=== PATIENT | female | born 1970 | race Caucasian/White ===

== ENCOUNTER → 2020-05-10 10:27 | Outpatient (CLI) | payer MEDICARE, SELFPAY ==
--- NOTE | ~2020-05-10 | XR_ITS ---
EXAMINATION: XR chest 2V 05/10/2020 11:24 INDICATION: Asthma. Dyspnea. PROCEDURE: 2 view chest COMPARISON: No prior studies for comparison. FINDINGS: The lungs are clear. The cardiomediastinal silhouette is within normal limits. There are no pleural effusions. There is no pneumothorax suspected. IMPRESSION: 1: NO ACUTE CARDIOPULMONARY DISEASE. Reviewed, dictated and finalized at location A.
== END ==
PROVIDERS: PCP Internal Medicine; Visit Provider Internal Medicine Pulmonary Disease
DX: R06.09 Other forms of dyspnea (principal)
CPT/HCPCS: 71046

== ENCOUNTER 2020-06-23 15:05 | Outpatient (CLI) | payer MEDICARE, MEDICAID, SELFPAY ==
--- NOTE | ~2020-06-23 | US_ITS ---
EXAMINATION: US pelvic complete w TV DATE: 06/23/2020 16:01 INDICATION: Pelvic mass. TECHNIQUE: Multiple transabdominal and transvaginal sonographic images of the pelvis were obtained. COMPARISON: Pelvis ultrasound 08/01/2014 FINDINGS: TRANSABDOMINAL ULTRASOUND: The uterus is absent. There is no free fluid in the pelvis. TRANSVAGINAL ULTRASOUND: The left ovary is absent. The right ovary is not visualized. There is no abnormal mass. IMPRESSION: 1. No abnormal pelvic mass identified. 2. Right ovary not visualized. Left ovary and uterus absent. Reviewed, dictated and finalized at location A. 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
== END 2020-06-23 15:06 ==
PROVIDERS: PCP Internal Medicine; Visit Provider Obstetrics & Gynecology Gynecology
DX: R19.00 Intra-abdominal and pelvic swelling, mass and lump, unspecified site (principal); Z90.710 Acquired absence of both cervix and uterus
CPT/HCPCS: 76830; 76856

== ENCOUNTER 2020-08-24 07:51 | Outpatient (CLI) | payer MEDICARE, MEDICAID, SELFPAY ==
--- NOTE | ~2020-08-24 | MR_ITS ---
EXAMINATION: MR brain/brain stem wo con DATE: 08/24/2020 08:50 INDICATION: Migraine headache without aura without status migrainosus. TECHNIQUE: Magnetic resonance imaging (MRI) of the brain and brainstem was performed without intraven ous contrast. Sequences included sagittal and axial T1-weighted FSE, axial diffusion-weighted FS EPI, axial T2*-weighted GRE, axial T2-weighted FLAIR Propeller, and axial T2-weighted Propeller. Apparent diffusion coefficient (ADC) maps were created. COMPARISON: None. FINDINGS: There is no intracranial hemorrhage, acute infarction, or abnormal intracranial mass lesion . There are scattered areas of nonspecific increased T2-weighted signal intensity in the cerebral whi te matter, which is within normal limits for the patient's age. The ventricles are normal in size. Th e paranasal sinuses are clear. The orbits are normal. The mastoid air cells are normal. IMPRESSION: 1. Normal aging brain. Reviewed, dictated and finalized at location A. 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 Normal aging brain.
== END 2020-08-24 07:52 ==
PROVIDERS: PCP Internal Medicine; Visit Provider Psychiatry & Neurology Neurology
DX: G43.009 Migraine without aura, not intractable, without status migrainosus (principal)
CPT/HCPCS: 70551

== ENCOUNTER → 2020-08-25 12:28 | Outpatient (CLI) | payer MEDICARE, SELFPAY ==
--- NOTE | ~2020-08-25 | MM_ITS ---
EXAMINATION: MM screening [facility] BI w vic HISTORY: Screening mammogram TECHNIQUE: Craniocaudal and mediolateral oblique 3-D tomosynthesis images were obtained and synthetic 2-D images were generated. CAD analysis was submitted and interpreted. COMPARISON: 12/17/2018, 12/15/2017, 11/28/2016 BREAST PARENCHYMAL COMPOSITION: The breasts are almost entirely fatty. FINDINGS: There is no evidence of suspicious mass, calcification, or architectural distortion to sugg est malignancy in either breast. There has been no suspicious interval change. IMPRESSION: 1. No mammographic evidence of malignancy. 2. Recommend routine screening mammography in one year. BI-RADS Category 1: Negative Reviewed, dictated and finalized at location A. 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
== END ==
PROVIDERS: PCP Internal Medicine; Visit Provider Obstetrics & Gynecology Gynecology
DX: Z12.31 Encounter for screening mammogram for malignant neoplasm of breast (principal)
CPT/HCPCS: 77063; 77067

== ENCOUNTER 2020-10-24 11:22 | Outpatient (CLI) | payer MEDICARE, MEDICAID, SELFPAY ==
--- NOTE | ~2020-10-24 | US_ITS ---
EXAMINATION: US thyroid EXAM DATE: 10/24/2020 11:41 INDICATION: nontoxic single thyroid nodule. TECHNIQUE: Multiple grayscale and Doppler images of the thyroid were obtained (by a technologist who performed the scan) and subsequently reviewed. Individual nodules and recommendations may be reporte d in accordance with TI-RADS system as designated by the 2017 ACR White Paper TI-RADS committee. The re is no prior study for comparison. FINDINGS: The right thyroid lobe measures 4.6 x 1.6 x 1.5 cm, the left measuring 4.6 x 1.4 x 1.6 cm. Mildly dif fusely heterogeneous thyroid echogenicity with several small nodules, largest in the right thyroid lo be at 1.0 x 0.6 x 0.5 cm with single punctate calcification. IMPRESSION: Multiple small thyroid nodules most likely benign but recommend one-year follow-up ultras ound. Reviewed, dictated and finalized at location B. SHER IMPLANT IMPRESSION: Multiple small thyroid nodules most likely benign but recommend one -year follow-up ultrasound.
== END 2020-10-24 11:23 ==
PROVIDERS: Visit Provider Internal Medicine Endocrinology, Diabetes & Metabolism
DX: E04.2 Nontoxic multinodular goiter (principal)
CPT/HCPCS: 76536

== ENCOUNTER → 2021-01-08 13:53 | Outpatient (CLI) | payer MEDICARE, MEDICAID, SELFPAY ==
--- NOTE | ~2021-01-08 | MR_ITS ---
EXAMINATION: MR brain/brain stem wo/w con DATE: 01/08/2021 14:45 INDICATION: Migraine headache without aura and without status migrainosus. TECHNIQUE: Magnetic resonance imaging (MRI) of the brain and brainstem was performed without and with 20 mL MultiHance intravenous contrast. Sequences included sagittal and axial T1-weighted FSE, axial diffusion-weighted FS EPI, axial T2*-weighted GRE, axial T2-weighted FLAIR Propeller, and axial T2-we ighted Propeller. Postcontrast sequences included axial and coronal T1-weighted FSE. Apparent diffusi on coefficient (ADC) maps were created. COMPARISON: Brain MRI 08/24/2020 FINDINGS: There are scattered areas of nonspecific increased T2-weighted signal intensity in the cere bral white matter, which is within normal limits for the patient's age. There is no intracranial hemo rrhage, acute infarction, or abnormal intracranial mass lesion. The ventricles are normal in size. Th e orbits are normal. There are surgical changes of the paranasal sinuses. The mastoid air cells are n ormal. IMPRESSION: 1. Normal aging brain. Reviewed, dictated and finalized at location B. IMPRESSION: 1. Normal aging brain.
[2021-01-08 14:20] LABS: Estimated Glomerular Filt Rate 58
== END ==
PROVIDERS: Visit Provider Psychiatry & Neurology Neurology
DX: G43.009 Migraine without aura, not intractable, without status migrainosus (principal)
CPT/HCPCS: 70553; A9577

== ENCOUNTER 2021-01-29 15:46 | Outpatient (CLI) | payer MEDICARE, MEDICAID, SELFPAY ==
--- NOTE | ~2021-01-29 | XR_ITS ---
XR abdomen/kub 1V DATE: 01/29/2021 15:59 INDICATION: Gross hematuria TECHNIQUE: AP projection, 2 views COMPARISON: 01/29/2021 CT abdomen pelvis FINDINGS: Surgical clips, right upper quadrant, consistent with cholecystectomy. One or more small calcifications overlie the left kidney; a 4.3 mm calcified mid left renal calculus and 2 pinpoint lower pole left renal calculi were noted on the current CT abdomen pelvis noncontrast images. No radiographic calcification is detected over the right kidney. There is a prominent amount of fecal material in the colon but no evidence of bowel obstruction. Status post right total hip arthroplasty. Surgical clips overlie the proximal thighs bilaterally. IMPRESSION: Nephrolithiasis Status post right total hip arthroplasty Reviewed, dictated and finalized at Location A. Reviewed, dictated and finalized at location A.
--- NOTE | ~2021-01-29 | CT_ITS ---
EXAMINATION: CT abdomen pelvis wo/w con DATE: 01/29/2021 16:56 INDICATION: Gross hematuria TECHNIQUE: Computed tomography (CT) of the abdomen and pelvis was performed without and subsequently with 130 cc Omnipaque 350 intravenous contrast. Automated exposure control and iterative reconstructi on technique were employed. Exam dose: 2538.48 mGy-cm total exam DLP. COMPARISON: 01/29/2021 KUB 09/14/2005 CT abdomen pelvis with IV contrast material FINDINGS: Minimal discoid atelectasis or scarring at the lung bases. Normal heart size. No pericardial or pleural effusion. Small sliding hiatal hernia. Status post cholecystectomy. The liver, bile ducts, pancreas, pancreatic duct, spleen and adrenal gla nds are unremarkable. Normal caliber of the abdominal aorta. No intraperitoneal or retroperitoneal or pelvic mass lesion or lymphadenopathy. Indeterminate 9 mm hypoenhancing lesion of the medial aspect of the lower pole of the left kidney. There is one pinpoint nonobstructing upper pole right renal calculus. Approximately 4.3 mm mid nonobstructing left renal calculus. There are 2 pinpoint nonobstructing lower pole left renal calculi. No ureteral calculus or hydroureteronephrosis. The urinary bladder is not very distended even on the postcontrast examination. There is apparent sof t tissue thickening and irregularity along portions of the anterior and posterior urinary bladder wal l. Given history of gross hematuria, cystoscopic direct visualization and if necessary biopsy is sayra mmended. Status post right total hip arthroplasty. No suspicious osteolytic or osteoblastic lesions are noted. IMPRESSION: Soft tissue thickening and irregularity of the urinary bladder wall; cystoscopy is recom mended Indeterminate 9 mm hypoenhancing lesion medial aspect of lower pole left kidney; consider MRI for fur ther evaluation as clinically appropriate Bilateral nonobstructive minimal nephrolithiasis Small sliding hiatal hernia Status post cholecystectomy Reviewed, dictated and finalized at Location A. Reviewed, dictated and finalized at location A. IMPRESSION: Soft tissue thickening and irregularity of the urinary bladder wal l; cystoscopy is recommended Indeterminate 9 mm hypoenhancing lesion medial aspect of lower pole left kidney ; consider MRI for further evaluation as clinically appropriate Bilateral nonobstructive minimal nephrolithiasis Small sliding hiatal hernia Status post cholecystectomy
== END 2021-01-29 15:47 | disposition home or self-care (01) ==
PROVIDERS: Visit Provider Nurse Practitioner Adult Health
DX: R31.0 Gross hematuria (principal); K44.9 Diaphragmatic hernia without obstruction or gangrene; Z90.49 Acquired absence of other specified parts of digestive tract; N20.0 Calculus of kidney; Z96.641 Presence of right artificial hip joint
CPT/HCPCS: 74018; 74178; Q9967

== ENCOUNTER 2021-02-08 09:31 | Outpatient (CLI) | payer MEDICARE, MEDICAID, SELFPAY ==
--- NOTE | ~2021-02-08 | MR_ITS ---
EXAMINATION: MR pelvis wo/w con INDICATION: Left kidney mass TECHNIQUE: Coronal SSFSE ARC, WATER:coronal LAVA-FLEX, Coronal 2D FIESTA FatSat, Axial SSFSE BH ARC, Axial 3D DualEcho BH, Axial SSFSE-IR, Axial DWI b=600, Axial 2D FIESTA FatSat, postcontrast Axial LAV A ARC, postcontrast Coronal In and Opposed phase LAVA FLEX COMPARISON: CT, 01/29/2021 CONTRAST: Multihance, 20 cc FINDINGS: No definite bladder mass is identified. Sensitivity is somewhat limited by the phasing lula fact from the right hip arthroplasty. No pathologically enlarged pelvic lymph nodes are identified. T here our no dilated loops of bowel. No definite abnormal enhancement is seen after contrast administr ation. IMPRESSION: 1. No bladder mass identified Reviewed, dictated and finalized at location A.
--- NOTE | ~2021-02-08 | MR_ITS ---
EXAMINATION: MR abdomen wo/w con INDICATION: Left kidney mass TECHNIQUE: Coronal SSFSE ARC, WATER:coronal LAVA-FLEX, Coronal 2D FIESTA FatSat, Axial SSFSE BH ARC, Axial 3D DualEcho BH, Axial SSFSE-IR, Axial DWI b=500, Axial 2D FIESTA FatSat, pre and dynamic postco ntrast Axial LAVA ARC, postcontrast Coronal In and Opposed phase LAVA FLEX COMPARISON: CT, 01/29/2021 CONTRAST: Multihance, 20 cc FINDINGS: There is a 7 mm mass of the left kidney lower pole corresponding to the mass of concern on the comparison CT. The mass is predominantly T1 hypointense with a tiny focus of T2 hyperintensity, m ildly T2 hyperintense, and nonenhancing after contrast administration. No additional kidney mass is i dentified. The gallbladder is surgically absent. There is mild enlargement of the common bile duct an d central intrahepatic ducts which is likely due to post cholecystectomy state. The liver, spleen, pa ncreas, and adrenal glands are normal. There is no hydronephrosis or hydroureter. No pathologically e nlarged abdominal lymph nodes are identified. There are no dilated loops of bowel. IMPRESSION: 1. 7 mm mass in the left kidney lower pole with MR features consistent with a hemorrhagic or proteina ceous cyst. No suspicious kidney mass identified. Reviewed, dictated and finalized at location A. IMPRESSION: 1. 7 mm mass in the left kidney lower pole with MR features consistent with a h emorrhagic or proteinaceous cyst. No suspicious kidney mass identified.
== END 2021-02-08 09:32 | disposition home or self-care (01) ==
LOC: ANHIMG 09:43
PROVIDERS: PCP Family Medicine; Visit Provider Nurse Practitioner Adult Health
DX: N28.89 Other specified disorders of kidney and ureter (principal)
CPT/HCPCS: 72197; 74183; A9577

== ENCOUNTER → 2021-02-15 14:37 | Outpatient (CLI) | payer MEDICARE, MEDICAID, SELFPAY ==
--- NOTE | ~2021-02-15 | MR_ITS ---
EXAMINATION: MR cervical spine wo/w con EXAM DATE: 02/15/2021 16:12 INDICATION: Cervical radicular pain, cervical fusion syndrome. Neck pain. TECHNIQUE: Multi-sequential, multiplanar MR images of the cervical spine were obtained without contra st. Axial T2, axial T2 MERGE sequence. Sagittal T1, T2, T2 fat saturation images also obtained. Axi al T1 weighted sequence. Patient was then injected with 20 mL Multihance intravenous contrast and re imaged. Postcontrast axial and sagittal T1-weighted fat saturation sequences were obtained. There ar e no prior studies for comparison. FINDINGS: Interbody device at C6-7 with evidence of solid bone bridging and partially fused facet nicole ints. There is moderate disc disease at C5-6 and C7-T1, mild to moderate at C3-4 and 4-5. There is 2- 3 mm retrolisthesis C3 on C4 and C4 on C5. The spinal cord signal intensity and intrinsic morphology is normal. Cervicomedullary junction is normal in appearance. There are no suspicious marrow signal a bnormalities. Paraspinal soft tissue is unremarkable. Patient may have had left parotidectomy. There are no areas of abnormal enhancement on the post contrast images. Level by level evaluation: C2-C3: Disc does not extend beyond the endplate margin. Uncovertebral joint arthropathy: None. Facet joint arthropathy: Moderate bilateral. Neural foraminal stenosis: No stenosis. Central canal stenosis: No stenosis. C3-C4: There is a mild diffuse disc bulge. Uncovertebral joint arthropathy: Mild to moderate bilateral. Facet joint arthropathy: Moderate bilateral. Neural foraminal stenosis: Mild to moderate right, mild left. Central canal stenosis: No stenosis. C4-C5: There is a mild to moderate diffuse disc bulge. Uncovertebral joint arthropathy: Moderate to severe right, mild to moderate left. Facet joint arthropathy: Moderate bilateral. Neural foraminal stenosis: Moderate to severe right, mild to moderate left. Central canal stenosis: Mild. C5-C6: There is a mild diffuse disc bulge. Uncovertebral joint arthropathy: Severe right, moderate left. Facet joint arthropathy: Mild to moderate bilateral. Neural foraminal stenosis: Moderate to severe right, mild to moderate left. Central canal stenosis: No stenosis. C6-C7: This level is fused. Uncovertebral joint arthropathy: Fused. Facet joint arthropathy: Partially fused. Neural foraminal stenosis: No stenosis. Central canal stenosis: No stenosis. C7-T1: There is a mild diffuse disc bulge. Uncovertebral joint arthropathy: Moderate bilateral. Facet joint arthropathy: Mild bilateral. Neural foraminal stenosis: Moderate to severe bilateral, left greater than right. Central canal stenosis: Mild. IMPRESSION: 1. Some advanced mid cervical neural foraminal stenosis as detailed above. 2. C6-7 fusion. 3. No acute findings. Reviewed, dictated and finalized at location A.
[2021-02-15 15:10] LABS: Estimated Glomerular Filt Rate > 60
== END ==
PROVIDERS: PCP Family Medicine; Visit Provider Physician Assistant
DX: M54.12 Radiculopathy, cervical region (principal); Q76.1 Klippel-Feil syndrome; Z98.1 Arthrodesis status
CPT/HCPCS: 72156; A9577

== ENCOUNTER → 2021-07-23 07:41 | Outpatient (CLI) | payer MEDICARE, MEDICAID, SELFPAY ==
--- NOTE | ~2021-07-23 | MR_ITS ---
EXAMINATION: MR pituitary wo/w con DATE: 07/23/2021 09:04 INDICATION: Abnormal pituitary function tests. TECHNIQUE: Magnetic resonance imaging (MRI) of the brain and brainstem was performed without and with 20 mL MultiHance intravenous contrast. Whole-brain sequences included sagittal T1-weighted FSE, axia l diffusion-weighted FS EPI, axial T2*-weighted GRE, axial T2-weighted FLAIR Propeller, and axial T2- weighted Propeller. Small [id number] sequences included sagittal and coronal T1-weighted FSE cente red at the pituitary. Postcontrast sequences included small [id number] coronal T1-weighted FSE in a time course and sagittal T1-weighted FSE and whole-brain axial T1-weighted FSE. Apparent diffusion coefficient (ADC) maps were created. COMPARISON: Brain MRI 01/08/2021 FINDINGS: The pituitary is normal in size with height of 5 mm and concave superior margin. There is n o intracranial hemorrhage, acute infarction, or abnormal intracranial mass lesion. The ventricles are normal in size. The paranasal sinuses are clear. The orbits are normal. The mastoid air cells are no rmal. IMPRESSION: 1. Normal brain. Normal pituitary. Reviewed, dictated and finalized at location A. 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
[2021-07-23 08:32] LABS: Estimated Glomerular Filt Rate > 60
== END ==
PROVIDERS: PCP Family Medicine; Visit Provider Internal Medicine Endocrinology, Diabetes & Metabolism
DX: R94.7 Abnormal results of other endocrine function studies (principal)
CPT/HCPCS: 70553; A9577

== ENCOUNTER → 2021-11-22 11:47 | Outpatient (CLI) | payer MEDICARE, MEDICAID, SELFPAY ==
--- NOTE | ~2021-11-22 | US_ITS ---
EXAMINATION: US thyroid EXAM DATE: 11/22/2021 12:19 INDICATION: Jadiel thyroiditis. TECHNIQUE: Multiple grayscale and Doppler images of the thyroid were obtained (by a technologist who performed the scan) and subsequently reviewed. Individual nodules and recommendations may be reporte d in accordance with TI-RADS system as designated by the 2017 ACR White Paper TI-RADS committee. Comp brandonson is made to prior examination from 10/24/2020. FINDINGS: The right thyroid lobe measures 5.0 x 1.5 x 1.6 cm, the left measuring 5.3 x 1.2 x 1.2 cm. There is h omogeneous thyroid echogenicity. There are several category TR 4 subcentimeter thyroid nodules, large st on each side up to 9 mm, do not appear significantly changed. IMPRESSION: Stable subcentimeter thyroid nodules; optional one-year follow-up ultrasound. Reviewed, dictated and finalized at location A. IMPRESSION: Stable subcentimeter thyroid nodules; optional one-year follow-up u ltrasound.
== END ==
PROVIDERS: PCP Family Medicine; Visit Provider Family Medicine
DX: E04.1 Nontoxic single thyroid nodule (principal); E06.3 Autoimmune thyroiditis
CPT/HCPCS: 76536

== ENCOUNTER → 2022-02-23 10:40 | Outpatient (CLI) | payer MEDICARE, MEDICAID, SELFPAY ==
--- NOTE | ~2022-02-23 | MM_ITS ---
EXAMINATION: MM screening [facility] BI w vic HISTORY: Screening mammogram TECHNIQUE: Craniocaudal and mediolateral oblique 3-D tomosynthesis images were obtained and synthetic 2-D images were generated. CAD analysis was submitted and interpreted. COMPARISON: 08/25/2020, 12/17/2018 BREAST PARENCHYMAL COMPOSITION: The breasts are almost entirely fatty. FINDINGS: There is no suspicious mass, calcification, or architectural distortion to suggest malignan cy in either breast. There has been no suspicious interval change. IMPRESSION: 1. No mammographic evidence of malignancy. 2. Recommend routine screening mammography in one year. BI-RADS Category 1: Negative Reviewed, dictated and finalized at location A.
--- NOTE | ~2022-02-23 | DEXA_ITS ---
Bone Density Report Name: MILEY DE LA ROSA Age: 51 Sex: Female Ethnicity: White Date of : 1970 Indication: postmenopausal; screening for osteoporosis; height loss; asthma or emphysema; hysterectomy; Referring Provider: DOMINIK JOLLY Study: Bone densitometry was performed. Exam Date: February 23, 2022 Accession number: [id number] Bone Density: Region BMD T-score Z-score Classification AP Spine (L1-L4) 1.303 2.3 3.3 Normal Femoral Neck (Left) 0.784 -0.6 0.4 Normal Total Hip (Left) 0.974 0.3 0.9 Normal World Health Organization criteria for BMD impression classify patients as: Normal (T-score at or above -1.0), Osteopenia (T-score between -1.0 and -2.5), or Osteoporosis (T-score at or below -2.5). 10-year Fracture Risk: FRAX not reported because: All T-scores for Spine Total, Hip Total, Femoral Neck at or above -1.0 Previous Exams: Region Exam Age BMD T-score BMD Change BMD Change Date g/cm2 vs Baseline vs Previous AP Spine(L1-L4) 02/23/2022 51 1.303 2.3 0.061 -0.028* 12/15/2017 47 1.331 2.6 0.089 -0.088* 07/07/2015 45 1.419 3.4 0.177 0.015 05/25/2012 42 1.403 3.2 0.162 0.162 04/27/2010 40 1.242 1.8 Total Hip(Left) 02/23/2022 51 0.974 0.3 -0.007 -0.059 12/15/2017 47 1.033 0.7 0.053* 0.003 07/07/2015 45 1.031 0.7 0.050 -0.048* 05/25/2012 42 1.079 1.1 0.099 0.099 04/27/2010 40 0.980 0.3 *Denotes significance at 95% confidence level, LSC for AP Spine = 0.022 g/cm2, LSC for Total Hip = 0.027 g/cm2 Clinical Information Provided by Patient: Has used the following medications: Vitamin D Has the following medical conditions: Asthma or Emphysema, Hysterectomy Patient maximum height was 71 Menopause Age: 35 No regular weight bearing exercise Onset of menses at age 8 Number of children 0 Impression: The patient has normal bone mass. The BMD for the AP Spine(L1-L4) decreased, changing by -0.028 since the last DXA exam. Discussion: BONE DENSITY IS ABOVE THE MINIMUM DESIRABLE LEVEL AT ALL SKELETAL SITES TESTED. This patient?s bone mineral density is above the minimum desirable level (T-score -1.0 or better) at all sites measured. The patient should follow a healthful lifestyle (good nutrition with adequate calcium and vitamin D, and appropriate weight-bearing exercise). Follow-Up: Consider repeating this study in 3 to 4
== END ==
PROVIDERS: PCP Family Medicine; Visit Provider Obstetrics & Gynecology Gynecology
DX: Z12.31 Encounter for screening mammogram for malignant neoplasm of breast (principal); Z78.0 Asymptomatic menopausal state
CPT/HCPCS: 77063; 77067; 77080

== ENCOUNTER → 2022-05-24 11:18 | Outpatient (CLI) | payer MEDICARE, MEDICAID, SELFPAY ==
--- NOTE | ~2022-05-24 | CT_ITS ---
EXAMINATION: CT sinus wo con DATE: 05/24/2022 11:33 INDICATION: Headaches TECHNIQUE: Computed tomography (CT) of the paranasal sinuses was performed without intravenous contra st. The dose-length product was 299.47 mGy-cm. Automated exposure control and iterative reconstructio n technique were employed. COMPARISON: None FINDINGS: There is no significant mucosal thickening or air-fluid levels. Rightward nasal septal lydia ation. Ostiomeatal units are patent. No air-fluid levels. No mucoperiosteal reaction. Mastoids aren't pneumatized. IMPRESSION: 1. No significant sinus disease. Reviewed, dictated and finalized at location A.
--- NOTE | ~2022-05-24 | US_ITS ---
US abdomen limited INDICATION: Right upper quadrant pain PROCEDURE: Realtime right upper abdominal ultrasound. COMPARISON: No prior studies for comparison. FINDINGS: The pancreas is normal without focal mass or pancreatic ductal dilation. Liver echotexture is increased, consistent with fatty infiltration. There is normal directional flow in the portal ve in. Gallbladder is surgically absent. Common bile duct measures 5.5 mm. No sonographic Davis's sign. IMPRESSION: 1: Hepatic steatosis. Reviewed, dictated and finalized at location A. IMPRESSION: 1: Hepatic steatosis.
== END ==
PROVIDERS: PCP Family Medicine; Visit Provider Family Medicine
DX: R10.11 Right upper quadrant pain (principal); G44.89 Other headache syndrome; J34.2 Deviated nasal septum; K76.0 Fatty (change of) liver, not elsewhere classified
CPT/HCPCS: 70486; 76705

== ENCOUNTER 2022-05-30 02:20 | Day surgery (SDC) | payer MEDICARE, MEDICAID, SELFPAY ==
[2022-05-30 07:51] VITALS: BP 126/61; PULSE 62; RESP 12; TEMP 36.6; O2SAT 97; BMI 36.8
--- NOTE | 2022-05-30 08:50 | WPDHPUPDATE1 ---
History and Physical Update Update Date/Time: 05/30/22 08:50 52-year-old patient of Dr. Eliezer Edwards with a history of syncope and hypertriglyceridemia. She is status post a loop recorder implanted outside institution in 2020 for recurrent episodes of syncope. No significant arrhythmias have been recorded and is soft that these episodes are related to vasovagal syncope. Patient requests that the device be explanted she is here for loop recorder explant. She is feeling well today. She has been NPO. History and Physical has been reviewed, including an updated exam of the patient. There are NO changes in the patient's condition. Risks, benefits, and alternatives have been discussed and questions answered. Patient agrees to proceed with procedure.
--- NOTE | 2022-05-30 08:52 | WPDMODSED ---
Moderate Sedation Note-Pt Data Patient Data Diagnosis: Status post loop recorder, requesting explant. 52-year-old female followed by Dr. Redd for a history of syncope and hypertriglyceridemia. She had a loop recorder implanted in 2019 for recurrent syncope and is requesting explantation. No significant arrhythmias have been seen. Her syncope is thought to be vasovagal. She is feeling well today and has been NPO. Present Complaint: Loop recorder, requesting explant Procedure to be performed/Plan: Conscious sedation Loop recorder explant Allergies Allergy/AdvReac Type Severity Reaction Status Date / Time rizatriptan Allergy Mild HIVES Unverified 01/27/09 07:20 tetracycline Allergy Unknown Rash Verified 05/29/22 17:44 adhesive Allergy Rash Verified 05/29/22 17:44 bupropion [From Wellbutrin] Allergy Dizziness Verified 05/29/22 17:44 lamotrigine Allergy Rash Verified 05/29/22 17:44 methylprednisolone Allergy Unknown Verified 05/29/22 17:44 nitrofurantoin Allergy Nausea Verified 05/29/22 17:44 [From Macrobid] tamsulosin Allergy Dizziness Verified 05/29/22 17:44 Home Medications Medication Instructions Recorded Confirmed Type Lactobacillus acidophilus 1 cap PO DAILY 05/30/22 05/30/22 History (Acidophilus capsule) ascorbic acid (vitamin C) 500 mg 500 mg PO BID 05/30/22 05/30/22 History tablet (Vitamin C) aspirin 81 mg chewable tablet 81 mg PO HS 05/30/22 05/30/22 History baclofen 20 mg tablet 20 mg PO TID 05/30/22 05/30/22 History budesonide 160 mcg-glycopyr 9 2 inh inhalation BID 05/30/22 05/30/22 History mcg-formot 4.8 mcg/actuation HFA inhaler (Breztri Aerosphere) cetirizine 5 mg tablet 5 mg PO DAILY 05/30/22 05/30/22 History cholecalciferol (vitamin D3) 125 50,000 unit PO WEEKLY 05/30/22 05/30/22 History mcg (5,000 unit) tablet (Vitamin D3) diazepam 5 mg tablet 5 mg PO PRN 05/30/22 05/30/22 History erenumab-aooe 140 mg/mL 10 mg subcut MONTHLY 05/30/22 05/30/22 History subcutaneous auto-injector (Aimovig Autoinjector) estradiol 10 mcg vaginal tablet 10 mcg vaginal 2XW 05/30/22 05/30/22 History eszopiclone 3 mg tablet 3 mg PO HS 05/30/22 05/30/22 History folic acid 1 mg tablet See Rx Instructions .Route .COMPLEX 05/30/22 05/30/22 History ibuprofen 800 mg tablet 800 mg PO PRN 05/30/22 05/30/22 History icosapent ethyl 1 gram capsule 2 g PO BID 05/30/22 05/30/22 History (Vascepa) ipratropium bromide 21 mcg (0.03 2 spray intranasal BID 05/30/22 05/30/22 History %) nasal spray levothyroxine 100 mcg tablet 100 mcg PO DAILY 05/30/22 05/30/22 History (Synthroid) lithium carbonate 450 mg 450 mg PO HS 05/30/22 05/30/22 History tablet,extended release magnesium 200 mg tablet 400 mg PO HS 05/30/22 05/30/22 History methotrexate sodium 2.5 mg tablet 5 mg PO WEEKLY 05/30/22 05/30/22 History montelukast 10 mg tablet 10 mg PO DAILY 05/30/22 05/30/22 History omeprazole 40 mg capsule,delayed 40 mg PO BID 05/30/22 05/30/22 History release oxybutynin chloride 5 mg 2.5 mg PO BID 05/30/22 05/30/22 History tablet,extended release 24 hr oxycodone 5 mg tablet 5 mg PO BID 05/30/22 05/30/22 History pravastatin 20 mg tablet 20 mg PO HS 05/30/22 05/30/22 History quetiapine 25 mg tablet 25 mg PO PRN 05/30/22 05/30/22 History rimegepant 75 mg disintegrating 75 mg PO PRN 05/30/22 05/30/22 History tablet (Nurtec ODT) ustekinumab 90 mg/mL subcutaneous 90 mg subcut [id number] 05/30/22 05/30/22 History syringe (Stelara) venlafaxine 75 mg capsule,extended 75 mg PO DAILY 05/30/22 05/30/22 History release 24 hr vortioxetine 20 mg tablet 10 mg PO DAILY 05/30/22 05/30/22 History (Trintellix) Sedation/Anesthesia: No previous sedation/anesthesia problems (including family history). [facility] Past Medical History Medical History (Updated 05/30/22 @ 08:58 by Sarah Ling MD) Anxiety Asthma Autoimmune disease Depression Diabetes GERD (gastroesophageal reflux disease) Hypertrigly
--- NOTE | 2022-05-30 09:54 | PM.OP ---
Procedure Note - Brief Procedure Note - Brief Date of procedure: 05/30/22 Pre-op diagnosis: end of life History of loop recorder requesting Post-op diagnosis: Same Procedure performed: conscious sedation explant loop Description of procedure: Uneventful loop recorder explant Surgeon: Sarah Ling MD Estimated blood loss (mL): 2 Complications: No immediate complications Condition: Stable
[2022-05-30 10:00] VITALS: BP 118/58; PULSE 60; RESP 16; TEMP 36.4; O2SAT 98
--- NOTE | 2022-05-30 10:04 | P.OP_ITS ---
Procedure Note - Detailed Date of Procedure 05/30/22 Pre-op Diagnosis history of loop recorder, patient requests explant Post-op Diagnosis Same Procedure Performed conscious sedation Recorder explant Surgeon Sarah Ling MD Indications history of loop recorder implant for syncope. No significant arrhythmias reported. Vasovagal syncope. Patient requests explant. Description of Procedure Conscious sedation: Assessment: The patient has no history of anesthesia problems. The patient's oropharynx is clear. The patient was deemed to be a good candidate for conscious sedation. The patient had continuous hemodynamic monitoring during the procedure. Start time: 921 a.m. Completion time: 948 a.m. Total conscious sedation time: 17 Minutes Medications: Versed 2 mg, fentanyl 50 mcg IVP Trained observer: Monie Rocha RN Outcome: The patient tolerated the procedure well with no complications. 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 The left parasternal area was prepped and draped. patient was given 2 g of Ancef IV push. The position and orientation of the loop recorder was located by fluoroscopy, due to the patient's body habitus. Anesthesia was obtained using 1% lidocaine. A skin incision was made and carried down to the loop recorder with blunt and sharp dissection. The capsule was incised. The device was grasped with forceps and delivered from the pocket. The pocket was irrigated with sterile saline And antibiotic solution. Hemostasis was obtained with local compression. The subcutaneous tissues were closed with 2 0 Vicryl suture. A skin adhesive and sterile dressing were applied. The patient t olerated the procedure well. There were no complications. Blood loss was negligible. Estimated Blood Loss 2 Complications No immediate complications Condition Stable Disposition No change
[2022-05-30 10:15] VITALS: BP 124/59; PULSE 60; RESP 14; O2SAT 93
[2022-05-30 10:30] VITALS: BP 108/67; PULSE 66; RESP 18; O2SAT 94
[2022-05-30 10:45] VITALS: BP 114/67; PULSE 61; RESP 16; O2SAT 93
[2022-05-30 11:00] VITALS: BP 139/62; PULSE 55; RESP 14; TEMP 36.2; O2SAT 93
== END 2022-05-30 11:35 | disposition home or self-care (01) ==
PROVIDERS: Internal Medicine Cardiovascular Disease; PCP Family Medicine; Visit Provider Internal Medicine
PROC: (CPT 33286; principal; 2022-05-30 08:30)
DX: Z45.09 Encounter for adjustment and management of other cardiac device (principal); E11.9 Type 2 diabetes mellitus without complications; J45.909 Unspecified asthma, uncomplicated; E07.9 Disorder of thyroid, unspecified; K21.9 Gastro-esophageal reflux disease without esophagitis; E78.1 Pure hyperglyceridemia; G47.33 Obstructive sleep apnea (adult) (pediatric); E66.9 Obesity, unspecified; Z68.36 Body mass index [BMI] 36.0-36.9, adult; Z79.82 Long term (current) use of aspirin; Z79.51 Long term (current) use of inhaled steroids
CPT/HCPCS: 33286; J0690; J2250; J3010; J7040

== ENCOUNTER → 2022-06-06 10:43 | Outpatient (CLI) | payer MEDICARE, MEDICAID, SELFPAY ==
--- NOTE | ~2022-06-06 | MR_ITS ---
EXAMINATION: MR cervical spine wo/w con DATE: 06/06/2022 11:46 INDICATION: Cervical radiculopathy. Neck pain radiating to the right shoulder. TECHNIQUE: Magnetic resonance imaging (MRI) of the cervical spine was performed without and with 20 m L MultiHance intravenous contrast. COMPARISON: Cervical spine MRI 02/15/2021 FINDINGS: There is 2 mm retrolisthesis of C3 on C4 and C4 on C5. There is mild chronic anterior wedgi ng of C5 vertebral body. There are changes of anterior fusion procedure at C6-C7 with interbody devic e, healed interbody bone graft, and focal kyphosis. There is mildly decreased disc height at C3-C4, m oderately decreased disc height at C4-C5, and severely decreased disc height at C5-C6 and C7-T1. The spinal cord signal intensity is normal. The following disc levels are specifically discussed: C2-C3: The disc does not extend beyond the endplate margin. There is mild left uncovertebral joint os teoarthritis. There is moderate bilateral facet joint osteoarthritis. There is no neural foraminal st enosis. There is no central canal stenosis. C3-C4: The disc is bulging. There is moderate bilateral uncovertebral joint osteoarthritis. There is mild bilateral facet joint osteoarthritis. There is mild bilateral neural foraminal stenosis. There i s mild central canal stenosis. C4-C5: The disc is bulging. There is severe bilateral uncovertebral joint osteoarthritis. There is mo derate bilateral facet joint osteoarthritis. There is severe right and mild left neural foraminal hal nosis. There is moderate central canal stenosis with ventral and dorsal indentation of the cord. C5-C6: The disc is bulging. There is severe bilateral uncovertebral joint osteoarthritis. There is mi ld bilateral facet joint osteoarthritis. There is moderate right and mild left neural foraminal steno sis. There is mild central canal stenosis. C6-C7: There is no uncovertebral joint hypertrophy. There is no facet joint hypertrophy. There is no neural foraminal stenosis. There is no central canal stenosis. C7-T1: The disc is bulging. There is severe bilateral uncovertebral joint osteoarthritis. There is mo derate right and severe left facet joint osteoarthritis. There is moderate bilateral neural foraminal stenosis. There is mild central canal stenosis. IMPRESSION: 1. Severe cervical spondylosis, stable from 02/15/2021. 2. Anterior fusion procedure at C6-C7. Reviewed, dictated and finalized at location A.
--- NOTE | ~2022-06-06 | XR_ITS ---
EXAMINATION: XR shoulder RT min 2V INDICATION: Right shoulder pain TECHNIQUE: Four views of the right shoulder are submitted. COMPARISON: None FINDINGS: Normal alignment. No fracture. There is moderate osteoarthritis of the glenohumeral and acr omioclavicular joints. Soft tissues are unremarkable. Surgical changes are noted in the lower cervica l spine. IMPRESSION: 1. Osteoarthritis without acute osseous abnormality. Reviewed, dictated and finalized at location B.
== END ==
PROVIDERS: PCP Family Medicine; Visit Provider Physician Assistant
DX: Q76.1 Klippel-Feil syndrome (principal); M47.22 Other spondylosis with radiculopathy, cervical region; Z98.1 Arthrodesis status; M19.011 Primary osteoarthritis, right shoulder
CPT/HCPCS: 72156; 73030; A9577

== ENCOUNTER 2022-11-04 10:02 | Inpatient (IN) | payer MEDICARE, MEDICAID, SELFPAY ==
[2022-11-04] VITALS (59 sets, daily range): BP systolic 100–144; BP diastolic 38–93; PULSE 41–69; RESP 8–19; TEMP 36.6; O2SAT 94–100; BMI 34.9
--- NOTE | ~2022-11-04 | MR_ITS ---
MRI of the brain and internal auditory canals Clinical History: Dizziness, left ear tinnitus Technique: Axial and sagittal T1-weighted images were acquired. These were followed by axial T2-weigh christie, diffusion weighted, gradient, and FLAIR images. Coronal T1-weighted and T2-weighted thin cut tung ging, and axial thin cut T1-weighted imaging was performed through the internal auditory canals. Foll owing intravenous administration of 20 cc MultiHance gadolinium, T1-weighted fat-sat imaging was perf ormed through the brain in the axial and coronal planes. Thin cut coronal and axial T1-weighted postc ontrast imaging was also performed through the internal auditory canals. COMPARISON: 07/23/2021 Findings: No significant signal abnormality seen in the brain parenchyma. No acute infarct, intracran ial hemorrhage, or mass lesion. Ventricles and subarachnoid spaces are unremarkable. Orbits are unremarkable. Paranasal sinuses and m astoid air cells are clear. No abnormal mass lesion seen at the internal auditory canals or cerebellopontine angle regions. No ab normal postcontrast enhancement seen in the brain. Sagittal midline structures are intact. IMPRESSION: Unremarkable exam. Reviewed, dictated and finalized at location M. IMPRESSION: Unremarkable exam.
--- NOTE | ~2022-11-04 | CT_ITS ---
EXAMINATION: CT brain wo con DATE: 11/04/2022 16:53 INDICATION: Dizziness for one month. History of vertigo. TECHNIQUE: Computed tomography (CT) of the head was performed without intravenous contrast. The mA wa s adjusted according to patient size. Iterative reconstruction technique was employed. Exam dose: 60 5.33 mGy-cm total exam DLP. COMPARISON: 01/04/2021 MRI brain/brainstem FINDINGS: No intracranial mass lesion or hemorrhage or cerebrovascular accident. No midline shift or mass effect. No subdural or epidural hematoma. The paranasal sinuses and mastoid air cells are normally developed and aerated. No fracture or bone destruction of the cranial vault. IMPRESSION: No significant abnormality Reviewed, dictated and finalized at Location A. Reviewed, dictated and finalized at location B. IMPRESSION: No significant abnormality
--- NOTE | ~2022-11-04 | CT_ITS ---
CT ANGIOGRAM NECK History: Dizziness. Technique: Serial spiral axial images through the neck were obtained during arterial phase IV injecti on of 100 cc of Omnipaque 350. 3-D postprocessing and MIP images were then reconstructed on the [employer] workstation. Dose reduction technique was used on this scan by utilizing automated exposure control and iterative reconstruction technique. The dose-length product (DLP) was 1097.83 mGy-cm. Findings: Bilateral vertebral are patent. Bowel, carotid, internal carotid, and external carotid art eries are patent. No stenosis, large vessel occlusion, or aneurysm. The proximal right internal carot id artery demonstrates 0% stenosis relative to the normal distal artery lumen diameter. The proximal left internal carotid artery demonstrates 0% stenosis relative to the normal distal artery lumen diam eter. Impression: No significant abnormality seen. Reviewed, dictated and finalized at [facility]. Impression: No significant abnormality seen.
--- NOTE | 2022-11-04 10:06 | ECG_ITS ---
Measurements Intervals [place] Rate: 48 P: [place]: 0 QRS: 78 QRSD: 101 T: 45 QT: 451 QTc: 407 Interpretive Statements ATRIAL FIBRILLATION WITH SLOW VENTRICULAR RESPONSE LOW QRS VOLTAGE IN PRECORDIAL LEADS INCOMPLETE RIGHT BUNDLE BRANCH BLOCK MINIMAL Q WAVES- INFERIOR LEADS BORDERLINE ST-T WAVE ABNORMALITY- ANT/INF LEADS BASELINE ARTIFACT- I, II, III, AVR, AVL, AVF, V1-V3 ABNORMAL ECG NO PREVIOUS ECG AVAILABLE FOR COMPARISON Electronically Signed On 11-04-2022 11:13:34 CDT by Scooby De Jesus D.O.
[2022-11-04 11:10] LABS: Basophils Absolute Auto 0.1 K/mm3 (0.0-0.1); Eosinophils Absolute Auto 0.4 K/mm3 (0-0.3); Eosinophils Percent Auto 5.9 % (0-4.4); Hematocrit 49.6 % (37.0-47.0); Hemoglobin 16.1 g/dL (12.0-15.0); Immature Granulocyte Absolute 0.01 K/mm3 (0.00-0.031); Immature Granulocyte Percent A 0.1 % (0-0.5); Lymphocytes Absolute Auto 3.29 K/mm3 (0.9-3.2); Lymphocytes Percent Auto 44.8 % (18.3-44.2); Mean Corpuscular HGB Conc 32.5 g/dl (32-36); Mean Corpuscular Hemoglobin 28.1 pg (26-34); Mean Corpuscular Volume 86.6 fl (80-100); Mean Platelet Volume 9.1 fl (7.4-10.4); Monocytes Absolute Auto 0.6 K/mm3 (0.1-0.6); Neutrophils Percent Auto 40.2 % (45.5-73.1); Platelet Count Result 239 k/mm3 (150-375); Red Blood Count 5.73 M/mm3 (4.2-5.4); Red Cell Distribution Width 14.3 % (11.5-14.5); White Blood Count 7.3 K/mm3 (4.5-10.0)
[2022-11-04 11:22] LABS: Alanine Aminotransferase 41 U/L (6-35); Albumin Level 4.6 g/dL (3.5-5.1); Alkaline Phosphatase 115 U/L (38-126); Anion Gap 3 mmol/L (8-16); Aspartate Amino Transferase 35 U/L (14-36); Bilirubin,Total 0.6 mg/dL (0.2-1.3); Blood Urea Nitrogen 15 mg/dL (7-17); Calcium 9.6 mg/dL (8.4-10.2); Carbon Dioxide 25 mmol/L (22-30); Chloride 110 mmol/L (98-107); Estimated Glomerular Filt Rate > 60; Glucose 125 mg/dL (65-110); Potassium 4.1 mmol/L (3.4-5.0); Sodium 138 mmol/L (137-145)
[2022-11-04] MEDS: SODIUM CHLORIDE 0.9% IV 1,000 ML 999 ML IV CONT (13:04)
[2022-11-04] MEDS: diazePAM INJ (*CRX) 10 MG/2 ML SYRINGE 5 MG IV PUSH (13:18)
--- NOTE | 2022-11-04 13:25 | PC.NURSE ---
at pt's request, RN called and spoke with Shante, pt's sister, and updated of pt's condition. no questions at this time
[2022-11-04 15:43] LABS: Appearance Urine Clear (Clear); Bacteria Urine None Seen /hpf; Bilirubin Urine Negative (Negative); Color Urine Yellow (Yellow); Glucose Urine UA Negative (Negative); Ketones Urine Negative (Negative); Leukocyte Esterase Ur Trace LEU/UL (Negative); Need Manual Microscopic Reviewed; Nitrate Urine Negative (Negative); Non Pathogenic Casts 0-2; Protein Urine Negative (Negative); Specific Grav Ur 1.017 (1.001-1.035); Squamous Epithelial Cell Urine None seen /hpf (Few); pH Urine 7.5 (5.0-9.0)
[2022-11-04 15:45] LABS: Add Urine Microscopic? YES
--- NOTE | 2022-11-04 16:38 | PC.NURSE ---
informed pt that provider wants pt to ambulate with nurse. pt states she does not want to walk now. provider informed
--- NOTE | 2022-11-04 17:34 | ED.GENADULT ---
HPI - General Adult General Chief complaint: Dizziness Stated complaint: dizziness, vertigo tx's for four weeks Time Seen by Provider: 11/04/22 12:39 History of Present Illness HPI narrative: Patient is a 52-year-old female who presents ER with dizziness. Ongoing over the last 3 to 4 weeks. She has been taking meclizine 3 times a day without improvement. No nausea or vomiting. No slurred speech. Denies sinus congestion or sore throat. She does have left ear tinnitus. Related Data Home Medications Medication Instructions Recorded Confirmed Lactobacillus acidophilus 1 cap PO DAILY 05/30/22 05/30/22 (Acidophilus capsule) ascorbic acid (vitamin C) 500 mg 500 mg PO BID 05/30/22 05/30/22 tablet (Vitamin C) aspirin 81 mg chewable tablet 81 mg PO HS 05/30/22 05/30/22 baclofen 20 mg tablet 20 mg PO TID 05/30/22 05/30/22 budesonide 160 mcg-glycopyr 9 2 inh inhalation BID 05/30/22 05/30/22 mcg-formot 4.8 mcg/actuation HFA inhaler (Breztri Aerosphere) cetirizine 5 mg tablet 5 mg PO DAILY 05/30/22 05/30/22 cholecalciferol (vitamin D3) 125 50,000 unit PO WEEKLY 05/30/22 05/30/22 mcg (5,000 unit) tablet (Vitamin D3) diazepam 5 mg tablet 5 mg PO PRN 05/30/22 05/30/22 erenumab-aooe 140 mg/mL 10 mg subcut MONTHLY 05/30/22 05/30/22 subcutaneous auto-injector (Aimovig Autoinjector) estradiol 10 mcg vaginal tablet 10 mcg vaginal 2XW 05/30/22 05/30/22 eszopiclone 3 mg tablet 3 mg PO HS 05/30/22 05/30/22 folic acid 1 mg tablet See Rx Instructions .Route .COMPLEX 05/30/22 05/30/22 ibuprofen 800 mg tablet 800 mg PO PRN 05/30/22 05/30/22 icosapent ethyl 1 gram capsule 2 g PO BID 05/30/22 05/30/22 (Vascepa) ipratropium bromide 21 mcg (0.03 2 spray intranasal BID 05/30/22 05/30/22 %) nasal spray levothyroxine 100 mcg tablet 100 mcg PO DAILY 05/30/22 05/30/22 (Synthroid) lithium carbonate 450 mg 450 mg PO HS 05/30/22 05/30/22 tablet,extended release magnesium 200 mg tablet 400 mg PO HS 05/30/22 05/30/22 methotrexate sodium 2.5 mg tablet 5 mg PO WEEKLY 05/30/22 05/30/22 montelukast 10 mg tablet 10 mg PO DAILY 05/30/22 05/30/22 omeprazole 40 mg capsule,delayed 40 mg PO BID 05/30/22 05/30/22 release oxybutynin chloride 5 mg 2.5 mg PO BID 05/30/22 05/30/22 tablet,extended release 24 hr oxycodone 5 mg tablet 5 mg PO BID 05/30/22 05/30/22 pravastatin 20 mg tablet 20 mg PO HS 05/30/22 05/30/22 quetiapine 25 mg tablet 25 mg PO PRN 05/30/22 05/30/22 rimegepant 75 mg disintegrating 75 mg PO PRN 05/30/22 05/30/22 tablet (Nurtec ODT) ustekinumab 90 mg/mL subcutaneous 90 mg subcut [id number] 05/30/22 05/30/22 syringe (Stelara) venlafaxine 75 mg capsule,extended 75 mg PO DAILY 05/30/22 05/30/22 release 24 hr vortioxetine 20 mg tablet 10 mg PO DAILY 05/30/22 05/30/22 (Trintellix) Allergies Allergy/AdvReac Type Severity Reaction Status Date / Time rizatriptan Allergy Mild HIVES Unverified 01/27/09 07:20 tetracycline Allergy Unknown Rash Verified 05/29/22 17:44 adhesive Allergy Rash Verified 05/29/22 17:44 bupropion [From Wellbutrin] Allergy Dizziness Verified 05/29/22 17:44 lamotrigine Allergy Rash Verified 05/29/22 17:44 methylprednisolone Allergy Unknown Verified 05/29/22 17:44 nitrofurantoin Allergy Nausea Verified 05/29/22 17:44 [From Macrobid] tamsulosin Allergy Dizziness Verified 05/29/22 17:44 Review of Systems Review of Systems: All systems reviewed & are unremarkable except as noted in HPI and below Constitutional: Constitutional: Denies chills, Denies fatigue and Denies fever(s) ENT: Reports dizziness, Denies nasal congestion and Denies sore throat Comments: left tinnitus PMFSH Past Medical History Medical History (Updated 11/04/22 @ 19:26 by Tk Day MD) Anxiety Asthma Autoimmune disease Depression Diabetes GERD (gastroesophageal reflux disease) Hypertriglyceridemia Kidney stone Migraines Obesity Sleep apnea Thyroid disease Vasovagal syncope Surgical Histo
[2022-11-04] MEDS: oxyCODONE HCL (*CRX) 5 MG TAB IR PO (19:28)
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
[2022-11-04] MEDS: ALBUTEROL SULFATE NEB 2.5 MG/3 ML INH INHALATION (20:44)
--- NOTE | 2022-11-04 21:51 | ADMGEN ---
This patient, Sumaya Oliveira, was admitted to 2 Medical Room 241-01. Patient/family oriented to hospital policies and general routines including ID bracelet, bed and alarms, visiting hours, pain management, procedures, bathroom and other care routines, personal items, smoking policy, room service/diet, and visiting hours. Information on how to activate the Rapid Response Team has been discussed. Patient/Family are encouraged to report perceived risks to care and to ask questions if they do not understand what they are told or what they should do.
[2022-11-04] MEDS: MECLIZINE HCL 12.5 MG TABLET PO (23:24)
[2022-11-05] VITALS (13 sets, daily range): BP systolic 126–138; BP diastolic 51–96; PULSE 46–86; RESP 18; TEMP 36.2–37.2; O2SAT 94–97
--- NOTE | 2022-11-05 | ECHO_ITS ---
Patient Info Name: Sumaya Oliveira Age: 52 years : 1970 Gender: Female Ht: 71 in Wt: 250 lbs BSA: 2.42 m2 HR: 46 bpm BP: 101 / 57 mmHg Heart Rhythm: Sinus Rhythm Technical Quality: Fair Exam Date: 11/05/2022 11:28 AM Exam Location: [facility] Patient Status: Outpatient Admit Date: 11/04/2022 Staff Ordering Physician: Pia Fernandes NP Consultant Rn: Chela Hernandez RDCS Attending Provider: Gayle Arthur MD Referring Physician: Dena ZAPATA; Exam Type: CA echo dop color flow w con Study Info Indications - dizziness Complete two-dimensional, color flow and Doppler transthoracic echocardiogram is performed with contrast to opacify the left ventricle and to improve the deliniation of the left ventricle endocardial borders. Contrast/Agitated Saline Contrast/Ag. Saline: Definity Amount: 3.00 ml Administered By: Chela Hernandez RDCS Existing IV Access: Yes IV Access Condition: patent with no signs of infiltration Summary 1. Left ventricular chamber dimension is normal. 2. Left ventricular systolic function is normal, estimated at 65-70%. 3. There is mildly increased left ventricular wall thickness. 4. The left ventricular diastolic function is grade I diastolic dysfunction. 5. Right ventricular chamber appears enlarged. 6. Right ventricular systolic function is normal. 7. Right atrial chamber dimension is moderately enlarged. 8. There is mild tricuspid valve regurgitation. 9. There is mild pulmonic regurgitation. 10. There is trivial pericardial effusion. Left Ventricle Left ventricular chamber dimension is normal. Left ventricular systolic function is normal, estimated at 65-70%. There is mildly increased left ventricular wall thickness. The left ventricular diastolic function is grade I diastolic dysfunction. Right Ventricle Right ventricular chamber appears enlarged. Right ventricular systolic function is normal. Left Atria Left atrial chamber dimension is normal. Right Atria Right atrial chamber dimension is moderately enlarged. Atrial Septum Intact interatrial septum visualized by color flow imaging. Aortic Valve The aortic valve is trileaflet. There is no aortic valve stenosis. There is no aortic valve regurgitation. Pulmonic Valve The pulmonic valve is not well visualized. There is mild pulmonic regurgitation. Mitral Valve The mitral valve has normal leaflets. There is no mitral valve stenosis. There is trace mitral valve regurgitation. The mitral valve annulus is mildly calcified. Tricuspid Valve There is no significant tricuspid valve stenosis. There is mild tricuspid valve regurgitation. Pericardium/Pleural There is trivial pericardial effusion. Aorta The aortic root size at the sinus of Valsalva is normal. Left Ventricular Outflow Tract Name Value Normal LVOT 2D LVOT Diameter 2.02 cm Pulmonic Valve Name Value Normal RVOT Doppler
[2022-11-05] MEDS: LITHIUM CARBONATE 150 MG CAPSULE PO ×4 (01:24→17:09)
[2022-11-05] MEDS: OXcarbazepine 150 MG TABLET 300 MG PO ×2 (01:24→21:45)
[2022-11-05] MEDS: ZOLPIDEM TARTRATE (*CRX) 5 MG TABLET PO ×2 (01:24→23:02)
[2022-11-05] MEDS: PRAVASTATIN SODIUM 20 MG TABLET PO ×2 (01:24→21:44)
[2022-11-05 05:49] LABS: Basophils Absolute Auto 0.1 K/mm3 (0.0-0.1); Basophils Percent Auto 0.9 % (0.2-1.2); Eosinophils Absolute Auto 0.3 K/mm3 (0-0.3); Eosinophils Percent Auto 4.5 % (0-4.4); Hematocrit 44.1 % (37.0-47.0); Immature Granulocyte Absolute 0.02 K/mm3 (0.00-0.031); Immature Granulocyte Percent A 0.3 % (0-0.5); Lymphocytes Absolute Auto 3.12 K/mm3 (0.9-3.2); Mean Corpuscular HGB Conc 31.7 g/dl (32-36); Mean Corpuscular Hemoglobin 27.8 pg (26-34); Mean Corpuscular Volume 87.7 fl (80-100); Mean Platelet Volume 9.6 fl (7.4-10.4); Monocytes Absolute Auto 0.6 K/mm3 (0.1-0.6); Monocytes Percent Auto 8.4 % (2.6-8.5); Neutrophils Absolute Auto 2.9 K/mm3 (1.3-6.7); Neutrophils Percent Auto 40.9 % (45.5-73.1); Platelet Count Result 202 k/mm3 (150-375); Red Blood Count 5.03 M/mm3 (4.2-5.4); Red Cell Distribution Width 14.3 % (11.5-14.5); White Blood Count 6.9 K/mm3 (4.5-10.0)
[2022-11-05 06:01] LABS: Alanine Aminotransferase 33 U/L (6-35); Albumin Level 3.9 g/dL (3.5-5.1); Alkaline Phosphatase 95 U/L (38-126); Anion Gap 4 mmol/L (8-16); Aspartate Amino Transferase 28 U/L (14-36); Bilirubin,Total 0.5 mg/dL (0.2-1.3); Blood Urea Nitrogen 15 mg/dL (7-17); Carbon Dioxide 29 mmol/L (22-30); Chloride 109 mmol/L (98-107); Estimated CRCL calculation 110 ml/min; Estimated Glomerular Filt Rate > 60; Glucose 99 mg/dL (65-110); Magnesium 1.9 mg/dL (1.6-2.3); Potassium 3.8 mmol/L (3.4-5.0); Sodium 142 mmol/L (137-145)
[2022-11-05] MEDS: LEVOTHYROXINE SODIUM 100 MCG TABLET PO (06:05)
[2022-11-05] MEDS: FLUTICASONE/UMECLIDIN/VILANTER 100-62.5-25 MCG ELLIPTA 1 PUFF INHALATION (07:40)
[2022-11-05 07:57] LABS: Lithium 0.5 mmol/L (0.6-1.2)
--- NOTE | 2022-11-05 09:54 | PCPTNOTE ---
Attempted PT evaluation, pt refused stating she was too dizzy and trembly to get up right now. RN aware. Will follow.
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
[2022-11-05] MEDS: FLUoxetine HCL 10 MG CAPSULE 30 MG PO (10:13)
[2022-11-05] MEDS: oxyBUTYnin CHLORIDE XL 5 MG TAB.ER.24 PO (10:14)
[2022-11-05] MEDS: ACIDOPHILUS/BULGARICUS CHEWABLE TABLET 1 TABLET PO (10:14)
[2022-11-05] MEDS: PANTOPRAZOLE 40 MG TABLET PO ×2 (10:14→17:09)
[2022-11-05] MEDS: BACLOFEN 10 MG TABLET 20 MG PO ×3 (10:14→17:09)
[2022-11-05] MEDS: ASCORBIC ACID 500 MG TABLET PO ×2 (10:14→17:09)
[2022-11-05] MEDS: MECLIZINE HCL 12.5 MG TABLET PO ×4 (10:14→21:44)
[2022-11-05] MEDS: OXcarbazepine 150 MG TABLET PO (10:15)
[2022-11-05] MEDS: LORATADINE 5 MG TABLET PO (10:15)
[2022-11-05] MEDS: MONTELUKAST SODIUM 10 MG TABLET PO (10:15)
[2022-11-05] MEDS: FOLIC ACID 1 MG TABLET BY MOUTH (10:15)
[2022-11-05] MEDS: IPRATROPIUM NASAL SPRAY 0.03% 15 ML BOTTLE 2 SPRAY NASAL (10:15)
[2022-11-05] MEDS: OMEGA 3 POLYUNSAT FATTY ACIDS 1 GM CAP 2 GM PO ×2 (10:15→17:09)
[2022-11-05] MEDS: CHOLECALCIFEROL 1,000 UNITS TABLET 5000 UNITS PO (10:15)
[2022-11-05] MEDS: oxyCODONE HCL (*CRX) 5 MG TAB IR PO ×2 (10:19→22:00)
--- NOTE | 2022-11-05 11:01 | PCOTNOTE ---
Attempted to see pt. for occupational therapy evaluation. Pt. declined to participate at this time due to dizziness , stating she has just taken her medication and wanted to rest. Nursing aware. Following.
[2022-11-05] MEDS: PERFLUTREN LIPID MICROSPHERES 1.5 ML VIAL DILUTED TO 10 ML TOTAL VOLUME IV PUSH (12:19)
--- NOTE | 2022-11-05 12:20 | IVDEFINITY ---
Prior to administration of IV Definity the patient was educated on the risks and benefits of the imaging enhancing agent including potential adverse side effects. The patient verbalized understanding. Allergies were verified. No exclusion criteria were identified and at least one of the following inclusion criteria were met: 1) physician request, 2) patient technically difficult to image (per the [place] [employer] guidelines of two or more segments not discernable within the apical view), or 3) questionable left ventricular function. ?
--- NOTE | 2022-11-05 12:43 | PM.IMPN ---
Progress Note: A&P Assessment and Plan (1) Vertigo: Code(s): R42 - Dizziness and giddiness Status: Acute Assessment and Plan: approximately 4 weeks ago patient had Botox done for her migraines and shortly after that she developed dizziness and tinnitus in the left ear. She is not sure if the Botox is the cause of her dizziness are not. Patient describes the dizziness as the room is spinning but also swearing at the same time. PT OT evaluation ENT evaluation. MRI Unremarkable CTA neck was 0% stenosis in internal carotid arteries Echo pending Neurology consult was greatly be appreciated. Neurology recommended EEG. Continue with meclizine (2) CHF (congestive heart failure), NYHA class I: Code(s): I50.9 - Heart failure, unspecified Status: Acute Assessment and Plan: Echo has been ordered No previous echo for comparison (3) Thyroid disease: Code(s): E07.9 - Disorder of thyroid, unspecified Status: Acute Assessment and Plan: Check thyroid studies and continue levothyroxine (4) Sleep apnea: Code(s): G47.30 - Sleep apnea, unspecified Status: Acute Assessment and Plan: Titrate to home CPAP-BiPAP settings. (5) Autoimmune disease: Code(s): M35.9 - Systemic involvement of connective tissue, unspecified Status: Acute Assessment and Plan: Continue with current medications. Continue with methotrexate (6) Asthma: Code(s): J45.909 - Unspecified asthma, uncomplicated Status: Acute Assessment and Plan: Continue with Singulair Continue with home inhaler Subjective Date/time seen: 11/05/22 12:43 Interval history: Patient is resting in bed when I arrived in the room. Patient states that she has headache and is currently still dizzy. Patient states that her symptoms started about 4 weeks ago which included dizziness and left ear tinnitus. Around that time patient had a Botox injections done for migraines. Patient describes her dizziness as the room is spinning and swaying back and forth. Patient has taken meclizine without success. Patient states that changing positions does not affect her dizziness. She originally had some nausea associated with her symptoms but that has since resolved. Review of Systems Review of Systems: All systems reviewed & are unremarkable except as noted in HPI and below Exam Narrative: GENERAL: Comfortable, no acute distress HENMT: moist mucous membranes EYES: EOM intact b/l NECK: no lymphadenopathy RESPIRATORY: clear to auscultation CARDIO: RRR GI: soft, nontender, bowel sounds present SKIN: no rashes EXTREMITIES: no edema, redness or tenderness Objective Data Vital Signs Vital Signs: Vital Signs - 24 hr 11/04/22 12:44 11/04/22 12:44 11/04/22 14:25 Temperature Pulse Rate 46 L 47 L 46 L Respiratory Rate 14 16 Blood Pressure 141/93 H 143/59 H Pulse Oximetry 99 99 Oxygen Delivery Room Air 11/04/22 15:10 11/04/22 16:40 11/04/22 20:45 Temperature Pulse Rate 51 L 49 L 69 Respiratory Rate 12 15 18 Blood Pressure 138/65 109/44 L Pulse Oximetry 100 97 Oxygen Delivery 11/04/22 20:55 11/04/22 21:49 11/04/22 13:31 Temperature Pulse Rate 65 47 L 45 L Respiratory Rate 18 12 11 L Blood Pressure 109/52 L Pulse Oximetry 97 Oxygen Delivery 11/04/22 13:32 11/04/22 13:45 11/04/22 13:47 Temperature Pulse Rate 51 L 47 L 52 L Respiratory Rate 15 14 12 Blood Pressure 117/59 L 125/69 Pulse Oximetry 97 96 97 Oxygen Delivery 11/04/22 14:00 11/04/22 14:02 11/04/22 14:21 Temperature Pulse Rate 48 L 47 L 44 L Respiratory Rate 16 17 13 Blood Pressure 125/73 Pulse Oximetry 96 96 99 Oxygen Delivery 11/04/22 14:30 11/04/22 14:32 11/04/22 14:45 Temperature Pulse Rate 54 L 55 L 44 L Respiratory Rate 15 14 15 Blood Pressure 129/61 Pulse Oximetry 98
[2022-11-05] MEDS: SUMAtriptan SUCCINATE 25 MG TABLET 100 MG PO (14:22)
--- NOTE | 2022-11-05 14:24 | PC.NURSE ---
Pt unable to tolerate standing for orthostatic bps
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
[2022-11-05] MEDS: IBUPROFEN 400 MG TABLET 800 MG PO (20:30)
[2022-11-05] MEDS: MUPIROCIN 2% OINT 22 GM TUBE 1 APPLIC EACH NARE (21:43)
[2022-11-05] MEDS: MELATONIN 5 MG TABLET PO (21:44)
[2022-11-05] MEDS: MAGNESIUM OXIDE 400 MG TABLET PO (21:46)
[2022-11-05] MEDS: ASPIRIN 81 MG CHEWABLE TABLET PO (21:47)
[2022-11-05] MEDS: DOCUSATE SODIUM 100 MG CAPSULE PO (21:47)
[2022-11-05] MEDS: MECLIZINE HCL 25 MG TABLET PO (22:00)
[2022-11-06] VITALS (15 sets, daily range): BP systolic 102–145; BP diastolic 61–88; PULSE 49–80; RESP 16–21; TEMP 36.6–37.1; O2SAT 93–100
[2022-11-06 05:53] LABS: Basophils Absolute Auto 0.1 K/mm3 (0.0-0.1); Eosinophils Absolute Auto 0.4 K/mm3 (0-0.3); Hematocrit 43.9 % (37.0-47.0); Hemoglobin 14.3 g/dL (12.0-15.0); Immature Granulocyte Absolute 0.03 K/mm3 (0.00-0.031); Immature Granulocyte Percent A 0.4 % (0-0.5); Lymphocytes Absolute Auto 2.97 K/mm3 (0.9-3.2); Lymphocytes Percent Auto 42.2 % (18.3-44.2); Mean Corpuscular HGB Conc 32.6 g/dl (32-36); Mean Corpuscular Hemoglobin 27.7 pg (26-34); Mean Corpuscular Volume 85.1 fl (80-100); Mean Platelet Volume 9.4 fl (7.4-10.4); Monocytes Absolute Auto 0.6 K/mm3 (0.1-0.6); Monocytes Percent Auto 9.1 % (2.6-8.5); Neutrophils Percent Auto 42.3 % (45.5-73.1); Platelet Count Result 210 k/mm3 (150-375); Red Blood Count 5.16 M/mm3 (4.2-5.4); Red Cell Distribution Width 14.3 % (11.5-14.5)
[2022-11-06 06:08] LABS: Alanine Aminotransferase 33 U/L (6-35); Albumin Level 4.1 g/dL (3.5-5.1); Alkaline Phosphatase 106 U/L (38-126); Anion Gap 5 mmol/L (8-16); Aspartate Amino Transferase 28 U/L (14-36); Bilirubin,Total 0.6 mg/dL (0.2-1.3); Blood Urea Nitrogen 16 mg/dL (7-17); Calcium 9.3 mg/dL (8.4-10.2); Carbon Dioxide 31 mmol/L (22-30); Chloride 106 mmol/L (98-107); Estimated CRCL calculation 87 ml/min; Estimated Glomerular Filt Rate > 60; Glucose 114 mg/dL (65-110); Potassium 3.7 mmol/L (3.4-5.0); Sodium 142 mmol/L (137-145)
[2022-11-06] MEDS: LEVOTHYROXINE SODIUM 100 MCG TABLET PO (06:31)
[2022-11-06] MEDS: WATER FOR IRRIGATION, STERILE 1,000 ML BOTTLE 1000 ML (06:32)
[2022-11-06] MEDS: FLUTICASONE/UMECLIDIN/VILANTER 100-62.5-25 MCG ELLIPTA 1 PUFF INHALATION (08:05)
[2022-11-06] MEDS: MONTELUKAST SODIUM 10 MG TABLET PO (09:32)
[2022-11-06] MEDS: MECLIZINE HCL 12.5 MG TABLET PO ×4 (09:33→21:37)
[2022-11-06] MEDS: LITHIUM CARBONATE 150 MG CAPSULE PO ×3 (09:33→16:45)
[2022-11-06] MEDS: ASCORBIC ACID 500 MG TABLET PO ×2 (09:33→16:44)
[2022-11-06] MEDS: BACLOFEN 10 MG TABLET 20 MG PO ×3 (09:33→16:44)
[2022-11-06] MEDS: ACIDOPHILUS/BULGARICUS CHEWABLE TABLET 1 TABLET PO (09:33)
[2022-11-06] MEDS: FOLIC ACID 1 MG TABLET BY MOUTH (09:35)
[2022-11-06] MEDS: PANTOPRAZOLE 40 MG TABLET PO ×2 (09:35→16:45)
[2022-11-06] MEDS: FLUoxetine HCL 10 MG CAPSULE 30 MG PO (09:35)
[2022-11-06] MEDS: CHOLECALCIFEROL 1,000 UNITS TABLET 5000 UNITS PO (09:35)
[2022-11-06] MEDS: oxyBUTYnin CHLORIDE XL 5 MG TAB.ER.24 PO (09:35)
[2022-11-06] MEDS: OMEGA 3 POLYUNSAT FATTY ACIDS 1 GM CAP 2 GM PO ×2 (09:35→16:44)
[2022-11-06] MEDS: LORATADINE 5 MG TABLET PO (09:35)
[2022-11-06] MEDS: OXcarbazepine 150 MG TABLET PO (09:35)
[2022-11-06] MEDS: IPRATROPIUM NASAL SPRAY 0.03% 15 ML BOTTLE 2 SPRAY NASAL ×2 (09:36→16:45)
[2022-11-06] MEDS: MUPIROCIN 2% OINT 22 GM TUBE 1 APPLIC EACH NARE ×2 (09:36→21:38)
[2022-11-06] MEDS: MECLIZINE HCL 25 MG TABLET PO ×2 (10:11→21:57)
[2022-11-06] MEDS: oxyCODONE HCL (*CRX) 5 MG TAB IR PO ×2 (10:11→21:41)
[2022-11-06] MEDS: IBUPROFEN 400 MG TABLET 800 MG PO (11:17)
--- NOTE | 2022-11-06 13:12 | ECG_ITS ---
Measurements Intervals Aspen Rate: 54 P: -1 MS: 178 QRS: 62 QRSD: 122 T: 129 QT: 431 QTc: 410 Interpretive Statements SINUS BRADYCARDIA WITH SINUS ARRHYTHMIA RIGHT BUNDLE BRANCH BLOCK BORDERLINE ST-T WAVE ABNORMALITY- ANTEROLAT/HIGH LAT LEADS ABNORMAL ECG COMPARED TO ECG 11/04/2022 10:51:13 SINUS BRADYCARDIA NOW PRESENT SINUS ARRHYTHMIA NOW PRESENT RIGHT BUNDLE-BRANCH BLOCK NOW PRESENT Electronically Signed On 11-06-2022 14:40:36 CDT by Scooby De Jesus D.O.
--- NOTE | 2022-11-06 13:20 | PC.NURSE ---
On 11/06/22, the student, [Mireya Quesada], provided care and completed [facility] documentation on this patient. I have reviewed the student's documentation and agree with the findings.
--- NOTE | 2022-11-06 14:07 | PM.IMPN ---
Progress Note: A&P Assessment and Plan (1) Vertigo: Code(s): R42 - Dizziness and giddiness Status: Acute Assessment and Plan: patient presented to the ED for evaluation of persistent dizziness that worsens with movement and associated tinnitus to her left ear. She has h/o migraines and approximately 4 weeks ago had her second round of Botox injections. Patient describes the dizziness as the room is spinning but also swearing at the same time. ENT consulted for evaluation and concerns for labrinyth adenitis. High dose steroids recommended however patient reports prior adverse reaction of going crazy. Outpatient ENT follow up recommended for injection. MRI without acute abnormality. CTA neck was 0% stenosis in internal carotid arteries Echo with grade 1 diastolic disfunction LV, normal LV systolic function, mild LVH, EF 65%, moderately enlarged RA. mild TR and GA. Normal RV systolic function. Neurology consulted. EEG completed and results pending. Continue with meclizine QID (2) Acute viral labyrinthitis of left ear: Code(s): H83.02 - Labyrinthitis, left ear Status: Acute Assessment and Plan: As above. Follow up with ENT. (3) Nasal folliculitis: Code(s): L73.9 - Follicular disorder, unspecified Status: Acute Assessment and Plan: ENT recommending saline nasal spray and mupirocen ointment BID (4) Arrhythmia: Code(s): I49.9 - Cardiac arrhythmia, unspecified Status: Acute Assessment and Plan: EKG on admission suggests afib slow ventricular response. Telemetry shows questionable afib versus SB/SR with junctional beats. Discussed with on-call replenisher. Continue to monitor telemetry. Outpatient 30-day event monitor to be placed at discharge. TSH within normal limits. With persistent dizziness, risk for major bleeding if falling. Can reevaluate anticoagulation outpatient if afib confirmed. (5) CHF (congestive heart failure), NYHA class I: Code(s): I50.9 - Heart failure, unspecified Status: Chronic Assessment and Plan: chronic diastolic chf. Not in acute exacerbation. Echo with grade 1 diastolic dysfunction, normal LV systolic function. Monitor I/O (6) Thyroid disease: Code(s): E07.9 - Disorder of thyroid, unspecified Status: Chronic Assessment and Plan: Chronic, continue levothyroxine. TSH within normal limits. (7) Sleep apnea: Qualifiers: Sleep apnea type: unspecified type Qualified Code(s): G47.30 - Sleep apnea, unspecified Code(s): G47.30 - Sleep apnea, unspecified Status: Chronic Assessment and Plan: Titrate to home CPAP-BiPAP settings. (8) Autoimmune disease: Code(s): M35.9 - Systemic involvement of connective tissue, unspecified Status: Chronic Assessment and Plan: chronic, continue with methotrexate (9) Asthma: Qualifiers: Asthma severity: unspecified severity Asthma persistence: unspecified Asthma complication type: unspecified Qualified Code(s): J45.909 - Unspecified asthma, uncomplicated Code(s): J45.909 - Unspecified asthma, uncomplicated Status: Chronic Assessment and Plan: Continue with Singulair Continue with home inhaler Plan CODE STATUS: FULL CODE Disposition: from home. May need SNF placement. Care coordination following. Diet: Heart healthy Time Spent With Patient Time with patient: 25 - 35 minutes Subjective Date/time seen: 11/06/22 14:07 Interval history: This is a 52-year-old female patient who presented to the emergency room with complaints of dizziness. She reports dizziness persists. It was somewhat improved this morning, however, worsened after having an EEG and multiple position changes. She thinks the meclizine helps somewhat, but the dizziness never goes away. No nausea or emesis. She has tinnitus to her left ear that is unchanged. Additionally, she c/o bi
[2022-11-06] MEDS: HYDROcodone/acetaminophen (*CRX) 5-325 MG TABLET 1 TAB PO (14:31)
[2022-11-06] MEDS: ASPIRIN 81 MG CHEWABLE TABLET PO (21:34)
[2022-11-06] MEDS: DOCUSATE SODIUM 100 MG CAPSULE PO (21:37)
[2022-11-06] MEDS: MELATONIN 5 MG TABLET PO (21:37)
[2022-11-06] MEDS: PRAVASTATIN SODIUM 20 MG TABLET PO (21:37)
[2022-11-06] MEDS: MAGNESIUM OXIDE 400 MG TABLET PO (21:37)
[2022-11-06] MEDS: ZOLPIDEM TARTRATE (*CRX) 5 MG TABLET PO (21:37)
[2022-11-06] MEDS: OXcarbazepine 150 MG TABLET 300 MG PO (21:38)
[2022-11-07] VITALS (16 sets, daily range): BP systolic 91–147; BP diastolic 35–77; PULSE 47–118; RESP 17–18; TEMP 36.5–36.6; O2SAT 93–99
[2022-11-07] MEDS: LEVOTHYROXINE SODIUM 100 MCG TABLET PO (05:35)
[2022-11-07] MEDS: ACIDOPHILUS/BULGARICUS CHEWABLE TABLET 1 TABLET PO (08:02)
[2022-11-07] MEDS: BACLOFEN 10 MG TABLET 20 MG PO ×3 (08:02→17:12)
[2022-11-07] MEDS: ASCORBIC ACID 500 MG TABLET PO ×2 (08:02→17:12)
[2022-11-07] MEDS: CHOLECALCIFEROL 1,000 UNITS TABLET 5000 UNITS PO (08:03)
[2022-11-07] MEDS: FLUoxetine HCL 10 MG CAPSULE 30 MG PO (08:04)
[2022-11-07] MEDS: FOLIC ACID 1 MG TABLET BY MOUTH (08:04)
[2022-11-07] MEDS: LORATADINE 5 MG TABLET PO (08:05)
[2022-11-07] MEDS: LITHIUM CARBONATE 150 MG CAPSULE PO ×3 (08:05→17:09)
[2022-11-07] MEDS: MECLIZINE HCL 12.5 MG TABLET PO (08:06)
[2022-11-07] MEDS: MONTELUKAST SODIUM 10 MG TABLET PO (08:06)
[2022-11-07] MEDS: OMEGA 3 POLYUNSAT FATTY ACIDS 1 GM CAP 2 GM PO ×2 (08:07→17:12)
[2022-11-07] MEDS: OXcarbazepine 150 MG TABLET PO (08:08)
[2022-11-07] MEDS: PANTOPRAZOLE 40 MG TABLET PO ×2 (08:09→17:11)
[2022-11-07] MEDS: oxyBUTYnin CHLORIDE XL 5 MG TAB.ER.24 PO (08:09)
[2022-11-07] MEDS: IPRATROPIUM NASAL SPRAY 0.03% 15 ML BOTTLE 2 SPRAY NASAL ×2 (08:10→17:13)
[2022-11-07] MEDS: MUPIROCIN 2% OINT 22 GM TUBE 1 APPLIC EACH NARE ×2 (08:10→22:30)
[2022-11-07] MEDS: FLUTICASONE/UMECLIDIN/VILANTER 100-62.5-25 MCG ELLIPTA 1 PUFF INHALATION (08:21)
--- NOTE | 2022-11-07 09:51 | WPDNEUROLOGY ---
Neurology EEG Report General Information Date of Study: 11/06/22 TEST eeg DIAGNOSIS Dizziness CONDITION OF RECORDING awake drowsy and sleep EEG NUMBER [id number] CLINICAL HISTORY patient came in to hospital with dizziness, headache and weakness. EEG DESCRIPTION Basic resting occipital frequency consists of low to ED in voltage 9 to 11 hertz per 2nd alpha admixed with low-voltage 15 to 18 hertz per 2nd beta. During drowsiness low voltage beta activity seen diffusely admixed with waxing and waning posterior alpha rhythm. Bilateral symmetrical sleep activity seen during sleep with dysrhythmic alpha theta and beta activity In addition to bilateral symmetrical sleep spindles. Non paroxysmal. Nonfocal. Nonlateralizing. IMPRESSION Normal record during wakefulness drowsiness and sleep. Clinical correlation recommended
--- NOTE | 2022-11-07 12:06 | WPDNEUROPN ---
Subjective Date/time seen: 11/07/22 12:06 Interval history: Follow-up for 52 years old lady came in to the hospital for the complaints of dizziness and vertigo in addition to ongoing history of bipolar illness for which she had been receiving lithium. Since the admission her routine lab studies are normal, the urine culture is negative, CT angiogram of the neck is normal, and the MRI of the brain is also negative additionally she has had cervical spine MRI in May of last year which was compatible with severe cervical spondylosis with anterior fusion procedure, during this particular hospitalization ENT consultation has been obtained with the documentation of acute viral labyrinthitis of left ear with nasal folliculitis and she has remained stable being continued on the same medication Exam Narrative: neurological is she is awake alert follows the instruction , her speech is not dysphasic not dysarthric, is still not extremely comfortable ,mostly laying in the bed but neck is supple ,extraocular movements are full with no nystagmus and there is no motor deficit on simple clinical examination treatment will be continued as such. Objective Data Vital Signs Vital Signs: Vital Signs - 24 hr 11/06/22 15:53 11/06/22 15:53 11/06/22 16:04 Temperature 36.8 C 36.8 C Pulse Rate 57 L 57 L 55 L Respiratory Rate 18 18 18 Blood Pressure 128/88 128/88 113/69 Pulse Oximetry 95 95 97 Oxygen Delivery Fraction of Inspired Oxygen 11/06/22 16:06 11/06/22 16:00 11/06/22 20:39 Temperature 37.1 C Pulse Rate 80 51 L 51 L Respiratory Rate 18 Blood Pressure 145/86 H Pulse Oximetry 98 93 Oxygen Delivery Fraction of Inspired Oxygen 11/06/22 21:15 11/06/22 20:00 11/07/22 00:00 Temperature Pulse Rate 54 L 52 L Respiratory Rate Blood Pressure Pulse Oximetry Oxygen Delivery Room Air Fraction of Inspired Oxygen 11/06/22 21:55 11/06/22 21:55 11/07/22 03:00 Temperature Pulse Rate 54 L 57 L Respiratory Rate Blood Pressure Pulse Oximetry 93 93 93 Oxygen Delivery CPAP Room Air CPAP Fraction of Inspired Oxygen 11/07/22 04:46 11/07/22 04:00 11/07/22 08:21 Temperature 36.6 C Pulse Rate 54 L 50 L 57 L Respiratory Rate 17 18 Blood Pressure 115/68 Pulse Oximetry 97 93 Oxygen Delivery Room Air Fraction of Inspired Oxygen 11/07/22 08:21 11/07/22 08:00 11/07/22 10:49 Temperature Pulse Rate 57 L 63 Respiratory Rate 18 Blood Pressure 141/77 H Pulse Oximetry Oxygen Delivery Room Air Fraction of Inspired Oxygen 11/07/22 10:50 Temperature Pulse Rate 118 H Respiratory Rate Blood Pressure 91/35 L Pulse Oximetry Oxygen Delivery Fraction of Inspired Oxygen Intake/Output Intake/Output: Intake & Output 11/04/22 11/05/22 11/06/22 11/07/22 23:59 23:59 23:59 23:59 Intake Total 1000 2320 1530 370 Output Total 325 2800 950 100 Balance 675 -210 454 270 Meds/Results Medications: Active Medications Generic Name Dose Route Start Last Admin Trade Name Freq PRN Reason Stop Dose Admin Hydrocodone Bitart/Acetaminophen 1 tab 11/04/22 17:44 11/06/22 14:31 Hydrocodone/Acetaminophen (*Crx) 5-325 Mg Tablet PO 1 tab Q4H PRN Administration Pain Rated 4-6 Albuterol 2 puff 11/04/22 23:46 Albuterol Sulfate (*Sp) Aerosol 1 Puff INHALATION Q6H PRN Shortness Of Breath Ascorbic Acid 500 mg 11/05/22 09:00 11/07/22 08:02 Ascorbic Acid 500 Mg Tablet PO 500 mg BID COTY Administration Aspirin 81 mg 11/05/22 21:00 11/06/22 21:34 Aspirin 81 Mg Chewable Tablet PO 81 mg HS COTY Administration Baclofen 20 mg 11/05/22 09:00 11/07/22 08:02 Baclofen 10 Mg Tablet PO 20 mg TID COTY Administration Diazepam 5 mg 11/04/22 23:46 Diazepam (*Crx) 5 Mg Tablet PO PRN PRN Anxiety Docusate Sodium 100 mg 11/05/22 21:00 11/06/22 21:37 Docusate Sodium 100 Mg Capsule PO 100 mg HS COTY
--- NOTE | 2022-11-07 13:10 | PC.NURSE ---
On 11/07/22, the student, [Mima Renee], provided care and completed [facility] documentation on this patient. I have reviewed the student's documentation and agree with the findings.
[2022-11-07] MEDS: SODIUM CHLORIDE 0.9% IV 500 ML IV CONT (13:12)
[2022-11-07] MEDS: MECLIZINE HCL 25 MG TABLET PO ×3 (13:12→22:29)
--- NOTE | 2022-11-07 16:21 | PM.IMPN ---
Progress Note: A&P Assessment and Plan (1) Vertigo: Code(s): R42 - Dizziness and giddiness Status: Acute Assessment and Plan: patient presented to the ED for evaluation of persistent dizziness that worsens with movement and associated tinnitus to her left ear. She has h/o migraines and approximately 4 weeks ago had her second round of Botox injections. Patient describes the dizziness as the room is spinning but also swearing at the same time. ENT consulted for evaluation and concerns for labrinyth adenitis. High dose steroids recommended however patient reports prior adverse reaction of going crazy. Outpatient ENT follow up recommended for injection. MRI without acute abnormality. CTA neck was 0% stenosis in internal carotid arteries Echo with grade 1 diastolic disfunction LV, normal LV systolic function, mild LVH, EF 65%, moderately enlarged RA. mild TR and [place]. Normal RV systolic function. Neurology consulted. EEG without abnormality. Increase meclizine 25 mg QID scheduled. +orthostatic vitals. Give NS 500 cc bolus. Repeat orthostatics improved but still positive. Give additional 1L NS x1. Encourage oral water intake. Add TIFFANI hose. (2) Acute viral labyrinthitis of left ear: Code(s): H83.02 - Labyrinthitis, left ear Status: Acute Assessment and Plan: As above. Follow up with ENT. (3) Nasal folliculitis: Code(s): L73.9 - Follicular disorder, unspecified Status: Acute Assessment and Plan: ENT recommending saline nasal spray and mupirocen ointment BID (4) Arrhythmia: Code(s): I49.9 - Cardiac arrhythmia, unspecified Status: Acute Assessment and Plan: EKG on admission suggests afib slow ventricular response. Telemetry shows questionable afib versus SB/SR with junctional beats. Discussed with on-call bailing machine operator. Continue to monitor telemetry. Outpatient 30-day event monitor to be placed at discharge. TSH within normal limits. With persistent dizziness, risk for major bleeding if falling. Can reevaluate anticoagulation outpatient if afib confirmed. 11/07 SB with PAC versus junctional beats noted. runs of afib not apparent. Continue to monitor. (5) CHF (congestive heart failure), NYHA class I: Code(s): I50.9 - Heart failure, unspecified Status: Chronic Assessment and Plan: chronic diastolic chf. Not in acute exacerbation. Echo with grade 1 diastolic dysfunction, normal LV systolic function. Monitor I/O (6) Thyroid disease: Code(s): E07.9 - Disorder of thyroid, unspecified Status: Chronic Assessment and Plan: Chronic, continue levothyroxine. TSH within normal limits. (7) Sleep apnea: Qualifiers: Sleep apnea type: unspecified type Qualified Code(s): G47.30 - Sleep apnea, unspecified Code(s): G47.30 - Sleep apnea, unspecified Status: Chronic Assessment and Plan: Titrate to home CPAP-BiPAP settings. (8) Autoimmune disease: Code(s): M35.9 - Systemic involvement of connective tissue, unspecified Status: Chronic Assessment and Plan: chronic, continue with methotrexate (9) Asthma: Qualifiers: Asthma severity: unspecified severity Asthma persistence: unspecified Asthma complication type: unspecified Qualified Code(s): J45.909 - Unspecified asthma, uncomplicated Code(s): J45.909 - Unspecified asthma, uncomplicated Status: Chronic Assessment and Plan: Continue with Singulair Continue with home inhaler (10) Weakness: Code(s): R53.1 - Weakness Status: Chronic Assessment and Plan: PT/OT consulted. Patient refusing SNF, however, she does not have support at home and is requiring 24 hour care at this point. Discussed this with patient and she plans to discuss options with her sister. Care coordination following. Plan CODE STATUS: FULL CODE Disposition: discharge dispo pending Diet: Hear
[2022-11-07] MEDS: SODIUM CHLORIDE 0.9% IV 1,000 ML 100 ML IV CONT (17:07)
[2022-11-07] MEDS: IBUPROFEN 400 MG TABLET 800 MG PO ×2 (17:10→22:27)
[2022-11-07] MEDS: PRAVASTATIN SODIUM 20 MG TABLET PO (22:28)
[2022-11-07] MEDS: OXcarbazepine 150 MG TABLET 300 MG PO (22:28)
[2022-11-07] MEDS: MAGNESIUM OXIDE 400 MG TABLET PO (22:29)
[2022-11-07] MEDS: ZOLPIDEM TARTRATE (*CRX) 5 MG TABLET PO (22:29)
[2022-11-07] MEDS: DOCUSATE SODIUM 100 MG CAPSULE PO (22:29)
[2022-11-07] MEDS: MELATONIN 5 MG TABLET PO (22:29)
[2022-11-07] MEDS: ASPIRIN 81 MG CHEWABLE TABLET PO (22:29)
[2022-11-08] VITALS (11 sets, daily range): BP systolic 103–132; BP diastolic 53–88; PULSE 40–77; RESP 16–18; TEMP 36.6–37.1; O2SAT 92–97
[2022-11-08] MEDS: LEVOTHYROXINE SODIUM 100 MCG TABLET PO (05:45)
[2022-11-08 06:28] LABS: Hematocrit 44.9 % (37.0-47.0); Hemoglobin 14.3 g/dL (12.0-15.0); Mean Corpuscular HGB Conc 31.8 g/dl (32-36); Mean Corpuscular Hemoglobin 27.8 pg (26-34); Mean Corpuscular Volume 87.4 fl (80-100); Mean Platelet Volume 9.4 fl (7.4-10.4); Platelet Count Result 196 k/mm3 (150-375); Red Blood Count 5.14 M/mm3 (4.2-5.4); Red Cell Distribution Width 14.4 % (11.5-14.5); White Blood Count 6.1 K/mm3 (4.5-10.0)
[2022-11-08 06:38] LABS: Alanine Aminotransferase 33 U/L (6-35); Albumin Level 3.8 g/dL (3.5-5.1); Alkaline Phosphatase 92 U/L (38-126); Anion Gap 2 mmol/L (8-16); Aspartate Amino Transferase 28 U/L (14-36); Bilirubin,Total 0.5 mg/dL (0.2-1.3); Blood Urea Nitrogen 15 mg/dL (7-17); Carbon Dioxide 28 mmol/L (22-30); Chloride 113 mmol/L (98-107); Estimated CRCL calculation 110 ml/min; Estimated Glomerular Filt Rate > 60; Glucose 105 mg/dL (65-110); Potassium 3.8 mmol/L (3.4-5.0); Sodium 143 mmol/L (137-145)
[2022-11-08] MEDS: oxyCODONE HCL (*CRX) 5 MG TAB IR PO ×2 (08:32→20:02)
[2022-11-08] MEDS: ASCORBIC ACID 500 MG TABLET PO ×2 (08:34→17:56)
[2022-11-08] MEDS: BACLOFEN 10 MG TABLET 20 MG PO ×3 (08:34→17:56)
[2022-11-08] MEDS: ACIDOPHILUS/BULGARICUS CHEWABLE TABLET 1 TABLET PO (08:34)
[2022-11-08] MEDS: CHOLECALCIFEROL 1,000 UNITS TABLET 5000 UNITS PO (08:35)
[2022-11-08] MEDS: FLUoxetine HCL 10 MG CAPSULE 30 MG PO (08:35)
[2022-11-08] MEDS: LITHIUM CARBONATE 150 MG CAPSULE PO ×3 (08:36→17:57)
[2022-11-08] MEDS: FOLIC ACID 1 MG TABLET BY MOUTH (08:36)
[2022-11-08] MEDS: IPRATROPIUM NASAL SPRAY 0.03% 15 ML BOTTLE 2 SPRAY NASAL ×2 (08:36→17:57)
[2022-11-08] MEDS: LORATADINE 5 MG TABLET PO (08:36)
[2022-11-08] MEDS: MONTELUKAST SODIUM 10 MG TABLET PO (08:37)
[2022-11-08] MEDS: MUPIROCIN 2% OINT 22 GM TUBE 1 APPLIC EACH NARE ×2 (08:37→22:28)
[2022-11-08] MEDS: OMEGA 3 POLYUNSAT FATTY ACIDS 1 GM CAP 2 GM PO ×2 (08:38→17:57)
[2022-11-08] MEDS: oxyBUTYnin CHLORIDE XL 5 MG TAB.ER.24 PO (08:38)
[2022-11-08] MEDS: OXcarbazepine 150 MG TABLET PO (08:38)
[2022-11-08] MEDS: PANTOPRAZOLE 40 MG TABLET PO ×2 (08:39→17:58)
[2022-11-08] MEDS: FLUTICASONE/UMECLIDIN/VILANTER 100-62.5-25 MCG ELLIPTA 1 PUFF INHALATION (08:40)
[2022-11-08] MEDS: MECLIZINE HCL 25 MG TABLET PO ×4 (09:45→22:30)
--- NOTE | 2022-11-08 11:39 | PC.NURSE ---
On 11/08/22, the student, [Mima Renee], provided care and completed [facility] documentation on this patient. I have reviewed the student's documentation and agree with the findings.
[2022-11-08] MEDS: IBUPROFEN 400 MG TABLET 800 MG PO ×2 (13:09→22:28)
--- NOTE | 2022-11-08 14:36 | PM.IMPN ---
Progress Note: A&P Assessment and Plan (1) Vertigo: Code(s): R42 - Dizziness and giddiness Status: Acute Assessment and Plan: patient presented to the ED for evaluation of persistent dizziness that worsens with movement and associated tinnitus to her left ear. She has h/o migraines and approximately 4 weeks ago had her second round of Botox injections. Patient describes the dizziness as the room is spinning but also swearing at the same time. ENT consulted for evaluation and concerns for labrinyth adenitis. High dose steroids recommended however patient reports prior adverse reaction of going crazy. Outpatient ENT follow up recommended for injection. MRI without acute abnormality. CTA neck was 0% stenosis in internal carotid arteries Echo with grade 1 diastolic disfunction LV, normal LV systolic function, mild LVH, EF 65%, moderately enlarged RA. mild TR and AK. Normal RV systolic function. Neurology consulted. EEG without abnormality. 11/07 Increased meclizine 25 mg QID scheduled. 11/07 +orthostatic vitals. Give NS 500 cc bolus. Repeat orthostatics improved but still positive. Given additional 1L NS x1. Encourage oral water intake. Added TIFFANI hose. Vitals improved. HR 40s while asleep and 50-70s while awake. (2) Acute viral labyrinthitis of left ear: Code(s): H83.02 - Labyrinthitis, left ear Status: Acute Assessment and Plan: As above. Follow up with ENT outpatient. (3) Nasal folliculitis: Code(s): L73.9 - Follicular disorder, unspecified Status: Acute Assessment and Plan: ENT recommending saline nasal spray and mupirocen ointment BID (4) Arrhythmia: Code(s): I49.9 - Cardiac arrhythmia, unspecified Status: Acute Assessment and Plan: EKG on admission suggests afib slow ventricular response. Telemetry shows questionable afib versus SB/SR with junctional beats. Discussed with on-call print cutter. Continue to monitor telemetry. Outpatient 30-day event monitor to be placed at discharge. TSH within normal limits. With persistent dizziness, risk for major bleeding if falling. Can reevaluate anticoagulation outpatient if afib confirmed. 11/07 SB with presumed early escape beats- PAC versus junctional. Unclear if afib. Continue to monitor. (5) CHF (congestive heart failure), NYHA class I: Code(s): I50.9 - Heart failure, unspecified Status: Chronic Assessment and Plan: chronic diastolic chf. Not in acute exacerbation. Echo with grade 1 diastolic dysfunction, normal LV systolic function. Monitor I/O (6) Thyroid disease: Code(s): E07.9 - Disorder of thyroid, unspecified Status: Chronic Assessment and Plan: Chronic, continue levothyroxine. TSH within normal limits. (7) Sleep apnea: Qualifiers: Sleep apnea type: unspecified type Qualified Code(s): G47.30 - Sleep apnea, unspecified Code(s): G47.30 - Sleep apnea, unspecified Status: Chronic Assessment and Plan: Titrate to home CPAP-BiPAP settings. (8) Autoimmune disease: Code(s): M35.9 - Systemic involvement of connective tissue, unspecified Status: Chronic Assessment and Plan: chronic, continue with methotrexate (9) Asthma: Qualifiers: Asthma complication type: unspecified Asthma persistence: unspecified Asthma severity: unspecified severity Qualified Code(s): J45.909 - Unspecified asthma, uncomplicated Code(s): J45.909 - Unspecified asthma, uncomplicated Status: Chronic Assessment and Plan: Continue with Singulair Continue with home inhaler (10) Weakness: Code(s): R53.1 - Weakness Status: Chronic Assessment and Plan: PT/OT consulted. Patient refusing SNF, however, she does not have support at home and is requiring 24 hour care at this point. Discussed this with patient and she plans to discuss options with her sister. Care coordination
--- NOTE | 2022-11-08 14:37 | PC.NURSE ---
On 11/08/22, the student, [Manny Alamo], provided care and completed [facility] documentation on this patient. I have reviewed the student's documentation and agree with the findings.
[2022-11-08] MEDS: ZOLPIDEM TARTRATE (*CRX) 5 MG TABLET PO (22:28)
[2022-11-08] MEDS: MELATONIN 5 MG TABLET PO (22:28)
[2022-11-08] MEDS: OXcarbazepine 150 MG TABLET 300 MG PO (22:29)
[2022-11-08] MEDS: DOCUSATE SODIUM 100 MG CAPSULE PO (22:30)
[2022-11-08] MEDS: MAGNESIUM OXIDE 400 MG TABLET PO (22:30)
[2022-11-08] MEDS: PRAVASTATIN SODIUM 20 MG TABLET PO (22:30)
[2022-11-08] MEDS: ASPIRIN 81 MG CHEWABLE TABLET PO (22:30)
[2022-11-09] VITALS (12 sets, daily range): BP systolic 100–146; BP diastolic 54–69; PULSE 42–61; RESP 16–18; TEMP 36.4–36.6; O2SAT 97–99
[2022-11-09 05:38] LABS: Hematocrit 42.6 % (37.0-47.0); Hemoglobin 13.5 g/dL (12.0-15.0); Mean Corpuscular HGB Conc 31.7 g/dl (32-36); Mean Corpuscular Hemoglobin 27.7 pg (26-34); Mean Corpuscular Volume 87.5 fl (80-100); Mean Platelet Volume 9.9 fl (7.4-10.4); Platelet Count Result 195 k/mm3 (150-375); Red Blood Count 4.87 M/mm3 (4.2-5.4); Red Cell Distribution Width 14.5 % (11.5-14.5); White Blood Count 6.8 K/mm3 (4.5-10.0)
[2022-11-09 05:49] LABS: Alanine Aminotransferase 33 U/L (6-35); Albumin Level 3.6 g/dL (3.5-5.1); Alkaline Phosphatase 89 U/L (38-126); Anion Gap 5 mmol/L (8-16); Aspartate Amino Transferase 27 U/L (14-36); Bilirubin,Total 0.5 mg/dL (0.2-1.3); Blood Urea Nitrogen 15 mg/dL (7-17); Calcium 8.8 mg/dL (8.4-10.2); Carbon Dioxide 29 mmol/L (22-30); Chloride 109 mmol/L (98-107); Estimated CRCL calculation 97 ml/min; Estimated Glomerular Filt Rate > 60; Glucose 101 mg/dL (65-110); Potassium 3.6 mmol/L (3.4-5.0); Sodium 143 mmol/L (137-145)
[2022-11-09] MEDS: LEVOTHYROXINE SODIUM 100 MCG TABLET PO (06:26)
[2022-11-09] MEDS: ACIDOPHILUS/BULGARICUS CHEWABLE TABLET 1 TABLET PO (08:45)
[2022-11-09] MEDS: ASCORBIC ACID 500 MG TABLET PO ×2 (08:45→17:49)
[2022-11-09] MEDS: FLUoxetine HCL 10 MG CAPSULE 30 MG PO (08:46)
[2022-11-09] MEDS: BACLOFEN 10 MG TABLET 20 MG PO ×3 (08:46→17:49)
[2022-11-09] MEDS: LORATADINE 5 MG TABLET PO (08:47)
[2022-11-09] MEDS: LITHIUM CARBONATE 150 MG CAPSULE PO ×3 (08:47→17:50)
[2022-11-09] MEDS: IPRATROPIUM NASAL SPRAY 0.03% 15 ML BOTTLE 2 SPRAY NASAL ×2 (08:47→17:49)
[2022-11-09] MEDS: MECLIZINE HCL 25 MG TABLET PO ×4 (08:48→20:49)
[2022-11-09] MEDS: METHOTREXATE 2.5 MG TAB (*CHEMO) 5 MG PO (08:48)
[2022-11-09] MEDS: MONTELUKAST SODIUM 10 MG TABLET PO (08:49)
[2022-11-09] MEDS: MUPIROCIN 2% OINT 22 GM TUBE 1 APPLIC EACH NARE ×2 (08:49→20:49)
[2022-11-09] MEDS: OMEGA 3 POLYUNSAT FATTY ACIDS 1 GM CAP 2 GM PO ×2 (08:49→17:50)
[2022-11-09] MEDS: OXcarbazepine 150 MG TABLET PO (08:50)
[2022-11-09] MEDS: oxyBUTYnin CHLORIDE XL 5 MG TAB.ER.24 PO (08:50)
[2022-11-09] MEDS: PANTOPRAZOLE 40 MG TABLET PO ×2 (08:50→17:51)
[2022-11-09] MEDS: oxyCODONE HCL (*CRX) 5 MG TAB IR PO ×2 (09:01→20:55)
[2022-11-09] MEDS: FLUTICASONE/UMECLIDIN/VILANTER 100-62.5-25 MCG ELLIPTA 1 PUFF INHALATION (09:18)
--- NOTE | 2022-11-09 09:52 | PM.IMPN ---
Progress Note: A&P Assessment and Plan (1) Vertigo: Code(s): R42 - Dizziness and giddiness Status: Acute Assessment and Plan: patient presented to the ED for evaluation of persistent dizziness that worsens with movement and associated tinnitus to her left ear. She has h/o migraines and approximately 4 weeks ago had her second round of Botox injections. Patient describes the dizziness as the room is spinning but also swearing at the same time. ENT consulted for evaluation and concerns for labrinyth adenitis. High dose steroids recommended however patient reports prior adverse reaction of going crazy. Outpatient ENT follow up recommended for injection. MRI without acute abnormality. CTA neck was 0% stenosis in internal carotid arteries Echo with grade 1 diastolic disfunction LV, normal LV systolic function, mild LVH, EF 65%, moderately enlarged RA. mild TR and NC. Normal RV systolic function. Neurology consulted. EEG without abnormality. 11/07 Increased meclizine 25 mg QID scheduled. 11/07 +orthostatic vitals. Give NS 500 cc bolus. Repeat orthostatics improved but still positive. Given additional 1L NS x1. Encourage oral water intake. Added TIFFANI hose. Vitals improved. HR 40s while asleep and 50-70s while awake. 11/09 Orthostatic vitals: supine BP 119/58, sitting 146/69, standing 100/54. HR not recorded. Will trial low dose midodrine. (2) Acute viral labyrinthitis of left ear: Code(s): H83.02 - Labyrinthitis, left ear Status: Acute Assessment and Plan: As above. Follow up with ENT outpatient. (3) Nasal folliculitis: Code(s): L73.9 - Follicular disorder, unspecified Status: Acute Assessment and Plan: ENT recommending saline nasal spray and mupirocen ointment BID (4) Arrhythmia: Code(s): I49.9 - Cardiac arrhythmia, unspecified Status: Acute Assessment and Plan: EKG on admission suggests afib slow ventricular response. Telemetry shows questionable afib versus SB/SR with junctional beats. Discussed with on-call color paste mixing supervisor. Continue to monitor telemetry. Outpatient 30-day event monitor to be placed at discharge. TSH within normal limits. With persistent dizziness, risk for major bleeding if falling. Can reevaluate anticoagulation outpatient if afib confirmed. 11/07 SB with presumed early escape beats- PAC versus junctional. Unclear if afib. Continue to monitor. 11/08 patient requesting Cardiology consult, which was placed. Appreciate recommendations. (5) CHF (congestive heart failure), NYHA class I: Code(s): I50.9 - Heart failure, unspecified Status: Chronic Assessment and Plan: chronic diastolic chf. Not in acute exacerbation. Echo with grade 1 diastolic dysfunction, normal LV systolic function. Monitor I/O (6) Thyroid disease: Code(s): E07.9 - Disorder of thyroid, unspecified Status: Chronic Assessment and Plan: Chronic, continue levothyroxine. TSH within normal limits. (7) Sleep apnea: Qualifiers: Sleep apnea type: unspecified type Qualified Code(s): G47.30 - Sleep apnea, unspecified Code(s): G47.30 - Sleep apnea, unspecified Status: Chronic Assessment and Plan: Titrate to home CPAP-BiPAP settings. (8) Autoimmune disease: Code(s): M35.9 - Systemic involvement of connective tissue, unspecified Status: Chronic Assessment and Plan: chronic, continue with methotrexate (9) Asthma: Qualifiers: Asthma complication type: unspecified Asthma persistence: unspecified Asthma severity: unspecified severity Qualified Code(s): J45.909 - Unspecified asthma, uncomplicated Code(s): J45.909 - Unspecified asthma, uncomplicated Status: Chronic Assessment and Plan: Continue with Singulair Continue with home inhaler (10) Weakness: Code(s): R53.1 - Weakness Status: Chronic Assessment and Plan: PT/OT
[2022-11-09 10:02] LABS: Magnesium 2.2 mg/dL (1.6-2.3)
[2022-11-09] MEDS: POTASSIUM CHLORIDE 20 MEQ TABLET 40 MEQ PO (10:14)
[2022-11-09] MEDS: SENNA/DOCUSATE SODIUM TABLET 1 TAB PO (17:49)
[2022-11-09] MEDS: MIDODRINE HCL 2.5 MG TABLET PO (17:50)
[2022-11-09] MEDS: OXcarbazepine 150 MG TABLET 300 MG PO (20:49)
[2022-11-09] MEDS: MELATONIN 5 MG TABLET PO (20:49)
[2022-11-09] MEDS: ASPIRIN 81 MG CHEWABLE TABLET PO (20:49)
[2022-11-09] MEDS: MAGNESIUM OXIDE 400 MG TABLET PO (20:49)
[2022-11-09] MEDS: ZOLPIDEM TARTRATE (*CRX) 5 MG TABLET PO (20:49)
[2022-11-09] MEDS: PRAVASTATIN SODIUM 20 MG TABLET PO (20:49)
[2022-11-10] VITALS (13 sets, daily range): BP systolic 104–144; BP diastolic 51–99; PULSE 41–62; RESP 18–20; TEMP 36.2–36.6; O2SAT 94–100
[2022-11-10 05:46] LABS: Alanine Aminotransferase 33 U/L (6-35); Albumin Level 3.7 g/dL (3.5-5.1); Alkaline Phosphatase 95 U/L (38-126); Anion Gap 4 mmol/L (8-16); Aspartate Amino Transferase 28 U/L (14-36); Bilirubin,Total 0.4 mg/dL (0.2-1.3); Blood Urea Nitrogen 18 mg/dL (7-17); Calcium 8.8 mg/dL (8.4-10.2); Carbon Dioxide 29 mmol/L (22-30); Chloride 109 mmol/L (98-107); Estimated CRCL calculation 97 ml/min; Estimated Glomerular Filt Rate > 60; Glucose 105 mg/dL (65-110); Potassium 3.9 mmol/L (3.4-5.0); Sodium 142 mmol/L (137-145)
[2022-11-10] MEDS: LEVOTHYROXINE SODIUM 100 MCG TABLET PO (06:04)
[2022-11-10] MEDS: FLUTICASONE/UMECLIDIN/VILANTER 100-62.5-25 MCG ELLIPTA 1 PUFF INHALATION (07:31)
[2022-11-10] MEDS: ASCORBIC ACID 500 MG TABLET PO ×2 (09:02→17:17)
[2022-11-10] MEDS: ACIDOPHILUS/BULGARICUS CHEWABLE TABLET 1 TABLET PO (09:02)
[2022-11-10] MEDS: BACLOFEN 10 MG TABLET 20 MG PO ×3 (09:03→17:17)
[2022-11-10] MEDS: FLUoxetine HCL 10 MG CAPSULE 30 MG PO (09:04)
[2022-11-10] MEDS: FOLIC ACID 1 MG TABLET BY MOUTH (09:04)
[2022-11-10] MEDS: IPRATROPIUM NASAL SPRAY 0.03% 15 ML BOTTLE 2 SPRAY NASAL ×2 (09:04→17:16)
[2022-11-10] MEDS: MECLIZINE HCL 25 MG TABLET PO ×4 (09:05→20:27)
[2022-11-10] MEDS: LITHIUM CARBONATE 150 MG CAPSULE PO ×3 (09:05→17:18)
[2022-11-10] MEDS: SENNA/DOCUSATE SODIUM TABLET 1 TAB PO ×2 (09:05→18:03)
[2022-11-10] MEDS: LORATADINE 5 MG TABLET PO (09:05)
[2022-11-10] MEDS: MONTELUKAST SODIUM 10 MG TABLET PO (09:06)
[2022-11-10] MEDS: OMEGA 3 POLYUNSAT FATTY ACIDS 1 GM CAP 2 GM PO ×2 (09:07→17:19)
[2022-11-10] MEDS: MIDODRINE HCL 2.5 MG TABLET PO ×3 (09:08→17:19)
[2022-11-10] MEDS: MUPIROCIN 2% OINT 22 GM TUBE 1 APPLIC EACH NARE (09:08)
[2022-11-10] MEDS: PANTOPRAZOLE 40 MG TABLET PO ×2 (09:10→17:20)
[2022-11-10] MEDS: oxyBUTYnin CHLORIDE XL 5 MG TAB.ER.24 PO (09:10)
[2022-11-10] MEDS: oxyCODONE HCL (*CRX) 5 MG TAB IR PO ×2 (09:13→20:26)
[2022-11-10] MEDS: OXcarbazepine 150 MG TABLET PO (09:23)
[2022-11-10] MEDS: IBUPROFEN 400 MG TABLET 800 MG PO (12:36)
--- NOTE | 2022-11-10 15:22 | PM.IMPN ---
Progress Note: A&P Assessment and Plan (1) Vertigo: Code(s): R42 - Dizziness and giddiness Status: Acute Assessment and Plan: patient presented to the ED for evaluation of persistent dizziness that worsens with movement and associated tinnitus to her left ear. She has h/o migraines and approximately 4 weeks ago had her second round of Botox injections. Patient describes the dizziness as the room is spinning but also swearing at the same time. ENT consulted for evaluation and concerns for labrinyth adenitis. High dose steroids recommended however patient reports prior adverse reaction of going crazy. Outpatient ENT follow up recommended for injection. MRI without acute abnormality. CTA neck was 0% stenosis in internal carotid arteries Echo with grade 1 diastolic disfunction LV, normal LV systolic function, mild LVH, EF 65%, moderately enlarged RA. mild TR and [place]. Normal RV systolic function. Neurology consulted. EEG without abnormality. Continue meclizine 25 mg QID scheduled. 11/07 +orthostatic vitals. Give NS 500 cc bolus. Repeat orthostatics improved but still positive. Given additional 1L NS x1. Encourage oral water intake. Added TIFFANI hose. BP improved. 11/09 SBP dropped 40-50 pts sitting to standing. Midodrine 2.5 mg PO TID started. 11/10 BP 128/57 lying and 107/78 sitting. HR not recorded. continue midodrine. HR 40s while asleep and 50-70s while awake. (2) Acute viral labyrinthitis of left ear: Code(s): H83.02 - Labyrinthitis, left ear Status: Acute Assessment and Plan: As above. Follow up with ENT outpatient. (3) Nasal folliculitis: Code(s): L73.9 - Follicular disorder, unspecified Status: Acute Assessment and Plan: ENT recommending saline nasal spray and mupirocen ointment BID (4) Arrhythmia: Qualifiers: Arrhythmia type: unspecified cardiac arrhythmia Qualified Code(s): I49.9 - Cardiac arrhythmia, unspecified Code(s): I49.9 - Cardiac arrhythmia, unspecified Status: Acute Assessment and Plan: EKG on admission suggests afib slow ventricular response. Telemetry shows questionable afib versus SB/SR with junctional beats. Discussed with on-call middle school spanish teacher 11/06/22 recommending 30 day event monitor outpatient. TSH within normal limits. 11/08 patient requesting Cardiology consult, which was placed. Appreciate recommendations. With persistent dizziness, risk for major bleeding if falling. Can reevaluate anticoagulation outpatient if afib confirmed on event monitor (5) CHF (congestive heart failure), NYHA class I: Qualifiers: Congestive heart failure type: diastolic Congestive heart failure chronicity: chronic Qualified Code(s): I50.32 - Chronic diastolic (congestive) heart failure Code(s): I50.9 - Heart failure, unspecified Status: Chronic Assessment and Plan: chronic diastolic chf. Not in acute exacerbation. Echo with grade 1 diastolic dysfunction, normal LV systolic function. Monitor I/O (6) Thyroid disease: Code(s): E07.9 - Disorder of thyroid, unspecified Status: Chronic Assessment and Plan: Chronic, continue levothyroxine. TSH within normal limits. (7) Sleep apnea: Qualifiers: Sleep apnea type: unspecified type Qualified Code(s): G47.30 - Sleep apnea, unspecified Code(s): G47.30 - Sleep apnea, unspecified Status: Chronic Assessment and Plan: Titrate to home CPAP-BiPAP settings. (8) Autoimmune disease: Code(s): M35.9 - Systemic involvement of connective tissue, unspecified Status: Chronic Assessment and Plan: chronic, continue with methotrexate (9) Asthma: Qualifiers: Asthma severity: unspecified severity Asthma persistence: unspecified Asthma complication type: unspecified Qualified Code(s): J45.909 - Unspecified asthma, uncomplicated Code(s): J45.909 - Unspecified asthma, uncomplica
[2022-11-10] MEDS: ZOLPIDEM TARTRATE (*CRX) 5 MG TABLET PO (20:27)
[2022-11-10] MEDS: ASPIRIN 81 MG CHEWABLE TABLET PO (20:27)
[2022-11-10] MEDS: OXcarbazepine 150 MG TABLET 300 MG PO (20:27)
[2022-11-10] MEDS: MAGNESIUM OXIDE 400 MG TABLET PO (20:27)
[2022-11-10] MEDS: MELATONIN 5 MG TABLET PO (20:27)
[2022-11-10] MEDS: PRAVASTATIN SODIUM 20 MG TABLET PO (20:27)
[2022-11-11] VITALS: PULSE 58
[2022-11-11 04:00] VITALS: PULSE 44
[2022-11-11 05:00] VITALS: BP 127/65; PULSE 54; RESP 20; TEMP 35.8; O2SAT 99
[2022-11-11] MEDS: LEVOTHYROXINE SODIUM 100 MCG TABLET PO (06:06)
[2022-11-11 06:26] LABS: Alanine Aminotransferase 34 U/L (6-35); Albumin Level 3.6 g/dL (3.5-5.1); Alkaline Phosphatase 86 U/L (38-126); Anion Gap 1 mmol/L (8-16); Aspartate Amino Transferase 29 U/L (14-36); Bilirubin,Total 0.5 mg/dL (0.2-1.3); Blood Urea Nitrogen 17 mg/dL (7-17); Calcium 8.9 mg/dL (8.4-10.2); Carbon Dioxide 32 mmol/L (22-30); Chloride 108 mmol/L (98-107); Estimated CRCL calculation 97 ml/min; Estimated Glomerular Filt Rate > 60; Glucose 98 mg/dL (65-110); Potassium 4.3 mmol/L (3.4-5.0); Sodium 141 mmol/L (137-145)
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
[2022-11-11] MEDS: OMEGA 3 POLYUNSAT FATTY ACIDS 1 GM CAP 2 GM PO (09:09)
[2022-11-11] MEDS: LORATADINE 5 MG TABLET PO (09:09)
[2022-11-11] MEDS: BACLOFEN 10 MG TABLET 20 MG PO ×2 (09:09→13:42)
[2022-11-11] MEDS: oxyBUTYnin CHLORIDE XL 5 MG TAB.ER.24 PO (09:09)
[2022-11-11] MEDS: PANTOPRAZOLE 40 MG TABLET PO (09:09)
[2022-11-11] MEDS: CHOLECALCIFEROL 1,000 UNITS TABLET 5000 UNITS PO (09:09)
[2022-11-11] MEDS: FLUoxetine HCL 10 MG CAPSULE 30 MG PO (09:09)
[2022-11-11] MEDS: MIDODRINE HCL 2.5 MG TABLET PO ×2 (09:10→13:42)
[2022-11-11] MEDS: MECLIZINE HCL 25 MG TABLET PO ×2 (09:10→13:42)
[2022-11-11] MEDS: MONTELUKAST SODIUM 10 MG TABLET PO (09:10)
[2022-11-11] MEDS: ASCORBIC ACID 500 MG TABLET PO (09:10)
[2022-11-11] MEDS: OXcarbazepine 150 MG TABLET PO (09:10)
[2022-11-11] MEDS: ACIDOPHILUS/BULGARICUS CHEWABLE TABLET 1 TABLET PO (09:10)
[2022-11-11] MEDS: FOLIC ACID 1 MG TABLET BY MOUTH (09:11)
[2022-11-11] MEDS: LITHIUM CARBONATE 150 MG CAPSULE PO ×2 (09:11→13:42)
[2022-11-11] MEDS: IPRATROPIUM NASAL SPRAY 0.03% 15 ML BOTTLE 2 SPRAY NASAL (09:11)
[2022-11-11] MEDS: oxyCODONE HCL (*CRX) 5 MG TAB IR PO (09:25)
[2022-11-11] MEDS: SENNA/DOCUSATE SODIUM TABLET 1 TAB PO (09:25)
[2022-11-11] MEDS: FLUTICASONE/UMECLIDIN/VILANTER 100-62.5-25 MCG ELLIPTA 1 PUFF INHALATION (10:38)
[2022-11-11] MEDS: HYDROcodone/acetaminophen (*CRX) 5-325 MG TABLET 1 TAB PO (13:44)
[2022-11-11 14:05] VITALS: BP 115/77; PULSE 68; RESP 14; TEMP 36.6; O2SAT 96
--- NOTE | 2022-11-11 14:40 | PM.DS ---
DS: Admitting Diagnosis Discharge Date 11/11/2022 Admitting Diagnosis Dizziness and giddiness CHF (congestive heart failure), NYHA class I: Disorder of thyroid, unspecified Sleep apnea, unspecified Gastro-esophageal reflux disease without esophagitis Systemic involvement of connective tissue, unspecified Unspecified asthma, uncomplicated Depression, unspecified DS: Discharge Diagnosis Discharge Diagnosis (1) Vertigo: Code(s): R42 - Dizziness and giddiness Status: Acute Assessment and Plan: patient presented to the ED for evaluation of persistent dizziness that worsens with movement and associated tinnitus to her left ear. She has h/o migraines and approximately 4 weeks prior had her second round of Botox injections. Patient describes the dizziness as the room is spinning but also swearing at the same time. ENT consulted for evaluation and concerns for labrinyth adenitis. High dose steroids recommended however patient reports prior adverse reaction of going crazy. Outpatient ENT follow up recommended for injection. MRI without acute abnormality. CTA neck was 0% stenosis in internal carotid arteries Echo with grade 1 diastolic disfunction LV, normal LV systolic function, mild LVH, EF 65%, moderately enlarged RA. mild TR and WI. Normal RV systolic function. Neurology consulted. EEG without abnormality. Continued meclizine 25 mg QID scheduled. 11/07 +orthostatic vitals. Give NS 500 cc bolus. Repeat orthostatics improved but still positive. Given additional 1L NS x1. Encourage oral water intake. Added TIFFANI hose. BP improved. 11/09 SBP dropped 40-50 pts sitting to standing. Midodrine 2.5 mg PO TID started. 11/10 BP 128/57 lying and 107/78 sitting. HR not recorded. continued midodrine. HR 40s while asleep and 50-70s while awake. (2) Acute viral labyrinthitis of left ear: Code(s): H83.02 - Labyrinthitis, left ear Status: Acute Assessment and Plan: As above. Follow up with ENT outpatient. Patient reported adverse reaction to steroids and did not want to trial treatment. (3) Nasal folliculitis: Code(s): L73.9 - Follicular disorder, unspecified Status: Acute Assessment and Plan: ENT recommending saline nasal spray and mupirocen ointment BID (4) Arrhythmia: Qualifiers: Arrhythmia type: unspecified cardiac arrhythmia Qualified Code(s): I49.9 - Cardiac arrhythmia, unspecified Code(s): I49.9 - Cardiac arrhythmia, unspecified Status: Acute Assessment and Plan: EKG on admission suggests possible afib slow ventricular response however, significant artifact noted. Telemetry shows questionable afib versus SB/SR with escape beats, with PACs and possible junctional beats. Discussed with on-call fitness attendant 11/06/22 recommending 30 day event monitor outpatient, which was discussed with the patient. TSH within normal limits. 11/08 patient requesting Cardiology evaluation inpatient as she does not feel well and feels there is something wrong with [her] heart , consult was placed. Outpatient event monitor again recommended. Of note, patient was agitated when assessed by cardiology UNDERWRITING CONSULTANT and requesting MD evaluation and minimally cooperative, seen cardiology documentation. With persistent dizziness, risk for major bleeding if falling. Can reevaluate anticoagulation outpatient if afib confirmed on event monitor (5) CHF (congestive heart failure), NYHA class I: Qualifiers: Congestive heart failure chronicity: chronic Congestive heart failure type: diastolic Qualified Code(s): I50.32 - Chronic diastolic (congestive) heart failure Code(s): I50.9 - Heart failure, unspecified Status: Chronic Assessment and Plan: chronic diastolic chf. Not in acute exacerbation. Echo with grade 1 diastolic dysfunction, normal LV systolic function. Monitor I/O (6) Thyroid disease: Code(s): E07.9 - Disorder of thyroid, unspecified
== END 2022-11-11 15:30 | disposition home health service (06) | DRG 149 ==
LOC: ANHED 19:26 → ANH2MED 20:50
PROVIDERS: Emergency Medicine; Internal Medicine Critical Care Medicine; Nurse Practitioner; Admitting Provider Family Medicine; Emergency Provider Emergency Medicine; PCP Family Medicine; Visit Provider Nurse Practitioner Family
DX: H83.02 Labyrinthitis, left ear (principal); I50.32 Chronic diastolic (congestive) heart failure; R42 Dizziness and giddiness; L73.9 Follicular disorder, unspecified; I49.9 Cardiac arrhythmia, unspecified; K21.9 Gastro-esophageal reflux disease without esophagitis; F32.A Depression, unspecified; G47.30 Sleep apnea, unspecified; M35.9 Systemic involvement of connective tissue, unspecified; J45.909 Unspecified asthma, uncomplicated; I95.1 Orthostatic hypotension; F41.9 Anxiety disorder, unspecified; Z96.641 Presence of right artificial hip joint
CPT/HCPCS: 36415; 70450; 70498; 70553; 80053; 80178; 81001; 83735; 84443; 85025; 85027; 87086; 93005; 94640; 95816; 96361; 96374; 97110; 97116; 97162; 97165; 97530; 97535; 99285; A9270; A9577; C8929; G0378; J3360; J7030; J7040; Q9957; Q9967

== ENCOUNTER 2022-11-25 08:22 | Outpatient (CLI) | payer MEDICARE, MEDICAID, SELFPAY | END 2022-11-25 08:23 | disposition home or self-care (01) | LOC: ANHAUDIO 08:23 | PROVIDERS: PCP Family Medicine; Visit Provider Otolaryngology | DX: H93.12 Tinnitus, left ear (principal); H83.2X9 Labyrinthine dysfunction, unspecified ear; H90.42 Sensorineural hearing loss, unilateral, left ear, with unrestricted hearing on the contralateral side | CPT/HCPCS: 92557; 92567 ==

== ENCOUNTER → 2023-02-06 10:18 | Outpatient (CLI) | payer MEDICARE, MEDICAID, SELFPAY ==
--- NOTE | ~2023-02-06 | US_ITS ---
Thyroid ultrasound. Clinical History: Thyroid nodule COMPARISON: 11/22/2021 and 10/24/2020 Findings: Real-time sonography of the thyroid gland was performed. The right lobe measures 4.6 x 1.3 x 2.0 cm. The left lobe measures 4.6 x 1.7 x 1.4 cm. The isthmus is 3 mm in AP diameter. There is a hypoechoic, possible cystic nodule at the left lower pole measuring 5 mm in diameter. Ther e is an additional hypoechoic solid left lower pole nodule measuring 7 mm in diameter. There is a hyp oechoic nodule at the right upper pole measuring 1 cm in maximum diameter, with possible small hypere choic foci. Impression: Stable thyroid nodules, as detailed above. Reviewed, dictated and finalized at location . Impression: Stable thyroid nodules, as detailed above.
== END ==
PROVIDERS: PCP Family Medicine; Visit Provider Family Medicine
DX: E04.2 Nontoxic multinodular goiter (principal)
CPT/HCPCS: 76536

== ENCOUNTER 2023-03-26 22:12 | Inpatient (IN) | payer MEDICARE, MEDICAID, SELFPAY ==
--- NOTE | ~2023-03-26 | XR_ITS ---
EXAMINATION: XR stent kub - surgery DATE: 03/27/2023 09:15 INDICATION: Right nephrolithiasis for ureteral stent placement TECHNIQUE: 3 fluoroscopic images of the abdomen and pelvis were obtained during procedure performed jesse Phillip. Radiologist was not present for the imaging or procedure. The amount of fluoroscopy t jennifer used during this procedure was 0.2 minutes. COMPARISON: CT dated 03/27/2023 FINDINGS: On the pediatric dentist images residual excreted contrast from the earlier contrast-enhanced CT demonstrates per sistent right hydroureteronephrosis extending to a small ovoid stone in the distal right ureter which projects of the right sacral ala slightly medial to the inferior right sacroiliac joint. Subsequent image demonstrates placement of a right internal ureteral stent with proximal loop formed in the righ t renal pelvis. A stone is seen at the contralateral mid left kidney. Cholecystectomy clips in right upper quadrant. IMPRESSION: 1. Right hydronephrosis with obstructing distal right ureteral stone on the pediatric dentist images. The stone i s not subsequently imaged and correlate with procedure note as to whether the stone was extracted. 2. Right intrarenal stent placement with proximal loop formed in the right renal pelvis. 3. Left nephrolithiasis. Reviewed, dictated and finalized at location L. IMPRESSION: 1. Right hydronephrosis with obstructing distal right ureteral stone on the sco ut images. The stone is not subsequently imaged and correlate with procedure no te as to whether the stone was extracted. 2. Right intrarenal stent placement with proximal loop formed in the right didi l pelvis. 3. Left nephrolithiasis.
--- NOTE | ~2023-03-26 | CT_ITS ---
Clinical Indication: Shortness of breath, back pain CT Scan of the Chest, Abdomen, and Pelvis with Contrast: Technique: Contiguous sections were acquired throughout the chest, abdomen, and pelvis after intraven ous administration of 100 cc of Omnipaque 350. Dose reduction technique was used on this scan by uti lizing automated exposure control and iterative reconstruction technique. The dose-length product (DL P) was 2445.38 mGy-cm. COMPARISON: 01/29/2021 Findings: There is no evidence of any significant mediastinal, hilar or axillary lymphadenopathy. The mediastin al soft tissues and vascular structures appear normal. No pulmonary embolus. No aortic aneurysm or di ssection. There is no evidence of pleural or pericardial effusion. The lungs are clear. No pulmonary nodules or infiltrates are noted. Mild central intrahepatic biliary dilatation may be related to prior cholecystectomy. The spleen, rosas creas, and adrenal glands are within normal limits. There is an 8 x 5 mm distal right ureteral stone, resulting in mild to moderate right hydroureteronephrosis. Probable small nonobstructing left renal stones. No evidence of aortic aneurysm. No lymphadenopathy. No bowel obstruction or bowel wall thickening. There is no evidence to suggest acute appendicitis. Urinary bladder is unremarkable. No adnexal mass evident. No ascites. There is streak artifact from r ight hip arthroplasty. Impression: 8 x 5 mm distal right ureteral stone, resulting in mild to moderate right hydroureteronephrosis. Small nonobstructing left renal stones. No pulmonary embolus. No significant abnormality seen in the chest. Mild intrahepatic biliary dilatation may be related to prior cholecystectomy. Reviewed, dictated and finalized at [facility]. Impression: 8 x 5 mm distal right ureteral stone, resulting in mild to moderate right hydro ureteronephrosis. Small nonobstructing left renal stones. No pulmonary embolus. No significant abnormality seen in the chest. Mild intrahepatic biliary dilatation may be related to prior cholecystectomy.
--- NOTE | ~2023-03-26 | XR_ITS ---
EXAMINATION: XR hip LT min 2V DATE: 04/02/2023 13:33 INDICATION: Left hip pain TECHNIQUE: Anteroposterior and cross-table lateral views of the left hip were obtained. COMPARISON: None. FINDINGS: Bone alignment is normal. No fracture or suspected avascular necrosis. Left hip joint space appears r elatively preserved. There are small marginal osteophytes from the rim of the acetabulum consistent w ith mild osteoarthritis. Multiple surgical clips at the left groin. Distal loop of a right internal u reteral stent projects over the bladder. A few phleboliths in the pelvis. IMPRESSION: 1. Mild left hip osteoarthritis. No acute osseous abnormality. Reviewed, dictated and finalized at location A.
--- NOTE | ~2023-03-26 | XR_ITS ---
EXAMINATION: XR shoulder RT min 2V DATE: 04/02/2023 13:33 INDICATION: Right shoulder pain TECHNIQUE: AP internally and externally rotated, AP oblique externally rotated and transscapular Y vi ews of the right shoulder were obtained. COMPARISON: None FINDINGS: Normal alignment. No fracture. Mild glenohumeral and moderate acromioclavicular osteoarthritis. Smal l anterior subacromial spur and small inferiorly directed osteophyte at the acromioclavicular joint. Soft tissues are unremarkable. IMPRESSION: Mild right glenohumeral and moderate acromioclavicular osteoarthritis. Reviewed, dictated and finalized at location A.
--- NOTE | ~2023-03-26 | CT_ITS ---
Non-contrast Head CT History: Status post fall COMPARISON: 11/04/2022 Technique: Axial non-contrast imaging of the brain was performed. Dose reduction technique was used on this scan by utilizing automated exposure control and iterative reconstruction technique. The dose -length product (DLP) was 605.33 mGy-cm. Findings: There is no evidence of intracranial hemorrhage, mass lesion, or acute infarct. Brain par enchyma appears normal. The ventricles and subarachnoid spaces are normal in size. The calvarium ap pears normal. The visualized paranasal sinuses and mastoid air cells are clear. Impression: No significant abnormality seen. Reviewed, dictated and finalized at location . Impression: No significant abnormality seen.
--- NOTE | ~2023-03-26 | XR_ITS ---
EXAMINATION: XR retrograde pyelogram RT DATE: 04/01/2023 13:20 INDICATION: Right retrograde ureteral stent placement. TECHNIQUE: 3 fluoroscopic images of the abdomen and pelvis were obtained during procedure performed jesse Phillip. Radiologist was not present for the imaging or procedure. The amount of fluoroscopy t jennifer used during this procedure was 0.1 minutes. COMPARISON: CT dated 03/27/2023 FINDINGS: Initial image demonstrates a wire advanced along the right ureter. Subsequent images demonstrate retr ograde contrast injection in the right ureter which appears to demonstrate a filling defect in the pr oximal ureter potentially representing the stone seen on prior CT. Final image demonstrates a stent a dvanced to the right renal pelvis. Partially visualized right total hip arthroplasty. IMPRESSION: 1. Ureteral stone identified in the proximal right ureter with right internal ureteral stent exchange . See procedure note for further detail including whether the stone was extracted. Reviewed, dictated and finalized at location A. IMPRESSION: 1. Ureteral stone identified in the proximal right ureter with right internal u reteral stent exchange. See procedure note for further detail including whether the stone was extracted.
--- NOTE | ~2023-03-26 | XR_ITS ---
EXAMINATION: XR abdomen/kub 1V DATE: 04/03/2023 09:35 INDICATION: Back the right internal ureteral stent placement TECHNIQUE: A supine view of the abdomen on 2 radiographs was obtained. COMPARISON: 04/01/2023 FINDINGS: Right internal ureteral stent remains in expected position with loops formed over the expected locati on of the bladder and right renal pelvis. Moderate amount of stool scattered throughout the colon and small amount of gas within multiple nondilated loops of small bowel in a nonspecific nonobstructive bowel gas pattern. Cholecystectomy clips in right upper quadrant. Several surgical clips about a righ t total hip arthroplasty. IMPRESSION: 1. Right internal ureteral stent in expected position. Reviewed, dictated and finalized at location A.
[2023-03-26 22:12] VITALS: BP 123/77; PULSE 64; RESP 20; O2SAT 100
--- NOTE | 2023-03-26 22:22 | ECG_ITS ---
Measurements Intervals [place] Rate: 57 P: -38 MS: 152 QRS: 34 QRSD: 125 T: 25 QT: 429 QTc: 420 Interpretive Statements SINUS BRADYCARDIA MODERATE INTRAVENTRICULAR CONDUCTION DELAY [110+ ms QRS DURATION] MODERATE T-WAVE ABNORMALITY, CONSIDER ANTEROLATERAL ISCHEMIA [-0.1+ mV T WAVE IN V3- V6] BASELINE ARTIFACT LIMITS INTERPRETATION ABNORMAL ECG COMPARED TO ECG 11/06/2022 13:55:22 INTRAVENTRICULAR CONDUCTION DELAY NOW PRESENT Electronically Signed On 03-27-2023 9:16:37 CDT by Alan Munoz M.D.
--- NOTE | 2023-03-26 22:27 | ED.GENADULT ---
HPI - General Adult General Chief complaint: Weakness <OSIRIS Phillips Last Filed: 03/27/23 00:57> Stated complaint: WEAKNESS/DOESN'T FEEL GOOD <OSIRIS Phillips Last Filed: 03/27/23 00:57> Time Seen by Provider: 03/27/23 02:02 <OSIRIS Phillips Last Filed: 03/27/23 00:57> Source: patient <OSIRIS Phillips Last Filed: 03/27/23 00:57> Mode of arrival: ambulatory <OSIRIS Phillips Last Filed: 03/27/23 00:57> Limitations: no limitations <OSIRIS Phillips Last Filed: 03/27/23 00:57> History of Present Illness HPI narrative: This is a 53-year-old female PMH of CHF, vasovagal syncope, diabetes, DVT who presents to the ED via EMS from home with chief complaint of generalized weakness and feeling ill for the past couple of days. Patient states that she has had heart palpitations, pain from head to toe. She states she fell multiple times this weekend but did not go to the hospital. Patient states that she does not remember her falls but states her sister had to help her up from the floor on Friday. According to EMS they had to break into the door to help her to the gurney as she was not able to get to the door due to weakness. Patient states that she is having which seems new to potential falls. She also reports shortness of breath but denies chest pain. Denies cough. She states she talked to her PCP recently about urinary frequency and hematuria and was prescribed an antibiotic. She states she started that today. Patient also endorses nausea and dizziness. She is not on any blood thinners. <OSIRIS Phillips Last Filed: 03/27/23 00:57> This is a 53-year-old female PMH of CHF, vasovagal syncope, diabetes, DVT who presents to the ED via EMS from home with chief complaint of generalized weakness and feeling ill for the past couple of days. Patient states that she has had heart palpitations, pain from head to toe. She states she fell multiple times this weekend but did not go to the hospital. Patient states that she does not remember her falls but states her sister had to help her up from the floor on Friday. According to EMS they had to break into the door to help her to the gurney as she was not able to get to the door due to weakness. Patient states that she is having which seems new to potential falls. She also reports shortness of breath but denies chest pain. Denies cough. She states she talked to her PCP recently about urinary frequency and hematuria and was prescribed an antibiotic. She states she started that today. Patient also endorses nausea and dizziness. She does have back pain but she has a history of back pain. She is not on any blood thinners. <Shante Street MD - Last Filed: 03/27/23 05:15> Related Data Home medications: Home Medications Medication Instructions Recorded Confirmed Lactobacillus acidophilus 1 cap PO DAILY 05/30/22 03/27/23 (Acidophilus capsule) ascorbic acid (vitamin C) 500 mg 1,000 mg PO DAILY 05/30/22 03/27/23 tablet (Vitamin C) aspirin 81 mg chewable tablet 81 mg PO HS 05/30/22 03/27/23 baclofen 20 mg tablet 20 mg PO TID 05/30/22 03/27/23 cholecalciferol (vitamin D3) 125 50,000 unit PO USEASDIRECTD 05/30/22 03/27/23 mcg (5,000 unit) tablet (Vitamin D3) erenumab-aooe 140 mg/mL 10 mg subcut MONTHLY 05/30/22 03/27/23 subcutaneous auto-injector (Aimovig Autoinjector) estradiol 10 mcg vaginal tablet 10 mcg vaginal 2XW 05/30/22 03/27/23 eszopiclone 3 mg tablet 3 mg PO HS 05/30/22 03/27/23 folic acid 1 mg tablet See Rx Instructions .Route .COMPLEX 05/30/22 03/27/23 ibuprofen 800 mg tablet 800 mg PO Q8-10H PRN Pain 05/30/22 03/27/23 icosapent ethyl 1 gram capsule 2 g PO BID 05/30/22 03/27/23 (Vascepa) levothyroxine 100 mcg tablet 125 mcg PO DAILY 05/30/22 03/27/23 (Synthroid) lithium carbonate 450 mg 450 mg PO HS 05/30/22 03/27/23 tablet,extended release magnesium 200 mg tablet 400 mg PO HS 05/18
[2023-03-26] MEDS: MORPHINE SULFATE (*CRX) 4 MG/ML INJ IV PUSH (23:18)
[2023-03-26 23:30] LABS: Basophils Absolute Auto 0.1 K/mm3 (0.0-0.1); Basophils Percent Auto 0.8 % (0.2-1.2); Eosinophils Absolute Auto 0.3 K/mm3 (0-0.3); Eosinophils Percent Auto 3.8 % (0-4.4); Hematocrit 47.1 % (37.0-47.0); Hemoglobin 15.2 g/dL (12.0-15.0); Immature Granulocyte Absolute 0.01 K/mm3 (0.00-0.031); Immature Granulocyte Percent A 0.1 % (0-0.5); Lymphocytes Absolute Auto 2.62 K/mm3 (0.9-3.2); Lymphocytes Percent Auto 32.8 % (18.3-44.2); Mean Corpuscular HGB Conc 32.3 g/dl (32-36); Mean Corpuscular Hemoglobin 28.5 pg (26-34); Mean Corpuscular Volume 88.2 fl (80-100); Mean Platelet Volume 9.7 fl (7.4-10.4); Monocytes Absolute Auto 0.9 K/mm3 (0.1-0.6); Monocytes Percent Auto 11.8 % (2.6-8.5); Neutrophils Absolute Auto 4.1 K/mm3 (1.3-6.7); Neutrophils Percent Auto 50.7 % (45.5-73.1); Platelet Count Result 237 k/mm3 (150-375); Red Blood Count 5.34 M/mm3 (4.2-5.4); Red Cell Distribution Width 14.5 % (11.5-14.5)
[2023-03-26] MEDS: ONDANSETRON INJ 4 MG/2 ML VIAL IV PUSH (23:39)
[2023-03-26 23:53] LABS: Lactic Acid Reflex 2.3 mmol/L (0.7-2.0)
[2023-03-27] VITALS (14 sets, daily range): BP systolic 106–153; BP diastolic 53–96; PULSE 51–83; RESP 13–20; TEMP 36.1–36.9; O2SAT 92–100; BMI 12.0
[2023-03-27] MEDS: METOCLOPRAMIDE HCL INJ 10 MG/2 ML VIAL IV PUSH (00:03)
[2023-03-27 00:42] LABS: Bacteria Urine 1+ /hpf; Non Pathogenic Casts 0-2; RBC Urine >100 /hpf (0-2); Squamous Epithelial Cell Urine Few /hpf (Few); WBC Urine 51-100 /hpf
[2023-03-27 00:44] LABS: Appearance Urine Cloudy (Clear); Bilirubin Urine Negative (Negative); Blood Urine 3+ (Negative); Glucose Urine UA Negative (Negative); Ketones Urine Negative (Negative); Leukocyte Esterase Ur 3+ LEU/UL (Negative); Nitrate Urine Negative (Negative); Protein Urine 1+ mg/dL (Negative)
[2023-03-27 00:45] LABS: Add Urine Microscopic? YES; Color Urine Amber (Yellow)
[2023-03-27 00:52] LABS: Creatine Kinase 497 U/L (30-135)
[2023-03-27 00:53] LABS: Calcium 9.6 mg/dL (8.4-10.2)
[2023-03-27 00:54] LABS: Alkaline Phosphatase 78 U/L (38-126); Bilirubin,Total 0.5 mg/dL (0.2-1.3)
[2023-03-27] MEDS: SODIUM CHLORIDE 0.9% IV 1,000 ML 999 ML IV CONT (00:54)
[2023-03-27 00:55] LABS: Chloride 106 mmol/L (98-107); Estimated CRCL calculation 111 ml/min; Estimated Glomerular Filt Rate > 60
[2023-03-27 00:56] LABS: Anion Gap 5 mmol/L (8-16); Blood Urea Nitrogen 14 mg/dL (7-17); Carbon Dioxide 25 mmol/L (22-30); Glucose 118 mg/dL (65-110); Sodium 136 mmol/L (137-145)
[2023-03-27 00:57] LABS: Alanine Aminotransferase 26 U/L (6-35); Albumin Level 4.1 g/dL (3.5-5.1); Potassium 3.7 mmol/L (3.4-5.0)
[2023-03-27 00:58] LABS: Aspartate Amino Transferase 50 U/L (14-36)
[2023-03-27 01:02] LABS: Troponin I < 0.012 ng/mL (0.000-0.034)
[2023-03-27 01:18] LABS: Phosphorus 3.7 mg/dL (2.5-4.5)
[2023-03-27] MEDS: ONDANSETRON INJ 4 MG/2 ML VIAL IV PUSH ×5 (02:10→23:31)
[2023-03-27 02:13] LABS: Reflex Lactic Acid Yes or No Add Lactic
[2023-03-27] MEDS: LACTATED RINGERS 1,000 ML 999 ML IV CONT (03:28)
[2023-03-27] MEDS: ACETAMINOPHEN 500 MG TABLET 1000 MG PO (03:28)
--- NOTE | 2023-03-27 04:21 | ADMGEN ---
This patient, Sumaya Oliveira, was admitted to 2 Medical Room 253-01. Patient/family oriented to hospital policies and general routines including ID bracelet, bed and alarms, visiting hours, pain management, procedures, bathroom and other care routines, personal items, smoking policy, room service/diet, and visiting hours. Information on how to activate the Rapid Response Team has been discussed. Patient/Family are encouraged to report perceived risks to care and to ask questions if they do not understand what they are told or what they should do.
[2023-03-27 05:38] LABS: Lactic Acid 1.8 mmol/L (0.7-2.0)
[2023-03-27] MEDS: oxyCODONE/ACETAMINOPHEN (*CRX) 5-325 MG TABLET 1 TABLET PO ×2 (06:50→20:08)
[2023-03-27] MEDS: oxyCODONE HCL (*CRX) 2.5 MG TAB IR PO ×2 (06:50→20:09)
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
--- NOTE | 2023-03-27 08:19 | WPDHPUPDATE1 ---
History and Physical Update Update Date/Time: 03/27/23 08:19 History and Physical has been reviewed, including an updated exam of the patient. There are NO changes in the patient's condition. Risks, benefits, and alternatives have been discussed and questions answered. Patient agrees to proceed with procedure. Proceed with cystoscopy, right retrograde, right ureteral stent placement
--- NOTE | 2023-03-27 08:37 | WPDANESEPPF ---
Anes - Initial Pre Proc Eval Procedure: Operation Date: 03/27/23 13:30 Proposed Procedures p Cystoscopy, Right Retrograde Pyelogram, Right Stent Placement - Bart Phillip MD Date/Time: 03/27/23 08:37 Surgeon: Pérez Coats MD Pre Op Diagnosis: Infected Stone Patient Data Age: 53 Gender: F Height: 1.7 m Weight: 109.2 kg Last Vital Signs Temp 36.8 C 03/27/23 04:10 Pulse 61 03/27/23 04:10 Resp 18 03/27/23 04:10 BP 143/70 H 03/27/23 04:10 Pulse Ox 100 03/27/23 04:10 O2 Del Method Room Air 03/26/23 22:12 Allergies Allergy/AdvReac Type Severity Reaction Status Date / Time rizatriptan Allergy Mild HIVES Verified 03/27/23 04:30 tetracycline Allergy Unknown Rash Verified 03/27/23 04:30 adhesive Allergy Rash Verified 03/27/23 04:30 bupropion [From Wellbutrin] Allergy Dizziness Verified 03/27/23 04:30 lamotrigine Allergy Rash Verified 03/27/23 04:30 methylprednisolone Allergy Unknown Verified 03/27/23 04:30 nitrofurantoin Allergy Nausea Verified 03/27/23 04:30 [From Macrobid] tamsulosin Allergy Dizziness Verified 03/27/23 04:30 Home Medications Medication Instructions Recorded Confirmed Type Lactobacillus acidophilus 1 cap PO DAILY 05/30/22 03/27/23 History (Acidophilus capsule) ascorbic acid (vitamin C) 500 mg 1,000 mg PO DAILY 05/30/22 03/27/23 History tablet (Vitamin C) aspirin 81 mg chewable tablet 81 mg PO HS 05/30/22 03/27/23 History baclofen 20 mg tablet 20 mg PO TID 05/30/22 03/27/23 History cholecalciferol (vitamin D3) 125 50,000 unit PO USEASDIRECTD 05/30/22 03/27/23 History mcg (5,000 unit) tablet (Vitamin D3) erenumab-aooe 140 mg/mL 10 mg subcut MONTHLY 05/30/22 03/27/23 History subcutaneous auto-injector (Aimovig Autoinjector) estradiol 10 mcg vaginal tablet 10 mcg vaginal 2XW 05/30/22 03/27/23 History eszopiclone 3 mg tablet 3 mg PO HS 05/30/22 03/27/23 History folic acid 1 mg tablet See Rx Instructions .Route .COMPLEX 05/30/22 03/27/23 History ibuprofen 800 mg tablet 800 mg PO Q8-10H PRN Pain 05/30/22 03/27/23 History icosapent ethyl 1 gram capsule 2 g PO BID 05/30/22 03/27/23 History (Vascepa) levothyroxine 100 mcg tablet 125 mcg PO DAILY 05/30/22 03/27/23 History (Synthroid) lithium carbonate 450 mg 450 mg PO HS 05/30/22 03/27/23 History tablet,extended release magnesium 200 mg tablet 400 mg PO HS 05/30/22 03/27/23 History methotrexate sodium 2.5 mg tablet 5 mg PO WEEKLY 05/30/22 03/27/23 History montelukast 10 mg tablet 10 mg PO DAILY 05/30/22 03/27/23 History pravastatin 20 mg tablet 20 mg PO HS 05/30/22 03/27/23 History ustekinumab 90 mg/mL subcutaneous 90 mg subcut [id number] 05/30/22 03/27/23 History syringe (Stelara) acetaminophen 650 mg tablet 650 mg PO Q4H PRN pain 11/04/22 03/27/23 History albuterol sulfate 90 mcg/actuation 90 mcg inhalation Q6H PRN 11/04/22 03/27/23 History aerosol inhaler (Ventolin HFA) Shortness Of Breath docusate sodium 100 mg capsule 100 mg PO DAILY PRN Constipation 11/04/22 03/27/23 History fluconazole 200 mg tablet 200 mg PO USEASDIRECTD 11/04/22 03/27/23 History fluoxetine 10 mg capsule 20 mg PO DAILY 11/04/22 03/27/23 History melatonin 5 mg tablet 5 mg PO HS 11/04/22 03/27/23 History oxcarbazepine 150 mg tablet 150 mg PO DIRECTED 11/04/22 03/27/23 History sumatriptan succinate 6 mg/0.5 mL 6 mg subcut DIRECTED 11/04/22 03/27/23 History subcutaneous pen injector midodrine 2.5 mg tablet 2.5 mg PO TID 30 days #90 tabs 11/11/22 03/27/23 Rx fluticasone propionate 50 1 - 2 spray intranasal BID #16 mL 02/21/23 03/27/23 Rx mcg/actuation nasal spray,suspension (Flonase Allergy Relief) ciprofloxacin HCl 500 mg tablet 500 mg PO BID 03/27/23 03/27/23 History fluticasone fur. 100 mcg-umeclid 1 inh inhalation DAILY 03/27/23 03/27/23 History 62.5 mcg-vilant 25 mcg inhalat.powder (Trelegy Ellipta) oxycodone-acetaminophen 7.5 mg-325 1 tablet PO BID 03/27/23 03/27/23 History
[2023-03-27] MEDS: LACTATED RINGERS 1,000 ML 30 ML IV CONT (08:50)
[2023-03-27] MEDS: LIDOCAINE HCL 2% GEL UROJET 10 ML PKG MUCOUS MEM (09:10)
[2023-03-27] MEDS: SCOPOLAMINE 1.5 MG PATCH TRANSDERM (09:13)
--- NOTE | 2023-03-27 09:13 | W.PM.PROC2 ---
Procedure Note - Detailed Date of Procedure 03/27/23 Pre-op Diagnosis Obstructing right ureteral calculus 8 mm with UTI Post-op Diagnosis Same Procedure Performed Cystoscopy, right ureteral stent placement 6 [place] contour Surgeon Bart Phillip MD Anesthesia General Description of Procedure Patient is taken to the operative suite correctly identified. Once anesthesia was obtained she was placed in dorsal lithotomy position and prepped and draped usual sterile fashion. Nineteen [place] scope was inserted the bladder. There were no tumors noted. The right ureteral orifice was cannulated with a guidewire and inserted up into the kidney. Contrast was still present from her obstruction. At this point a 6 [place] contour stent was simply placed with the proximal end coiled in the right renal pelvis and the distal in the bladder. Bladder was drained. 2% viscous lidocaine was inserted into the urethra patient is taken recovery stable condition. Will address the stone at a later point time once the infection is clear. Will likely just need a ureteroscopy. This complete dictation. Please send a copy of op note to my office Urine Output 300 Drains Yes Packing No Pathology None sent Complications No immediate complications Condition Stable Disposition PACU
[2023-03-27] MEDS: FLUoxetine HCL 20 MG CAPSULE PO (11:05)
[2023-03-27] MEDS: OMEGA 3 POLYUNSAT FATTY ACIDS 1 GM CAP 2 GM PO ×2 (11:05→17:38)
[2023-03-27] MEDS: SODIUM CHLORIDE 0.9% IV 1,000 ML 100 ML IV CONT (11:05)
[2023-03-27] MEDS: FOLIC ACID 1 MG TABLET BY MOUTH (11:05)
[2023-03-27] MEDS: ENOXAPARIN 40 MG/0.4 ML SYRINGE SUB-Q (11:06)
[2023-03-27] MEDS: OXcarbazepine 150 MG TABLET PO (11:06)
[2023-03-27] MEDS: BACLOFEN 10 MG TABLET 20 MG PO ×3 (11:06→17:39)
[2023-03-27] MEDS: ASCORBIC ACID 500 MG TABLET 1000 MG PO (11:06)
[2023-03-27] MEDS: FLUTICASONE PROPIONATE 0.05% NA SPR 16 GM BTL (*BKC) NASAL ×2 (11:07→17:39)
[2023-03-27] MEDS: ACIDOPHILUS/BULGARICUS CHEWABLE TABLET 1 TABLET PO (11:07)
[2023-03-27] MEDS: PANTOPRAZOLE 40 MG TABLET PO ×2 (11:07→17:39)
[2023-03-27] MEDS: FLUTICASONE/UMECLIDIN/VILANTER 100-62.5-25 MCG ELLIPTA 1 PUFF INHALATION (13:13)
[2023-03-27] MEDS: MORPHINE SULFATE (*CRX) 4 MG/ML INJ IV PUSH ×2 (15:09→22:36)
[2023-03-27] MEDS: MIDODRINE HCL 2.5 MG TABLET PO (17:39)
[2023-03-27] MEDS: MONTELUKAST SODIUM 10 MG TABLET PO (20:07)
[2023-03-27] MEDS: LITHIUM CARBONATE 150 MG CAPSULE 450 MG PO (20:07)
[2023-03-27] MEDS: MAGNESIUM OXIDE 400 MG TABLET PO (20:07)
[2023-03-27] MEDS: ASPIRIN 81 MG CHEWABLE TABLET PO (20:08)
[2023-03-27] MEDS: OXcarbazepine 150 MG TABLET 300 MG PO (20:08)
[2023-03-27] MEDS: MELATONIN 5 MG TABLET PO (20:09)
[2023-03-27] MEDS: PRAVASTATIN SODIUM 20 MG TABLET PO (20:09)
[2023-03-27] MEDS: traZODone HCL 50 MG TABLET PO (21:46)
[2023-03-28 04:24] VITALS: BP 132/66; PULSE 51; RESP 20; TEMP 36.6; O2SAT 99
[2023-03-28] MEDS: LEVOTHYROXINE SODIUM 125 MCG TABLET PO (06:17)
[2023-03-28] MEDS: oxyCODONE HCL (*CRX) 2.5 MG TAB IR PO ×3 (08:20→20:30)
[2023-03-28] MEDS: oxyCODONE/ACETAMINOPHEN (*CRX) 5-325 MG TABLET 1 TABLET PO ×3 (08:21→20:30)
[2023-03-28] MEDS: OMEGA 3 POLYUNSAT FATTY ACIDS 1 GM CAP 2 GM PO ×2 (08:21→17:10)
[2023-03-28] MEDS: FLUTICASONE PROPIONATE 0.05% NA SPR 16 GM BTL (*BKC) NASAL ×2 (08:21→17:11)
[2023-03-28] MEDS: FLUoxetine HCL 20 MG CAPSULE PO (08:22)
[2023-03-28] MEDS: ASCORBIC ACID 500 MG TABLET 1000 MG PO (08:22)
[2023-03-28] MEDS: MIDODRINE HCL 2.5 MG TABLET PO ×3 (08:22→17:11)
[2023-03-28] MEDS: BACLOFEN 10 MG TABLET 20 MG PO ×3 (08:22→17:11)
[2023-03-28] MEDS: ACIDOPHILUS/BULGARICUS CHEWABLE TABLET 1 TABLET PO (08:22)
[2023-03-28] MEDS: ENOXAPARIN 40 MG/0.4 ML SYRINGE SUB-Q (08:22)
[2023-03-28] MEDS: PANTOPRAZOLE 40 MG TABLET PO ×2 (08:22→17:14)
[2023-03-28] MEDS: OXcarbazepine 150 MG TABLET PO (08:24)
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
[2023-03-28] MEDS: FOLIC ACID 1 MG TABLET BY MOUTH (08:32)
[2023-03-28] MEDS: FLUTICASONE/UMECLIDIN/VILANTER 100-62.5-25 MCG ELLIPTA 1 PUFF INHALATION (08:38)
[2023-03-28 08:41] VITALS: O2SAT 93
[2023-03-28 09:22] LABS: Basophils Absolute Auto 0.1 K/mm3 (0.0-0.1); Eosinophils Absolute Auto 0.2 K/mm3 (0-0.3); Hematocrit 45.1 % (37.0-47.0); Hemoglobin 14.2 g/dL (12.0-15.0); Immature Granulocyte Absolute 0.01 K/mm3 (0.00-0.031); Immature Granulocyte Percent A 0.1 % (0-0.5); Lymphocytes Absolute Auto 3.56 K/mm3 (0.9-3.2); Mean Corpuscular HGB Conc 31.5 g/dl (32-36); Mean Corpuscular Hemoglobin 28.3 pg (26-34); Mean Platelet Volume 9.6 fl (7.4-10.4); Monocytes Absolute Auto 0.7 K/mm3 (0.1-0.6); Monocytes Percent Auto 8.2 % (2.6-8.5); Neutrophils Absolute Auto 3.4 K/mm3 (1.3-6.7); Neutrophils Percent Auto 42.7 % (45.5-73.1); Platelet Count Result 264 k/mm3 (150-375); Red Blood Count 5.01 M/mm3 (4.2-5.4); Red Cell Distribution Width 15.1 % (11.5-14.5); White Blood Count 7.9 K/mm3 (4.5-10.0)
[2023-03-28 09:49] LABS: Alanine Aminotransferase 29 U/L (6-35); Albumin Level 4.1 g/dL (3.5-5.1); Alkaline Phosphatase 64 U/L (38-126); Anion Gap 7 mmol/L (8-16); Aspartate Amino Transferase 37 U/L (14-36); Bilirubin,Total 0.6 mg/dL (0.2-1.3); Blood Urea Nitrogen 12 mg/dL (7-17); Calcium 9.4 mg/dL (8.4-10.2); Carbon Dioxide 27 mmol/L (22-30); Chloride 104 mmol/L (98-107); Estimated CRCL calculation 94 ml/min; Estimated Glomerular Filt Rate > 60; Glucose 142 mg/dL (65-110); Potassium 3.2 mmol/L (3.4-5.0); Sodium 138 mmol/L (137-145)
--- NOTE | 2023-03-28 10:19 | WPDANESPN ---
Anes - Prog Note Post-Op Date/Time: 03/28/23 10:19 Cardiovascular status: normal Respiratory status: normal Airway patency: baseline Mental status: baseline Post-Op hydration status: normal Vital Signs: Last Vital Signs Temp 36.6 C 03/28/23 04:24 Pulse 51 L 03/28/23 04:24 Resp 20 03/28/23 04:24 BP 132/66 03/28/23 04:24 Pulse Ox 93 03/28/23 08:41 O2 Del Method Room Air 03/28/23 08:41 O2 Flow Rate 8 03/27/23 09:30 Pain Score (VAS): 10/25 I/O: Intake & Output 03/27/23 03/28/23 03/28/23 23:59 07:59 15:59 Intake Total 800 490 Output Total 900 400 Balance -100 90 Laboratory Tests 03/28/23 09:09 03/28/23 09:09 03/28/23 09:09 WBC 7.9 RBC 5.01 Hgb 14.2 Hct 45.1 MCV 90.0 MCH 28.3 MCHC 31.5 L RDW 15.1 H Plt Count 264 MPV 9.6 Immature Gran % (Auto) 0.1 Neut % (Auto) 42.7 L Lymph % (Auto) 45.0 H Summers % (Auto) 8.2 Eos % (Auto) 3.0 Baso % (Auto) 1.0 Lymph # (Auto) 3.56 H Summers # (Auto) 0.7 H Eos # (Auto) 0.2 Baso # (Auto) 0.1 Abs Immat Gran (auto) 0.01 Absolute Neuts (auto) 3.4 Absolute Nucleated RBC 0.0 Nucleated RBC % 0.0 Sodium 138 Potassium 3.2 L Chloride 104 Carbon Dioxide 27 Anion Gap 7 L BUN 12 Creatinine 0.80 Estim Creat Clear Calc 94 Estimated GFR > 60 Glucose 142 H Calcium 9.4 Total Bilirubin 0.6 AST 37 H ALT 29 Alkaline Phosphatase 64 Total Protein 7.0 Albumin 4.1 Microbiology 03/27/23 00:29 Urine Clean Catch Urine Culture - Final 03/26/23 23:10 Blood Blood Culture - Preliminary 03/26/23 23:10 Blood Blood Culture - Preliminary Post-procedural complaints: nausea (mild, patient states nausea that same as before surgery) Patient Feedback: Patient satisfied with anesthetic care.
--- NOTE | 2023-03-28 10:30 | WPDANESPN ---
Anes - Prog Note Post-Op Date/Time: 03/28/23 10:30 Cardiovascular status: normal Respiratory status: normal Airway patency: baseline Mental status: baseline Post-Op hydration status: normal Vital Signs: Last Vital Signs Temp 36.6 C 03/28/23 04:24 Pulse 51 L 03/28/23 04:24 Resp 20 03/28/23 04:24 BP 132/66 03/28/23 04:24 Pulse Ox 93 03/28/23 08:41 O2 Del Method Room Air 03/28/23 08:41 O2 Flow Rate 8 03/27/23 09:30 Pain Score (VAS): 0 I/O: Intake & Output 03/27/23 03/28/23 03/28/23 23:59 07:59 15:59 Intake Total 800 490 Output Total 900 400 Balance -100 90 Laboratory Tests 03/28/23 09:09 03/28/23 09:09 03/28/23 09:09 WBC 7.9 RBC 5.01 Hgb 14.2 Hct 45.1 MCV 90.0 MCH 28.3 MCHC 31.5 L RDW 15.1 H Plt Count 264 MPV 9.6 Immature Gran % (Auto) 0.1 Neut % (Auto) 42.7 L Lymph % (Auto) 45.0 H Cowley % (Auto) 8.2 Eos % (Auto) 3.0 Baso % (Auto) 1.0 Lymph # (Auto) 3.56 H Cowley # (Auto) 0.7 H Eos # (Auto) 0.2 Baso # (Auto) 0.1 Abs Immat Gran (auto) 0.01 Absolute Neuts (auto) 3.4 Absolute Nucleated RBC 0.0 Nucleated RBC % 0.0 Sodium 138 Potassium 3.2 L Chloride 104 Carbon Dioxide 27 Anion Gap 7 L BUN 12 Creatinine 0.80 Estim Creat Clear Calc 94 Estimated GFR > 60 Glucose 142 H Calcium 9.4 Total Bilirubin 0.6 AST 37 H ALT 29 Alkaline Phosphatase 64 Total Protein 7.0 Albumin 4.1 Microbiology 03/27/23 00:29 Urine Clean Catch Urine Culture - Final 03/26/23 23:10 Blood Blood Culture - Preliminary 03/26/23 23:10 Blood Blood Culture - Preliminary Post-procedural complaints: nausea (mild, patient states nausea that same as before surgery) Patient Feedback: Patient satisfied with anesthetic care.
--- NOTE | 2023-03-28 12:58 | WPDUROPN2 ---
Progress Note: A&P Assessment and Plan (1) Right ureteral calculus: Code(s): N20.1 - Calculus of ureter Status: Acute Assessment and Plan: Stent in place, patient tolerating stent, but will add Oxybutynin for stent irritation, frequency and urgency. Plan to schedule a Right Ureteroscopy with stone extraction with possible laser, stent exchange next Friday with Dr. Phillip as an outpatient. Ok to discharge per urology at anytime. (2) UTI (urinary tract infection): Code(s): N39.0 - Urinary tract infection, site not specified Status: Acute Assessment and Plan: Urine culture negative. Ok to stop antibiotics. Subjective Subjective Date/Time Seen: 03/28/23 12:58 Post Op day: 1 Interval history: POD #1 Cystoscopy, right ureteral stent placement 6 [place] contour Patient is doing well, she does c/o some stent irritation but it's manageable. She also c/o frequency and urgency. She is afebrile and her urine culture is negative. KUB shows stent in place and stone along the course of the stent. Review of Systems Cardiovascular: Cardiovascular: Denies chest pain Respiratory: Respiratory: Reports no additional respiratory complaints Gastrointestinal: Gastrointestinal: Reports abdominal pain, Denies diarrhea, Denies nausea and Denies vomiting Genitourinary: Genitourinary: Denies hematuria, Reports nocturia, Denies dysuria, Denies pelvic pain, Reports flank pain, Denies urinary hesitancy and Reports urinary urgency Exam Const: General: cooperative and comfortable Resp: Effort & Inspection: normal respiratory effort Cardio: Rate: regular rate GI: GI Palp: Yes Soft to palpation and No Tenderness to palpation present (GI) : General: Yes CVA tenderness on the right Extrem: Right lower extremity: no edema Left lower extremity: no edema Objective Data Vital Signs Vital Signs: Vital Signs - 24 hr 03/27/23 13:10 03/27/23 13:10 03/27/23 20:26 Temperature 96.9 F L Pulse Rate 83 83 76 Respiratory Rate 18 18 20 Blood Pressure 116/68 Pulse Oximetry 92 94 Oxygen Delivery Room Air 03/27/23 20:00 03/28/23 04:24 03/28/23 08:41 Temperature 97.8 F Pulse Rate 76 51 L Respiratory Rate 20 20 Blood Pressure 132/66 Pulse Oximetry 94 99 93 Oxygen Delivery Room Air Room Air 03/28/23 08:00 Temperature Pulse Rate Respiratory Rate Blood Pressure Pulse Oximetry Oxygen Delivery Room Air Intake/Output Intake/Output: Intake & Output 03/25/23 03/26/23 03/27/23 03/28/23 23:59 23:59 23:59 23:59 Intake Total 3290 490 Output Total 2900 900 Balance 390 -410 Meds/Results Medications: Active Medications Generic Name Dose Route Start Last Admin Trade Name Freq PRN Reason Stop Dose Admin Acetaminophen 650 mg 03/27/23 07:13 Acetaminophen 325 Mg Tablet PO Q4H PRN Mild Pain (1-3) or Fever Albuterol 1 puff 03/27/23 07:21 Albuterol Sulfate (*Sp) Aerosol 1 Puff INHALATION Q6H PRN Shortness Of Breath Ascorbic Acid 1,000 mg 03/27/23 09:00 03/28/23 08:22 Ascorbic Acid 500 Mg Tablet PO 1,000 mg DAILY COTY Administration Aspirin 81 mg 03/27/23 21:00 03/27/23 20:08 Aspirin 81 Mg Chewable Tablet PO 81 mg HS COTY Administration Baclofen 20 mg 03/27/23 09:00 03/28/23 12:10 Baclofen 10 Mg Tablet PO 20 mg TID COTY Administration Docusate Sodium 100 mg 03/27/23 07:21 Docusate Sodium 100 Mg Capsule PO DAILY PRN Constipation Enoxaparin Sodium 40 mg 03/27/23 09:00 03/28/23 08:22 Enoxaparin 40 Mg/0.4 Ml Syringe SUB-Q 40 mg DAILY COTY Administration Fish Oil 2 gm 03/27/23 09:00 03/28/23 08:21 Bowdle 3 Polyunsat Fatty Acids 1 Gm Cap PO 2 gm BID COTY Administration Fluoxetine HCl 20 mg 03/27/23 09:00 03/28/23 08:22 Fluoxetine Hcl 20 Mg Capsule PO 20 mg DAILY COTY Administration Fluticasone Propionate 1 - 2 spray 03/27/23 09:00 03/28/23 08:21 Flutic
[2023-03-28 13:47] VITALS: BP 115/60; PULSE 60; RESP 18; TEMP 36.4; O2SAT 94
[2023-03-28] MEDS: POTASSIUM CHLORIDE 20 MEQ ER TABLET 40 MEQ PO (17:11)
[2023-03-28] MEDS: oxyBUTYnin CHLORIDE 5 MG TABLET PO (17:11)
[2023-03-28 19:21] VITALS: BP 129/48; PULSE 65; RESP 18; TEMP 36.4; O2SAT 95
[2023-03-28 20:00] VITALS: PULSE 65; RESP 18; O2SAT 95
[2023-03-28] MEDS: OXcarbazepine 150 MG TABLET 300 MG PO (20:29)
[2023-03-28] MEDS: MELATONIN 5 MG TABLET PO (20:29)
[2023-03-28] MEDS: MONTELUKAST SODIUM 10 MG TABLET PO (20:29)
[2023-03-28] MEDS: traZODone HCL 50 MG TABLET PO (20:30)
[2023-03-28] MEDS: ASPIRIN 81 MG CHEWABLE TABLET PO (20:30)
[2023-03-28] MEDS: PRAVASTATIN SODIUM 20 MG TABLET PO (20:30)
[2023-03-28] MEDS: LITHIUM CARBONATE 150 MG CAPSULE 450 MG PO (20:30)
[2023-03-28] MEDS: MAGNESIUM OXIDE 400 MG TABLET PO (20:30)
[2023-03-29 05:40] LABS: Basophils Absolute Auto 0.1 K/mm3 (0.0-0.1); Basophils Percent Auto 0.9 % (0.2-1.2); Eosinophils Absolute Auto 0.4 K/mm3 (0-0.3); Eosinophils Percent Auto 6.4 % (0-4.4); Hematocrit 39.8 % (37.0-47.0); Hemoglobin 12.3 g/dL (12.0-15.0); Immature Granulocyte Absolute 0.01 K/mm3 (0.00-0.031); Immature Granulocyte Percent A 0.2 % (0-0.5); Immature Platelet Fraction Pct 2.5 % (0.9-11.2); Lymphocytes Absolute Auto 3.25 K/mm3 (0.9-3.2); Lymphocytes Percent Auto 55.8 % (18.3-44.2); Mean Corpuscular HGB Conc 30.9 g/dl (32-36); Mean Corpuscular Hemoglobin 28.3 pg (26-34); Mean Corpuscular Volume 91.5 fl (80-100); Mean Platelet Volume 10.5 fl (7.4-10.4); Monocytes Absolute Auto 0.5 K/mm3 (0.1-0.6); Monocytes Percent Auto 8.2 % (2.6-8.5); Neutrophils Absolute Auto 1.7 K/mm3 (1.3-6.7); Neutrophils Percent Auto 28.5 % (45.5-73.1); Platelet Count Result 186 k/mm3 (150-375); Red Blood Count 4.35 M/mm3 (4.2-5.4); Red Cell Distribution Width 14.6 % (11.5-14.5); White Blood Count 5.8 K/mm3 (4.5-10.0)
[2023-03-29 05:51] LABS: Alanine Aminotransferase 21 U/L (6-35); Albumin Level 3.1 g/dL (3.5-5.1); Alkaline Phosphatase 44 U/L (38-126); Anion Gap 0 mmol/L (8-16); Aspartate Amino Transferase 28 U/L (14-36); Bilirubin,Total 0.4 mg/dL (0.2-1.3); Blood Urea Nitrogen 17 mg/dL (7-17); Calcium 8.6 mg/dL (8.4-10.2); Carbon Dioxide 28 mmol/L (22-30); Chloride 108 mmol/L (98-107); Estimated CRCL calculation 76 ml/min; Estimated Glomerular Filt Rate 58; Glucose 106 mg/dL (65-110); Potassium 4.1 mmol/L (3.4-5.0); Sodium 136 mmol/L (137-145)
[2023-03-29 05:59] VITALS: BP 126/51; PULSE 60; RESP 18; TEMP 36.6; O2SAT 96
[2023-03-29 06:06] LABS: Platelet Estimate Adequate (Adequate)
[2023-03-29 06:07] LABS: Giant Platelets Present; Schistocytes None Seen (NORMAL)
[2023-03-29] MEDS: LEVOTHYROXINE SODIUM 125 MCG TABLET PO (06:20)
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
[2023-03-29] MEDS: OMEGA 3 POLYUNSAT FATTY ACIDS 1 GM CAP 2 GM PO ×2 (08:40→16:43)
[2023-03-29] MEDS: oxyBUTYnin CHLORIDE 5 MG TABLET PO ×3 (08:40→16:43)
[2023-03-29] MEDS: MIDODRINE HCL 2.5 MG TABLET PO ×3 (08:41→16:43)
[2023-03-29] MEDS: BACLOFEN 10 MG TABLET 20 MG PO ×3 (08:41→16:43)
[2023-03-29] MEDS: ACIDOPHILUS/BULGARICUS CHEWABLE TABLET 1 TABLET PO (08:41)
[2023-03-29] MEDS: ASCORBIC ACID 500 MG TABLET 1000 MG PO (08:41)
[2023-03-29] MEDS: FLUoxetine HCL 20 MG CAPSULE PO (08:41)
[2023-03-29] MEDS: PANTOPRAZOLE 40 MG TABLET PO ×2 (08:41→16:43)
[2023-03-29] MEDS: OXcarbazepine 150 MG TABLET PO (08:42)
[2023-03-29] MEDS: ENOXAPARIN 40 MG/0.4 ML SYRINGE SUB-Q (08:42)
[2023-03-29] MEDS: oxyCODONE/ACETAMINOPHEN (*CRX) 5-325 MG TABLET 1 TABLET PO ×3 (08:46→20:33)
[2023-03-29] MEDS: oxyCODONE HCL (*CRX) 2.5 MG TAB IR PO ×3 (08:48→20:33)
[2023-03-29] MEDS: FLUTICASONE/UMECLIDIN/VILANTER 100-62.5-25 MCG ELLIPTA 1 PUFF INHALATION (09:00)
[2023-03-29 09:02] VITALS: O2SAT 93
[2023-03-29] MEDS: DOCUSATE SODIUM 100 MG CAPSULE PO ×2 (12:25→20:32)
[2023-03-29 14:00] VITALS: BP 108/59; PULSE 50; RESP 18; TEMP 36.5; O2SAT 96
[2023-03-29] MEDS: FLUTICASONE PROPIONATE 0.05% NA SPR 16 GM BTL (*BKC) NASAL ×2 (14:50→16:45)
[2023-03-29 19:31] VITALS: BP 117/44; PULSE 50; RESP 16; TEMP 36.5; O2SAT 93
[2023-03-29] MEDS: LITHIUM CARBONATE 150 MG CAPSULE 450 MG PO (20:32)
[2023-03-29] MEDS: MONTELUKAST SODIUM 10 MG TABLET PO (20:32)
[2023-03-29] MEDS: PRAVASTATIN SODIUM 20 MG TABLET PO (20:32)
[2023-03-29] MEDS: traZODone HCL 50 MG TABLET PO (20:32)
[2023-03-29] MEDS: ASPIRIN 81 MG CHEWABLE TABLET PO (20:32)
[2023-03-29] MEDS: MELATONIN 5 MG TABLET PO (20:34)
[2023-03-29] MEDS: OXcarbazepine 150 MG TABLET 300 MG PO (20:34)
[2023-03-29] MEDS: MAGNESIUM OXIDE 400 MG TABLET PO (20:34)
[2023-03-30 04:34] VITALS: BP 111/55; PULSE 53; RESP 16; TEMP 37.2; O2SAT 98
[2023-03-30 05:27] LABS: Basophils Absolute Auto 0.1 K/mm3 (0.0-0.1); Basophils Percent Auto 0.8 % (0.2-1.2); Eosinophils Absolute Auto 0.4 K/mm3 (0-0.3); Eosinophils Percent Auto 6.2 % (0-4.4); Hematocrit 40.5 % (37.0-47.0); Hemoglobin 12.5 g/dL (12.0-15.0); Immature Granulocyte Absolute 0.01 K/mm3 (0.00-0.031); Immature Granulocyte Percent A 0.2 % (0-0.5); Lymphocytes Absolute Auto 3.06 K/mm3 (0.9-3.2); Lymphocytes Percent Auto 50.1 % (18.3-44.2); Mean Corpuscular HGB Conc 30.9 g/dl (32-36); Mean Corpuscular Hemoglobin 28.3 pg (26-34); Mean Corpuscular Volume 91.6 fl (80-100); Mean Platelet Volume 9.8 fl (7.4-10.4); Monocytes Absolute Auto 0.5 K/mm3 (0.1-0.6); Monocytes Percent Auto 8.3 % (2.6-8.5); Neutrophils Absolute Auto 2.1 K/mm3 (1.3-6.7); Neutrophils Percent Auto 34.4 % (45.5-73.1); Platelet Count Result 197 k/mm3 (150-375); Red Blood Count 4.42 M/mm3 (4.2-5.4); Red Cell Distribution Width 14.8 % (11.5-14.5); White Blood Count 6.1 K/mm3 (4.5-10.0)
[2023-03-30 05:37] LABS: Anion Gap 3 mmol/L (8-16); Blood Urea Nitrogen 20 mg/dL (7-17); Calcium 8.8 mg/dL (8.4-10.2); Carbon Dioxide 30 mmol/L (22-30); Chloride 107 mmol/L (98-107); Estimated CRCL calculation 94 ml/min; Estimated Glomerular Filt Rate > 60; Glucose 108 mg/dL (65-110); Potassium 3.7 mmol/L (3.4-5.0); Sodium 140 mmol/L (137-145)
[2023-03-30] MEDS: LEVOTHYROXINE SODIUM 125 MCG TABLET PO (06:18)
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
[2023-03-30] MEDS: FLUTICASONE/UMECLIDIN/VILANTER 100-62.5-25 MCG ELLIPTA 1 PUFF INHALATION (08:46)
[2023-03-30] MEDS: OMEGA 3 POLYUNSAT FATTY ACIDS 1 GM CAP 2 GM PO ×2 (09:05→16:20)
[2023-03-30] MEDS: ASCORBIC ACID 500 MG TABLET 1000 MG PO (09:05)
[2023-03-30] MEDS: FLUoxetine HCL 20 MG CAPSULE PO (09:05)
[2023-03-30] MEDS: PANTOPRAZOLE 40 MG TABLET PO ×2 (09:06→16:20)
[2023-03-30] MEDS: MIDODRINE HCL 2.5 MG TABLET PO ×3 (09:06→20:19)
[2023-03-30] MEDS: ACIDOPHILUS/BULGARICUS CHEWABLE TABLET 1 TABLET PO (09:06)
[2023-03-30] MEDS: oxyBUTYnin CHLORIDE 5 MG TABLET PO ×3 (09:06→16:20)
[2023-03-30] MEDS: DOCUSATE SODIUM 100 MG CAPSULE PO ×2 (09:06→20:20)
[2023-03-30] MEDS: BACLOFEN 10 MG TABLET 20 MG PO ×3 (09:06→16:20)
[2023-03-30] MEDS: ENOXAPARIN 40 MG/0.4 ML SYRINGE SUB-Q (09:16)
[2023-03-30] MEDS: oxyCODONE/ACETAMINOPHEN (*CRX) 5-325 MG TABLET 1 TABLET PO ×3 (09:16→22:22)
[2023-03-30] MEDS: FOLIC ACID 1 MG TABLET BY MOUTH (09:30)
[2023-03-30] MEDS: FLUTICASONE PROPIONATE 0.05% NA SPR 16 GM BTL (*BKC) NASAL (09:30)
[2023-03-30] MEDS: OXcarbazepine 150 MG TABLET PO (11:32)
[2023-03-30] MEDS: MORPHINE SULFATE (*CRX) 2 MG/ML INJ IV PUSH (13:05)
[2023-03-30 14:00] VITALS: BP 98/66; PULSE 59; RESP 16; TEMP 36.7; O2SAT 95
[2023-03-30] MEDS: oxyCODONE HCL (*CRX) 2.5 MG TAB IR PO ×2 (16:21→22:21)
[2023-03-30] MEDS: PRAVASTATIN SODIUM 20 MG TABLET PO (20:19)
[2023-03-30] MEDS: OXcarbazepine 150 MG TABLET 300 MG PO (20:20)
[2023-03-30] MEDS: MELATONIN 5 MG TABLET PO (20:20)
[2023-03-30] MEDS: MAGNESIUM OXIDE 400 MG TABLET PO (20:20)
[2023-03-30] MEDS: traZODone HCL 50 MG TABLET PO (20:20)
[2023-03-30] MEDS: LITHIUM CARBONATE 150 MG CAPSULE 450 MG PO (20:21)
[2023-03-30] MEDS: MONTELUKAST SODIUM 10 MG TABLET PO (20:21)
[2023-03-30] MEDS: ASPIRIN 81 MG CHEWABLE TABLET PO (20:22)
[2023-03-30 22:53] VITALS: BP 114/50; PULSE 51; RESP 18; TEMP 36.7; O2SAT 96
[2023-03-31] MEDS: LEVOTHYROXINE SODIUM 125 MCG TABLET PO (05:38)
[2023-03-31 07:16] VITALS: BP 103/45; PULSE 50; RESP 18; TEMP 36.9; O2SAT 97
[2023-03-31] MEDS: FLUTICASONE/UMECLIDIN/VILANTER 100-62.5-25 MCG ELLIPTA 1 PUFF INHALATION (08:03)
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
[2023-03-31 08:05] VITALS: O2SAT 96
[2023-03-31] MEDS: oxyBUTYnin CHLORIDE 5 MG TABLET PO ×3 (09:35→16:48)
[2023-03-31] MEDS: ACIDOPHILUS/BULGARICUS CHEWABLE TABLET 1 TABLET PO (09:35)
[2023-03-31] MEDS: OMEGA 3 POLYUNSAT FATTY ACIDS 1 GM CAP 2 GM PO ×2 (09:35→16:48)
[2023-03-31] MEDS: MIDODRINE HCL 2.5 MG TABLET PO ×3 (09:35→16:47)
[2023-03-31] MEDS: OXcarbazepine 150 MG TABLET PO (09:35)
[2023-03-31] MEDS: ASCORBIC ACID 500 MG TABLET 1000 MG PO (09:35)
[2023-03-31] MEDS: FOLIC ACID 1 MG TABLET BY MOUTH (09:36)
[2023-03-31] MEDS: FLUoxetine HCL 20 MG CAPSULE PO (09:36)
[2023-03-31] MEDS: BACLOFEN 10 MG TABLET 20 MG PO ×3 (09:36→16:48)
[2023-03-31] MEDS: PANTOPRAZOLE 40 MG TABLET PO ×2 (09:36→16:47)
[2023-03-31] MEDS: DOCUSATE SODIUM 100 MG CAPSULE PO ×2 (09:36→20:07)
[2023-03-31 09:37] VITALS: RESP 18; O2SAT 96
[2023-03-31] MEDS: FLUTICASONE PROPIONATE 0.05% NA SPR 16 GM BTL (*BKC) NASAL ×2 (09:37→16:48)
[2023-03-31] MEDS: oxyCODONE/ACETAMINOPHEN (*CRX) 5-325 MG TABLET 1 TABLET PO ×3 (09:49→22:54)
[2023-03-31] MEDS: oxyCODONE HCL (*CRX) 2.5 MG TAB IR PO ×3 (09:50→22:54)
--- NOTE | 2023-03-31 13:27 | WPDUROPN2 ---
Progress Note: A&P Assessment and Plan (1) Right ureteral calculus: Code(s): N20.1 - Calculus of ureter Status: Acute Assessment and Plan: Obtain Consent: Cystoscopy, right ureteroscopy with stone extraction, right stent exchange, right retrograde pyelogram, possible holmium laser. Keep NPO after midnight. (2) UTI (urinary tract infection): Code(s): N39.0 - Urinary tract infection, site not specified Status: Acute Assessment and Plan: Urine culture negative (3) Ureterolithiasis: Code(s): N20.1 - Calculus of ureter Status: Acute (4) Retention of urine: Code(s): R33.9 - Retention of urine, unspecified Status: Acute Assessment and Plan: Keep baker in, patient cannot have Flomax. Will plan to do a voiding trial next week when her stent is removed in the office. Subjective Subjective Date/Time Seen: 03/31/23 13:27 Interval history: The patient was here over the weekend and had a voiding trial but failed unfortunately. Her catheter is draining but is bloody. She is not in pain and denies difficulty with urination previously. Review of Systems Cardiovascular: Cardiovascular: Denies chest pain Respiratory: Respiratory: Reports no additional respiratory complaints Gastrointestinal: Gastrointestinal: Denies abdominal pain, Denies nausea and Denies vomiting Genitourinary: Genitourinary: Denies nocturia, Denies dysuria, Denies pelvic pain, Denies flank pain, Denies urinary incontinence, Denies urinary hesitancy and Denies urinary urgency Exam Const: General: cooperative and comfortable Resp: Effort & Inspection: normal respiratory effort Cardio: Rate: regular rate GI: GI Palp: Yes Soft to palpation and No Tenderness to palpation present (GI) : General: Yes no CVA tenderness Extrem: Right lower extremity: no edema Left lower extremity: no edema Objective Data Vital Signs Vital Signs: Vital Signs - 24 hr 03/30/23 14:00 03/30/23 22:53 03/31/23 07:16 Temperature 98.1 F 98.1 F 98.4 F Pulse Rate 59 L 51 L 50 L Respiratory Rate 16 18 18 Blood Pressure 98/66 L 114/50 L 103/45 L Pulse Oximetry 95 96 97 Oxygen Delivery 03/31/23 08:05 03/31/23 09:37 Temperature Pulse Rate Respiratory Rate 18 Blood Pressure Pulse Oximetry 96 96 Oxygen Delivery Room Air Room Air Intake/Output Intake/Output: Intake & Output 03/28/23 03/29/23 03/30/23 03/31/23 23:59 23:59 23:59 23:59 Intake Total 7154 654 5864 1180 Output Total 1300 1150 1000 600 Balance -150 -310 1230 580 Meds/Results Medications: Active Medications Generic Name Dose Route Start Last Admin Trade Name Freq PRN Reason Stop Dose Admin Acetaminophen 650 mg 03/27/23 07:13 Acetaminophen 325 Mg Tablet PO Q4H PRN Mild Pain (1-3) or Fever Albuterol 1 puff 03/27/23 07:21 Albuterol Sulfate (*Sp) Aerosol 1 Puff INHALATION Q6H PRN Shortness Of Breath Ascorbic Acid 1,000 mg 03/27/23 09:00 03/31/23 09:35 Ascorbic Acid 500 Mg Tablet PO 1,000 mg DAILY COTY Administration Aspirin 81 mg 03/27/23 21:00 03/30/23 20:22 Aspirin 81 Mg Chewable Tablet PO 81 mg HS COTY Administration Baclofen 20 mg 03/27/23 09:00 03/31/23 13:05 Baclofen 10 Mg Tablet PO 20 mg TID COTY Administration Docusate Sodium 100 mg 03/29/23 10:55 03/31/23 09:36 Docusate Sodium 100 Mg Capsule PO 100 mg Q12HR COTY Administration Enoxaparin Sodium 40 mg 03/27/23 09:00 03/30/23 09:16 Enoxaparin 40 Mg/0.4 Ml Syringe SUB-Q 40 mg DAILY COTY Administration Fish Oil 2 gm 03/27/23 09:00 03/31/23 09:35 Widen 3 Polyunsat Fatty Acids 1 Gm Cap PO 2 gm BID COTY Administration Fluoxetine HCl 20 mg 03/27/23 09:00 03/31/23 09:36 Fluoxetine Hcl 20 Mg Capsule PO 20 mg DAILY COTY Administration Fluticasone Propionate 1 - 2 spray 03/27/23 09:00 03/31/23 09:37 Fluticasone Propionate 0.05% Na Spr 16 Gm Btl (*
[2023-03-31 14:00] VITALS: BP 104/58; PULSE 97; RESP 18; TEMP 36.7; O2SAT 94
[2023-03-31] MEDS: LITHIUM CARBONATE 150 MG CAPSULE 450 MG PO (20:06)
[2023-03-31] MEDS: MONTELUKAST SODIUM 10 MG TABLET PO (20:07)
[2023-03-31] MEDS: PRAVASTATIN SODIUM 20 MG TABLET PO (20:07)
[2023-03-31] MEDS: MAGNESIUM OXIDE 400 MG TABLET PO (20:07)
[2023-03-31] MEDS: ASPIRIN 81 MG CHEWABLE TABLET PO (20:07)
[2023-03-31] MEDS: MELATONIN 5 MG TABLET PO (20:07)
[2023-03-31] MEDS: traZODone HCL 50 MG TABLET PO (20:07)
[2023-03-31] MEDS: OXcarbazepine 150 MG TABLET 300 MG PO (20:07)
[2023-03-31 20:42] VITALS: BP 114/46; PULSE 50; RESP 20; TEMP 36.4; O2SAT 93
[2023-04-01] VITALS (14 sets, daily range): BP systolic 100–135; BP diastolic 45–61; PULSE 51–73; RESP 12–20; TEMP 35.9–36.4; O2SAT 92–100
[2023-04-01 05:19] LABS: Basophils Percent Auto 0.7 % (0.2-1.2); Eosinophils Absolute Auto 0.5 K/mm3 (0-0.3); Eosinophils Percent Auto 7.8 % (0-4.4); Hematocrit 38.6 % (37.0-47.0); Hemoglobin 12.1 g/dL (12.0-15.0); Immature Granulocyte Absolute 0.02 K/mm3 (0.00-0.031); Immature Granulocyte Percent A 0.3 % (0-0.5); Lymphocytes Percent Auto 37.5 % (18.3-44.2); Mean Corpuscular HGB Conc 31.3 g/dl (32-36); Mean Corpuscular Hemoglobin 28.6 pg (26-34); Mean Corpuscular Volume 91.3 fl (80-100); Mean Platelet Volume 9.8 fl (7.4-10.4); Monocytes Absolute Auto 0.5 K/mm3 (0.1-0.6); Neutrophils Absolute Auto 2.7 K/mm3 (1.3-6.7); Neutrophils Percent Auto 45.7 % (45.5-73.1); Platelet Count Result 188 k/mm3 (150-375); Red Blood Count 4.23 M/mm3 (4.2-5.4); Red Cell Distribution Width 14.6 % (11.5-14.5); White Blood Count 5.9 K/mm3 (4.5-10.0)
[2023-04-01 05:40] LABS: Anion Gap -3 mmol/L (8-16); Blood Urea Nitrogen 19 mg/dL (7-17); Calcium 8.8 mg/dL (8.4-10.2); Carbon Dioxide 30 mmol/L (22-30); Chloride 109 mmol/L (98-107); Estimated CRCL calculation 106 ml/min; Estimated Glomerular Filt Rate > 60; Glucose 108 mg/dL (65-110); Potassium 4.1 mmol/L (3.4-5.0); Sodium 136 mmol/L (137-145)
[2023-04-01] MEDS: LEVOTHYROXINE SODIUM 125 MCG TABLET PO (05:47)
[2023-04-01] MEDS: oxyCODONE HCL (*CRX) 2.5 MG TAB IR PO ×3 (05:49→21:37)
[2023-04-01] MEDS: oxyCODONE/ACETAMINOPHEN (*CRX) 5-325 MG TABLET 1 TABLET PO ×3 (05:50→21:38)
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
[2023-04-01] MEDS: OXcarbazepine 150 MG TABLET PO (08:08)
[2023-04-01] MEDS: FLUTICASONE PROPIONATE 0.05% NA SPR 16 GM BTL (*BKC) NASAL ×2 (08:08→16:25)
[2023-04-01] MEDS: FLUoxetine HCL 20 MG CAPSULE PO (08:09)
[2023-04-01] MEDS: BACLOFEN 10 MG TABLET 20 MG PO ×2 (08:09→16:26)
--- NOTE | 2023-04-01 09:48 | PCOTNOTE ---
Attempted to see pt for Occupational Therapy treatment this AM. Pt was laying in bed trying to sleep at therapist arrival. Pt declined to participate in services due to not feeling well specifically feeling nauseous, headache, and very fatigued. RN was made aware of pt's complaints of not feeling good. Pt is scheduled for a procedure later AM. Will attempt at a later time today.
[2023-04-01] MEDS: FLUTICASONE/UMECLIDIN/VILANTER 100-62.5-25 MCG ELLIPTA 1 PUFF INHALATION (09:50)
--- NOTE | 2023-04-01 10:06 | WPDHPUPDATE1 ---
History and Physical Update Update Date/Time: 04/01/23 10:06 History and Physical has been reviewed, including an updated exam of the patient. There are NO changes in the patient's condition. Risks, benefits, and alternatives have been discussed and questions answered. Patient agrees to proceed with procedure. Proceed with cystoscopy, right retrograde pyelogram, right ureteroscopy with stone extraction, possible laser, stent exchange
--- NOTE | 2023-04-01 10:09 | PC.NURSE ---
Reportcalled to Jairon FELICIANO Preop.
--- NOTE | 2023-04-01 10:20 | PC.NURSE ---
To OR via stretcher.
--- NOTE | 2023-04-01 12:07 | PCPTNOTE ---
The patient treatment was not able to be completed on 04/01/2023 due to patient out of the room for procedure. Will plan to continue treatment per plan of care.
--- NOTE | 2023-04-01 12:34 | WPDANESEPPF ---
Anes - Initial Pre Proc Eval Procedure: Operation Date: 03/27/23 13:30 Proposed Procedures p Cystoscopy, Right Retrograde Pyelogram, Right Stent Placement - Bart Phillip MD Operation Date: 04/01/23 11:45 Proposed Procedures p Cystoscopy, Right Ureteroscopy, Right Stone Extraction, Possible Right Stent Exchange, Possible Right Retrograde Pyelogram, Possible Holmium Laser - Bart Phillip MD Date/Time: 04/01/23 12:34 Surgeon: Pérez Coats MD Pre Op Diagnosis: Infected Stone Patient Data Age: 53 Gender: F Height: 1.8 m Weight: 109.2 kg Last Vital Signs Temp 97.5 F L 04/01/23 10:42 Pulse 58 L 04/01/23 10:42 Resp 16 04/01/23 10:42 BP 133/61 04/01/23 10:42 Pulse Ox 100 04/01/23 10:42 O2 Del Method Room Air 04/01/23 10:42 O2 Flow Rate 8 03/27/23 09:30 Allergies Allergy/AdvReac Type Severity Reaction Status Date / Time rizatriptan Allergy Mild HIVES Verified 03/27/23 04:30 tetracycline Allergy Unknown Rash Verified 03/27/23 04:30 adhesive Allergy Rash Verified 03/27/23 04:30 lamotrigine Allergy Rash Verified 03/27/23 04:30 methylprednisolone Allergy Unknown Verified 03/27/23 04:30 bupropion [From Wellbutrin] AdvReac Dizziness Verified 03/30/23 13:27 nitrofurantoin AdvReac Nausea Verified 03/30/23 13:27 [From Macrobid] tamsulosin AdvReac Dizziness Verified 03/30/23 13:27 Home Medications Medication Instructions Recorded Confirmed Type Lactobacillus acidophilus 1 cap PO DAILY 05/30/22 03/27/23 History (Acidophilus capsule) ascorbic acid (vitamin C) 500 mg 1,000 mg PO DAILY 05/30/22 03/27/23 History tablet (Vitamin C) aspirin 81 mg chewable tablet 81 mg PO HS 05/30/22 03/27/23 History baclofen 20 mg tablet 20 mg PO TID 05/30/22 03/27/23 History cholecalciferol (vitamin D3) 125 50,000 unit PO USEASDIRECTD 05/30/22 03/27/23 History mcg (5,000 unit) tablet (Vitamin D3) erenumab-aooe 140 mg/mL 10 mg subcut MONTHLY 05/30/22 03/27/23 History subcutaneous auto-injector (Aimovig Autoinjector) estradiol 10 mcg vaginal tablet 10 mcg vaginal 2XW 05/30/22 03/27/23 History eszopiclone 3 mg tablet 3 mg PO HS 05/30/22 03/27/23 History folic acid 1 mg tablet See Rx Instructions .Route .COMPLEX 05/30/22 03/27/23 History ibuprofen 800 mg tablet 800 mg PO Q8-10H PRN Pain 05/30/22 03/27/23 History icosapent ethyl 1 gram capsule 2 g PO BID 05/30/22 03/27/23 History (Vascepa) levothyroxine 100 mcg tablet 125 mcg PO DAILY 05/30/22 03/27/23 History (Synthroid) lithium carbonate 450 mg 450 mg PO HS 05/30/22 03/27/23 History tablet,extended release magnesium 200 mg tablet 400 mg PO HS 05/30/22 03/27/23 History methotrexate sodium 2.5 mg tablet 5 mg PO WEEKLY 05/30/22 03/27/23 History montelukast 10 mg tablet 10 mg PO DAILY 05/30/22 03/27/23 History pravastatin 20 mg tablet 20 mg PO HS 05/30/22 03/27/23 History ustekinumab 90 mg/mL subcutaneous 90 mg subcut [id number] 05/30/22 03/27/23 History syringe (Stelara) acetaminophen 650 mg tablet 650 mg PO Q4H PRN pain 11/04/22 03/27/23 History albuterol sulfate 90 mcg/actuation 90 mcg inhalation Q6H PRN 11/04/22 03/27/23 History aerosol inhaler (Ventolin HFA) Shortness Of Breath docusate sodium 100 mg capsule 100 mg PO DAILY PRN Constipation 11/04/22 03/27/23 History fluconazole 200 mg tablet 200 mg PO USEASDIRECTD 11/04/22 03/27/23 History fluoxetine 10 mg capsule 20 mg PO DAILY 11/04/22 03/27/23 History melatonin 5 mg tablet 5 mg PO HS 11/04/22 03/27/23 History oxcarbazepine 150 mg tablet 150 mg PO DIRECTED 11/04/22 03/27/23 History sumatriptan succinate 6 mg/0.5 mL 6 mg subcut DIRECTED 11/04/22 03/27/23 History subcutaneous pen injector midodrine 2.5 mg tablet 2.5 mg PO TID 30 days #90 tabs 11/11/22 03/27/23 Rx fluticasone propionate 50 1 - 2 spray intranasal BID #16 mL 02/21/23 03/27/23 Rx mcg/actuation nasal spray,suspension (Flonase Allergy Relief) ciprofloxacin HCl 500 mg tablet
[2023-04-01] MEDS: ceFAZolin 2 GM/D5W 50 ML 2 GM/50 ML BAG IVPB (12:47)
[2023-04-01] MEDS: LIDOCAINE HCL 2% GEL UROJET 10 ML PKG MUCOUS MEM (13:02)
--- NOTE | 2023-04-01 13:20 | W.PM.PROC2 ---
Procedure Note - Detailed Date of Procedure 04/01/23 Pre-op Diagnosis Right ureteral calculus 8 mm Post-op Diagnosis Same Procedure Performed Cystoscopy, right retrograde pyelogram, right ureteroscopy with holmium laser, extraction, right ureteral stent exchange 4.8 Monegasque contour stent with string attached Surgeon Bart Phillip MD Anesthesia General Description of Procedure Patient was taken to the operative suite correctly identified. Once anesthesia was obtained she was placed in dorsal lithotomy position and prepped draped usual sterile fashion. Nineteen Monegasque scope inserted the bladder. Small clot was retrieved. There was no active bleeding or other abnormalities noted. The stent was grasped and brought out the meatus. Sensor wire was passed through the stent. Rigid ureteral scope was then placed in the right ureteral orifice. The stone was visualized too large to retrieve. Using a 200 micron fiber the stone was lasered and removed. Pyelogram was then performed to confirm placement of the stent. 4.8 Monegasque contour stent was then replaced with a proximal end coiled in the renal pelvis. Distal end was coiled in the bladder. The string was left attached and secured to the pubic bone. Will plan on removal of the stent in a couple days. Patient was taken recovery stable condition. This completes dictation. Please send a copy of op note to my office. Estimated Blood Loss 0 Urine Output 400 Drains Yes (Both 0.8 Monegasque contour stent) Packing No Pathology Yes Complications No immediate complications Condition Stable Disposition PACU
[2023-04-01] MEDS: LACTATED RINGERS 1,000 ML 30 ML IV CONT (13:25)
[2023-04-01] MEDS: ONDANSETRON INJ 4 MG/2 ML VIAL IV PUSH (13:47)
[2023-04-01] MEDS: fentaNYL CITRATE INJ (*CRX) 100 MCG/2 ML VIAL 25 MCG IV PUSH ×3 (13:50→14:10)
--- NOTE | 2023-04-01 14:06 | PCOTNOTE ---
The patient treatment was not able to be completed on 04/01 @ 14:05 due to patient still in a procedure. Will plan to continue treatment per plan of care.
[2023-04-01] MEDS: oxyBUTYnin CHLORIDE 5 MG TABLET PO (16:26)
[2023-04-01] MEDS: MIDODRINE HCL 2.5 MG TABLET PO (16:26)
[2023-04-01] MEDS: PANTOPRAZOLE 40 MG TABLET PO (16:26)
[2023-04-01] MEDS: OXcarbazepine 150 MG TABLET 300 MG PO (20:51)
[2023-04-01] MEDS: PRAVASTATIN SODIUM 20 MG TABLET PO (20:51)
[2023-04-01] MEDS: traZODone HCL 50 MG TABLET PO (20:51)
[2023-04-01] MEDS: LITHIUM CARBONATE 150 MG CAPSULE 450 MG PO (20:51)
[2023-04-01] MEDS: MAGNESIUM OXIDE 400 MG TABLET PO (20:51)
[2023-04-01] MEDS: MONTELUKAST SODIUM 10 MG TABLET PO (20:52)
[2023-04-01] MEDS: ASPIRIN 81 MG CHEWABLE TABLET PO (20:52)
[2023-04-01] MEDS: MELATONIN 5 MG TABLET PO (20:52)
[2023-04-01] MEDS: DOCUSATE SODIUM 100 MG CAPSULE PO (20:52)
[2023-04-02 05:04] VITALS: BP 102/48; PULSE 75; RESP 20; TEMP 36.6; O2SAT 93
[2023-04-02 05:24] LABS: Basophils Percent Auto 0.5 % (0.2-1.2); Eosinophils Percent Auto 0.5 % (0-4.4); Hematocrit 40.1 % (37.0-47.0); Hemoglobin 12.5 g/dL (12.0-15.0); Immature Granulocyte Absolute 0.03 K/mm3 (0.00-0.031); Immature Granulocyte Percent A 0.4 % (0-0.5); Lymphocytes Absolute Auto 1.75 K/mm3 (0.9-3.2); Lymphocytes Percent Auto 21.4 % (18.3-44.2); Mean Corpuscular HGB Conc 31.2 g/dl (32-36); Mean Corpuscular Hemoglobin 28.5 pg (26-34); Mean Corpuscular Volume 91.6 fl (80-100); Mean Platelet Volume 9.7 fl (7.4-10.4); Monocytes Absolute Auto 0.8 K/mm3 (0.1-0.6); Monocytes Percent Auto 9.2 % (2.6-8.5); Neutrophils Absolute Auto 5.6 K/mm3 (1.3-6.7); Platelet Count Result 219 k/mm3 (150-375); Red Blood Count 4.38 M/mm3 (4.2-5.4); Red Cell Distribution Width 14.4 % (11.5-14.5); White Blood Count 8.2 K/mm3 (4.5-10.0)
[2023-04-02 05:35] LABS: Anion Gap 2 mmol/L (8-16); Blood Urea Nitrogen 17 mg/dL (7-17); Calcium 9.1 mg/dL (8.4-10.2); Carbon Dioxide 31 mmol/L (22-30); Chloride 107 mmol/L (98-107); Estimated CRCL calculation 106 ml/min; Estimated Glomerular Filt Rate > 60; Glucose 124 mg/dL (65-110); Potassium 4.8 mmol/L (3.4-5.0); Sodium 140 mmol/L (137-145)
[2023-04-02] MEDS: LEVOTHYROXINE SODIUM 125 MCG TABLET PO (05:58)
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
[2023-04-02 08:00] VITALS: PULSE 75; RESP 20; O2SAT 96
[2023-04-02] MEDS: ASCORBIC ACID 500 MG TABLET 1000 MG PO (08:18)
[2023-04-02] MEDS: FLUoxetine HCL 20 MG CAPSULE PO (08:18)
[2023-04-02] MEDS: oxyBUTYnin CHLORIDE 5 MG TABLET PO ×3 (08:18→16:21)
[2023-04-02] MEDS: DOCUSATE SODIUM 100 MG CAPSULE PO ×2 (08:18→20:23)
[2023-04-02] MEDS: ACIDOPHILUS/BULGARICUS CHEWABLE TABLET 1 TABLET PO (08:18)
[2023-04-02] MEDS: PANTOPRAZOLE 40 MG TABLET PO ×2 (08:19→16:22)
[2023-04-02] MEDS: OMEGA 3 POLYUNSAT FATTY ACIDS 1 GM CAP 2 GM PO ×2 (08:19→16:21)
[2023-04-02] MEDS: OXcarbazepine 150 MG TABLET PO (08:19)
[2023-04-02] MEDS: FOLIC ACID 1 MG TABLET BY MOUTH (08:19)
[2023-04-02] MEDS: BACLOFEN 10 MG TABLET 20 MG PO ×3 (08:19→16:22)
[2023-04-02] MEDS: MIDODRINE HCL 2.5 MG TABLET PO ×3 (08:19→16:22)
[2023-04-02] MEDS: oxyCODONE/ACETAMINOPHEN (*CRX) 5-325 MG TABLET 1 TABLET PO ×3 (08:20→20:22)
[2023-04-02] MEDS: FLUTICASONE PROPIONATE 0.05% NA SPR 16 GM BTL (*BKC) NASAL ×2 (08:20→16:22)
[2023-04-02] MEDS: oxyCODONE HCL (*CRX) 2.5 MG TAB IR PO ×3 (08:25→20:23)
[2023-04-02] MEDS: FLUTICASONE/UMECLIDIN/VILANTER 100-62.5-25 MCG ELLIPTA 1 PUFF INHALATION (08:35)
[2023-04-02 08:36] VITALS: O2SAT 96
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
[2023-04-02] MEDS: polyethylene glycoL 3350 17 GM POWD.PACK PO (14:09)
[2023-04-02 14:22] VITALS: BP 104/48; PULSE 76; RESP 16; TEMP 36.6; O2SAT 100
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
[2023-04-02] MEDS: PRAVASTATIN SODIUM 20 MG TABLET PO (20:22)
[2023-04-02] MEDS: OXcarbazepine 150 MG TABLET 300 MG PO (20:22)
[2023-04-02] MEDS: traZODone HCL 50 MG TABLET PO (20:22)
[2023-04-02] MEDS: MELATONIN 5 MG TABLET PO (20:22)
[2023-04-02] MEDS: ASPIRIN 81 MG CHEWABLE TABLET PO (20:23)
[2023-04-02] MEDS: MAGNESIUM OXIDE 400 MG TABLET PO (20:23)
[2023-04-02] MEDS: MONTELUKAST SODIUM 10 MG TABLET PO (20:23)
[2023-04-02] MEDS: LITHIUM CARBONATE 150 MG CAPSULE 450 MG PO (20:23)
[2023-04-02 20:27] VITALS: BP 101/55; PULSE 55; RESP 16; TEMP 36.4; O2SAT 98
[2023-04-02 20:30] VITALS: PULSE 55; RESP 16; O2SAT 98
[2023-04-03] MEDS: LEVOTHYROXINE SODIUM 125 MCG TABLET PO (05:47)
[2023-04-03 05:52] VITALS: BP 110/53; PULSE 58; RESP 16; TEMP 36.5; O2SAT 97
[2023-04-03] MEDS: OMEGA 3 POLYUNSAT FATTY ACIDS 1 GM CAP 2 GM PO (08:39)
[2023-04-03] MEDS: polyethylene glycoL 3350 17 GM POWD.PACK PO (08:39)
[2023-04-03] MEDS: ASCORBIC ACID 500 MG TABLET 1000 MG PO (08:40)
[2023-04-03] MEDS: FLUoxetine HCL 20 MG CAPSULE PO (08:40)
[2023-04-03] MEDS: oxyCODONE HCL (*CRX) 2.5 MG TAB IR PO (08:41)
[2023-04-03] MEDS: oxyCODONE/ACETAMINOPHEN (*CRX) 5-325 MG TABLET 1 TABLET PO (08:42)
[2023-04-03] MEDS: DOCUSATE SODIUM 100 MG CAPSULE PO (08:43)
[2023-04-03] MEDS: oxyBUTYnin CHLORIDE 5 MG TABLET PO (08:43)
[2023-04-03] MEDS: BACLOFEN 10 MG TABLET 20 MG PO (08:43)
[2023-04-03] MEDS: PANTOPRAZOLE 40 MG TABLET PO (08:43)
[2023-04-03] MEDS: ACIDOPHILUS/BULGARICUS CHEWABLE TABLET 1 TABLET PO (08:43)
[2023-04-03] MEDS: MIDODRINE HCL 2.5 MG TABLET PO (08:43)
[2023-04-03] MEDS: ENOXAPARIN 40 MG/0.4 ML SYRINGE SUB-Q (08:49)
[2023-04-03] MEDS: FOLIC ACID 1 MG TABLET BY MOUTH (08:54)
[2023-04-03] MEDS: OXcarbazepine 150 MG TABLET PO (08:55)
[2023-04-03] MEDS: FLUTICASONE/UMECLIDIN/VILANTER 100-62.5-25 MCG ELLIPTA 1 PUFF INHALATION (08:58)
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
--- NOTE | 2023-04-03 11:38 | PCNWS ---
Weekly nutritional screen. Patient is tolerating current diet with adequate intake. No weight loss reported. No nutritional needs at this time.
== END 2023-04-03 11:45 | DRG 661 ==
LOC: ANHED 03-27 02:02 → ANH2MED 03-27 03:58
PROVIDERS: Nurse Practitioner Acute Care; Physician Assistant; Urology; Admitting Provider Internal Medicine; Emergency Provider Emergency Medicine; PCP Family Medicine; Visit Provider Internal Medicine
PROC: 0T768DZ Dilation of Right Ureter with Intraluminal Device, Via Natural or Artificial Opening Endoscopic (ICD-10-PCS; CPT 52352; principal; 2023-03-27 13:30)
DX: N13.6 Pyonephrosis (principal); G47.33 Obstructive sleep apnea (adult) (pediatric); F32.A Depression, unspecified; F41.9 Anxiety disorder, unspecified; E66.9 Obesity, unspecified; I50.9 Heart failure, unspecified; E11.9 Type 2 diabetes mellitus without complications; K21.9 Gastro-esophageal reflux disease without esophagitis; L40.9 Psoriasis, unspecified; R33.9 Retention of urine, unspecified; M19.90 Unspecified osteoarthritis, unspecified site; E53.8 Deficiency of other specified B group vitamins; Z96.641 Presence of right artificial hip joint; R29.6 Repeated falls; Z86.718 Personal history of other venous thrombosis and embolism; Z79.82 Long term (current) use of aspirin; Z90.49 Acquired absence of other specified parts of digestive tract; Z90.710 Acquired absence of both cervix and uterus; Z68.33 Body mass index [BMI] 33.0-33.9, adult; Z86.711 Personal history of pulmonary embolism
CPT/HCPCS: 36415; 70450; 71275; 73030; 73502; 74018; 74177; 74420; 80048; 80053; 81001; 82550; 83605; 83735; 84100; 84484; 85025; 85055; 87040; 87086; 93005; 94640; 96365; 96366; 96375; 97110; 97161; 97165; 97530; 97535; 99285; A9270; C1758; C1769; C2617; J0690; J0696; J1100; J1650; J2250; J2270; J2405; J2704; J2765; J3010; J7030; J7120; Q9966; Q9967

== ENCOUNTER 2023-05-30 10:14 | Outpatient (CLI) | payer MEDICARE, MEDICAID, SELFPAY ==
--- NOTE | ~2023-05-30 | XR_ITS ---
EXAMINATION: XR abdomen/kub 1V INDICATION: Calcium kidney stone TECHNIQUE: Supine views of the abdomen were obtained on 2 radiographs. COMPARISON: 04/03/2023 FINDINGS: The right internal ureteral stent has been removed. A 6 mm stone projects in the left kidne y lower pole. No definite additional urolithiasis is identified. There is a phlebolith left pelvis. C hanges of total right hip arthroplasty are noted. There are surgical clips in the medial left side. T he visualized lung bases are clear. Cholecystectomy clips are noted. IMPRESSION: 1. Left nephrolithiasis. Reviewed, dictated and finalized at location B. IMPRESSION: 1. Left nephrolithiasis.
--- NOTE | ~2023-05-30 | CT_ITS ---
Non-contrast CT scan of the Abdomen and Pelvis Clinical indication: Kidney stone Technique: 2.5 mm axial scans were obtained through the abdomen and pelvis without intravenous or or al contrast. Dose reduction technique was used on this scan by utilizing automated exposure control a nd iterative reconstruction technique. The dose-length product (DLP) was 607.99 mGy-cm. COMPARISON: 03/27/2023 Findings: Images through the lung bases reveal small pericardial effusion. Nonobstructing left renal calculi are present, measuring up to 6 mm. No right renal stones seen. No u reteral stone or hydronephrosis on either side. The liver, spleen, pancreas, and adrenals appear normal. Cholecystectomy clips are present. There is no aortic aneurysm. There is no evidence of bowel obstruction. Images through the pelvis are mildly degraded by streak artifact from right hip arthroplasty. There i s no evidence of ascites or lymphadenopathy. Urinary bladder unremarkable. No pelvic mass seen. No as cites. Impression: Nonobstructing left renal calculi, as detailed above. Reviewed, dictated and finalized at location M. Impression: Nonobstructing left renal calculi, as detailed above.
== END 2023-05-30 10:15 | disposition home or self-care (01) ==
LOC: ANHIMG 10:14
PROVIDERS: PCP Family Medicine; Visit Provider Urology
DX: N20.0 Calculus of kidney (principal)
CPT/HCPCS: 74018; 74176

== ENCOUNTER 2023-07-18 09:59 | Outpatient (CLI) | payer MEDICARE, MEDICAID, SELFPAY ==
[2023-07-18 10:37] LABS: INR 0.9; Prothrombin Time 12.7 Seconds (11.1-14.7)
[2023-07-18 10:38] LABS: Partial Thromboplastin Time 26.1 SECONDS (22.3-36.8)
[2023-07-18 11:05] LABS: Lithium 0.5 mmol/L (0.6-1.2)
== END 2023-07-18 10:00 | disposition home or self-care (01) ==
LOC: ANHSURGERY 10:05
PROVIDERS: Anesthesiology; PCP Family Medicine; Visit Provider Urology
DX: N20.0 Calculus of kidney (principal); Z79.899 Other long term (current) drug therapy; Z01.818 Encounter for other preprocedural examination
CPT/HCPCS: 36415; 80178; 85610; 85730; 87086

== ENCOUNTER 2023-07-21 06:41 | Outpatient (CLI) | payer MEDICARE, MEDICAID, SELFPAY ==
--- NOTE | ~2023-07-21 | MR_ITS ---
MRI of the right shoulder Technique: Axial proton-density fat-sat images, coronal proton density fat-sat and T2 fat-sat images, and sagittal T1-weighted and T2 fat-sat images were acquired. Clinical History: Pain Findings: There is mild to possibly moderate AC joint degenerative change. Coracoclavicular, coracoac romial, and coracohumeral ligaments appear intact. Supraspinatus and infraspinatus tendons are intact, without definite partial or full-thickness tear. There is moderate distal supraspinatus tendinosis. Subscapularis tendon is intact, mild tendinosis. T endon of long head of the biceps is intact. No definite labral tear identified. Inferior glenohumeral ligament is intact. No degenerative change or effusion of the glenohumeral join t. No fluid distention of the subacromial/subdeltoid bursa. No muscle atrophy or edema. Impression: Rotator cuff tendinosis, as above. No definite partial or full-thickness tear. Kqaw-vq-kcuqkyrf AC joint degenerative change. Reviewed, dictated and finalized at [facility]. ARCH TEST ENGINE EVALUATOR Impression: Rotator cuff tendinosis, as above. No definite partial or full-thickness tear. Olee-nb-[id number] AC joint degenerative change.
== END 2023-07-21 06:42 | disposition home or self-care (01) ==
PROVIDERS: PCP Family Medicine; Visit Provider Orthopaedic Surgery
DX: M75.81 Other shoulder lesions, right shoulder (principal)
CPT/HCPCS: 73221

== ENCOUNTER 2023-07-25 01:29 | Day surgery (SDC) | payer MEDICARE, MEDICAID, SELFPAY ==
[2023-07-15 15:16] VITALS: BMI 34.8
--- NOTE | 2023-07-15 15:27 | PC.NURSE ---
Report to the Outpatient Waiting Room, entrance under the green pavilion located off [facility], at time 8:30 on date 07/25/23. Planned Procedure Time: 10:30. Time changes happen often and if your time is changed the preop area will call you the afternoon before. - You and your visitor will be asked to self-screen and do not enter if you have any COVID symptoms. - A mask is optional within the hospital at this time. Patients may have clear liquids (water, carbonated beverages, clear teas, apple juice) until 3 hours prior to surgery (7:30) with a maximum of 20 ounces. - No food from midnight until time of surgery Take the following medications with a SIP of water the morning of surgery: BACLOFEN, VRAYLAR, FLUOXETINE, MIDODRINE, SYNTHROID, OXCARBAZEPINE, INHALER, PAIN PILL IF NEEDED DO NOT STOP ANY OF YOUR OTHER PRESCRIPTION MEDICATIONS PRIOR TO SURGERY ?EXCEPT THE FOLLOWING Medications to discontinue per physician: IBUPROFEN, ASPIRIN Date to take last dose: 07/17/23 LAST DOSE VITAMIN/SUPPLEMENTS 07/21/23 Please no make-up, nail anguillan, hairspray, perfume, deodorant, or body powder the day of surgery. No jewelry (including any body piercings) or valuables the day of surgery, leave them at home. Please take a shower or bath the night before, or the morning of, surgery with an antibacterial soap. Wear comfortable, loose fitting clothing. - Jewelry must be removed prior to entering the operating room. Rings and piercings that are not removed may be cut off. - The hospital will not accept responsibility for valuables. - Please leave all valuables, including medications, at home the day of surgery. If you are going home after surgery, a licensed pile driver engineer must drive you home. - NO public transportation without another adult if you receive anesthesia. - We recommend that an adult stay with you for 24 hours following discharge. - We also recommend that you do not drive, make important decision, drink alcoholic beverages, or take any drugs that were not prescribed by your health care provider for at least 24 hours after your discharge time. Follow any additional instructions given to you from your surgeon. If you or anyone in your household have experienced Covid symptoms in the past week, please notify your surgeon or the nurse liaison at the phone number below for possible testing. Telephone instructions given to PT - MILEY DE LA ROSA and asked if any additional questions and then verbalized understanding. Patient advised to call surgeon office or pre surgery nurse liaison [phone] if any additional questions.
[2023-07-25] VITALS (8 sets, daily range): BP systolic 120–145; BP diastolic 51–102; PULSE 45–60; RESP 12–18; TEMP 36.3–36.6; O2SAT 94–99
--- NOTE | ~2023-07-25 | CT_ITS ---
EXAMINATION: CT abdomen pelvis wo con DATE: 07/25/2023 09:40 INDICATION: Left ureteral/renal stone. TECHNIQUE: Computed tomography (CT) of the abdomen and pelvis was performed without intravenous contr ast. The dose-length product was 1367.61 mGy-cm. Automated exposure control and iterative reconstruct ion technique were employed. COMPARISON: CT dated 05/30/2023 FINDINGS: Lung bases unremarkable. Cardiomegaly. There is a pericardial effusion. No significant pleu ral effusion. There is nonspecific mesenteric stranding adjacent to the celiac axis and SMA. There ar e cholecystectomy clips. The liver, spleen, pancreas, adrenal glands and right kidney are unremarkabl e. There are nonobstructing left renal stones. There is a left UPJ stone measuring 6 mm. Nonobstructi ve bowel gas pattern. There is a right total hip arthroplasty. There is scarring from prior anterior abdominal wall surgery. There is right total hip arthroplasty. IMPRESSION: 1. Left UPJ stone measuring 6 mm. No significant hydronephrosis. 2: Nonobstructing left nephrolithiasis. 3: Moderate pericardial effusion. Reviewed, dictated and finalized at location B. NEL MAN
--- NOTE | ~2023-07-25 | XR_ITS ---
XR abdomen/kub 1V 07/25/2023 08:52 INDICATION: Rehabilitation ESWL TECHNIQUE: KUB COMPARISON: 05/30/2023 FINDINGS: Bowel gas pattern is normal. There is no evidence of free air, mass, organomegaly, ascites or obstruction. Moderate colonic fecal loading. There are left renal stones. There are cholecystecto my clips. The bones appear intact. Moderate lumbar spondylosis. IMPRESSION: 1: Left nephrolithiasis.. Reviewed, dictated and finalized at location B. T SALES ASSISTANT IMPRESSION: 1: Left nephrolithiasis..
[2023-07-25] MEDS: LACTATED RINGERS 1,000 ML 30 ML IV CONT ×2 (09:20→13:02)
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
--- NOTE | 2023-07-25 09:22 | WPDHPUPDATE1 ---
History and Physical Update Update Date/Time: 07/25/23 09:22 History and Physical has been reviewed, including an updated exam of the patient. There are NO changes in the patient's condition. Risks, benefits, and alternatives have been discussed and questions answered. Patient agrees to proceed with procedure. Proceed with lithotripsy of left renal calculi
--- NOTE | 2023-07-25 09:51 | WPDANESEPPF ---
Anes - Initial Pre Proc Eval Procedure: Operation Date: 07/25/23 10:30 Proposed Procedures p Left Renal Extracorporeal Shock Wave Lithotripsy - Bart Phillip MD Date/Time: 07/25/23 09:51 Surgeon: Bart Phillip MD Pre Op Diagnosis: left renal calculus Patient Data Age: 53 Gender: F Height: 1.8 m Weight: 121.5 kg Last Vital Signs Temp 36.6 C 07/25/23 09:21 Pulse 60 07/25/23 09:21 Resp 18 07/25/23 09:21 BP 129/51 L 07/25/23 09:21 Pulse Ox 98 07/25/23 09:21 O2 Del Method Room Air 07/25/23 09:21 Allergies Allergy/AdvReac Type Severity Reaction Status Date / Time rizatriptan Allergy Mild HIVES Verified 07/25/23 08:51 prednisone Allergy Unknown heart Verified 07/25/23 08:51 races, nervousness tetracycline Allergy Unknown Rash Verified 07/25/23 08:51 triamcinolone [From Kenalog] Allergy Unknown heart Verified 07/25/23 08:51 racing adhesive Allergy Rash Verified 07/25/23 08:51 ciprofloxacin Allergy Nausea Verified 07/25/23 08:51 lamotrigine Allergy Rash Verified 07/25/23 08:51 methylprednisolone Allergy Palpitation Verified 07/25/23 08:51 s bupropion [From Wellbutrin] AdvReac Dizziness Verified 07/25/23 08:51 nitrofurantoin AdvReac Nausea Verified 07/25/23 08:51 [From Macrobid] tamsulosin AdvReac Dizziness Verified 07/25/23 08:51 Home Medications Medication Instructions Recorded Confirmed Type aspirin 81 mg chewable tablet 81 mg PO HS 05/30/22 07/23/23 History baclofen 20 mg tablet 20 mg PO TID 05/30/22 07/23/23 History estradiol 10 mcg vaginal tablet 10 mcg vaginal 2XW 05/30/22 07/23/23 History folic acid 1 mg tablet 1 mg PO SUMOTUWETHFR 05/30/22 07/23/23 History icosapent ethyl 1 gram capsule 2 g PO BID 05/30/22 07/23/23 History (Vascepa) levothyroxine 100 mcg tablet 125 mcg PO DAILY 05/30/22 07/23/23 History (Synthroid) lithium carbonate 450 mg 450 mg PO HS 05/30/22 07/23/23 History tablet,extended release magnesium 200 mg tablet 400 mg PO HS 05/30/22 07/23/23 History montelukast 10 mg tablet 10 mg PO DAILY 05/30/22 07/23/23 History pravastatin 20 mg tablet 20 mg PO HS 05/30/22 07/23/23 History melatonin 5 mg tablet 5 mg PO HS 11/04/22 07/23/23 History midodrine 2.5 mg tablet 2.5 mg PO TID 30 days #90 tabs 11/11/22 07/23/23 Rx pantoprazole 40 mg tablet,delayed 40 mg PO BID 03/27/23 07/23/23 History release fluticasone fur. 100 mcg-umeclid 1 inh inhalation DAILY 04/03/23 07/23/23 History 62.5 mcg-vilant 25 mcg inhalat.powder (Trelegy Ellipta) oxcarbazepine 300 mg tablet 300 mg PO HS 30 days #30 tabs 04/12/23 07/23/23 Rx (Trileptal) Lactobacillus acidophilus 10 mg PO DAILY 06/19/23 07/23/23 History (Acidophilus capsule) ascorbic acid (vitamin C) 500 mg 500 mg PO DAILY 06/19/23 07/23/23 History capsule erenumab-aooe 70 mg/mL 70 mg subcut MONTHLY 06/19/23 07/23/23 History subcutaneous auto-injector (Aimovig Autoinjector) fluoxetine 20 mg capsule 10 mg PO DAILY 06/19/23 07/23/23 History ibuprofen 800 mg tablet 800 mg PO TID #90 tabs 06/19/23 07/23/23 Rx loratadine 10 mg tablet (Claritin) 10 mg PO DAILY 06/19/23 07/23/23 History oxycodone-acetaminophen 7.5 mg-300 1 tablet PO Q8H PRN Pain 06/19/23 07/23/23 History mg tablet pseudoephedrine-ibuprofen 30 1 cap PO BID PRN Allergy Symptoms 06/19/23 07/23/23 History mg-200 mg capsule (Advil Cold and Sinus) sumatriptan succinate 3 mg/0.5 mL 3 mg subcut Q1H PRN Migraine 06/19/23 07/23/23 History subcutaneous pen injector Headache cariprazine 1.5 mg capsule 1.5 mg PO 2XW 07/15/23 07/23/23 History (Vraylar) methotrexate sodium 2.5 mg tablet 5 mg PO WEEKLY 07/15/23 07/23/23 History oxcarbazepine 150 mg tablet 150 mg PO DAILY 07/15/23 07/23/23 History oxybutynin chloride 15 mg 15 mg PO DAILY 07/15/23 07/23/23 History tablet,extended release 24 hr Patient hx anesthesia problems: none Family hx anesthesia problems: none Results Review: All
[2023-07-25] MEDS: SCOPOLAMINE 1.5 MG PATCH TRANSDERM (10:38)
[2023-07-25] MEDS: ceFAZolin 3 GM/D5W 100 ML 100 ML IVPB (10:48)
--- NOTE | 2023-07-25 11:25 | W.PM.PROC2 ---
Procedure Note - Detailed Date of Procedure 07/25/23 Pre-op Diagnosis left renal calculus Post-op Diagnosis Same Procedure Performed Lithotripsy of left UPJ calculus Surgeon Bart Phillip MD Anesthesia General Description of Procedure Patient is taken to the operative suite correctly identified. Once anesthesia was obtained the stone was localized in both planes. Two thousand five hundred shocks were given the stone. Patient was taken recovery stable condition. She will follow-up in 7-10 days with K[facility]. This completes dictation on this patient. Please send a copy of op note to my office. Estimated Blood Loss 0 Drains No Packing No Pathology None sent Complications No immediate complications Condition Stable
[2023-07-25] MEDS: fentaNYL CITRATE INJ (*CRX) 100 MCG/2 ML VIAL 25 MCG IV PUSH ×3 (12:13→13:02)
[2023-07-25] MEDS: ONDANSETRON INJ 4 MG/2 ML VIAL IV PUSH (12:49)
[2023-07-25] MEDS: oxyCODONE HCL (*CRX) 5 MG TAB IR PO (12:49)
--- NOTE | 2023-07-25 13:37 | SUR.PHASEII ---
URINE STRAINER KIT GIVEN TO PATIENT.
== END 2023-07-25 13:37 | disposition home or self-care (01) ==
PROVIDERS: PCP Family Medicine; Visit Provider Urology
PROC: (CPT 50590; principal; 2023-07-25 10:30)
DX: N20.0 Calculus of kidney (principal); E11.9 Type 2 diabetes mellitus without complications; I50.9 Heart failure, unspecified; J45.909 Unspecified asthma, uncomplicated; F41.9 Anxiety disorder, unspecified; F32.A Depression, unspecified; K21.9 Gastro-esophageal reflux disease without esophagitis; M35.9 Systemic involvement of connective tissue, unspecified; G47.30 Sleep apnea, unspecified; E78.1 Pure hyperglyceridemia; E07.9 Disorder of thyroid, unspecified; Z86.718 Personal history of other venous thrombosis and embolism; E66.9 Obesity, unspecified; Z68.37 Body mass index [BMI] 37.0-37.9, adult; Z79.82 Long term (current) use of aspirin; Z79.51 Long term (current) use of inhaled steroids
CPT/HCPCS: 50590; 74018; 74176; A9270; J0690; J1100; J2250; J2405; J2704; J3010; J7120

== ENCOUNTER 2023-08-04 12:52 | Outpatient (CLI) | payer MEDICARE, MEDICAID, SELFPAY ==
--- NOTE | ~2023-08-04 | XR_ITS ---
EXAMINATION: XR abdomen/kub 1V INDICATION: Left ureteral stone TECHNIQUE: Supine views of the abdomen were obtained on 2 radiographs. COMPARISON: 07/25/2023 FINDINGS: There is a 6 mm stone of the left kidney lower pole. The previously described left ureterop elvic junction stone is not definitely identified. There are phleboliths of the pelvis. Cholecystecto my clips are noted. There are changes of right hip arthroplasty. IMPRESSION: 1. Left nephrolithiasis. Previously described left ureteropelvic junction stone not definitely identi fied. Reviewed, dictated and finalized at location B. ET PRESS ASSISTANT IMPRESSION: 1. Left nephrolithiasis. Previously described left ureteropelvic junction stone not definitely identified.
== END 2023-08-04 12:53 | disposition home or self-care (01) ==
PROVIDERS: PCP Family Medicine; Visit Provider Urology
DX: N20.0 Calculus of kidney (principal)
CPT/HCPCS: 74018

== ENCOUNTER 2023-08-21 10:32 | Outpatient (CLI) | payer MEDICARE, MEDICAID, SELFPAY ==
--- NOTE | ~2023-08-21 | CT_ITS ---
EXAMINATION: CT abdomen pelvis wo con DATE: 08/21/2023 10:45 INDICATION: Left renal stone follow-up TECHNIQUE: Computed tomography (CT) of the abdomen and pelvis was performed without intravenous contr ast. Automated exposure control and iterative reconstruction technique were employed. Exam dose: 836 .83 mGy-cm total exam DLP. COMPARISON: 08/21/2023 KUB 08/04/2023 KUB 07/25/2023 CT abdomen pelvis FINDINGS: There is minimal discoid atelectasis or scarring at the middle lobe and lower lobes. No inf iltrate or consolidation at the included lung bases. Mild cardiomegaly. Moderate pericardial effusion, mildly increased since 07/25/2023.. Status post cholecystectomy. The liver, spleen, pancreas and the bile ducts and pancreatic duct are unremarkable. Normal morphology of the adrenal glands. No right renal mass lesion or right urinary tract calculus or hydroureteronephrosis. There is a larger left perinephric fluid collection with attenuation of approximately 30 [place] u nits,, possibly a left perinephric hematoma or less likely abscess or complicated urinoma. There is l eft renal fascial thickening. There is a distal left ureteral 4 mm calculus but no left hydroureteronephrosis. No other urinary tra ct calculus is identified. The urinary bladder is relatively evacuated. Imaging of the pelvis is limi christie by extensive streak artifact from right total hip arthroplasty. No bowel obstruction, bowel wall thickening, pneumatosis or intraperitoneal free air is detected. Small fat-containing umbilical hernia. No suspicious osteolytic or osteoblastic lesions. Moderate degenerative changes of the thoracic and l umbar spine. IMPRESSION: 4 mm distal left ureteral calculus without hydroureteronephrosis; no other urinary tract calculi are evident Large left perinephric fluid collection which may be hematoma, less likely abscess or complicated uri noma; pararenal fascial soft tissue thickening Mildly increased pericardial effusion since 07/25/2023 Mild cardiomegaly Status post cholecystectomy Status post right hip arthroplasty Reviewed, dictated and finalized at Location A. Reviewed, dictated and finalized at location L. TRIC MOTOR REPAIRING SUPERVISOR IMPRESSION: 4 mm distal left ureteral calculus without hydroureteronephrosis; no other urinary tract calculi are evident Large left perinephric fluid collection which may be hematoma, less likely absc ess or complicated urinoma; pararenal fascial soft tissue thickening Mildly increased pericardial effusion since 07/25/2023 Mild cardiomegaly Status post cholecystectomy Status post right hip arthroplasty
--- NOTE | ~2023-08-21 | XR_ITS ---
Supine and upright views of the abdomen Clinical history: Kidney stone COMPARISON: 08/04/2023 Findings: Bowel gas pattern is nonspecific. No evidence for obstruction or free air. Probable small l eft renal stones noted. Cholecystectomy clips present. Right hip arthroplasty again noted. Impression: Suspected small left renal stones. Reviewed, dictated and finalized at [facility]. ODS EXAMINER Impression: Suspected small left renal stones.
== END 2023-08-21 10:33 | disposition home or self-care (01) ==
LOC: ANHIMG 10:34
PROVIDERS: PCP Family Medicine; Visit Provider Urology
DX: N20.0 Calculus of kidney (principal); Z90.49 Acquired absence of other specified parts of digestive tract; I31.39 Other pericardial effusion (noninflammatory)
CPT/HCPCS: 74018; 74176

== ENCOUNTER 2023-08-22 00:40 | Day surgery (SDC) | payer MEDICARE, MEDICAID, SELFPAY ==
[2023-08-21 16:20] VITALS: BMI 36.3
--- NOTE | 2023-08-21 16:33 | SUR.PREOP ---
Addendum entered by Karen Arreaga RN 08/21/23 16:57: Take the following medications with a SIP of water the morning of surgery: BACLOFEN, FLUOXETINE, SYNTHROID, MIDODRINE, OXYCODONE/ACETAMINOPHEN, TRELEGY INHALER Original Note: Report to the Outpatient Waiting Room, entrance under the green pavilion located off [facility], at time 1130 on date 08/22/23. Planned Procedure Time: 1330. Time changes happen often and if your time is changed the preop area will call you the afternoon before. - You and your visitor will be asked to self-screen and do not enter if you have any COVID symptoms. - A mask is optional within the hospital at this time. Patients may have clear liquids (water, carbonated beverages, clear teas, apple juice) until 3 hours prior to surgery with a maximum of 20 ounces. - No food from midnight until time of surgery - Infants may have breast milk until 4 hours before surgery, infant formula 6 hours prior to surgery. - Children will be allowed to drink immediately following surgery. If applicable, please bring a bottle or sippy cup to assist with drinking. Juice, water, soda, and popsicles are readily available. For infants on formula, please bring formula the day of surgery. Pacifiers are allowed. Take the following medications with a SIP of water the morning of surgery: DO NOT STOP ANY OF YOUR OTHER PRESCRIPTION MEDICATIONS PRIOR TO SURGERY ?EXCEPT THE FOLLOWING Medications to discontinue per physician Date to take last dose Please no make-up, nail lao, hairspray, perfume, deodorant, or body powder the day of surgery. No jewelry (including any body piercings) or valuables the day of surgery, leave them at home. Please take a shower or bath the night before, or the morning of, surgery with an antibacterial soap. Wear comfortable, loose fitting clothing. Children are encouraged to wear pajamas. - Jewelry must be removed prior to entering the operating room. Rings and piercings that are not removed may be cut off. - The hospital will not accept responsibility for valuables. - Please leave all valuables, including medications, at home the day of surgery. If you are going home after surgery, a licensed trash truck driver must drive you home. - NO public transportation without another adult if you receive anesthesia. - We recommend that an adult stay with you for 24 hours following discharge. - We also recommend that you do not drive, make important decision, drink alcoholic beverages, or take any drugs that were not prescribed by your health care provider for at least 24 hours after your discharge time. For Pediatric surgeries, we recommend two adults accompany the child home. Follow any additional instructions given to you from your surgeon. If you or anyone in your household have experienced Covid symptoms in the past week, please notify your surgeon or the nurse liaison at the phone number below for possible testing. Telephone instructions given to MILEY DE LA ROSA and asked if any additional questions and then verbalized understanding. Patient advised to call surgeon office or pre surgery nurse liaison [phone] if any additional questions.
[2023-08-22] VITALS (9 sets, daily range): BP systolic 107–142; BP diastolic 59–86; PULSE 48–53; RESP 12–20; TEMP 36.3–36.7; O2SAT 94–100
--- NOTE | ~2023-08-22 | XR_ITS ---
EXAMINATION: XR retrograde pyelo w/stent LT DATE: 08/22/2023 14:38 INDICATION: Left ureteral stone. TECHNIQUE: 8 intraoperative fluoroscopic views of the abdomen and pelvis were obtained. I was not pre sent. Fluoroscopy exposure time was 15 seconds. COMPARISON: CT abdomen and pelvis 08/21/2023 FINDINGS: There is an unremarkable left-sided retrograde pyelogram. There is a left internal ureteral stent in expected position. Surgical clips in the right upper quadrant are likely from cholecystecto my. IMPRESSION: 1. Left internal ureteral stent in expected position. Reviewed, dictated and finalized at location E. UNTING CLERK
--- NOTE | 2023-08-22 08:45 | WPDHPUPDATE1 ---
History and Physical Update Update Date/Time: 08/22/23 08:45 History and Physical has been reviewed, including an updated exam of the patient. There are NO changes in the patient's condition. Risks, benefits, and alternatives have been discussed and questions answered. Patient agrees to proceed with procedure. Proceed with cystoscopy, left retrograde pyelogram, left ureteroscopy with stone extraction, possible left stent placement and laser
[2023-08-22] MEDS: LACTATED RINGERS 1,000 ML 30 ML IV CONT (12:50)
[2023-08-22 13:24] LABS: Lithium 0.6 mmol/L (0.6-1.2)
--- NOTE | 2023-08-22 13:25 | WPDANESEPPF ---
Anes - Initial Pre Proc Eval Procedure: Operation Date: 08/22/23 13:30 Proposed Procedures p Cystoscopy, Left Ureteroscopy, Left Retrograde Pyelogram, Left Stone Extraction, Possible Left Stent Placement, Possible Holmium Laser - Bart Phillip MD Date/Time: 08/22/23 13:25 Surgeon: Bart Phillip MD Pre Op Diagnosis: left ureteral stone Patient Data Age: 53 Gender: F Height: 1.8 m Weight: 123.9 kg Last Vital Signs Temp 98.0 F 08/22/23 11:40 Pulse 50 L 08/22/23 11:40 Resp 20 08/22/23 11:40 BP 142/74 H 08/22/23 11:40 Pulse Ox 97 08/22/23 11:40 O2 Del Method Room Air 08/22/23 11:40 Allergies Allergy/AdvReac Type Severity Reaction Status Date / Time rizatriptan Allergy Mild HIVES Verified 08/22/23 11:46 adhesive Allergy Unknown Rash Verified 08/22/23 11:46 ciprofloxacin Allergy Unknown Nausea Verified 08/22/23 11:46 lamotrigine Allergy Unknown Rash Verified 08/22/23 11:46 methylprednisolone Allergy Unknown Palpitation Verified 08/22/23 11:46 s prednisone Allergy Unknown heart Verified 08/22/23 11:46 races, nervousness tetracycline Allergy Unknown Rash Verified 08/22/23 11:46 triamcinolone [From Kenalog] Allergy Unknown heart Verified 08/22/23 11:46 racing bupropion [From Wellbutrin] AdvReac Unknown Dizziness Verified 08/22/23 11:46 tamsulosin AdvReac Unknown Dizziness/D Verified 08/22/23 11:46 iarrhea Home Medications Medication Instructions Recorded Confirmed Type aspirin 81 mg chewable tablet 81 mg PO HS 05/30/22 08/22/23 History baclofen 20 mg tablet 20 mg PO TID 05/30/22 08/22/23 History estradiol 10 mcg vaginal tablet 10 mcg vaginal 2XW 05/30/22 08/22/23 History folic acid 1 mg tablet 1 mg PO SUMOTUWETHFR 05/30/22 08/22/23 History icosapent ethyl 1 gram capsule 2 g PO BID 05/30/22 08/22/23 History (Vascepa) levothyroxine 100 mcg tablet 125 mcg PO DAILY 05/30/22 08/22/23 History (Synthroid) lithium carbonate 450 mg 450 mg PO HS 05/30/22 08/22/23 History tablet,extended release montelukast 10 mg tablet 10 mg PO DAILY 05/30/22 08/22/23 History pravastatin 20 mg tablet 20 mg PO HS 05/30/22 08/22/23 History midodrine 2.5 mg tablet 2.5 mg PO TID 30 days #90 tabs 11/11/22 08/22/23 Rx pantoprazole 40 mg tablet,delayed 40 mg PO BID 03/27/23 08/22/23 History release fluticasone fur. 100 mcg-umeclid 1 inh inhalation DAILY 04/03/23 08/22/23 History 62.5 mcg-vilant 25 mcg inhalat.powder (Trelegy Ellipta) Lactobacillus acidophilus 10 mg PO DAILY 06/19/23 08/22/23 History (Acidophilus capsule) ascorbic acid (vitamin C) 500 mg 500 mg PO DAILY 06/19/23 08/22/23 History capsule erenumab-aooe 70 mg/mL 70 mg subcut MONTHLY 06/19/23 08/22/23 History subcutaneous auto-injector (Aimovig Autoinjector) fluoxetine 20 mg capsule 10 mg PO DAILY 06/19/23 08/22/23 History loratadine 10 mg tablet (Claritin) 10 mg PO DAILY 06/19/23 08/22/23 History oxycodone-acetaminophen 7.5 mg-300 1 tablet PO Q12H PRN Pain 06/19/23 08/22/23 History mg tablet pseudoephedrine-ibuprofen 30 1 cap PO BID PRN Allergy Symptoms 06/19/23 08/22/23 History mg-200 mg capsule (Advil Cold and Sinus) sumatriptan succinate 3 mg/0.5 mL 3 mg subcut Q1H PRN Migraine 06/19/23 08/22/23 History subcutaneous pen injector Headache cariprazine 1.5 mg capsule 1.5 mg PO 2XW 07/15/23 08/22/23 History (Vraylar) methotrexate sodium 2.5 mg tablet 5 mg PO WEEKLY 07/15/23 08/22/23 History oxcarbazepine 150 mg tablet 150 mg PO WEEKLY 07/15/23 08/22/23 History oxybutynin chloride 15 mg 15 mg PO DAILY 07/15/23 08/22/23 History tablet,extended release 24 hr ibuprofen 800 mg tablet See Rx Instructions .Route 08/02/23 08/22/23 Rx .COMPLEX #90 tabs Laboratory Tests 08/22/23 12:45 [place] 0.6 mmol/L (0.6-1.2) Patient hx anesthesia problems: post op nausea/vomiting Family hx anesthesia problems: none Results Review: All pre-operative results and
[2023-08-22] MEDS: SCOPOLAMINE 1 MG PATCH 1 PATCH TRANSDERM (14:02)
[2023-08-22] MEDS: ceFAZolin 3 GM/D5W 100 ML 100 ML IVPB (14:09)
[2023-08-22] MEDS: LIDOCAINE HCL 2% GEL UROJET 10 ML PKG MUCOUS MEM (14:28)
--- NOTE | 2023-08-22 14:32 | SUR.OPER ---
STENT STRINGS TAPPED TO SUPRAPBIC AREA PER SURGEON STRINGS NOT PULLING.
--- NOTE | 2023-08-22 14:34 | P.OP_ITS ---
Procedure Note - Detailed Date of Procedure 08/22/23 Pre-op Diagnosis left ureteral stone Post-op Diagnosis Same Procedure Performed Cystoscopy, left retrograde pyelogram, left ureteroscopy with stone extraction, left stent placement 4.8 [place] contour Surgeon Bart Phillip MD Anesthesia General Description of Procedure Patient is taken the operative suite correctly identified. Once anesthesia was obtained she was placed in dorsal lithotomy position and prepped draped usual sterile fashion. Twenty-two [place] scope inserted the bladder. There were no tumors noted. Left orifice was cannulated with a guidewire. Dilated the orifice with an 8/10 dilator. Rigid ureteral scope was then inserted into the orifice. The stone was visualized and removed in its entirety using an escape basket. Pyelogram was performed to confirm placement the stent. 4.8 [place] contour stent was then placed with the proximal end coiled in the renal pelvis distal in the bladder. I left the string attached to it so she can remove it on Friday or Friday. Bladder was drained. 2% viscous lidocaine was inserted into the urethra patient is taken recovery stable condition. This completes dictation. Please send a copy of this op note to my office. Estimated Blood Loss 0 Drains Yes Packing No Pathology Yes Complications No immediate complications Condition Stable Disposition PACU
[2023-08-22] MEDS: ONDANSETRON INJ 4 MG/2 ML VIAL IV PUSH (15:10)
[2023-08-22] MEDS: fentaNYL CITRATE INJ (*CRX) 100 MCG/2 ML VIAL 25 MCG IV PUSH ×2 (15:25→15:32)
[2023-08-22] MEDS: MIDODRINE HCL 2.5 MG TABLET PO (16:01)
[2023-08-22] MEDS: oxyCODONE HCL (*CRX) 5 MG TAB IR PO (16:01)
== END 2023-08-22 16:44 | disposition home or self-care (01) ==
PROVIDERS: Anesthesiology; PCP Family Medicine; Visit Provider Urology
PROC: (CPT 52352; principal; 2023-08-22 13:30)
DX: N20.1 Calculus of ureter (principal); E03.9 Hypothyroidism, unspecified; E11.9 Type 2 diabetes mellitus without complications; E78.00 Pure hypercholesterolemia, unspecified; J45.909 Unspecified asthma, uncomplicated
CPT/HCPCS: 52332; 52352; 36415; 74420; 80178; 82365; 88300; A9270; C1769; C2617; J0690; J2250; J2405; J2704; J3010; J7120; Q9966

== ENCOUNTER 2023-09-22 08:27 | Outpatient (CLI) | payer MEDICARE, MEDICAID, SELFPAY ==
--- NOTE | ~2023-09-22 | MR_ITS ---
EXAMINATION: MR cervical spine wo con DATE: 09/22/2023 09:09 INDICATION: Spinal stenosis. Neck pain. Right arm tingling and numbness. TECHNIQUE: Magnetic resonance imaging (MRI) of the cervical spine was performed without intravenous c ontrast. Sequences included sagittal T2-weighted FSE, sagittal T2-weighted FS FSE, sagittal T1-weight ed FSE, axial MERGE, and axial T2-weighted FSE. COMPARISON: Cervical spine MRI 06/06/2022 FINDINGS: There is 2 mm retrolisthesis of C3 on C4 and C4 on C5. There are changes of interbody fusio n procedure at C6-C7 with focal kyphosis. There is mild chronic anterior wedging of C5 vertebral body . There is mildly decreased disc height at C3-C4, moderately decreased disc height at C4-C5, and mela rely decreased disc height at C5-C6 and C7-T1. The spinal cord signal intensity is normal. The follow ing disc levels are specifically discussed: C2-C3: The disc does not extend beyond the endplate margin. There is moderate right and mild left unc overtebral joint osteoarthritis. There is mild bilateral facet joint osteoarthritis. There is mild ri ght neural foraminal stenosis. There is no central canal stenosis. C3-C4: The disc is bulging. There is mild bilateral uncovertebral joint osteoarthritis. There is mild bilateral facet joint osteoarthritis. There is mild right neural foraminal stenosis. There is mild c entral canal stenosis. C4-C5: The disc is bulging. There is severe right and moderate left uncovertebral joint osteoarthriti s. There is mild bilateral facet joint osteoarthritis. There is severe right and mild left neural for aminal stenosis. There is moderate central canal stenosis with ventral and dorsal indentation of the spinal cord. C5-C6: The disc is bulging. There is severe bilateral uncovertebral joint osteoarthritis. There is mi ld bilateral facet joint osteoarthritis. There is moderate right and mild left neural foraminal steno sis. There is mild central canal stenosis. C6-C7: There is mild bilateral uncovertebral joint hypertrophy. There is no facet joint hypertrophy. There is no neural foraminal stenosis. There is no central canal stenosis. C7-T1: The disc is bulging. There is severe bilateral uncovertebral joint osteoarthritis. There is mo derate right and severe left facet joint osteoarthritis. There is moderate bilateral neural foraminal stenosis. There is mild central canal stenosis. IMPRESSION: 1. Severe cervical spondylosis, stable from 06/06/2022. 2. Anterior fusion procedure at C6-C7. Reviewed, dictated and finalized at location A. M TABLE WORKER
== END 2023-09-22 08:28 ==
PROVIDERS: PCP Nurse Practitioner Gerontology; Visit Provider Nurse Practitioner Gerontology
DX: M48.02 Spinal stenosis, cervical region (principal); R20.2 Paresthesia of skin; R29.898 Other symptoms and signs involving the musculoskeletal system; Z98.1 Arthrodesis status; M47.892 Other spondylosis, cervical region
CPT/HCPCS: 72141

== ENCOUNTER 2023-10-22 09:11 | Outpatient (CLI) | payer MEDICARE, MEDICAID, SELFPAY ==
--- NOTE | ~2023-10-22 | CT_ITS ---
EXAMINATION: CT sinus wo con DATE: 10/22/2023 09:31 INDICATION: Chronic sinusitis, unspecified. TECHNIQUE: Computed tomography (CT) of the paranasal sinuses was performed without intravenous contra st. Iterative reconstruction technique was employed. The dose-length product was 260.54 mGy-cm. COMPARISON: Head CT 03/27/2023 FINDINGS: The frontal sinuses are clear. There is mild mucosal thickening in the left anterior ethmoi d sinuses. The sphenoid sinuses are clear. There is mild mucosal thickening in the maxillary sinuses. There are surgical changes of the maxilla with multiple areas of wire fixation. There are surgical c lips in left face. There is a right lateral spur of the nasal septum. There are bilateral Anastasiia cell s. The ostiomeatal units are patent. IMPRESSION: 1. Mild mucosal thickening in the paranasal sinuses. Reviewed, dictated and finalized at location E. TBAND DECORATING MACHINE OPERATOR
== END 2023-10-22 09:12 ==
LOC: MICIMG 09:12
PROVIDERS: PCP Otolaryngology; Visit Provider Otolaryngology
DX: J34.89 Other specified disorders of nose and nasal sinuses (principal)
CPT/HCPCS: 70486

== ENCOUNTER 2023-10-22 09:17 | Outpatient (CLI) | payer MEDICARE, MEDICAID, SELFPAY ==
--- NOTE | ~2023-10-22 | US_ITS ---
EXAMINATION: US thyroid DATE: 10/22/2023 09:39 INDICATION: Thyroid nodule. TECHNIQUE: Multiple ultrasound images of the thyroid were obtained. COMPARISON: Thyroid ultrasound 02/06/2023 FINDINGS: The right thyroid lobe measures 5.0 x 1.9 x 1.9 cm. The left thyroid lobe measures 4.5 x 1.9 x 1.4 c m. In the right thyroid lobe, there is a 9 mm solid, hypoechoic, wider than tall nodule with irregul ar margin without echogenic foci (TI-RADS TR4). In the left thyroid lobe, there is an 8 mm solid, hyp oechoic, wider than tall nodule with lobulated margin without echogenic foci (TR4). In the left thyro id lobe, there is a 6 mm solid, very hypoechoic, wider than tall nodule with ill-defined margin witho ut echogenic foci (TR4). IMPRESSION: 1. Small thyroid nodules, likely not clinically significant. No follow-up is needed. Reviewed, dictated and finalized at location E. HAUL TRUCK DRIVER IMPRESSION: 1. Small thyroid nodules, likely not clinically significant. No follow-up is ne eded.
== END 2023-10-22 09:18 ==
LOC: MICIMG 09:18
PROVIDERS: PCP Family Medicine; Visit Provider Family Medicine
DX: E04.2 Nontoxic multinodular goiter (principal)
CPT/HCPCS: 76536

== ENCOUNTER 2023-11-07 12:30 | Outpatient (CLI) | payer MEDICARE, MEDICAID, SELFPAY ==
--- NOTE | ~2023-11-07 | MM_ITS ---
EXAMINATION: MM screening [facility] BI w vic HISTORY: Screening TECHNIQUE: Craniocaudal and mediolateral oblique 3-D tomosynthesis images were obtained and synthetic 2-D images were generated. CAD analysis was submitted and interpreted. COMPARISON: Comparison to multiple prior studies sequentially, with oldest reviewed study dated 11/13. BREAST PARENCHYMAL COMPOSITION: The breasts are almost entirely fatty. FINDINGS: There is no evidence of suspicious mass, calcification, or architectural distortion to sugg est malignancy in either breast. There has been no suspicious interval change. IMPRESSION: 1. No mammographic evidence of malignancy. 2. Recommend routine screening mammography in one year. BI-RADS Category 1: Negative Reviewed, dictated and finalized at location A.
== END 2023-11-07 12:31 ==
LOC: MICIMG 12:32
PROVIDERS: PCP Obstetrics & Gynecology Gynecology; Visit Provider Obstetrics & Gynecology Gynecology
DX: Z12.31 Encounter for screening mammogram for malignant neoplasm of breast (principal)
CPT/HCPCS: 77063; 77067

== ENCOUNTER 2023-11-11 08:29 | Outpatient (CLI) | payer MEDICARE, MEDICAID, SELFPAY ==
--- NOTE | ~2023-11-11 | CT_ITS ---
EXAMINATION: CT abdomen wo/w con DATE: 11/11/2023 09:06 INDICATION: Hematoma of kidney. TECHNIQUE: Computed tomography (CT) of the abdomen was performed without and with 100 mL Omnipaque 35 0 intravenous contrast. Automated exposure control and iterative reconstruction technique were employ ed. The dose-length product was 2384.90 mGy-cm. COMPARISON: CT abdomen and pelvis 08/21/2023 FINDINGS: The visualized portions of the lung bases demonstrate mild atelectasis. No pleural effusion . Cardiomegaly is noted. There is a moderate-sized pericardial effusion. The liver is normal. There a re changes of cholecystectomy. The spleen, pancreas, and adrenal glands are normal. There are cysts i n right kidney measuring up to 6 mm. There is a subcapsular hematoma of left kidney with maximum thic kness of 15 mm. There is a 10 mm cyst in left kidney. There are no dilated loops of bowel. There are no pathologically enlarged lymph nodes. There is no free intraperitoneal fluid. There is mild thoraci c spondylosis and moderate lumbar spondylosis. There is mild chronic anterior wedging of T12 vertebra l body. IMPRESSION: 1. Improved subcapsular hematoma of left kidney. 2. Stable moderate-sized pericardial effusion. Reviewed, dictated and finalized at location A.
[2023-11-11 09:00] LABS: Estimated Glomerular Filt Rate > 60
== END 2023-11-11 08:30 | disposition home or self-care (01) ==
PROVIDERS: PCP Obstetrics & Gynecology Gynecology; Visit Provider Urology
DX: S37.019A Minor contusion of unspecified kidney, initial encounter (principal); X58.XXXA Exposure to other specified factors, initial encounter; I31.39 Other pericardial effusion (noninflammatory)
CPT/HCPCS: 74170; Q9967

== ENCOUNTER 2023-12-15 10:36 | Outpatient (CLI) | payer MEDICARE, MEDICAID, SELFPAY | END 2023-12-15 10:37 | disposition home or self-care (01) | LOC: ANHGOSHLAB 10:38 | PROVIDERS: PCP Obstetrics & Gynecology Gynecology; Visit Provider Otolaryngology | DX: J30.2 Other seasonal allergic rhinitis (principal) | CPT/HCPCS: 36415; 82785; 86003 ==

== ENCOUNTER 2024-06-30 16:17 | Outpatient (CLI) | payer MEDICARE, MEDICAID, SELFPAY ==
--- NOTE | ~2024-06-30 | XR_ITS ---
Exam: Abdomen 1V HISTORY: BILATERAL KIDNEY STONES COMPARISON: Reference is made to a CT examination of the abdomen and pelvis, performed on the same da y (performed 10 minutes earlier). TECHNIQUE: One supine view of the abdomen and pelvis FINDINGS: Bowel gas pattern is nonspecific and non-obstructive. There is no free air or deep sulci. No pathologic calcifications are seen. Clips within the right upper quadrant consistent with prior cholecystectomy. Lung bases are unremarkable. Prosthetic right hip. IMPRESSION: Nonspecific, nonobstructive bowel gas pattern. No calcifications project over the bilateral kidneys Reviewed, dictated and finalized at location A. OMER SERVICE AGENT
--- NOTE | ~2024-06-30 | CT_ITS ---
CLINICAL INDICATION: Kidney stones COMPARISON: Examination is compared with multiple prior studies, performed most recently on 11/11/2023 and dating back to 03/27/2023. TECHNIQUE: Multiple contiguous axial images of the abdomen and pelvis were performed without the admi nistration of intravenous contrast The dose-length product (DLP) was 1098.28 mGy-cm. Automated exposure control and iterative reconstruction technique were employed. FINDINGS/OBSERVATIONS: Visualized lower thorax: The bilateral lung bases are clear. The heart is borderline enlarged, without pericardial effusion. Liver: The liver demonstrates homogeneous attenuation and is enlarged measuring 21 cm in longitudinal dimens ion. Gallbladder and biliary system: The gallbladder is surgically absent. Pancreas: Limited evaluation of the pancreas secondary to the lack of intravenous contrast. Spleen: The spleen demonstrates homogeneous attenuation and is not enlarged measuring 10 cm in longitudinal d imension. Kidneys: The bilateral kidneys are unremarkable, without hydronephrosis or renal calculi. Adrenal glands: Unremarkable. Gastrointestinal tract: Fecal stasis within the colon. Appendix: The air-filled appendix is of normal caliber (axial series, images 89 through 112) Vasculature: Unremarkable. Lymph nodes: No pathologically enlarged or morphologically suspicious lymph nodes within the retroperitoneum or at the root of the mesentery. Pelvic structures: The bladder is distended, and otherwise unremarkable. The uterus is not visualized, presumably surgically absent. Evaluation of the deep pelvis is limited secondary to prosthetic right hip. Body wall and musculoskeletal: Small fat-containing umbilical hernia. Fascial thickening to the right of midline within the lower abdomen with multiple calcifications sugg esting prior hernia repair? Moderate degenerative disease within the lower thoracic and lumbosacral spine with osteophyte formati on, disc space narrowing, endplate changes and vacuum phenomena. IMPRESSION: No renal calculi. Hepatomegaly Reviewed, dictated and finalized at location A. NEL MARKETING SPECIALIST
== END 2024-06-30 16:18 | disposition home or self-care (01) ==
PROVIDERS: PCP Family Medicine; Visit Provider Urology
DX: N20.0 Calculus of kidney (principal); R16.0 Hepatomegaly, not elsewhere classified
CPT/HCPCS: 74018; 74176

== ENCOUNTER 2024-08-05 10:15 | Outpatient (CLI) | payer MEDICARE, MEDICAID, SELFPAY ==
--- NOTE | ~2024-08-05 | MR_ITS ---
MRI of the lumbar spine Clinical History: Radiculopathy Technique: Axial T2-weighted images, and sagittal T1-weighted, T2-weighted, and and T2 fat-sat images were acquired. Findings: No fracture identified. There is 2 mm retrolisthesis of L2 over L3. No suspicious bone nasreen ow signal abnormality seen. At L1-L2, there is no disc bulge or herniation. There is moderate to advanced facet arthropathy. No c entral canal stenosis. There is mild to moderate left neural foraminal narrowing. Right neural forame n preserved. At L2-L3, there is severe degenerative disc narrowing. There is diffuse disc bulge and moderate facet arthropathy, resulting in moderate to severe spinal canal stenosis/thecal sac compression focally. T here is moderate to severe bilateral neural foraminal narrowing. At L3-L4, there is degenerative distended with diffuse disc bulge and advanced facet arthropathy. The re is severe spinal canal stenosis/thecal sac compression. There is moderate to severe bilateral neur al foraminal narrowing. At L4-L5, there is diffuse disc bulge with moderate to advanced facet arthropathy. There is mild cent ral canal stenosis with bilateral lateral recess stenosis. There is severe left neural foraminal comp romise, and moderate right neural foraminal comprise. At L5-S1, there is minimal disc bulge with severe facet arthropathy. No central canal stenosis. There is moderate to severe right neural foraminal narrowing. Left neural foramen preserved. Paravertebral soft tissues are unremarkable. Impression: Severe multilevel degenerative spondylosis in the lumbar spine, as detailed above. 2 mm retrolisthesis of L2 over L3. Reviewed, dictated and finalized at location . ULSION ENGINEER Impression: Severe multilevel degenerative spondylosis in the lumbar spine, as detailed abo ve. 2 mm retrolisthesis of L2 over L3.
== END 2024-08-05 10:16 | disposition home or self-care (01) ==
LOC: MICIMG 10:16
PROVIDERS: PCP Family Medicine; Visit Provider Physician Assistant
DX: M47.816 Spondylosis without myelopathy or radiculopathy, lumbar region (principal); M54.16 Radiculopathy, lumbar region
CPT/HCPCS: 72148

== ENCOUNTER 2024-11-08 10:36 | Outpatient (CLI) | payer MEDICARE, MEDICAID, SELFPAY ==
--- NOTE | ~2024-11-08 | MM_ITS ---
EXAMINATION: MM screening [facility] BI w vic HISTORY: Screening TECHNIQUE: Craniocaudal and mediolateral oblique 3-D tomosynthesis images were obtained and synthetic 2-D images were generated. CAD analysis was submitted and interpreted. COMPARISON: 11/07/2023 and dating back to 12/17/2018 BREAST PARENCHYMAL COMPOSITION: Not Dense. The breasts are almost entirely fatty replaced. FINDINGS: Bulky and punctate calcifications are detected bilaterally, stable and benign in appearance . Stable parenchymal pattern without suspicious microcalcifications, architectural distortion, discrete masses or significant asymmetry. IMPRESSION: 1. No mammographic evidence of malignancy. 2. Recommend routine screening mammography in one year. BI-RADS Category 2: Benign finding(s). Reviewed, dictated and finalized at location A.
== END 2024-11-08 10:37 | disposition home or self-care (01) ==
LOC: MICIMG 10:38
PROVIDERS: PCP Family Medicine; Visit Provider Obstetrics & Gynecology Gynecology
DX: Z12.31 Encounter for screening mammogram for malignant neoplasm of breast (principal)
CPT/HCPCS: 77063; 77067

== ENCOUNTER 2025-02-07 07:53 | Outpatient (CLI) | payer MEDICARE, MEDICAID, SELFPAY | END 2025-02-07 07:54 | disposition home or self-care (01) | LOC: ANHAUDIO 07:54 | PROVIDERS: PCP Family Medicine; Visit Provider Otolaryngology | DX: H83.02 Labyrinthitis, left ear (principal); H93.12 Tinnitus, left ear; H90.3 Sensorineural hearing loss, bilateral | CPT/HCPCS: 92557; 92567 ==

== ENCOUNTER 2025-03-01 13:20 | Outpatient (CLI) | payer MEDICARE, MEDICAID, SELFPAY ==
--- NOTE | ~2025-03-01 | CT_ITS ---
CT abdomen pelvis w con Ordering provider: Fernando Lujan, History: 54 years Female with . ACUTE DIVERTICULITIS . Comparison: None. Technique: CT abdomen and pelvis with IV and without oral contrast. Automated exposure control and it erative reconstruction technique were employed. The dose-length product was 1318.21 mGy-cm. Findings: VISUALIZED LOWER CHEST: Minimal pericardial effusion. Otherwise, Normal. UPPER ABDOMINAL ORGANS: Liver: Fat infiltration of the liver. Minimal dilatation of the intrahepatic ducts. Dilated CBD is al so noted. Gallbladder: Status post cholecystectomy. Spleen: Normal. Stomach/duodenum: Normal. Pancreas: Normal. Adrenals: Normal. Kidneys: Normal. PELVIC ORGANS: The bladder is underfilled. BOWEL AND MESENTERY: Colon: Mild sigmoid diverticulosis without diverticulitis. Normal appendix. Small Bowel: Normal. No obstruction. Peritoneum/mesentery: No free air or free fluid. No mesenteric lymphadenopathy. Small lymph nodes see n in the right lower quadrant with the largest measures 0.9 cm. RETROPERITONEUM: Normal aorta. No retroperitoneal lymphadenopathy. MUSCULOSKELETAL: Superficial soft tissues: The superficial soft tissues are normal. Bones: Age appropriate degenerative changes of the spine. Right hip arthroplasty. Bilateral sacroilii tis. IMPRESSION: 1. No evidence of appendicitis, diverticulitis or intestinal obstruction. 2. Fat infiltration of the liver with minimal dilatation of the intrahepatic bile ducts. Reviewed, dictated and finalized at location A. IMPRESSION: 1. No evidence of appendicitis, diverticulitis or intestinal obstruction. 2. Fat infiltration of the liver with minimal dilatation of the intrahepatic b ile ducts.
--- OUTSIDE RECORDS SUMMARY | 2025-03-01 13:26 | XMS_ITS | Encounter Summary ---
Author Organization [facility] Address [address] [place] [address] Care Team Providers Care Senior Water/Wastewater Engineer Name Role Phone Janey Hooper MD Primary Care Provider [phone] Palmira Walker MD Primary Care Provider [phone] Janey Hooper MD Primary Care Provider [phone] Palmira Walker MD Primary Care Provider [phone] Fernando Lujan MD Primary Care Provider [phone] Reason for Visit * Reason Onset Date Comments Results 10/14/2018 Encounter Details Date Type Department Care Team (Late st Contact Info) Description 10/14/2018 Telephone [facility] [address] [place] [address] Dali Camacho PA [address] [facility] 3L [place] [id number] Results Social History Tobacco Use Types Packs/Day Years Used Date Smoking Tobacco: Never Smokeless Tobacco: Never Alcohol Use Standard Drinks/Week Comments No 0 (1 standard drink = 0.6 oz pur e alcohol) Comments Unknown Sex and Gender Information Value Date Recorded Sex Assigned at Female 12/03/2022 4:18 PM CDT Legal Sex Female 5:51 AM STOCK CONTROL SUPERVISOR Gender Identity Female 12/03/2022 4:18 PM CDT Sexual Orientation Straight 12/03/2022 4: 18 PM CDT documented as of this encounter Miscellaneous Notes * Telephone Encounter - Hearst, Vibha - 10/14/2018 10:11 AM CST Pt calling regarding results. K CONTROL SUPERVISOR documented in this encounter Plan of Treatment Upcoming Encounters Date Type Department Care Team (Late st Contact Info) Description 03/21/2025 9:50 AM CDT Office Visit [facility] - Dermatology [address] [facility], [place] [phone] Emmanuel Mahmood MD [facility] [facility] 3L [place] [address] 05/10/2025 11:10 AM CDT Office Visit [facility] - BLUE LEATHER SETTER [address] [facility] [address] [place] [address] Ebony Odonnell MD [address] [facility] 400 [place] [address] documented as of this encounter Visit Diagnoses Not on filedocumented in this encounter Care Teams Senior Water/Wastewater Engineer Relationship Specialty Start Date End Date Janey Hooper MD [address] [facility] [address] [place] [phone] PCP - General 12/31/17 10/25/20 Palmira Walker MD [address] [place] [address] PCP - General Family Medicine 10/26/20 10/26/20 Janey Hooper MD [address] [facility] [address] [place] [phone] PCP - General 10/27/20 10/29/20 Palmira Walker MD [address] [facility] [address] [place] [address] PCP - General 10/30/20 05/20/23 Fernando Lujan MD [address] [place] [address] [address] [place] [address] PCP - General Family Medicine 05/21/23 documented as of this encounter
--- OUTSIDE RECORDS SUMMARY | 2025-03-01 13:26 | XMS_ITS | Encounter Summary ---
Author Organization [facility] Address [address] [facility] [place] [address] Care Team Providers Care Production Packager Name Role Phone Janey Hooper MD Primary Care Provider [phone] Palmira Walker MD Primary Care Provider [phone] Janey Hooper MD Primary Care Provider + [phone] Palmira Walker MD Primary Care Provider [phone] Fernando Lujan MD Primary Care Provider [phone] Reason for Visit * Reason Onset Date Comments General 03/26/2018 Encounter Details Date Type Department Care Team (Late st Contact Info) Description 03/26/2018 Telephone [facility] [address] [place] [address] Emmanuel Mahmood MD [address] [facility] 3L [place] [phone] General Social History Tobacco Use Types Packs/Day Years Used Date Smoking Tobacco: Never Smokeless Tobacco: Never Alcohol Use Standard Drinks/Week Comments No 0 (1 standard drink = 0.6 oz pur e alcohol) Comments Unknown Sex and Gender Information Value Date Recorded Sex Assigned at Female 12/03/2022 4:18 PM CDT Legal Sex Female 5:51 AM SUPERVISOR DRIED YEAST Gender Identity Female 12/03/2022 4:18 PM CDT Sexual Orientation Straight 12/03/2022 4: 18 PM CDT documented as of this encounter Miscellaneous Notes * Telephone Encounter - Vibha Dominguez - 03/26/2018 10:56 AM CDT [facility] calling to schedule delivery of stelara next 04/02/18 If we do not receive, call back within 24 hrs. documented in this encounter Plan of Treatment Upcoming Encounters Date Type Department Care Team (Late st Contact Info) Description 03/21/2025 9:50 AM CDT Office Visit [facility] - Dermatology [address] [place] [address], [place] [phone] Emmanuel Mahmood MD [address] [place] [address] 3 [place] [phone] 05/10/2025 11:10 AM CDT Office Visit [facility] - ELEMENTARY READING SPECIALIST [address] [facility] [address] [place] [phone] Ebony Odonnell MD [address] [facility] [address] [place] [address] documented as of this encounter Visit Diagnoses Not on filedocumented in this encounter Care Teams Production Packager Relationship Specialty Start Date End Date Janey Hooper MD [address] [facility] [address] [phone] PCP - General 12/31/17 10/25/20 Palmira Walker MD [address] [facility] [address] [place] [address] PCP - General Family Medicine 10/26/20 10/26/20 Janey Hooper MD [address] [facility] [address] [phone] PCP - General 10/27/20 10/29/20 Palmira Walker MD [address] [facility] [address] [place] [address] PCP - General 10/30/20 05/20/23 Fernadno Lujan MD [address] [place] [phone] PCP - General Family Medicine 05/21/23 documented as of this encounter
--- OUTSIDE RECORDS SUMMARY | 2025-03-01 13:26 | XMS_ITS | Encounter Summary ---
Author Organization [facility] Address [address] [facility] [facility] [place] [address] Care Team Providers Care Cook Manager Name Role Phone Janey Hooper MD Primary Care Provider [phone] Palmira Walker MD Primary Care Provider [phone] Janey Hooper MD Primary Care Provider [phone] Palmira Walker MD Primary Care Provider [phone] Fernando Lujan MD Primary Care Provider [phone] Encounter Details Date Type Department Care Team (Late st Contact [facility]) Description 12/03/2019 Telephone [facility] [address] [place] [address] Dali Camacho PA [address] [facility] 3L [place] [phone] Social History Tobacco Use Types Packs/Day Years Used Date Smoking Tobacco: Never Smokeless Tobacco: Never Alcohol Use Standard Drinks/Week Comments No 0 (1 standard drink = 0.6 oz pur e alcohol) Comments Unknown Sex and Gender Information Value Date Recorded Sex Assigned at Female 12/03/2022 4:18 PM CDT Legal Sex Female 5:51 AM GRAD INTERN Gender Identity Female 12/03/2022 4:18 PM CDT Sexual Orientation Straight 12/03/2022 4: 18 PM CDT documented as of this encounter Miscellaneous Notes * Telephone Encounter - Dali Camacho PA - 12/03/2019 4:41 PM CDT I called miguel regarding her next stelara shipment They closed her order because they were unable to reach her Last injection was Sep 20, 2019 and got a sample that day stelara 90 mg has been approved until Jul 2020 While I was on hold, miguel rep called her to try to set up delivery and again had to leave a message I sent patient a Rabbit TVt message asking her to call us to set up visit in December for next injection and call juhi to set up delivery documented in this encounter Plan of Treatment Upcoming Encounters Date Type Department Care Team (Late st Contact Info) Description 03/21/2025 9:50 AM CDT Office Visit [facility] - Dermatology [address] [place] [address], [place] [phone] Emmanuel Mahmood MD [address] [place] [address] 3 [place] [phone] 05/10/2025 11:10 AM CDT Office Visit [facility] - DROP CLIPPER [address] [facility] [address] [place] [phone] Ebony Odonnell MD [address] [facility] 400 [place] [address] documented as of this encounter Visit Diagnoses Not on filedocumented in this encounter Care Teams Cook Manager Relationship Specialty Start Date End Date Janey Hooper MD [address] [facility] [address] [phone] PCP - General 12/31/17 10/25/20 Palmira Walker MD [address] [facility] [address] [place] [address] PCP - General Family Medicine 10/26/20 10/26/20 Janey Hooper MD [address] [phone] PCP - General 10/27/20 10/29/20 Palmira Walker MD [address] [facility] [address] [place] [address] PCP - General 10/30/20 05/20/23 Fernando Lujan MD [address] [place] [address] 104 [place] [address] PCP - General Family Medicine 05/21/23 documented as of this encounter
--- OUTSIDE RECORDS SUMMARY | 2025-03-01 13:26 | XMS_ITS | Encounter Summary ---
Author Organization [facility] Address [address] [place] [address] Care Team Providers Care Farm Mortgage Agent Name Role Phone Palmira Walker MD Primary Care Provider [phone] Fernando Lujan MD Primary Care Provider Encounter Details Date Type Department Care Team (Late st Contact Info) Description 07/26/2022 Telephone [facility] [address] [facility], [place] [address] Emmanuel Mahmood MD [address] [facility] 3 [place] [address] Social History Tobacco Use Types Packs/Day Years Used Date Smoking Tobacco: Never Smokeless Tobacco: Never Alcohol Use Standard Drinks/Week Comments No 0 (1 standard drink = 0.6 oz pur e alcohol) Comments Unknown Sex and Gender Information Value Date Recorded Sex Assigned at Female 12/03/2022 4:18 PM CDT Legal Sex Female 5:51 AM COLORIST DYER Gender Identity Female 12/03/2022 4:18 PM CDT Sexual Orientation Straight 12/03/2022 4: 18 PM CDT documented as of this encounter Functional Status * Is person deaf or have serious hearing difficulty? Answer Date of Assessment Author No 10/29/2020 10:49 AM CDT Eliecer Valdez RN * Is person blind or have serious difficulty seeing? Answer Date of Assessment Author No 10/29/2020 10:49 AM CDT Eliecer Valdez RN * Does person have serious difficulty walking/climbing stairs? Answer Date of Assessment Author No 10/29/2020 10:49 AM CDT Eliecer Valdez RN * Does person have difficulty dressing/bathing? Answer Date of Assessment Author No 10/29/2020 10:49 AM CDT Eliecer Valdez RN * Does person have difficulty doing errands alone? Answer Date of Assessment Author No 10/29/2020 10:49 AM MAGNUST Eliecer Valdez RN documented as of this encounter Mental Status * Does person have difficulty concentrating/remembering/making decisions? Answer Entry Date Author No 10/29/2020 10:49 AM MAGNUST Eliecer Valdez RN documented in this encounter Miscellaneous Notes * Telephone Encounter - Nataliia Lunsford - 07/31/2022 10:51 AM CST Current Provider name: SUZIE Reason for call: PT CALLED IN AGAIN TO KNOW IF SHE CAN STOP TAKING METHOTREXATE TABS Patient Call Back number: [phone] RIST DYER * Telephone Encounter - Mary Sparrow - 07/26/2022 10:55 AM CST Current Provider name:Suzie Reason for call: Patient would like to know if she can stop taking her methotrexate 2.5 MG tablet. Patient stated she's been sick and believes it may have to do with the medication. Patient Call Back number: [phone] RIST DYER documented in this encounter Plan of Treatment Upcoming Encounters Date Type Department Care Team (Late st Contact Info) Description 03/21/2025 9:50 AM CDT Office Visit [facility] - Dermatology [address] [place] [address], [place] [id number] Emmanuel Mahmood MD [address] [place] [address] 3 [place] [address] 05/10/2025 11:10 AM CDT Office Visit [facility] - CRESTER [address], [address] [place] [address] Ebony Odonnell MD [address] [facility] [address] [place] [address] documented as of this encounter Visit Diagnoses Not on filedocumented in this encounter Care Teams Farm Mortgage Agent Relationship Specialty Start Date End Date Palmira Walker MD [address] [place] [address] PCP - General 10/30/20 05/20/23 Fernando Lujan MD [address] [facility] [address] [place] [address] PCP - General Family Medicine 05/21/23 documented as of this encounter
--- OUTSIDE RECORDS SUMMARY | 2025-03-01 13:27 | XMS_ITS | Encounter Summary ---
Author Organization [facility] Facility Care Team Providers Care Public Relations Senior Associate Name Role Phone Maury Knott MD Unavailable [phone] Xavier Villegas MD Unavailable [phone] Tenisha Mahmood MD Unavailable Janey Hooper MD Primary Care Provider [phone] Benson London MD Unavailable [phone]- [phone] Ronit Melvin MD Unavailable [phone] Fernando Lujan MD Primary Care Provider [phone] Encounter Details Date Type Department Care Team (Latest Contact Info) Description 01/12/2016 Orders Only [facility] CLINCONV ProviderRomelia MD [address] [place] [address] Social History Tobacco Use Types Packs/Day Years Used Date Smoking Tobacco: Never Comments Unknown Sex and Gender Information Value Date Recorded Sex Assigned at Not on file Legal Sex Female 12:10 PM BUTTONHOLE 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 us Historical Provider Final Res ult documented in this encounter Visit Diagnoses Not on filedocumented in this encounter Additional Health Concerns Infection Onset Date Last Indicated Resolved Time MRSA Comment:2012 in hospital 12/29/2012 12/28/2012 04/04/2021 5:00 AM CDT COVID: Suspected 02/24/2020 02/24/2020 2020 3:07 AM CDT COVID: Suspected 07/24/2020 08/04/2020 08/18/2020 3:05 AM BUTTONHOLE MACHINE OPERATOR COVID: Suspected 05/16/2021 05/16/2021 05/17/2021 2:59 AM CDT COVID: Suspected 08/15/2021 08/20/2021 08/21/2021 12:42 AM BUTTONHOLE MACHINE OPERATOR COVID: Suspected 07/27/2022 07/27/2022 07/27/2022 7:42 PM BUTTONHOLE MACHINE OPERATOR documented as of this encounter Care Teams Public Relations Senior Associate Relationship Specialty Start Date End Date Janey Hooper MD [address] [place] [address] PCP - General Internal Medicine 04/12/19 10/11/20 Fernando Lujan MD [address] [facility] [address] [place] [id number] PCP - General Family Medicine 05/02/23 Maury Knott MD [address] [facility] [address] [address] Consulting Physician Cardiology 01/24/19 Xavier Villegas MD [address] [facility] [address] [place] [address] Consulting Physician Pulmonary Disease 04/12/19 Tenisha Mahmood MD [address] [facility] [address] [place] [address] Referring Physician Dermatology 04/12/19 Benson London MD [address] [address] Consulting Physician Urology 10/18/19 Ronit Melvin MD [address] [place] [address] Referring Physician Gynecology 10/18/19 documented as of this encounter
--- OUTSIDE RECORDS SUMMARY | 2025-03-01 13:27 | XMS_ITS | Encounter Summary ---
Author Organization [facility] Address [address] [facility] [place] [address] Care Team Providers Care Music Store Manager Name Role Phone Fernando Lujan MD Primary Care Provider [phone] Reason for Visit * Reason Onset Date Comments Med Question 02/23/2024 Encounter Details Date Type Department Care Team (Late st Contact Info) Description 02/23/2024 Telephone [facility] - Centralized Scheduling [address] [place] [phone] Emmanuel Mahmood MD [address] [facility] 3 [place] [address] Med Question Social History Tobacco Use Types Packs/Day Years Used Date Smoking Tobacco: Never Smokeless Tobacco: Never Alcohol Use Standard Drinks/Week Comments No 0 (1 standard drink = 0.6 oz pur e alcohol) Comments Unknown Sex and Gender Information Value Date Recorded Sex Assigned at Female 12/03/2022 4:18 PM CDT Legal Sex Female 5:51 AM JOB COACH Gender Identity Female 12/03/2022 4:18 PM CDT [...] 10/29/2020 10:49 AM CDT Eliecer Valdez RN documented as of this encounter Mental Status * Does person have difficulty concentrating/remembering/making decisions? Answer Entry Date Author No 10/29/2020 10:49 AM CDT Eliecer Valdez RN documented in this encounter Miscellaneous Notes * Telephone Encounter - Tatyana Mae - 03/08/2024 3:51 PM CDT Routed refill request to Dr. Mahmood and Jeff for Stelara 90mg/ml syringe to be sent to [facility]. Tatyana Mae- Pharmacy Visual Basic Developer (Dermatology) * Telephone Encounter - Kate Monroy - 02/23/2024 1:12 PM CDT Pharmacy calling in regards to status on an order Stelara 90mg prefilled syringe documented in this encounter Plan of Treatment Upcoming Encounters Date Type Department Care Team (Late st Contact Info) Description 03/21/2025 9:50 AM CDT [facility] [address] [facility], [facility] [place] [address] Emmanuel Mahmood MD [address] [facility] 3 [place] [address] 05/10/2025 11:10 AM CDT Office Visit [facility] - ROLE PLAYER [address] [facility] 200 [place] [address] Ebony Odonnell MD [address] [facility] 400 [place] [address] documented as of this encounter Visit Diagnoses Not on filedocumented in this encounter Care Teams Music Store Manager Relationship Specialty Start Date End Date Fernando Lujan MD [address] [place] [address] 104 [place] [address] PCP - General Family Medicine 05/21/23 documented as of this encounter
--- OUTSIDE RECORDS SUMMARY | 2025-03-01 13:27 | XMS_ITS | Encounter Summary ---
Author Organization [facility] Facility Care Team Providers Care Vehicle Controls Engineer Name Role Phone Maury Knott MD Unavailable [phone] Xavier Villegas MD Unavailable [phone] Tenisha Mahmood MD Unavailable Janey Hooper MD Primary Care Provider [phone] Benson London MD Unavailable [phone] Ronit Melvin MD Unavailable [phone] Fernando Lujan MD Primary Care Provider [phone] Encounter Details Date Type Department Care Team (Latest Contact Info) Description 09/12/2016 Orders Only [facility] CLINCONV ProviderRomelia MD [address] [place] [address] Social History Tobacco Use Types Packs/Day Years Used Date Smoking Tobacco: Never Comments Unknown Sex and Gender Information Value Date Recorded Sex Assigned at Not on file Legal Sex Female 12:10 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 us Historical Provider Final Res ult documented in this encounter Visit Diagnoses Not on filedocumented in this encounter Additional Health Concerns Infection Onset Date Last Indicated Resolved Time MRSA Comment:2012 in hospital 12/29/2012 12/28/2012 04/04/2021 5:00 AM CDT COVID: Suspected 02/24/2020 02/24/2020 2020 3:07 AM CDT COVID: Suspected 07/24/2020 08/04/2020 08/18/2020 3:05 AM MACHINING TECHNICIAN COVID: Suspected 05/16/2021 05/16/2021 05/17/2021 2:59 AM CDT COVID: Suspected 08/15/2021 08/20/2021 08/21/2021 12:42 AM MACHINING TECHNICIAN COVID: Suspected 07/27/2022 07/27/2022 07/27/2022 7:42 PM MACHINING TECHNICIAN documented as of this encounter Care Teams Vehicle Controls Engineer Relationship Specialty Start Date End Date Janey Hooper MD [address] [place] [address] PCP - General Internal Medicine 04/12/19 10/11/20 Fernando Lujan MD [address] [facility] [address] [place] [id number] PCP - General Family Medicine 05/02/23 Maury Knott MD [address] [facility] [address] [address] Consulting Physician Cardiology 01/24/19 Xavier Villegas MD [address] [facility] [address] [place] [address] Consulting Physician Pulmonary Disease 04/12/19 Tenisha Mahmood MD [address] [facility] [address] [place] [address] Referring Physician Dermatology 04/12/19 Benson London MD [address] [place] [address] Consulting Physician Urology 10/18/19 Ronit Melvin MD [address] [place] [address] Referring Physician Gynecology 10/18/19 documented as of this encounter
--- OUTSIDE RECORDS SUMMARY | 2025-03-01 13:27 | XMS_ITS | Encounter Summary ---
Author Organization [facility] Address [address] [facility] [place] [address] Care Team Providers Care Neckties Painter Name Role Phone Palmira Walker MD Primary Care Provider Fernando Lujan MD Primary Care Provider [phone] Encounter Details Date Type Department Care Team (Late st Contact Info) Description 11/05/2022 Telephone [facility] [address] [facility], [place] [address] Emmanuel Mahmood MD [address] [facility] 3 [place] [address] Social History Tobacco Use Types Packs/Day Years Used Date Smoking Tobacco: Never Smokeless Tobacco: Never Alcohol Use Standard Drinks/Week Comments No 0 (1 standard drink = 0.6 oz pur e alcohol) Comments Unknown Sex and Gender Information Value Date Recorded Sex Assigned at Female 12/03/2022 4:18 PM CDT Legal Sex Female 5:51 AM LEGISLATIVE ASSISTANT Gender Identity Female 12/03/2022 4:18 PM CDT [...] encounter Miscellaneous Notes * Telephone Encounter - Mary Sparrow - 11/05/2022 1:29 PM CDT Current Provider name:Timoteo Reason for call: Brett with [facility] pharmacy is needing to schedule a delivery for the patient's stelara medication. Patient Call Back number: [phone] documented in this encounter Plan of Treatment Upcoming Encounters Date Type Department Care Team (Late st Contact Info) Description 03/21/2025 9:50 AM CDT Office Visit [facility] - Dermatology [address] [place] [address], [place] [address] Emmanuel Mahmood MD [address] [place] [address] 3 [place] [phone] 05/10/2025 11:10 AM CDT Office Visit [facility] - MELTER SUPERVISOR OPEN HEARTH FURNACE [address], [facility] 200 [place] [address] Ebony Odonnell MD [address] [facility] 400 [place] [address] documented as of this encounter Visit Diagnoses Not on filedocumented in this encounter Care Teams Neckties Painter Relationship Specialty Start Date End Date Palmira Walker MD 2900 [facility] 980 [place] [address] PCP - General 10/30/20 05/20/23 Fernando Lujan MD [address] [place] [address] 104 [place] [address] PCP - General Family Medicine 05/21/23 documented as of this encounter
--- OUTSIDE RECORDS SUMMARY | 2025-03-01 13:27 | XMS_ITS | Encounter Summary ---
Author Organization [facility] Facility Care Team Providers Care Lumber Sales Supervisor Name Role Phone Maury Knott MD Unavailable [phone] Xavier Villegas MD Unavailable [phone] Tenisha Mahmood MD Unavailable [phone] Janey Hooper MD Primary Care Provider [phone] Benson London MD Unavailable [phone] Ronit Melvin MD Unavailable [phone] Fernando Lujan MD Primary Care Provider [phone] Encounter Details Date Type Department Care Team (Latest Contact Info) Description 01/10/2016 Orders Only [facility] CLINCONV ProviderRomelia MD [address] [place] [address] Social History Tobacco Use Types Packs/Day Years Used Date Smoking Tobacco: Never Comments Unknown Sex and Gender Information Value Date Recorded Sex Assigned at Not on file Legal Sex Female 12:10 PM OPENER VERIFIER PACKER CUSTOMS Gender Identity Female 02/11/2020 4:38 AM CDT Sexual Orientation Straight 02/11/2020 4: 38 AM CDT documented as of this encounter Plan of Treatment Not on file documented as of this encounter Procedures Procedure Name Priority Date/Time Associated Diagnosis Comments PROCEDURE - RESULT 01/10/2016 12 :00 AM CDT documented in this encounter Results * PROCEDURE - RESULT (01/10/2016 12:00 AM CDT) Narrative 01/10/2016 12:00 AM CDT Ordered by an unspecified provider. us Historical Provider Final Res ult documented in this encounter Visit Diagnoses Not on filedocumented in this encounter Additional Health Concerns Infection Onset Date Last Indicated Resolved Time MRSA Comment:2012 in hospital 12/29/2012 12/28/2012 04/04/2021 5:00 AM CDT COVID: Suspected 02/24/2020 02/24/2020 2020 3:07 AM CDT COVID: Suspected 07/24/2020 08/04/2020 08/18/2020 3:05 AM OPENER VERIFIER PACKER CUSTOMS COVID: Suspected 05/16/2021 05/16/2021 05/17/2021 2:59 AM CDT COVID: Suspected 08/15/2021 08/20/2021 08/21/2021 12:42 AM OPENER VERIFIER PACKER CUSTOMS COVID: Suspected 07/27/2022 07/27/2022 07/27/2022 7:42 PM OPENER VERIFIER PACKER CUSTOMS documented as of this encounter Care Teams Lumber Sales Supervisor Relationship Specialty Start Date End Date Janey Hooper MD [address] [place] [address] PCP - General Internal Medicine 04/12/19 10/11/20 Fernando Lujan MD [address] [facility] [address] [place] [id number] PCP - General Family Medicine 05/02/23 Maury Knott MD [address] [facility] [address] [address] Consulting Physician Cardiology 01/24/19 Xavier Villegas MD [address] [facility] [address] [place] [address] Consulting Physician Pulmonary Disease 04/12/19 Tenisha Mahmood MD [address] [facility] [address] [place] [address] Referring Physician Dermatology 04/12/19 Benson London MD [address] [address] Consulting Physician Urology 10/18/19 Ronit Melvin MD [address] [place] [address] Referring Physician Gynecology 10/18/19 documented as of this encounter
--- OUTSIDE RECORDS SUMMARY | 2025-03-01 13:27 | XMS_ITS | Referral Summary ---
Author Organization [facility] Care Team Providers Care Proof Passer Name Role Phone Maury Knott MD Unavailable [phone] Xavier Villegas MD Unavailable [phone] Tenisha Mahmood MD Unavailable Benson London MD Unavailable [phone] Ronit Melvin MD Unavailable [phone] Fernando Lujan MD Primary Care Provider [phone] Encounters Date Type Department Care Team Description 12/31/2024 Telephone [facility] [address] [place] [phone] Edmond Ashford CMA from Last 3 Months Allergies Active Allergy Reactions Criticality Noted Date Comments Adhesive Rash,Other (See comments) Medium 11/24/2018 rash Scarring with ECG adhesive pads rash Amoxicillin-Pot Clavulanate Diarrhea,Stomach upset Low 05/21/2021 Bupropion Dizziness Low 09/18/2022 Ciprofloxacin Other (See comments) Low 05/21/2023 Trembles Fludrocortisone Acetate Other (See comments) Low 02/26/2023 Patient states its the steroids in the medication that she is allergic too. 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 Lamotrigine Rash,Unknown Medium 01/14/2018 rash Methylprednisolone Unknown,Other (See comments) Low 05/21/2021 Per Pt can not take Pt states made him go into dk Per Pt can not take Per Pt can not take Nitrofurantoin Headache,Nausea only Low 09/10/2019 Nitrofurantoin Monohyd/M-Cryst Headache,Nausea only Low 09/10/2019 Other Other (See comments) Low 03/06/2023 STEROIDS OF ANY KIND per patient Rizatriptan Unknown,Rash Medium 09/25/2011 Other reaction(s): Rash Rash Other reaction(s): Rash Rash rash Rizatriptan Benzoate Rash Medium 01/14/2018 rash Sodium Thiosalicylate Other (See comments) High 09/18/2022 Tamsulosin Diarrhea,Dizzines s,Unknown Low 10/18/2019 diarrhea Tetracycline Rash,Unknown Medium 09/13/2022 Tetracyclines Rash Medium 09/25/2011 rash Zolpidem Agitation,Chest tightness,Other (See comments),Palpita tions,Anxiety High 05/29/2022 Severe palpataions Medications folic acid (FOLVITE) 1 mg tablet TAKE 1 TABLET BY MOUTH Friday thru Friday none on Friday Active methotrexate 2.5 mg tablet Take 2 tablets (5 mg total) by mouth once a week 2019 Active fluconazole (DIFLUCAN) 200 mg tablet Take 1 tablet (200 mg total) by mouth once a week Pt stated she takes this once every other week per video game developer. 2019 Active Synthroid 100 mcg tablet Take 125 mcg by mouth every morning 2020 Active ibuprofen (ADVIL,MOTRIN) 800 mg tablet Take 1 tablet (800 mg total) by mouth as needed Active aspirin 81 mg enteric coated tablet Take 1 tablet (81 mg total) by mouth daily Active Lacto.acidophilus-Bif. animalis 32 billion cell capsule Take 1 capsule by mouth daily Active lithium ER (ESKALITH) 450 mg CR tablet Take 1 tablet (450 mg total) by mouth nightly at bedtime 2021 Active estradioL (VAGIFEM) 10 mcg tablet INSERT 1 TABLET VIA VAGINAL ROUTE TWICE A WEEK 2021 Active baclofen (LIORESAL) 20 mg tablet Take 1 tablet (20 mg total) by mouth 3 (three) times a day 2021 Active albuterol HFA (PROVENTIL HFA,VENTOLIN HFA,PROAIR HFA) 90 mcg/actuation inhalerIndications:Mil d intermittent asthma, unspecified whether complicated Inhale 2 puffs every 6 (six) hours as needed for wheezing 1 g 11 2021 Active pravastatin (PRAVACHOL) 20 mg tabletIndications:Mixe d hypercholesterolemia and hypertriglyceridemia Take 1 tablet (20 mg total) by mouth daily 90 tablet 2 2022 Active albuterol 2.5 mg /3 mL (0.083 %) nebulizer solutionIndications:Mi ld intermittent asthma without complication Take 3 mL (2.5 mg total) by nebulization every 6 (six) hours as needed for wheezing or shortness of breath 360 mL 1 2022 Active suvorexant 20 mg tablet Take 1 tablet (20 mg total) by mouth daily 30 tablet 3 2022 Active oxyCODONE-acetaminophe n (PERCOCET) 7.5-325 mg per tabletIndications:Pain Take 1 tablet by mouth every 4 (four) hours as needed Active pantoprazole DR (PROTONIX) 40 mg EC tablet Take by mouth 2 (two) times a day 2022 Active oxyBUTYnin XL (DITROPAN XL) 15 mg 24 hr tablet Take 1 tablet (15 mg total) by mouth daily 2022 Active Gemtesa 75 mg tablet Take 1 tablet by mouth daily 2023 Active cariprazine (Vraylar) 1.5 mg capsule Take 1 capsule (1.5 mg total) by mouth 2 (two) times a week Active midodrine (PROAMATINE) 2.5 mg tabletIndications:Symp tomatic Orthostatic Hypotension Take 1 tablet (2.5 mg total) by mouth 3 (three) times a day 270 tablet 3 2023 Active amoxicillin-clavulanat e (AUGMENTIN) 875-125 mg per tablet Take 1 tablet by mouth 2 (two) times a day 2023 Active azithromycin (ZITHROMAX) 250 mg tablet TAKE 2 TABLETS BY MOUTH TODAY, THEN TAKE 1 TABLET DAILY FOR 4 DAYS DIRECTED 2023 Active clotrimazole-betametha sone (LOTRISONE) cream APPLY TWICE A DAY NEEDED 2023 Active cyanocobalamin (Vitamin B-12) 1,000 mcg/mL injection INJECT 1 ML EVERY 2 WEEKS BY SUBCUTANEOUS ROUTE 2023 Active doxepin (SINEquan) 10 mg capsule Active hydrOXYzine (ATARAX) 25 mg tablet Take 1 tablet (25 mg total) by mouth 2 (two) times a day Active ketoconazole (NIZORAL) 2 % shampoo APPLY TO WET HAIR & LEAVE ON FOR 3 MIN THEN RINSE THREE TIMES A WEEK 2023 Active FLUoxetine 10 mg tablet/capsule 2022 Active mupirocin (BACTROBAN) 2 % ointment 2022 Active phenazopyridine (PYRIDIUM) 100 mg tablet Take 1 tablet 3 times a day by oral route for 2 days. Active terconazole (TERAZOL 3) 0.8 % vaginal cream INSERT ONE APPLICATORFUL INTO VAGINA AT BEDTIME FOR 3 NIGHTS 2023 Active tobramycin (TOBREX) 0.3 % ophthalmic solution INSTILL 2 DROPS INTO LEFT EYE EVERY 4 HOURS FOR 7 DAYS EVERY 4 HOURS WHILE AWAKE 2023 Active Synthroid 125 mcg tablet Take 1 tablet (125 mcg total) by mouth daily 2023 Active furosemide (LASIX) 20 mg tablet Take 1 tablet (20 mg total) by mouth daily for 7 days 7 tablet 2023 Active furosemide (LASIX) 20 mg tablet Take 1 tablet (20 mg total) by mouth daily for 14 days 14 tablet 2023 Active Additional Information Patient not taking.Reported on 10/28/2024 bisacodyL (Laxative, bisacodyl,) 5 mg tablet Take 1 tablet every day by oral route as needed. Active DULoxetine DR (CYMBALTA) 60 mg capsule Take 1 capsule (60 mg total) by mouth daily Active icosapent ethyL (Vascepa) 1 gram capsuleIndications:Mix ed hyperlipidemia TAKE 2 CAPSULES BY MOUTH TWICE A DAY 360 capsule 2023 Active montelukast (SINGULAIR) 10 mg tabletIndications:Mild intermittent asthma, unspecified whether complicated TAKE 1 TABLET BY MOUTH EVERY DAY IN THE EVENING 90 tablet 3 2024 Active zolpidem (AMBIEN) 10 mg tablet Take 1 tablet (10 mg total) by mouth daily 2024 Active zavegepant (Zavzpret) 10 mg/actuation spray,non-aerosol Administer 10 mg into affected nostril(s) daily as needed (migraine) 6 each 5 2024 Active ubrogepant (Ubrelvy) 100 mg tabletIndications:Intr actable migraine without aura and without status migrainosus Take 1 tablet (100 mg total) by mouth once as needed for migraine May repeat dose once in 2 hours if no relief. Do not exceed 2 doses in 24 hours. 10 tablet 3 2024 Active atogepant (Qulipta) 60 mg tablet Take 60 mg by mouth daily 30 tablet 5 2024 Active Trelegy Ellipta 100-62.5-25 mcg inhaler INHALE 1 PUFF DAILY RINSE MOUTH WITH WATER AFTER USE, DO NOT SWALLOW 60 each 3 2024 Active fluticasone-umeclidin- vilanter (Trelegy Ellipta) 100-62.5-25 mcg inhaler INHALE 1 PUFF DAILY RINSE MOUTH WITH WATER AFTER USE, DO NOT SWALLOW 60 each 3 02/14 Discontinued Active Problems Problem Noted Date Diagnosed Date Chronic anxiety 11/12/2023 Disorder of vitamin B12 11/12/2023 Generalized anxiety disorder 11/12/2023 Migraine 11/12/2023 Mitral valve disorder 11/12/2023 Nonalcoholic fatty liver 11/12/2023 Morbid (severe) obesity due to excess calories 0 10/13/2023 Body mass index 40.0-44.9, adult ([facility]) 10/13 Arm paresthesia, right 08/14/2023 Spinal stenosis of cervical region 08/14/2023 Right arm weakness 08/14/2023 Urge incontinence of urine 07/17/2023 Fatigue 03/18/2023 Orthostatic hypotension 12/30/2022 Adrenal insufficiency 12/30/2022 Visit for wound check 06/06/2022 Hyperglycemia 05/14/2022 Other bipolar disorder 12/24/2021 Periorbital cellulitis of right eye 12/24/2021 Primary hypothyroidism 12/24/2021 Facet hypertrophy of lumbar region 12/24/2021 Intractable migraine without aura and without status migrainosus 12/24/2021 Vertigo 12/24/2021 Mixed hyperlipidemia 09/17/2021 Primary insomnia 04/16/2021 Assessment & Plan (07/17/2023 11:32 AM BEEF KILLER): The patient is no longer on Lunesta and the trazodone is making her gain weight. I will switch her to Quviviq 25 mg at bedtime. Assessment & Plan (12/23/2022 2:14 PM CDT): The Lunesta is treating her insomnia well and I have refilled her prescription for 90 days. Assessment & Plan (05/28/2022 12:49 PM CDT): The patient continues to use Lunesta 3 mg at bedtime. I did have a conversation regarding good sleep hygiene and cognitive behavioral therapy and sleep restriction therapy. Assessment & Plan (11/23/2021 11:52 AM CDT): The patient continues to use Lunesta 3 mg at bedtime. I did have a conversation regarding good sleep hygiene and cognitive behavioral therapy and sleep restriction therapy. Assessment & Plan (10/15/2021 2:01 PM BEEF KILLER): The patient was informed to wean off of the Seroquel. The patient was informed stop the Ambien. The patient was ordered Lunesta 3 mg p.o. Q bedtime. Assessment & Plan (04/16/2021 1:41 PM CDT): I did discuss cognitive behavioral therapy and sleep restriction with the patient and have given her the brochure regarding insomnia that is published by the [place] [employer]. I also instructed her to get online and google CBT-I for further instructions regarding cognitive behavioral therapy for insomnia. Facial swelling 10/18/2020 Asthma 10/11/2020 Assessment & Plan (09/23/2024 10:50 AM BEEF KILLER): The patient continues to benefit from Trelegy 1 puff daily, Singulair 10 mg daily and Dedra 180 mg daily. She has air supra to use on a p.r.n. basis. Sinus pressure 09/13/2020 Assessment & Plan (09/13/2020 8:19 AM BEEF KILLER): R/o covid- discussed need to isolate until results return If she develops sob she is instructed to go to the ER Likey sinusitis- Pt states zpak normally clears it up. Recommend ocean nasal spray, flonase otc and plenty of oral fluids nd rest Abdominal pain 06/06/2020 Assessment & Plan (06/12/2020 2:19 PM CDT): Could be IBS vs peptic ulcer/gastritis We will try bentyl also mentions eating 4 yogurts a day-because of the taste Will try OTC pepto bismol as well GI appointment in 06/20 Assessment & Plan (06/06/2020 2:45 PM CDT): Patient at high risk of peptic ulcer Recommend to stop meloxicam and ASA for now Will give her zofran Recommend to double her prilosec to BID GI referral for possible EGD Right thyroid nodule 04/25/2020 Overview (04/25/2020): 02/09/2020 Ultrasound: There is an ovoid hypoechoic nodule of the right lobe of the thyroid gland measuring 9.8 x 7.9 x 9.2 mm. Follow-up ultrasound recommended in 6 - 9 months. Due 10/2020 Assessment & Plan (04/25/2020 3:15 PM CDT): Since patient cant drive for 6mos and thyroid is very small and simple appearing nodule, ff up in 6mos about october 2020 for ultrasound Syncope and collapse 01/06/2020 Overview (06/07/2022): [employer] LINQ Loop Recorder. Dx; Syncope. DOI 04/06/[address] Knott. [employer] remote monitoring. 05/24/2022-ILR explanted. Assessment & Plan (04/25/2020 2:49 PM CDT): Recent loop implant, Dr Knott. 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 Assessment & Plan (01/15/2024 11:07 AM CDT): The patient is off all sleeping medications in his practicing cognitive behavioral therapy for insomnia. Encounter for Medicare annual wellness exam 03/19 Assessment & Plan (08/05/2019 4:26 PM BEEF KILLER): Wear sunscreen while outdoors. Wear seatbelts while in a vehicle. Do not text and drive. Follow a heart healthy diet and lifestyle. Consume 5-7 servings of fruits and vegetables a day. Maintain/attain normal body weight. Maintain good sleep schedule and sleep habits. I recommend that all patients follow a diet that is high in fruits and vegetables and low in processed foods such as sugar and foods that are made with white flour. I recommend using beneficial fats such as olive oil, nuts, seeds and berries and avoiding saturated animal fats. Please stay physically active to the extent that you are able. Test results: if you have not received communication about test results within 7 days of the test being performed, please contact the office. Consider getting Shingrix (shingles vaccine). This is a 2-shot series with each injection given 2-6 months apart. You can obtain the vaccine at most major pharmacies without a prescription Assessment & Plan (04/12/2019 12:33 PM CDT): Wear sunscreen while outdoors. Wear seatbelts while in a vehicle. Do not text and drive. Follow a heart healthy diet and lifestyle. Consume 5-7 servings of fruits and vegetables a day. Maintain/attain normal body weight. Maintain good sleep schedule and sleep habits. I recommend that all patients follow a diet that is high in fruits and vegetables and low in processed foods such as sugar and foods that are made with white flour. I recommend using beneficial fats such as olive oil, nuts, seeds and berries and avoiding saturated animal fats. Please stay physically active to the extent that you are able. Test results: if you have not received communication about test results within 7 days of the test being performed, please contact the office. Consider getting Shingrix (shingles vaccine). This is a 2-shot series with each injection given 2-6 months apart. You can obtain the vaccine at most major pharmacies without a prescription Obesity 01/22/2019 Migraine without aura and wi thout status migrainosus, not intractable 10/12/2018 Overview (04/12/2019): Dr Velazco managing on meds topamax Assessment & Plan (07/02/2021 3:43 PM BEEF KILLER): Patient has noticed a modest reduction in headache frequency with the substitution of propranolol for topiramate. However she was hopeful for additional prophylaxis. She has had no tolerability issues to date with propranolol 20 mg b.i.d.. I will increase her propranolol to 40 mg b.i.d. for hopefully improve prophylaxis. I will maintain her sumatriptan 100 mg b.i.d. p.r.n. for abortive breakthrough. She will follow-up in neurology clinic in 6 months for reassessment. Assessment & Plan (12/22/2020 2:50 PM CDT): Patient has known history of migraine without aura but over the last several months has been noticing an increase in headache frequency and lack of consistent response with sumatriptan. Given the more recent history of facial cellulitis, I will obtain an MRI of the brain with and without contrast to exclude any interval structural abnormalities to attribute to her increased headache frequency. In addition in lieu of topiramate I will place her on a trial of propranolol 20 mg b.i.d. for migraine prophylaxis, maintaining sumatriptan for abortive breakthrough. I will see her back thereafter. Assessment & Plan (07/03/2020 9:33 AM BEEF KILLER): Patient is a recent increase in migraine frequency at times also frequent headaches that sound non migrainous in nature. Her examination is unchanged from prior descriptions a [facility] in 2019. Given the increase in headache frequency I will increase her topiramate to 100 mg b.i.d.. I will also check a contemporary MRI brain to exclude alternate etiologies for her increase headache frequency. She will continue on her sumatriptan as well for abortive breakthrough. I will plan on seeing her back in 3 months time for reassessment on her increased dose of topiramate. Assessment & Plan (04/25/2020 3:10 PM CDT): Cont under Dr Velazco, patient to see soon for ff up on alternative treatment options to the topamax, not helping migraines Assessment & Plan (04/12/2019 12:37 PM CDT): Cont under care of Dr Velazco, stable Peripheral vertigo of both ears 07/24/2018 Overview (04/12/2019): Seeing Dr. Ybarra and Dr Velazco Assessment & Plan (04/12/2019 12:38 PM CDT): Cont on valium therapy. Managed by Dr Ybarra/Juan A Mild intermittent asthma 02/05/2018 Assessment & Plan (03/18/2024 10:31 AM CDT): The patient states that her breathing has improved and she continues on Trelegy 1 puff daily in addition to Singulair 10 mg daily and Dedra 180 mg daily. I will have a new home nebulizer ordered for her through [facility] home care services. She will follow up here in 6 months. I did discuss the PFTs with her. Assessment & Plan (01/15/2024 11:06 AM CDT): The patient does have increased shortness of breath but also was found to have a pericardial effusion which is being worked up. I will order full PFTs with a 6 minute walk test and she will continue with Trelegy 1 puff daily Singulair 10 mg daily and Dedra 180 mg daily. She is using nasal rinses as well. Assessment & Plan (07/17/2023 11:31 AM BEEF KILLER): The patient is not currently wheezing and continues on Trelegy 1 puff daily in addition to Singulair 10 mg daily and Claritin 10 mg daily. She is using nasal rinses instead of Flonase because she was found to have a crater in her nose by the ENT physician. Assessment & Plan (12/23/2022 2:13 PM CDT): The patient is breathing has been under control with Trelegy 1 puff daily in addition to Flonase, Claritin 10 mg daily and Singulair 10 mg daily Assessment & Plan (05/28/2022 12:50 PM CDT): The patient states that her asthma is under good control with Breztri 2 puffs b.i.d. and daily Singulair and Zyrtec. The patient was encouraged to start using her albuterol. The patient will continue with Atrovent nasal spray. Assessment & Plan (11/23/2021 11:51 AM CDT): The patient states that her asthma is under good control with Breztri 2 puffs b.i.d. and daily Singulair and Zyrtec. She is only having to use her albuterol on a p.r.n. basis which is about 2 times per month. Assessment & Plan (10/15/2021 2:00 PM BEEF KILLER): I did give the patient samples of Breztri to try. The patient was instructed to use it twice a day and rinse mouth after use. The patient continue to use her albuterol inhaler as needed up to 4 times a day for shortness of breath. The patient will also continue with Singulair. The patient was prescribed Atrovent nasal spray to see if that will help with the congestion without causing her to have a nose bleed. Assessment & Plan (04/16/2021 1:39 PM CDT): The patient is asthma is under good control currently with Symbicort 2 puffs b.i.d. and Singulair 10 mg daily. She was requesting refills on her Flonase, albuterol, Symbicort and Singulair and I have sent these to her pharmacy. She will follow- up with me in 6 months. 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 Exposure keratoconjunctivitis 10/15/2017 Eyelid retraction 10/15/2017 Fatty liver 07/16/2017 Overview (08/05/2019): Mildly elevated LFTs Assessment & Plan (04/12/2019 12:59 PM CDT): ALT level mild elevation Ff low fat diet avoid rich foods Cont to work on wt loss Facial palsy 06/11/2017 Other psoriasis 06/11/2017 Assessment & Plan (06/06/2020 2:43 PM CDT): Takes methotrexate once a week Gastroesophageal reflux disease without esophagi tis 04/10/2017 Assessment & Plan (01/06/2020 3:59 PM CDT): Check b12 level and iron level today Other allergic rhinitis 04/10/2017 Overview (01/24/2019): on xyzal Primary osteoarthritis of right knee 04/10/2017 Family history of colon cancer in father 017 Overview (08/05/2019): Father, COlonoscopy q 5 yrs, 12/07/2013 Had colon 11/2018 c Betts Lumbar degenerative disc disease 12/18/2016 Overview (01/24/2019): Dr Ernandez plans to do epidural injections late 01/2018 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 She is on Lexapro, trazodone and Viibryd. Assessment & Plan (08/05/2019 4:31 PM BEEF KILLER): Worsened after her mother's in October of this year. Patient sees counselors and Psychiatry. She is on Lexapro, trazodone and Viibryd. 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 Weight is down significantly. Reduce dose to 25mcg a day Repeat free T4 TSH in 3mos Assessment & Plan (01/18/2020 11:07 AM CDT): TSH is too low despite normal T4 levels Will lower thyroid dose to 50mcg daily Report if has frequent palpitations, irreg heart beat or sudden changes in weight. Report if develops problem swallowing or hoarseness Thyroid US TSH in 3 mos Assessment & Plan (01/06/2020 3:59 PM CDT): Check thyroid tsh level today Assessment & Plan (10/18/2019 2:48 PM BEEF KILLER): prob from recent wt loss, tsh is over suppressed, lower levothyroxine to 88mcg a day Report if has frequent palpitations, irreg heart beat or sudden changes in weight. Report if develops problem swallowing or hoarseness Assessment & Plan (08/05/2019 4:29 PM BEEF KILLER): Labs were supposed to be checked with her most recent blood work, however they were not ran. Patient given order for new lab to get now Assessment & Plan (04/12/2019 12:35 PM CDT): Cont current dose is euthyroid Report if has frequent palpitations, irreg heart beat or sudden changes in weight. Report if develops problem swallowing or hoarseness CHF (congestive heart failure) 07/03/2016 Overview (08/05/2019): History of in 2012. Follows with Dr. Knott. No recent signs of congestive heart failure Assessment & Plan (08/05/2019 4:23 PM BEEF KILLER): Follows with Dr. Knott. No recent signs of congestive heart failure Obstructive sleep apnea syndrome 05/20/2016 Assessment & Plan (09/23/2024 10:51 AM BEEF KILLER): The patient continues to benefit from the auto titrating CPAP unit with a range of 10-15 cm water pressure for ongoing symptoms of LIZ. Her DME supplier is [facility] home care services. She will follow up here in 6 months. Assessment & Plan (03/18/2024 10:32 AM CDT): The patient continues to benefit from the auto titrating CPAP unit with a range of 10-15 cm water pressure for ongoing symptoms of LIZ. Her DME supplier is [facility] home care services. Assessment & Plan (01/15/2024 11:07 AM CDT): The patient continues to benefit from the auto titrating CPAP unit and I will send an order to her new supplier who will be [facility] home care services to adjust her pressure setting to 10 -15 cm water on the auto titrating unit. She will follow up here in 6 weeks. Assessment & Plan (07/17/2023 11:31 AM BEEF KILLER): I did encourage the patient to start using her CPAP unit every night and she continues to benefit from the auto titrating CPAP unit with a range of 5-20 cm water pressure for ongoing symptoms of LIZ. Her DME supplier is [facility]. She will follow up here in 6 months. Assessment & Plan (12/23/2022 2:13 PM CDT): The patient continues to benefit from CPAP at 13 cm water pressure. Her DME supplier is [employer]. She will follow-up with me in 6 months. Assessment & Plan (05/28/2022 12:49 PM CDT): The patient continues to benefit from CPAP at 13 cm water pressure. Her DME supplier is [facility]. Assessment & Plan (11/23/2021 11:51 AM CDT): The patient continues to benefit from CPAP at 13 cm water pressure. Her DME supplier is [facility]. She will follow-up here in 6 months. Assessment & Plan (10/15/2021 2:00 PM BEEF KILLER): Patient continue to wear her CPAP at 13 cm water pressure while sleeping. Her DME is [facility]. The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
--- OUTSIDE RECORDS SUMMARY | 2025-03-01 13:27 | XMS_ITS | Data Portability ---
Author Organization [facility] Address [address] [place] [address] Care Team Providers Care Supervisor Case Loading Name Role Phone SARAH CANALES Chicken Sexer [phone] [employer] Doll Eye Setter RACHELL NICOLE Neurologist [phone] SAMI PARR Glass Decorator Assessment Encounter Date Assessment Date Assessment LastModified by Organization Details LastModified Time 11/11/2024 11/11/2024 53-year-old female who has moderate pericardial effusion by echocardiogram there was no evidence of tamponade. She has normal left-ventricular systolic function. I recommended her to repeat echocardiogram in 6 weeks to reevaluate pericardial effusion. I asked her to call me if she has any increasing dyspnea on exertion or dizziness. Dyspnea on exertion, I recommended her to continue taking Lasix 20 mg daily check a basic metabolic profile in 2 weeks and repeat again in 3 months. Orthostatic hypotension, continued taking midodrine 2.5 mg p.o. 3 times a day. February 05, 2024: 53-year-old female who has history of pericardial effusion which has resolved. Dyspnea on exertion most likely combination of diastolic dysfunction and her pulmonary condition as she also has mild pulmonary hypertension. I recommended her to continue with Lasix 20 mg daily. I will check a basic metabolic profile in 6 months before follow-up Orthostatic hypotension, I will continue with midodrine 2.5 mg p.o. daily. I explained her increasing dose of midodrine increases her blood pressure which can cause her headaches. I will see her again 6 months. Russel 19 2024: Pericardial effusion, resolved by echocardiogram performed in January. I recommended her to wean her off of furosemide and repeat echocardiogram again to re-evaluate pericardial effusion. Orthostatic hypotension secondary to autonomic dysfunction I recommended her to continue with midodrine 2.5 mg PO TID I also asked her to wean her off of Lasix which will also help to improve her orthostatic hypotension. Mixed hyperlipidemia , continue with pravastatin along with Vascepa I will check a lipid profile and CMP before follow-up Hypothyroidism, I will check a TSH. I will see her again in 3 months. November 11, 2024: Pericardial effusion, resolved. Orthostatic hypotension , I will continue with current dose of midodrine 2.5 mg 3 times a day. I also asked her to use pressure stockings. Mixed hyperlipidemia , continue with pravastatin. Since insurance company is not approving Vascepa I will change it to fenofibrate to control her triglycerides. I will check lipid profile and CMP in 3 months. I will see her again in 3 months ana mz Not available 11/11/2024 14:43:29 Plan of Treatment Reminders Order Date Submit Date Provider Last Modified By Organization Details Last Modified Time Details Appointments ANY 2024 03:45P M Fernando Lujan MD Not available Not available Not available ANY 2024 01:30P Emmanuel marrero MD Not available Not available Not available ANY 2024 10:45A M Fernando Lujan MD Not available Not available Not available Lab CMP, serum or plasma 2024 025 [facility], [address] [facility], [facility] [address], [place], [address], 02/09/2025 09:38:37 lipid panel, serum 2024 025 [facility], [address] [facility], [facility] [address], [place], [address], 02/09/2025 09:38:36 Referral None recorded. Procedures None recorded. Surgeries None recorded. Imaging None recorded. Medication Orders ceftriaxo ne 1 gram solution for injection 2024 025 [email or web address] [id number], [address] [place] [address], [id number], 01/12/2025 12:55:16 Medrol (Bigg) 4 mg tablets in a dose pack 2024 025 [id number] [address] [place] [address], [id number], 01/17/2025 05:01:36 Zithromax Z-Bigg 250 mg tablet 2024 025 [facility] [address] [place] [address], [id number], 01/12/2025 12:55:16 Medrol (Bigg) 4 mg tablets in a dose pack 2024 [facility] [address] [place] [address], [id number], 01/17/2025 05:01:36 cefuroxim e axetil 250 mg tablet 2024 [facility] [address] [place] [address], [id number], 01/03/2025 19:23:35 ceftriaxo ne 1 gram solution for injection 2024 [facility] [address] [address] [address] [place] [address], [id number], 01/03/2025 19:23:30 fenofibra te nanocryst allized 145 mg tablet 2024 025 [id number] [address] [place] [address], [id number], 11/11/2024 14:38:46 Patient TargetsNo targets recorded. 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 Referral for Ch ronic kidney disease stage 3A Referring Physician: Fernando Lujan, Family Medicine, Encounter Date: 03/01/2025 Results Created Date Observation Date Name Description Value Unit Range Abnormal Flag Note LastModifiedBy Organization Detail LastModifiedTime 10/19/1910/19/2024 LIPID PROFI LE cholesterol, total 159 mg/dL 100-19 9 Not Available [facility] ([facility]) [address] [place], [address], 10/19/2024 09:14:33 10/19/1910/19/2024 LIPID PROFI LE triglyceride s 136 mg/dL 0-149 Not Available [facility] ([facility]) [address] [place], [address], 10/19/2024 09:14:33 10/19/19 25 10/19/2024 LIPID PROFI LE HDL cholesterol 48 mg/dL >39 Not Available [facility] ([facility]) [address] [place], [address], 10/19/2024 09:14:33 10/19/19 25 10/19/2024 LIPID PROFI LE VLDL cholesterol rubén 24 mg/dL 5-40 Not Available [facility] ([facility]) [address] [place], [address], 10/19/2024 09:14:33 10/19/1910/19/2024 LIPID PROFI LE LDL chol calc ([facility]) 87 mg/dL 0-99 Not Available [facility] ([facility]) [address] [place], [address], 10/19/2024 09:14:33 10/19/19 25 10/19/2024 CMP14 +EGFR glucose 104 mg/dL 70-99 above high normal Not Available [facility] ([facility]) [address] [place], [address], 10/19/2024 09:14:34 10/19/19 25 10/19/2024 CMP14 +EGFR BUN 24 mg/dL 6-24 Not Available [facility] ([facility]) [address] [facility], [place], [address], 10/19/2024 09:14:34 10/19/19 25 10/19/2024 CMP14 +EGFR creatinine 1.21 mg/dL 0.57-1 .00 above high normal Not Available [facility] ([facility]) [address] [place], [address], 10/19/2024 09:14:34 10/19/19 25 10/19/2024 CMP14 +EGFR eGFR 53 mL/mi n/1.7 3 >59 below low normal Not Available [facility] ([facility]) [address] [place], [address], 10/19/2024 09:14:34 10/19/19 25 10/19/2024 CMP14 +EGFR BUN/creatini ne ratio 20 9-23 Not Available [facility] ([facility]) [address] [place], [address], 10/19/2024 09:14:34 10/19/19 25 10/19/2024 CMP14 +EGFR sodium 145 mmol/ L 134-14 4 above high normal Not Available [facility] ([facility]) [address] [place], [address], 10/19/2024 09:14:34 10/19/19 25 10/19/2024 CMP14 +EGFR potassium 4.6 mmol/ L 3.5-5. 2 Not Available [facility] ([facility]) [address] [place], [address], 10/19/2024 09:14:34 10/19/19 25 10/19/2024 CMP14 +EGFR chloride 107 mmol/ L 96-106 above high normal Not Available [facility] ([facility]) [address] [facility] [place], [address], 10/19/2024 09:14:34 10/19/19 25 10/19/2024 CMP14 +EGFR carbon dioxide, total 23 mmol/ L Not Available [facility] ([facility]) [address] [facility] [place], [address], 10/19/2024 09:14:34 10/19/19 25 10/19/2024 CMP14 +EGFR calcium 10.3 mg/dL 8.7-10 .2 above high normal Not Available [facility] ([facility]) [address] [facility] [place], [address], 10/19/2024 09:14:34 10/19/19 25 10/19/2024 CMP14 +EGFR protein, total 7.0 g/dL 6.0-8. 5 Not Available [facility] ([facility]) [address] [facility] [place], [address], 10/19/2024 09:14:34 10/19/19 25 10/19/2024 CMP14 +EGFR albumin 4.5 g/dL 3.8-4. 9 Not Available [facility] ([facility]) [address] [facility] [place], [address], 10/19/2024 09:14:34 10/19/19 25 10/19/2024 CMP14 +EGFR globulin, total 2.5 g/dL 1.5-4. 5 Not Available [facility] ([facility]) [address] [facility] [place], [address], 10/19/2024 09:14:34 10/19/19 25 10/19/2024 CMP14 +EGFR bilirubin, total 0.3 mg/dL 0.0-1. 2 Not Available [facility] ([facility]) [address] [facility] [place], [address], 10/19/2024 09:14:34 10/19/19 25 10/19/2024 CMP14 +EGFR alkaline phosphatase 114 IU/L 44-121 Not Available [facility] ([facility]) [address] [place], [address], 10/19/2024 09:14:34 10/19/19 25 10/19/2024 CMP14 +EGFR AST (SGOT) 17 IU/L 0-40 Not Available [facility] ([facility]) [address] [place], [address], 10/19/2024 09:14:34 10/19/19 25 10/19/2024 CMP14 +EGFR ALT (SGPT) 15 IU/L 0-32 Not Available [facility] ([facility]) [address] [place], [address], 10/19/2024 09:14:34 10/19/19 25 10/19/2024 TSH RFX ON ABNOR MAL TO FREE T4 TSH 2.210 uIU/m L 0.450- 4.500 Not Available [facility] ([facility]) [address] [place], [address], 10/19/2024 09:14:36 02/09/20 25 02/09/2025 LIPID PROFI LE cholesterol, total 165 mg/dL 100-19 9 Not Available [facility] ([facility]) [address] [place], [address], 02/09/2025 09:38:36 02/09/20 25 02/09/2025 LIPID PROFI LE triglyceride s 155 mg/dL 0-149 above high normal Not Available [facility] ([facility]) [address] [place], [address], 02/09/2025 09:38:36 02/09/20 25 02/09/2025 LIPID PROFI LE HDL cholesterol 59 mg/dL >39 Not Available [facility] ([facility]) [address] [place], [address], 02/09/2025 09:38:36 02/09/20 25 02/09/2025 LIPID PROFI LE VLDL cholesterol rubén 26 mg/dL 5-40 Not Available [facility] ([facility]) [address] [place], [address], 02/09/2025 09:38:36 02/09/20 25 02/09/2025 LIPID PROFI LE LDL chol calc ([facility]) 80 mg/dL 0-99 Not Available [facility] ([facility]) [address] [place], [address], 02/09/2025 09:38:36 02/09/20 25 02/09/2025 CMP14 +EGFR glucose 99 mg/dL 70-99 Not Available [facility] ([facility]) [address] [place], [address], 02/09/2025 09:38:37 02/09/20 25 02/09/2025 CMP14 +EGFR BUN 18 mg/dL 6-24 Not Available [facility] ([facility]) [address] [place], [address], 02/09/2025 09:38:37 02/09/20 25 02/09/2025 CMP14 +EGFR creatinine 1.19 mg/dL 0.57-1 .00 above high normal Not Available [facility] ([facility]) [address] [place], [address], 02/09/2025 09:38:37 02/09/20 25 02/09/2025 CMP14 +EGFR eGFR 54 mL/mi n/1.7 3 >59 below low normal Not Available [facility] ([facility]) [address] [place], [address], 02/09/2025 09:38:37 02/09/20 25 02/09/2025 CMP14 +EGFR BUN/creatini ne ratio 15 9-23 Not Available [facility] ([facility]) [address] [facility], [place], [address], 02/09/2025 09:38:37 02/09/2002/09/2025 CMP14 +EGFR sodium 144 mmol/ L 134-14 4 Not Available [facility] ([facility]) [address] [facility] [place], [address], 02/09/2025 09:38:37 02/09/2002/09/2025 CMP14 +EGFR potassium 5.2 mmol/ L 3.5-5. 2 Not Available [facility] ([facility]) [address] [facility] [place], [address], 02/09/2025 09:38:37 02/09/2002/09/2025 CMP14 +EGFR chloride 107 mmol/ L 96-106 above high normal Not Available [facility] ([facility]) [address] [place], [address], 02/09/2025 09:38:37 02/09/2002/09/2025 CMP14 +EGFR carbon dioxide, total 25 mmol/ L 20- Not Available [facility] ([facility]) [address] [place], [address], 02/09/2025 09:38:37 02/09/2002/09/2025 CMP14 +EGFR calcium 10.5 mg/dL 8.7-10 .2 above high normal Not Available [facility] ([facility]) [address] [place], [address], 02/09/2025 09:38:37 02/09/2002/09/2025 CMP14 +EGFR protein, total 6.3 g/dL 6.0-8. 5 Not Available [facility] ([facility]) [address] [place], [address], 02/09/2025 09:38:37 02/09/2002/0902/09/2025 CMP14 +EGFR albumin 4.3 g/dL 3.8-4. 9 Not Available [facility] ([facility]) [address] [place], [address], 02/09/2025 09:38:37 02/09/2002/09/2025 CMP14 +EGFR globulin, total 2.0 g/dL 1.5-4. 5 Not Available [facility] ([facility]) [address] [place], [address], 02/09/2025 09:38:37 02/09/2002/09/2025 CMP14 +EGFR bilirubin, total 0.3 mg/dL 0.0-1. 2 Not Available [facility] ([facility]) [address] [facility], [place], [address], 02/09/2025 09:38:37 02/09/2002/09/2025 CMP14 +EGFR alkaline phosphatase 85 IU/L 44-121 Not Available [facility] ([facility]) [address] [place], [address], 02/09/2025 09:38:37 02/09/2002/09/2025 CMP14 +EGFR AST (SGOT) 13 IU/L 0-40 Not Available [facility] ([facility]) [address] [place], [address], 02/09/2025 09:38:37 02/09/2002/09/2025 CMP14 +EGFR ALT (SGPT) 12 IU/L 0-32 Not Available [facility] ([facility]) [address] [place], [address], 02/09/2025 09:38:37 02/20/2002/19/2025 CBC W Auto Diffe dwight al panel - Blood leukocytes [#/volume] in blood by automated count 8.04 text: 4.5 - 11.0 x10'3/ uL Not Available Not Available 03/01/2025 05:36:28 02/20/20 25 02/19/2025 CBC W Auto Diffe renti al panel - Blood erythrocytes [#/volume] in blood by automated count 5.24 text: 4.20 - 5.40 x10'6/ uL Not Available Not Available 03/01/2025 05:36:28 02/20/20 25 02/19/2025 CBC W Auto Diffe renti al panel - Blood hemoglobin [mass/volume ] in blood 15.2 text: 12.0 - 16.0 g/dL Not Available Not Available 03/01/2025 05:36:28 02/20/20 25 02/19/2025 CBC W Auto Diffe renti al panel - Blood hematocrit [volume fraction] of blood by calculation 47.9 % low: 38%hig h: 48% Not Available Not Available 03/01/2025 05:36:28 02/20/20 25 02/19/2025 CBC W Auto Diffe renti al panel - Blood MCV [entitic mean volume] in red blood cells 91.4 text: 81.0 - 99.0 fL Not Available Not Available 03/01/2025 05:36:28 02/20/20 25 02/19/2025 CBC W Auto Diffe renti al panel - Blood MCH [entitic mass] 29 pg low: 27pghi gh: 31pg Not Available Not Available 03/01/2025 05:36:28 02/20/20 25 02/19/2025 CBC W Auto Diffe renti al panel - Blood MCHC [entitic mass/volume] in red blood cells 31.7 text: 32.0 - 36.0 g/dL low Not Available Not Available 03/01/2025 05:36:28 02/20/20 25 02/19/2025 CBC W Auto Diffe renti al panel - Blood RDW 15.9 % low: 11.5%h igh: 14.5% high Not Available Not Available 03/01/2025 05:36:28 02/20/20 25 02/19/2025 CBC W Auto Diffe renti al panel - Blood platelets [#/volume] in blood 326 text: 130 - 400 x10'3/ uL Not Available Not Available 03/01/2025 05:36:28 02/20/20 25 02/19/2025 CBC W Auto Diffe renti al panel - Blood platelet [entitic mean volume] in blood 9.5 text: 9.3 - 12.2 fL Not Available Not Available 03/01/2025 05:36:28 02/20/20 25 02/19/2025 CBC W Auto Diffe renti al panel - Blood differential cell count method - blood AUTOMA TIFFANI DIFFER ENTIAL Not Available Not Available 05:36:28 02/20/20 25 02/19/2025 CBC W Auto Diffe renti al panel - Blood neutrophils/ leukocytes in blood by automated count 53.5 % Not Available Not Available 02/15 05:36:28 02/20/20 25 02/19/2025 CBC W Auto Diffe renti al panel - Blood lymphocytes/ leukocytes in blood by automated count 31.1 % Not Available Not Available 02/15 05:36:28 02/20/20 25 02/19/2025 CBC W Auto Diffe renti al panel - Blood monocytes/le ukocytes in blood by automated count 10.2 % Not Available Not Available 02/15 05:36:28 02/20/20 25 02/19/2025 CBC W Auto Diffe renti al panel - Blood eosinophils/ leukocytes in blood by automated count 4.1 % Not Available Not Available 02/15 05:36:28 02/20/20 25 02/19/2025 CBC W Auto Diffe renti al panel - Blood basophils/le ukocytes in blood by automated count 1 % Not Available Not Available 02/15 05:36:28 02/20/20 25 02/19/2025 CBC W Auto Diffe renti al panel - Blood immature granulocytes /leukocytes in blood by automated count 0.1 % Not Available Not Available 02/15 05:36:28 02/20/20 25 02/19/2025 CBC W Auto Diffe renti al panel - Blood neutrophils [#/volume] in blood 4.3 text: 1.80 - 7.70 x10'3/ uL Not Available Not Available 03/01/2025 05:36:28 02/20/20 25 02/19/2025 CBC W Auto Diffe renti al panel - Blood lymphocytes [#/volume] in blood 2.5 text: 1.00 - 4.80 x10'3/ uL Not Available Not Available 03/01/2025 05:36:28 02/20/20 25 02/19/2025 CBC W Auto Diffe renti al panel - Blood monocytes [#/volume] in blood 0.82 text: 0.24 - 0.86 x10'3/ uL Not Available Not Available 03/01/2025 05:36:28 02/20/20 25 02/19/2025 CBC W Auto Diffe renti al panel - Blood eosinophils [#/volume] in blood 0.33 text: 0.04 - 0.36 x10'3/ uL Not Available Not Available 03/01/2025 05:36:28 02/20/20 25 02/19/2025 CBC W Auto Diffe renti al panel - Blood basophils [#/volume] in blood 0.08 text: 0.01 - 0.08 x10'3/ uL Not Available Not Available 03/01/2025 05:36:28 02/20/20 25 02/19/2025 CBC W Auto Diffe renti al panel - Blood immature granulocytes [#/volume] in blood 0.01 text: 0.00 - 0.49 x10'3/ uL Not Available Not Available 03/01/2025 05:36:28 02/20/20 25 02/19/2025 CBC W Auto Diffe renti al panel - Blood interpretati on and review of laboratory results Abnorm al Not Available Not Available 05:36:28 02/20/2002/19/2025 Thyro tropi n [Unit s/vol ume] in Serum or Plasm a thyrotropin [units/volum e] in serum or plasma 2.13 text: 0.358 - 3.74 uIU/mL HIGH DOSES OF BIOTI N MAY INTER FERE WITH THIS TEST RESUL TGloria BRINK N TO CLINI RUBÉN HISTO RY AND PRESE NTATI ON RECOM RU D. Not Available Not Available 02/19/2025 17:29:31 02/20/20 25 02/19/2025 Compr ehens daysi metab olic 2000 panel - Serum or Plasm a glucose [mass/volume ] in serum or plasma 109 text: 70 - 99 mg/dL high Not Available Not Available 02/19/2025 17:29:31 02/20/20 25 02/19/2025 Compr [employer] daysi Share[employer]lic 1999 panel - Serum or Plasm a urea nitrogen [mass/volume ] in serum or plasma 24 text: 7 - 18 mg/dL high Not Available Not Available 02/19/2025 17:29:31 02/20/20 25 02/19/2025 Compr [employer] daysi [employer]lic 1999 panel - Serum or Plasm a creatinine [mass/volume ] in serum or plasma 1.33 text: 0.55 - 1.02 mg/dL high Not Available Not Available 02/19/2025 17:29:31 02/20/20 25 02/19/2025 Compr [employer]lic 1999 panel - Serum or Plasm a sodium [moles/volum e] in serum or plasma 140 text: 136 - 145 mmol/L Not Available Not Available 02/19/2025 17:29:31 02/20/20 25 02/19/2025 Compr [employer] 1999 panel - Serum or Plasm a potassium [moles/volum e] in serum or plasma 4.3 text: 3.5 - 5.1 mmol/L Not Available Not Available 02/19/2025 17:29:31 02/20/20 25 02/19/2025 Compr [employer] 1999 panel - Serum or Plasm a chloride [moles/volum e] in serum or plasma 112 text: 97 - 115 mmol/L Not Available Not Available 02/19/2025 17:29:31 02/20/20 25 02/19/2025 Compr [employer] 1999 panel - Serum or Plasm a carbon dioxide, total [moles/volum e] in serum or plasma 25.7 text: 21 - 32 mmol/L Not Available Not Available 02/19/2025 17:29:31 02/20/20 25 02/19/2025 Compr [employer] 2000 panel - Serum or Plasm a calcium [mass/volume ] in serum or plasma 9.9 text: 8.5 - 10.1 mg/dL Not Available Not Available 02/19/2025 17:29:31 02/20/20 25 02/19/2025 Compr ehens daysi metab olic 1999 panel - Serum or Plasm a bilirubin.to xu [mass/volume ] in serum or plasma 0.3 text: 0.2 - 1.2 mg/dL THIS ASSAY IS NOT RECOM RU D FOR PATIE NTS UNDER GOING TREAT MENT WITH ELTRO MBOPA G DUE TO THE POTEN TIAL FOR FALSE LY ELEVA TIFFANI RESUL TS. Not Available Not Available 02/19/2025 17:29:31 02/20/20 25 02/19/2025 Compr ehens daysi metab olic 1999 panel - Serum or Plasm a protein [mass/volume ] in serum or plasma 7.3 text: 6.4 - 8.2 g/dL Not Available Not Available 02/19/2025 17:29:31 02/20/20 25 02/19/2025 [facility] ehens daysi metab olic 2000 panel - Serum or Plasm a albumin [mass/volume ] in serum or plasma 3.9 text: 3.4 - 5.0 g/dL Not Available Not Available 02/19/2025 17:29:31 02/20/20 25 02/19/2025 Compr ehens daysi metab olic 2000 panel - Serum or Plasm a aspartate aminotransfe rase [enzymatic activity/vol ume] in serum or plasma 14 U/L low: 15U/Lh igh: 37U/L low Not Available Not Available 02/19/2025 17:29:31 02/20/20 25 02/19/2025 Compr ehens daysi metab olic 2000 panel - Serum or Plasm a alanine aminotransfe rase [enzymatic activity/vol ume] in serum or plasma 20 U/L low: 14U/Lh igh: 55U/L Not Available Not Available 02/19/2025 17:29:31 02/20/20 25 02/19/2025 Compr ehens daysi metab olic 2000 panel - Serum or Plasm a alkaline phosphatase [enzymatic activity/vol ume] in serum or plasma 84 U/L low: 50U/Lh igh: 136U/L Not Available Not Available 02/19/2025 17:29:31 02/20/20 25 02/19/2025 Compr ehens daysi metab olic 2000 panel - Serum or Plasm a anion gap in serum or plasma by calculation 2.3 text: 2 - 10 mmol/L Not Available Not Available 02/19/2025 17:29:31 02/20/20 25 02/19/2025 Compr ehens daysi metab olic 1999 panel - Serum or Plasm a urea nitrogen/cre atinine [mass ratio] in serum or plasma 18 low: 6high: 26 Not Available Not Available 02/19/2025 17:29:31 02/20/20 25 02/19/2025 Compr ehens daysi metab olic 1999 panel - Serum or Plasm a albumin/glob ulin [mass ratio] in serum or plasma 1.1 text: 1.0 - 2.0 ratio Not Available Not Available 02/19/2025 17:29:31 02/20/20 25 02/19/2025 Compr ehens daysi metab olic 1999 panel - Serum or Plasm a glomerular filtration rate [volume rate/area] in serum, plasma or blood by creatinine-b ased formula (CKD-epi 2020)/1.73 sq M 47 text: >90 mL/min /1.73 M2 low NOTE: eGFR is not calcu lated for patie nts <18 years of age or gende r unkno wn. This is an estim ated GFR calcu latio n using the new CKD EPI creat inine equat ion witho ut race and so does not requi re a corre ction facto r for race. This estim ated GFR shoul d not be used for calcu latin g drug doses . Not Available Not Available 02/19/2025 17:29:31 02/20/20 25 02/19/2025 Compr ehens daysi metab olic 1999 panel - Serum or Plasm a interpretati on and review of laboratory results Abnorm al Not Available Not Available 17:29:31 02/20/20 25 02/19/2025 Fibri n D-dim er FEU [Mass /volu me] in Plate let poor plasm a fibrin D-dimer feu [mass/volume ] in platelet poor plasma 264 NG{fe u}/mL low: 0NG{fe u}/mLh igh: 500NG{ feu}/m L D-Dim er value s less than or equal to 500 ng/mL FEU have a negat daysi predi ctive value of >95% for exclu michael of deep vein throm bosis and pulmo nary embol ism. In patie nts over 50 (who tend to have highe r keron l basel ine D-Dim er value s), recen t studi es sugge st age-a djust ed D-Dim er cutof f value s (calc ulate d as: age [year s] x 10 ng/mL ) resul t in equiv alent outco mes and no addit ional false negat daysi findi ngs. Not Available Not Available 02/19/2025 17:29:31 02/20/20 25 02/19/2025 Proth rombi n time (PT) prothrombin time (PT) 10 text: 10.2 - 12.9 sec low Not Available Not Available 02/19/2025 17:29:31 02/20/2002/19/2025 Proth rombi n time (PT) INR in platelet poor plasma by coagulation assay 0.9 Recom ru d INR Thera peuti c Goals : 2.0-3 .0 Routi ne Thera py 2.5-3 .5 Mecha nical Prost hetic Valve s (High Risk) Not Available Not Available 02/19/2025 17:29:31 02/20/2002/19/2025 Proth rombi n time (PT) interpretati on and review of laboratory results Abnorm al Not Available Not Available 17:29:31 10/28/19 25 10/25/2024 US, echoc ardio gram, trans thora cic, limit ed No observ ation record ed. [facility] [address] [place], [address], 10/27/2024 11:34:56 Result Notes None recorded. Problems Name Problem SNOMED Code Status Onset Date Resolution Date Notes Provider Name and Address Organization Details Recorded Time Asthma 120047859 Active 2020 Not Available [facility] 2 13:58:00 Psoriasi s 1055377 Active 2020 has dermatol ogist-- Yasmeen Mahmood at [facility] Not Available [facility] 2 13:58:00 Sleep apnea 37598986 Active Not Available [facility] 2 13:58:00 History of syncope [id number] 9109 Active Not Available [facility] 2 13:58:00 Hyperlip idemia 28751599 Active Not Available [facility] 2 13:58:01 Gastroes ophageal reflux disease 041666498 Active Not Available [facility] 2 13:58:01 Hashimot o thyroidi tis 59569268 Active Not Available [facility] 2 13:58:01 History of depressi on 749274289 Active Not Available [facility] 2 13:58:00 Chronic anxiety 301845075 Active Not Available [facility] 2 13:58:01 Chronic low back pain 953243074 Active Not Available [facility] 2 13:58:00 Chronic pain syndrome 546103824 Active pain manageme nt Not Available [facility] 2 13:58:00 History of multiple allergie s 135814144 Active Not Available [facility] 2 13:58:00 Obesity 686497606 Active BMI 32 Not Available [facility] 2 13:58:00 Non-alco holic fatty liver 496293023 Active Not Available [facility] 2 13:58:00 Family history of renal stone 364657882 Active Not Available [facility] 2 13:58:00 Mitral valve disorder 15067948 Active Not Available [facility] 2 13:58:00 Migraine 38626487 Active Not Available [facility] 2 13:58:00 Thyroid nodule 669263624 Active due to recheck November 2022 Palmira Walker MD Attn: Accounting ,[address] [place], [address] , [place] - [facility] 3 12:59:09 Disorder of vitamin B12 274638144 Active Not Available [facility] 2 13:58:00 Facial swelling 762519981 Completed 202004/04/2022 Alan Bejarano MD Attn: Accounting ,[address] [place], [address] , [place] [facility] 2 13:19:03 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, [place], [address] , [place] [facility] 2 13:19:12 Chronic insomnia 852454144 Active 2021 Not Available [facility] 2 13:58:01 Continuo us positive airway pressure ventilat ion treatmen t Active 2021 Not Available [facility] 2 13:58:00 Hypergly cemia 87798110 Active 2021 Not Available [facility] 2 13:58:00 Obstruct daysi sleep apnea syndrome 56529266 Active 2022 Fernando Lujan MD Attn: Accounting ,[address] [facility], [place], [address] , [place] [facility] 3 12:48:05 Hypothyr oidism 60728326 Active 2022 Fernando Lujan MD Attn: Accounting ,[address] [facility], [place], [address] , [place] [facility] 3 12:48:06 Fatigue 15531551 Active 2022 Fernando Lujan MD Attn: Accounting ,[address] [facility], [place], [address] , [place] [facility] 3 12:49:26 Gastroes ophageal reflux disease without esophagi tis 622127250 Active 2022 Fernando Lujan MD Attn: Accounting ,[address] [facility], [place], [address] , [place] [facility] 3 12:49:29 Orthosta tic hypotens ion 40797042 Active 2022 Fernando Lujan MD Attn: Accounting ,[address] [facility], [place], [address] , [place] [facility] 3 12:49:30 Depressi ve disorder 42666015 Active 2022 Fernando Lujan MD Attn: Accounting ,[address] [facility], [place], [address] , [place] [facility] 3 12:49:33 Seasonal allergic rhinitis 426255702 Active 2022 Fernando Lujan MD Attn: Accounting ,[address] [facility], [place], [address] , [place] [facility] 3 14:41:41 Urge incontin ence of urine 55705208 Active 2022 Fernando Lujan MD Attn: Accounting ,[address] [facility], [place], [address] , [place] [facility] 3 14:41:42 Prediabe jaqueline 441936159 Active 2023 Fernando Lujan MD Attn: Accounting ,[address] [facility], [place], [address] , [place] [facility] 4 11:39:48 Motion sickness 95414446 Active 2023 Fernando Lujan MD Attn: Accounting ,[address] [facility], [place], [address] , [place] [facility] 4 11:40:42 Pericard ial effusion 220251952 Active 2024 Michelle Kahn MA null, [place] [facility] 5 13:22:31 Chronic kidney disease stage 3A 148808913 Active 2024 Fernando Lujan MD Attn: Accounting ,[address] [place], [address] , [place] [facility] 5 12:17:06 Vertigo 701602742 Active 2024 Fernando Lujan MD Attn: Accounting ,[address] [facility], [place], [address] , [place] [facility] 5 12:17:07 Divertic ulitis of intestin e 888672884 Active 2024 Fernando Lujan MD Attn: Accounting ,[address] [place], [address] , [place] [facility] 12:17:09 Problem Notes Documentation Provider Name and Address Organization Details Recorded Time Neurologist Consult Note : This document (1 of 1) was received from [email or web address] on 12/01/2024 through Direct Message along with the following message body content: Patient Name: SUMAYA DE LA ROSA. Patient : 1970. Patient . [facility], [place] - [facility] 12/06/2024 09:08:29 Procedures Surgical History Date Name Laterality Status Provider Name and Address Organization Details Recorded Time 023 Total hysterectomy completed DEONDRE ERNST Attn: Accounting, [address] [place], [address], [place] [facility] 04/08/2023 14:27:49 022 removal of electrocardiography loop recorder completed Palmira Walker MD Attn: Accounting, [address] [place], [address], [place] [facility] 06/09/2022 17:44:00 022 radiofrequency ablation of nerve root of cervical spine using fluoroscopic guidance completed Palmira Walker MD Attn: Accounting, [address] [place], [address], [place] [facility] 11/01/2021 15:20:31 022 radiofrequency ablation of nerve root of cervical spine using fluoroscopic guidance completed Palmira Walker MD Attn: Accounting, [address] [place], [address], [place] [facility] 11/01/2021 15:20:26 021 Date of Last Mammogram completed Palmira Walker MD Attn: Accounting, [address] [place], [address], [place] [facility] 10/12/2020 11:43:23 020 Eye Surgery completed Palmira Walker MD Attn: Accounting, [address] [facility] [place], [place], [address] [place] [address], [facility] 10/12/2020 21:18:52 020 Knee Surgery completed Palmira Walker MD Attn: Accounting, [address] [place], [place], [address] [place] [address], [facility] 10/12/2020 21:18:23 020 insertion of cardiac monitoring implant using fluoroscopic guidance completed Palmira Walker MD Attn: Accounting, [address] [facility], [place], [place], [address] [place] [address], [facility] 10/12/2020 11:42:34 991 tooth and periodontium operation completed Palmira Walker MD Attn: Accounting, [address] [place], [place], [address] [place] [address], [facility] 10/12/2020 11:10:37 facial reanimation completed Palmira howard MD Attn: Accounting, [address] [place], [place], [address] [place] [address], [facility] 10/12/2020 11:08:52 Cholecystectomy completed Francisca Infante MA [place] [facility] 04/21/2024 14:18:55 Appendectomy completed Palmira Walker MD Attn: Accounting, [address] [place], [place], [address] [place] [address], [facility] 10/12/2020 20:49:13 total replacement of right hip joint completed Palmira Walker MD Attn: Accounting, [address] [place], [place], [address] [place] [address], [place] [facility] 10/12/2020 20:49:24 lumpectomy of right breast completed Palmira Walker MD Attn: Accounting, [address] [place], [place], [address] [place] [address], [facility] 10/12/2020 20:50:09 Dilation and Curettage completed Amador Walker MD Attn: Accounting, [address] [place], [place], [address] [place] [address], [facility] 10/12/2020 20:50:34 Hernia Repair completed Palmira Walker MD Attn: Accounting, [address] [facility], [place], [address], [facility] 10/12/2020 20:50:45 cardiac catheterization completed Palmira Walker MD Attn: Accounting, [address] [facility], [place], [address], [facility] 10/12/2020 21:18:33 Arthroscopic Surgery completed Pascual Infante MA [place] [facility] 04/21/2024 14:18:36 LEEP completed Francisca Infante MA [place] [facility] 04/21/2024 14:19:14 Imaging Results None recorded. Procedure Notes None recorded. Medical Equipment None Reported. Allergies Allergen ID Allergen Name Allergen Category Reaction Reaction Severity Criticality Documentation Date Start Date Code Code System Note Provider Name and Address Organization Details Recorded Time 130003 tetracycl ine medicatio n rash Not available Not available 10/12/2020 42703 RxNorm Alden Lozoya MA null, [place] [facility] 10:55:22 425785 Maxalt medicatio n rash Not available Not available 10/12/2020 07194 8 RxNorm AMADOR Donovan, [place] [facility] 10:55:32 568867 Lamictal medicatio n rash Not available Not available 10/12/2020 23759 2 RxNorm Alden Lozoya [place], [place] [facility] 10:55:41 183572 Flomax medicatio n diarrhea dizziness Not available Not available Not available 10/12/2020 93729 3 RxNorm Palmira Walker MD Attn: Fanta g,[address] [place], [address], [place] [facility] 1 20:45:34 346743 adhesive tape environme nt,medica tion other Not available Not available 10/12/2020 50789 UNK scarr ing with ECG adhes daysi pads Palmira Walker MD Attn: Fanta g,[address] [facility], [place], [address], [place] 20:46:12 243446 Macrobid medicatio n headache nausea Not available Not available Not available 10/12/2020 77693 1 RxNorm Palmira Walker MD Attn: Fanta hudson,[address] , [place], [address] 21:19:37 330207 methylpre dnisolone medicatio n Not available Not available Not available 05/16/20212020 6902 RxNorm Other react ions and sever ities : 'Unkn own'. Lis Gomez RN null, [place] 5 16:38:27 536403 Cipro medicatio n Not available Not available Not available 04/15/2023 10378 3 RxNorm Yanet Elizabeth null, [place] 3 16:29:44 352646 ciproflox acin medicatio n other Not available low 04/15/20232022 2551 RxNorm Tremb les Lis Gomez RN null, [place] 5 16:38:08 767416 Medicinal product acting as adhesive (product) environme nt,medica tion other rash Not available Not available high 01/03/20252018 40397 2009 SNOMED Scarr ing with ECG adhes daysi pads rash Lis Gomez RN null, [place] 5 16:36:38 763511 amoxicill in / clavulana te medicatio n diarrhea Not available low 01/03/20252020 21705 RxNorm unrec ogniz ed react ion (text : Stoma ch upset , code: [id number]) (from exter nal sourc e) Lis Gomez RN null, [place] 5 16:36:41 345908 bupropion Not available dizziness Not available Not available 01/03/20252022 40273 RxNorm Lis Gomez RN [place], [place] 5 16:36:48 331145 rizatript an medicatio n Not available Not available Not available 01/03/20252011 53645 RxNorm Other react ions and sever ities : 'Unkn own'. Lis Gomez RN [place], [place] 16:38:27 752150 nitrofura ntoin, macrocrys tals / nitrofura ntoin, monohydra te medicatio n headache nausea Not available Not available low 01/03/20252019 29465 2 RxNorm Lis [place] RN [place] [facility] 16:37:33 773953 nitrofura ntoin medicatio n headache nausea Not available Not available low 01/03/20252019 7454 RxNorm Lis [place] 16:37:37 374133 rizatript an benzoate medicatio n rash Not available high 01/03/20252017 70242 2 RxNorm rash Lis [place] 16:37:40 940090 sodium thiosalic ylate medicatio n other Not available high 01/03/20252022 58509 RxNorm Lis Gomez RN [place], [place] 16:38:03 259591 lamotrigi ne medicatio n rash Not available high 01/03/20252017 95281 RxNorm rash unrec ogniz ed react ion (text : Unkno wn, code: [id number]) (from exter nal sourc e) Lis Gomez RN [place], [place] [facility] 5 16:37:53 876308 fludrocor tisone acetate medicatio n other Not available low 01/03/20252022 01892 6 RxNorm Patie nt state s its the stero ids in the medic ation that she is aller gic too. It puts her in an stero id induc ed psych osis Lis Gomez RN null, [place] [facility] 5 16:37:57 678877 Medicinal product containin g tetracycl ine structure and acting as antibacte rial agent (product) medicatio n rash Not available Not available 01/03/20252011 68222 1004 SNOMED Lis Gomez RN null, [facility] 5 16:38:27 771348 zolpidem medicatio n other palpitati ons Not available Not available Not available 01/03/20252021 61061 RxNorm Other react ions and sever ities : 'Agit ation ', and 'Ches t tight ness' . Lis Gomez RN null, [facility] 5 16:38:27 307710 tamsulosi n medicatio n diarrhea dizziness Not available Not available Not available 01/03/20252019 17034 RxNorm Lis Gomez RN null, [facility] 5 16:38:27 Medications Name Sig Start Date Stop Date Status Note LastModified by Organization Details LastModified Time quetiapin e 25 mg tablet TAKE 1 TABLET BY MOUTH EVERY DAY AT BEDTIME 09/25 completed Not Available Not Available Not Available glycopyrr olate 1 mg tablet 05/16 completed Not Available Not Available Not Available fluoxetin e 40 mg capsule TAKE 1 CAPSULE BY MOUTH EVERY DAY IN THE MORNING 12/17 completed Not Available Not Available Not Available cyclobenz aprine 10 mg tablet TAKE 1 TABLET BY MOUTH THREE TIMES DAILY 04/04 completed Víctor Not Available Not Available Not Available fluconazo le 100 mg tablet TAKE 1 TABLET BY MOUTH EVERY DAY FOR 5 DAYS 01/19 completed Not Available Not Available Not Available buspirone 5 mg tablet TAKE 1 TABLET BY MOUTH TWICE DAILY 09/25 completed Not Available Not Available Not Available metformin 500 mg tablet 10/12 completed Not Available Not Available Not Available terconazo le 0.4 % vaginal cream Insert 1 applicat orful every day by vaginal route for 7 days. 01/27 completed Not Available Not Available Not Available oxcarbaze pine 150 mg tablet TAKE 1 TABLET BY MOUTH EVERY MORNING AND TAKE 2 TABLETS AT NIGHT 12/17 completed Not Available Not Available Not Available venlafaxi ne ER 75 mg capsule,e xtended release 24 hr TAKE 1 CAPSULE BY MOUTH EVERY DAY 07/29 completed Not Available Not Available Not Available oxybutyni n chloride ER 15 mg tablet,ex tended release 24 hr TAKE 1 TABLET BY MOUTH EVERY DAY 11/11 completed Not Available Not Available Not Available cefuroxim e axetil 250 mg tablet TAKE 1 TABLET BY MOUTH EVERY 12 HOURS FOR 10 DAYS active Not Available Not Available No t Available ketoconaz ole 2 % shampoo APPLY TO WET HAIR & LEAVE ON FOR 3 MIN THEN RINSE THREE TIMES A WEEK 12/17 completed Not Available Not Available Not Available clindamyc in HCl 300 mg capsule TAKE 1 CAPSULE BY MOUTH EVERY 8 HOURS 12/25 completed Not Available Not Available Not Available albuterol sulfate 2.5 mg/3 mL (0.083 %) solution for nebulizat ion TAKE 3 ML (2.5 MG TOTAL) BY NEBULIZA TION EVERY 6 HOURS NEEDED FOR WHEEZING OR SHORTNES S OF BREATH 01/19 completed Not Available Not Available Not Available BD Luer-Paulo Syringe 3 mL 25 x 5/8 USE DIRECTED active Not Available Not Available No t Available trazodone 50 mg tablet TAKE 1 AND 1/2 TABLETS DAILY BY MOUTH 11/11 completed Not Available Not Available Not Available triamcino lone acetonide 0.5 % topical cream 08/05 completed Not Available Not Available Not Available azithromy dolores 250 mg tablet TAKE 2 TABLETS BY MOUTH TODAY, THEN TAKE 1 TABLET DAILY FOR 4 DAYS DIRECTED active Not Available Not Available No t Available ibuprofen 800 mg tablet TAKE 1 TABLET BY MOUTH 3 TIMES A DAY active Not Available Not Available No t Available alprazola m 1 mg tablet 08/05 completed Not Available Not Available Not Available nystatin 100,000 unit/gram topical ointment APPLY TOPICALL Y TWICE DAILY 10/12 completed Not Available Not Available Not Available theophyll ine ER 400 mg tablet,ex tended release 24 hr 12/17 completed Not Available Not Available Not Available fluconazo le 150 mg tablet TAKE 1 TABLET BY MOUTH 1 TIME 04/04 completed Not Available Not Available Not Available chlorzoxa zone 500 mg tablet TAKE 1 TABLET BY MOUTH THREE TIMES DAILY 12/14 completed Not Available Not Available Not Available sumatript an 100 mg tablet 11/13 completed Not Available Not Available Not Available hydrocodo ne 5 mg-acetam inophen 325 mg tablet TAKE 1 TABLET BY MOUTH EVERY 6 HOURS NEEDED FOR PAIN. DO NOT TAKE MORE THAN 3 GM OF ACETAMIN OPHEN DAILY 12/25 completed Not Available Not Available Not Available fluconazo le 200 mg tablet TAKE 1 TABLET BY MOUTH EVERY OTHER WEEK DIRECTED active Not Available Not Available No t Available meloxicam 15 mg tablet 10/12 completed Not Available Not Available Not Available metronida zole 0.75 % (37.5 mg/5 gram) vaginal gel INSERT ONE APPLICAT ORFUL VAGINALL Y AT BEDTIME FOR 5 NIGHTS 08/05 completed Not Available Not Available Not Available Synthroid 125 mcg tablet TAKE 1 TABLET BY MOUTH EVERY DAY active Not Available Not Available No t Available Medrol (Bigg) 4 mg tablets in a dose pack Take 1 dose pk by oral route as directed . 01/17 completed Not Available Not Available Not Available Synthroid 100 mcg tablet TAKE 1 TABLET BY MOUTH EVERY DAY IN THE MORNING 07/18 completed Not Available Not Available Not Available clonazepa m 0.5 mg tablet TAKE 1 TABLET BY MOUTH TWICE DAILY 04/04 completed Megan Not Available Not Available Not Available gabapenti n 400 mg capsule TAKE 1 CAPSULE BY MOUTH 3 TIMES A DAY. 12/17 completed Not Available Not Available Not Available quetiapin e 200 mg tablet TAKE 1 TABLET BY MOUTH EVERY DAY AT BEDTIME 04/04 completed Megan Not Available Not Available Not Available terconazo le 0.8 % vaginal cream INSERT ONE APPLICAT ORFUL INTO VAGINA AT BEDTIME FOR 3 NIGHTS 08/05 completed Not Available Not Available Not Available clonazepa m 1 mg tablet TAKE 1 TABLET BY MOUTH TWICE DAILY 11/01 completed Not Available Not Available Not Available midodrine 5 mg tablet TAKE 0.5 TABLETS (2.5 MG TOTAL) BY MOUTH 3 (THREE) TIMES A DAY 12/17 completed Not Available Not Available Not Available venlafaxi ne ER 150 mg capsule,e xtended release 24 hr TAKE 1 CAPSULE BY MOUTH EVERY DAY WITH FOOD 07/29 completed Not Available Not Available Not Available lithium carbonate ER 300 mg tablet,ex tended release TAKE 1 TABLET BY MOUTH TWICE DAILY 12/17 completed Not Available Not Available Not Available meclizine 12.5 mg tablet 12/25 completed Not Available Not Available Not Available lithium carbonate 150 mg capsule TAKE 1 CAPSULE BY MOUTH THREE TIMES DAILY 11/01 completed Not Available Not Available Not Available hydroxyzi ne HCl 50 mg tablet TAKE 1 TO 2 TABLETS BY MOUTH AT BEDTIME NEEDED active Not Available Not Available No t Available oxcarbaze pine 300 mg tablet 12/17 completed Not Available Not Available Not Available fexofenad ine 180 mg tablet Take 1 tablet every day by oral route. active Not Available Not Available No t Available ciproflox acin 250 mg tablet 10/12 completed Not Available Not Available Not Available Vitamin C 500 mg chewable tablet Take 2 tablets every day by oral route. active Not Available Not Available No t Available prochlorp erazine maleate 10 mg tablet Take by oral route for 1 day. 05/14 completed Not Available Not Available Not Available doxepin 10 mg capsule 12/17 completed Not Available Not Available Not Available ciproflox acin 500 mg tablet TAKE 1 TABLET BY MOUTH EVERY 12 HOURS FOR 7 DAYS 12/17 completed Not Available Not Available Not Available sulfameth oxazole 800 mg-trimet hoprim 160 mg tablet TAKE 1 TABLET TWICE A DAY FOR 5 DAYS 12/17 completed Not Available Not Available Not Available omeprazol e 40 mg capsule,d elayed release TAKE 1 CAPSULE BY MOUTH TWICE DAILY 12/17 completed Not Available Not Available Not Available aspirin 81 mg tablet,de layed release Take 1 tablet every day by oral route. 01/19 completed Not Available Not Available Not Available quetiapin e 100 mg tablet TAKE 1 AND 1/2 TABLETS BY MOUTH EVERY NIGHT AT BEDTIME 04/04 completed Megan Not Available Not Available Not Available amitripty line 50 mg tablet TAKE 1 TO 2 TABLETS BY MOUTH EVERY DAY AT BEDTIME 10/12 completed Not Available Not Available Not Available triamcino lone acetonide 0.1 % topical cream APPLY EXTERNAL LY TO THE AFFECTED AREA TWICE DAILY 08/05 completed Not Available Not Available Not Available lithium carbonate ER 450 mg tablet,ex tended release TAKE 1 TABLET BY MOUTH EVERYDAY AT BEDTIME active Not Available Not Available No t Available baclofen 20 mg tablet TAKE 1 TABLET BY MOUTH THREE TIMES A DAY FOR 90 DAYS active Not Available Not Available No t Available ketorolac 10 mg tablet TAKE 1 TABLET BY MOUTH FOUR TIMES DAILY NEEDED 05/14 completed Not Available Not Available Not Available oxycodone -acetamin ophen 5 mg-325 mg tablet 10/12 completed Not Available Not Available Not Available ceftriaxo ne 1 gram solution for injection Take 1 g by injectio n route. 2024 active Not Available Not Available Not Avai lable ofloxacin 0.3 % ear drops INSTILL 5 DROPPERF UL TO LEFT EAR THREE TIMES DAILY FOR 7 DAYS 12/25 completed Not Available Not Available Not Available modafinil 200 mg tablet TAKE 1 TABLET BY MOUTH EVERY MORNING 04/04 completed Megan Not Available Not Available Not Available methocarb georgina 750 mg tablet TAKE 1 TABLET BY MOUTH FOUR TIMES DAILY 11/01 completed Not Available Not Available Not Available methotrex ate sodium 2.5 mg tablet TAKE 2 (TWO) TABLETS BY MOUTH EVERY 7 DAYS active Not Available Not Available No t Available trazodone 100 mg tablet Take 1 tablet twice a day by oral route. 06/23 completed Not Available Not Available Not Available fluvoxami ne 25 mg tablet TAKE 1 TABLET BY MOUTH EVERY DAY 04/04 completed Megan Not Available Not Available Not Available Synthroid 25 mcg tablet Take 1 tablet every day by oral route. 12/14 completed Not Available Not Available Not Available dexametha sone 1 mg tablet TAKE 1 TABLET BY MOUTH AT BEDTIME FOR 1 DAY NEEDED 05/16 completed Not Available Not Available Not Available meclizine 25 mg tablet TAKE HALF OF A TABLET BY MOUTH 3 TIMES DAILY NEEDED FOR 10 DAYS active Not Available Not Available No t Available phenazopy ridine 100 mg tablet Take 1 tablet 3 times a day by oral route for 2 days. 12/17 completed Not Available Not Available Not Available baclofen 10 mg tablet TAKE 1 TABLET BY MOUTH THREE TIMES DAILY 04/04 completed Víctor Not Available Not Available Not Available lithium carbonate 300 mg capsule TAKE 1 CAPSULE BY MOUTH TWICE DAILY 12/14 completed Not Available Not Available Not Available gemfibroz il 600 mg tablet 10/12 completed Not Available Not Available Not Available cephalexi n 500 mg capsule TAKE 1 CAPSULE BY MOUTH THREE TIMES DAILY FOR 7 DAYS 07/29 completed Not Available Not Available Not Available pantopraz ole 40 mg tablet,de layed release TAKE 1 TABLET BY MOUTH TWICE A DAY BEFORE MEALS active Not Available Not Available No t Available erythromy dolores 5 mg/gram (0.5 %) eye ointment 10/12 completed Not Available Not Available Not Available cyanocoba avtar (vit B-12) 1,000 mcg/mL injection solution INJECT 1 ML SUBCUTAN EOUSLY EVERY 2 WEEKS active Not Available Not Available No t Available tobramyci n 0.3 % eye drops INSTILL 2 DROPS INTO LEFT EYE EVERY 4 HOURS FOR 7 DAYS EVERY 4 HOURS WHILE AWAKE 12/17 completed Not Available Not Available Not Available triamcino lone acetonide 0.1 % topical ointment APPLY TO AFFECTED AREA TWICE A DAY NEEDED 11/11 completed Not Available Not Available Not Available nystatin 100,000 unit/gram topical cream APPLY TO AFFECTED AREA TWICE A DAY NEEDED active Not Available Not Available No t Available buspirone 10 mg tablet TAKE 1 TABLET BY MOUTH TWICE DAILY 09/25 completed Not Available Not Available Not Available clotrimaz ole-betam ethasone 1 %-0.05 % topical cream APPLY TWICE A DAY NEEDED 12/17 completed Not Available Not Available Not Available lidocaine 5 % topical patch 10/12 completed Not Available Not Available Not Available Synthroid 88 mcg tablet 10/12 completed Not Available Not Available Not Available divalproe x 125 mg tablet,de layed release TAKE 1 TABLET BY MOUTH TWICE DAILY 12/14 completed Not Available Not Available Not Available nystatin- triamcino lone 100,000 unit/g-0. 1 % topical cream 10/12 completed Not Available Not Available Not Available Synthroid 75 mcg tablet TAKE 1 TABLET BY MOUTH EVERY DAY IN THE MORNING 11/01 completed Not Available Not Available Not Available fluoxetin e 10 mg capsule TAKE 1 CAPSULE BY MOUTH EVERY DAY FOR 90 DAYS 08/05 completed Not Available Not Available Not Available Synthroid 50 mcg tablet 10/12 completed Not Available Not Available Not Available docusate sodium 100 mg capsule TAKE ONE CAPSULE BY MOUTH EVERY 12 HOURS 12/17 completed Not Available Not Available Not Available oxybutyni n chloride ER 5 mg tablet,ex tended release 24 hr TAKE ONE-HALF TABLET BY MOUTH TWICE DAILY 12/17 completed Not Available Not Available Not Available gabapenti n 300 mg capsule TAKE 1 CAP DAILY X1 WEEK, THEN TAKE TWICE DAILY X1 WEEK, THEN TAKE THREE TIMES DAILY 12/17 completed Not Available Not Available Not Available aspirin 81 mg chewable tablet Chew 1 tablet every day by oral route. active Not Available Not Available No t Available folic acid 1 mg tablet TAKE 1 TABLET BY MOUTH ONCE DAILY EXCEPT ON DAYS WHEN YOU TAKE METHOTRE XATE. active Not Available Not Available No t Available hydrocort isone 2.5 % topical cream APPLY TO MONS MIXED WITH NYSTATIN ONCE DAILY 10/12 completed Not Available Not Available Not Available monteluka st 10 mg tablet TAKE 1 TABLET BY MOUTH EVERY DAY IN THE EVENING active Not Available Not Available No t Available hydroxyzi ne HCl 25 mg tablet 1 TABLET ORAL TWICE A DAY NEEDED 90 DAYS active Not Available Not Available No t Available pravastat in 20 mg tablet TAKE 1 TABLET BY MOUTH EVERY DAY active Not Available Not Available No t Available mupirocin 2 % topical ointment 1 APPLIC TOPICALL Y TWICE A DAY INTRANAS AL 08/05 completed Not Available Not Available Not Available midodrine 2.5 mg tablet TAKE 1 TABLET BY MOUTH THREE TIMES A DAY FOR 90 DAYS active Not Available Not Available No t Available zolpidem 5 mg tablet TAKE 1 TABLET BY MOUTH AT BEDTIME NEEDED INSOMNIA 12/14 completed Not Available Not Available Not Available furosemid e 20 mg tablet TAKE 1 TABLET BY MOUTH EVERY DAY 2024 active Not Available Not Available Not Avai lable clobetaso l 0.05 % topical ointment PLEASE SEE ATTACHED FOR DETAILED DIRECTIO NS 01/03 completed Not Available Not Available Not Available oxycodone -acetamin ophen 7.5 mg-325 mg tablet TAKE 1 TABLET BY MOUTH EVERY 8 HOURS FOR 30 DAYS active Not Available Not Available No t Available estradiol 0.01% (0.1 mg/gram) vaginal cream 10/12 completed Not Available Not Available Not Available zolpidem 10 mg tablet TAKE 1 TABLET BY MOUTH EVERY DAY 11/11 completed Not Available Not Available Not Available scopolami ne 1 mg over 3 days transderm al patch APPLY 1 PATCH EVERY 3 DAYS 08/05 completed Not Available Not Available Not Available propranol ol 20 mg tablet 04/04 completed Not Available Not Available Not Available celecoxib 100 mg capsule 10/12 completed Not Available Not Available Not Available hydrocort isone 2.5 % topical ointment 11/11 completed Not Available Not Available Not Available oxybutyni n chloride 5 mg tablet 12/17 completed Not Available Not Available Not Available ondansetr on 4 mg disintegr ating tablet DISSOLVE 1 TABLET ON THE TONGUE EVERY 8 HOURS NEEDED 05/14 completed Not Available Not Available Not Available cefdinir 300 mg capsule TAKE 1 CAPSULE BY MOUTH TWICE A DAY 06/23 completed Not Available Not Available Not Available topiramat e 100 mg tablet Take 1 tablet every 12 hours by oral route for 30 days. 04/04 completed Not Available Not Available Not Available fluoxetin e 20 mg capsule TAKE 1 CAPSULE BY MOUTH EVERY MORNING 12/17 completed Not Available Not Available Not Available fluticaso ne propionat e 50 mcg/actua tion nasal spray,kash pension SHAKE LIQUID AND USE 1 TO 2 SPRAYS IN EACH NOSTRIL TWICE DAILY 12/17 completed Not Available Not Available Not Available metformin ER 500 mg tablet,ex tended release 24 hr TAKE 1 TABLET BY MOUTH EVERY DAY AT DINNER 04/04 completed Wood Not Available Not Available Not Available fludrocor tisone 0.1 mg tablet 12/17 completed Not Available Not Available Not Available dicyclomi ne 10 mg capsule Take 1 capsule 4 times a day by oral route for 30 days. 12/14 completed Not Available Not Available Not Available ipratropi um bromide 21 mcg (0.03 %) nasal spray USE 2 SPRAYS IN EACH NOSTRIL EVERY 12 HOURS 12/25 completed Not Available Not Available Not Available spironola ctone 50 mg tablet TAKE 2 TABLETS BY MOUTH EVERY DAY IN THE MORNING 04/04 completed Wood Not Available Not Available Not Available mometason e 0.1 % topical cream 10/12 completed Not Available Not Available Not Available diazepam 5 mg tablet TAKE 1/2 TABLET BY MOUTH TWICE DAILY NEEDED 12/17 completed Not Available Not Available Not Available amoxicill in 875 mg-potass ium clavulana te 125 mg tablet Take 1 tablet every 12 hours by oral route as directed for 7 days. 2024 active Not Available Not Available Not Avai lable amoxicill in 500 mg-potass ium clavulana te 125 mg tablet Take 1 tablet every 12 hours by oral route for 10 days. 08/05 completed Not Available Not Available Not Available Acidophil us capsule Take 1 capsule every day by oral route. active Not Available Not Available No t Available Ventolin HFA 90 mcg/actua tion aerosol inhaler INHALE 2 PUFFS BY MOUTH EVERY 6 HOURS NEEDED FOR WHEEZING active Not Available Not Available No t Available buspirone 15 mg tablet TAKE 1 TABLET BY MOUTH TWICE DAILY 12/25 completed Not Available Not Available Not Available oxycodone 5 mg tablet TAKE 1 TABLET BY MOUTH EVERY 12 HOURS 12/25 completed Not Available Not Available Not Available modafinil 100 mg tablet TAKE 1 TABLET BY MOUTH EVERY MORNING 11/01 completed Not Available Not Available Not Available sumatript an 6 mg/0.5 mL subcutane ous pen injector INJECT 6 MG UNDER THE SKIN TWICE DAILY NEEDED FOR MIGRAINE 12/17 completed Not Available Not Available Not Available Laxative (bisacody l) 5 mg tablet Take 1 tablet every day by oral route as needed. active Not Available Not Available No t Available topiramat e 50 mg tablet TK 1 T PO BID 12/17 completed Not Available Not Available Not Available nitrofura ntoin monohydra te/macroc rystals 100 mg capsule TAKE 1 CAPSULE BY MOUTH TWICE A DAY 06/23 completed Not Available Not Available Not Available duloxetin e 30 mg capsule,d elayed release TAKE 1 CAPSULE BY MOUTH EVERY DAY FOR 90 DAYS 11/11 completed Not Available Not Available Not Available duloxetin e 60 mg capsule,d elayed release TAKE 1 CAPSULE BY MOUTH EVERY DAY IN THE MORNING active Not Available Not Available No t Available BD Integra Syringe 3 mL 25 gauge x 5/8 USE DIRECTED 2023 active Not Available Not Available Not Avai lable omega-3 acid ethyl esters 1 gram capsule TAKE 2 CAPSULES BY MOUTH 2 TIMES A DAY. 12/17 completed Not Available Not Available Not Available eszopiclo ne 3 mg tablet 07/18 completed Not Available Not Available Not Available eszopiclo ne 2 mg tablet Take 1 tablet every day by oral route for 30 days. 06/23 completed Not Available Not Available Not Available fluocinol one 0.01 % scalp oil and shower cap APPLY TO SCALP NIGHTLY AND COVER WITH A SHOWER 12/25 completed Timoteo Not Available Not Available Not Available cholecalc iferol (vitamin D3) 250 mcg (10,000 unit) capsule Take 2 capsules by oral route for 5 days. active 5 days per wk Not Available Not Available Not Available zolpidem ER 12.5 mg tablet,ex tended release,m ultiphase TAKE 1 TABLET BY MOUTH EVERYDAY AT BEDTIME active Not Available Not Available No t Available chlorhexi dine gluconate 0.12 % mouthwash SWISH AND SPIT 15 ML TWICE DAILY FOR 2 WEEKS 05/16 completed Not Available Not Available Not Available quetiapin e 50 mg tablet 04/04 completed Megan Not Available Not Available Not Available quetiapin e 400 mg tablet TAKE 1 TABLET BY MOUTH EVERY DAY AT BEDTIME 11/01 completed Not Available Not Available Not Available fenofibra te nanocryst allized 145 mg tablet TAKE 1 TABLET BY MOUTH EVERY DAY active Not Available Not Available No t Available Symbicort 160 mcg-4.5 mcg/actua tion HFA aerosol inhaler INHALE 2 PUFFS BY MOUTH TWICE DAILY. RINSE MOUTH WITH WATER AFTER USE. DO NOT SWALLOW 04/04 completed Dothager Not Available Not Available Not Available levocetir izine 5 mg tablet TK 1 T PO QPM 10/12 completed Not Available Not Available Not Available melatonin 5 mg tablet Take 1 tablet every day by oral route at bedtime. 12/14 completed Not Available Not Available Not Available Stelara 90 mg/mL subcutane ous syringe active Not Available Not Available Not Available Viibryd 20 mg tablet TAKE 1 TABLET BY MOUTH EVERY DAY 04/04 completed Not Available Not Available Not Available Relistor 12 mg/0.6 mL subcutane ous syringe INJECT SUBCUTAN EOUS ONCE DAILY 12/17 completed Víctor Not Available Not Available Not Available Linzess 145 mcg capsule TAKE ONE CAPSULE BY MOUTH EVERY DAY 12/14 completed Not Available Not Available Not Available Vascepa 1 gram capsule TAKE 2 CAPSULES BY MOUTH TWICE A DAY FOR 90 DAYS 2024 active Not Available Not Available Not Avai lable melatonin 10 mg capsule Take 1 capsule every day by oral route at bedtime. active Not Available Not Available No t Available Jardiance 10 mg tablet TAKE 1 TABLET BY MOUTH EVERY DAY active Not Available Not Available No t Available Belsomra 5 mg tablet TAKE 1 TABLET BY MOUTH AT BEDTIME 12/14 completed Not Available Not Available Not Available Belsomra 15 mg tablet TAKE 1 TABLET BY MOUTH AT BEDTIME 12/14 completed Not Available Not Available Not Available Belsomra 10 mg tablet TAKE 1 TABLET BY MOUTH EVERY DAY AT NIGHT 12/17 completed Not Available Not Available Not Available Belsomra 20 mg tablet TAKE 1 TABLET BY MOUTH EVERY DAY FOR 30 DAYS 06/23 completed Not Available Not Available Not Available Narcan 4 mg/actuat ion nasal spray 12/17 completed Not Available Not Available Not Available Vraylar 1.5 mg capsule TAKE 1 CAPSULE BY MOUTH EVERY DAY FOR 90 DAYS active Not Available Not Available No t Available Xtampza ER 9 mg capsule sprinkle TAKE 1 CAPSULE BY MOUTH EVERY 12 HOURS 10/12 completed Not Available Not Available Not Available Xtampza ER 13.5 mg capsule sprinkle TAKE 1 CAPSULE BY MOUTH EVERY 12 HOURS 10/12 completed Not Available Not Available Not Available Trintelli x 20 mg tablet TAKE 1 TABLET BY MOUTH EVERY DAY 09/25 completed Not Available Not Available Not Available Relistor 150 mg tablet 10/12 completed Not Available Not Available Not Available Yuvafem 10 mcg vaginal tablet TAKE 1 TABLET PER VAGINA 2 TIMES A WEEK active Not Available Not Available No t Available Restasis MultiDose 0.05 % eye drops INSTILL 1 DROP IN BOTH EYES TWICE DAILY 05/14 completed Navid Bradley Not Available Not Available Not Available Trelegy Ellipta 100 mcg-62.5 mcg-25 mcg powder for inhalatio n INHALE 1 PUFF BY MOUTH DAILY-RI NSE MOUTH WITH WATER AFTER USE-DO NOT SWALLOW active Not Available Not Available No t Available Aimovig Autoinjec tor 140 mg/mL subcutane ous auto-inje ctor INJECT 140 MG UNDER THE SKIN EVERY 30 (THIRTY) DAYS 12/17 completed Not Available Not Available Not Available Ubrelvy 100 mg tablet PLEASE SEE ATTACHED FOR DETAILED DIRECTIO NS active Not Available Not Available No t Available Ubrelvy 07/29 completed per neurolog ist Not Available Not Available Not Available Nurtec ODT 75 mg disintegr ating tablet 07/29 completed Not Available Not Available Not Available ID NOW COVID-19 Test Kit DIRECTED 10/12 completed Not Available Not Available Not Available Dayvigo 5 mg tablet TAKE 1 TABLET BY MOUTH EVERY DAY AT BEDTIME FOR 30 DAYS 11/11 completed Not Available Not Available Not Available Breztri Aerospher e 160 mcg-9mcg- 4.8mcg/ac tuation HFA aerosol inhaler INHALE 2 PUFFS BY MOUTH TWICE DAILY. RINSE MOUTH WITH WATER AFTER USE. DO NOT SWALLOW 12/25 completed Not Available Not Available Not Available Gemtesa 75 mg tablet TAKE 1 TABLET BY MOUTH EVERY DAY active Not Available Not Available No t Available BinaxNOW COVID-19 Ag Self Test kit Use as Directed on the Package 12/17 completed Not Available Not Available Not Available Qulipta 60 mg tablet TAKE 60 MG BY MOUTH DAILY active Not Available Not Available No t Available Qulipta 30 mg tablet TAKE 30 MG BY MOUTH DAILY 08/05 completed Not Available Not Available Not Available Paxlovid 300 mg (150 mg x 2)-100 mg tablets in a dose pack TK 2 NIRMATRE LVIR TS AND 1 RITONAVI R T TOGETHER PO BID FOR 5 DAYS BID FOR 5 DAYS 04/04 completed Not Available Not Available Not Available Quviviq 25 mg tablet TAKE 1 TABLET BY MOUTH EVERY DAY AT NIGHT 12/17 completed Not Available Not Available Not Available Auvelity 45 mg-105 mg tablet, extended release TAKE 1 TABLET BY MOUTH TWICE A DAY FOR 90 DAYS active Not Available Not Available No t Available Zavzpret 10 mg/actuat ion nasal spray ADMINIST ER 10 MG INTO AFFECTED NOSTRIL( S) DAILY NEEDED (MIGRAIN E) active Not Available Not Available No t Available Vitals Date Recorded Body height Body mass index (BMI) Body weight Heart rate Oxygen saturation Oxygen saturation in Arterial blood by Pulse oximetry Systolic And Diastolic Provider Name and Address Organization Details Last Updated DateTime 5 180.34 cm 35.9 kg/m2 961382. 04 g 63 /min 97 % 97 % 132/88 mm[Hg] Samreen Paulino MA [facility] 5 14:24:35 Date Recorded Body height Body mass index (BMI) Body weight Oxygen saturation Oxygen saturation in Arterial blood by Pulse oximetry Heart rate Systolic And Diastolic Provider Name and Address Organization Details Last Updated DateTime 5 180.34 cm 35.9 kg/m2 797950. 34 g 96 % 96 % 58 /min 120/82 mm[Hg] Jose Cool MA [facility] 5 11:23:52 Date Recorded Body height Body mass index (BMI) Body weight Oxygen saturation Oxygen saturation in Arterial blood by Pulse oximetry Heart rate Systolic And Diastolic Provider Name and Address Organization Details Last Updated DateTime 5 180.34 cm 34.9 kg/m2 976078. 14 g 100 % 100 % 60 /min 124/82 mm[Hg] Jose Cool MA [facility] 5 15:34:02 Date Recorded Body height Body mass index (BMI) Body weight Oxygen saturation Oxygen saturation in Arterial blood by Pulse oximetry Heart rate Systolic And Diastolic Provider Name and Address Organization Details Last Updated DateTime 5 180.34 cm 34.6 kg/m2 594798. 61 g 97 % 97 % 79 /min 122/76 mm[Hg] Francisca Infante MA [facility] 5 11:45:18 Date Recorded Body height Body mass index (BMI) Body weight Oxygen saturation Oxygen saturation in Arterial blood by Pulse oximetry Heart rate Systolic And Diastolic Provider Name and Address Organization Details Last Updated DateTime 5 180.34 cm 34.6 kg/m2 393396. 66 g 97 % 97 % 57 /min 122/72 mm[Hg] Francisca Infante MA [facility] 5 11:29:31 Social History Question Answer Notes LastModified by Organizat ion Details LastModified Time Tobacco Smoking Status Never Smoker Palmira Walker MD Attn: [facility], [place], [address], [facility] - [facility] 10/12/2020 11:45:01 Do You Have An Advance Directive? No Sister Is On HIPPA Information not available 10/12/2020 Are You Blind Or Do You Have Difficulty Seeing? Yes Information not available 10/12/2020 What Is Your Level Of Caffeine Consumption? None Information not available 09/25/2022 Have You Been To An Area Known To Be High Risk For COVID-19? No Information not available 10/12/2020 Are You Deaf Or Do You Have Serious Difficulty Hearing? No Information not available 10/12/2020 What Type Of Diet Are You Following? REGULAR Information not available 10/12/2020 Are There Any Guns Present In Your Home? No Information not available 10/12/2020 What Was The Date Of Your Most Recent Tobacco Screening? 03/01/2025 [email or web address] Information not available 03/01/2025 What Is Your Relationship Status? Single Information not available 10/12/2020 Do You Use Your Seat Belt Or Car Seat Routinely? Yes Information not available 10/12/2020 Are You Sexually Active? No Information not available 10/12/2020 Do You Have Smoke And Carbon Monoxide Detectors In Your Home? Yes Information not available 10/12/2020 Are You Passively Exposed To Smoke? No Information not available 10/12/2020 Do You Use Sunscreen Routinely? Yes Information not available 10/12/2020 Has Tobacco Cessation Counseling Been Provided? No [email or web address] Information not available 02/05/2024 Sex: Female Functional Status Question Answer Note LastModified by Organizat ion Details LastModified Time Do you use any illicit or recreational drugs? No Information not available 12/14/2020 What is your level of alcohol consumption? None Information not available 12/14/2020 Are you currently employed? No disabled Information not available 10/12/2020 Are you able to care for yourself? Yes Information not available 10/12/2020 What is your exercise level? Occasional Information not available 10/12/2020 Mental Status Question Answer Note LastModified by Organization D etails LastModified Time Do you feel stressed (tense, restless, nervous, or anxious, or unable to sleep at night)? [id number] Information not available 10/12/2020 Family History Relationship Description Onset Age of this Age Resolved Age Notes LastModified by Organization Details LastModified Time Sister Harmful pattern of use of alcohol Not available 2020 20:51:25 Sister Disorder of thyroid gland Not available 2020 20:52:08 Sister Heart disease Not available 2020 20:52:30 Sister Hypertensive disorder Not available 2020 20:52:49 Sister Depressive disorder [email or web address] Not available 2023 14:19:37 Brother Harmful pattern of use of alcohol Not available 2020 20:51:25 Brother Heart disease Not available 2020 20:52:30 Brother Hypertensive disorder Not available 2020 20:52:49 Brother Automatic implantable cardiac defibrillato r in situ Not available 2020 21:20:34 Brother Cataract Not available 10/12/2020 21:20:43 Father Malignant tumor of colon Not available 2020 20:51:39 Father Depressive disorder Not available 2020 20:51:49 Father Kidney disease Not available 2020 20:53:45 Father Gout Not available 21:20:58 Father Hypertensive disorder [email or web address] Not available 2023 14:19:59 Father Family history of cancer of colon [email or web address] Not available 2023 14:20:26 Mother Disorder of thyroid gland Not available 2020 20:52:08 Mother Heart disease Not available 2020 20:52:30 Mother Hypercholest erolemia [email or web address] Not available 2023 14:20:09 Mother History of cancer of gall bladder Not available 20:53:30 Mother Cardiac pacemaker procedure Not available 2020 21:21:13 Mother Hypertensive disorder [email or web address] Not available 2023 14:19:54 Mother Malignant tumor of gallbladder [email or web address] Not available 11/2023 14:20:48 Medical History Condition Response Coronary Artery Disease N Other N High Blood Pressure N Atrial Fibrillation N Thyroid Problems Y Kidney or Bladder Problems Y GI Problems Y Depression Y COPD Y Blood Clots Y Skin Problems Y Eating Disorder N Anemia Y Heart Attack ([place]) N Anxiety Disorder Y Diabetes Y Muscle, Joint, or Bone Problems Y Seizures/Epilepsy N Acid Reflux (GERD) Y Cancer N Stroke N Asthma Y Allergies Y ADHD N Substance Abuse N High Cholesterol Y Hepatitis N Liver Disease N Schizophrenia N Headaches Y Heart Failure N Osteoporosis N Gynecological History Statement/Question Response Menses Monthly N Age at Menarche 8 Date of Last Mammogram 08/25/2020 Obstetrics History GPAL:G 0 P 0 0 0 0 Immunizations Vaccine Type Date Status Note Provider Nam e and Address Organization Details Recorded Time pneumococcal polysaccharide PPV23 3 completed ARUN Morris Attn: [address] [place], [place], [address] [place] [address] [place] [facility] 06/11/2022 16:46:07 COVID-19 vaccine, vector-nr, rS-ChAdOx1, PF, 0.5 mL 1 completed Not Available [facility] 05/22/2023 10:29:03 Tdap 2 completed ARUN Morris Attn: [address] [place], [place], [address] [place] [address] [place] [facility] 06/11/2022 16:46:07 COVID-19 vaccine, vector-nr, rS-Ad26, PF, 0.5 mL 1 completed ARUN Morris Attn: [address] [place], [place], [address] [place] [address], [place] [facility] 06/11/2022 16:46:07 influenza, unspecified formulation 0 completed ARUN Morris Attn: [address] [place], [place], [address] [place] [address] [place] [facility] 06/11/2022 16:46:07 Pneumococcal conjugate PCV 13 5 completed ARUN Morris Attn: [facility] [facility], [place], [place], [address] [place] [address], [place] [facility] 06/11/2022 16:46:07 Influenza, split virus, quadrivalent, PF 9 completed ARUN Morris Attn: [address] [place], [place], [address] [place] [address], [place] [facility] 06/11/2022 16:46:07 Influenza, split virus, quadrivalent, preservative 8 completed ARUN Morris Attn: [address] [place], [place], [address] [place] [address], [place] [facility] 06/11/2022 16:46:07 COVID-19, mRNA, LNP-S, PF, 100 mcg/0.5mL dose or 50 mcg/0.25mL dose 2 completed ARUN Morris Attn: [address] [place], [place], [address] [place] [address], [place] [facility] 06/11/2022 16:46:15 COVID-19, mRNA, LNP-S, bivalent, PF, 30 mcg/0.3 mL dose 2 completed ARUN Morris Attn: [address] [place], [place], [address] [place] [address], [place] [facility] 07/29/2022 16:34:11 Influenza, MDCK, quadrivalent, PF 3 completed Not Available [facility] 03/01/2025 10:56:43 Pneumococcal conjugate PCV20, polysaccharide PSH360 conjugate, adjuvant, PF 3 completed Not Available [facility] 03/01/2025 10:56:43 zoster recombinant 4 completed Not Available [facility] 03/01/2025 10:56:43 zoster recombinant 4 completed Not Available [facility] 03/01/2025 10:56:43 Influenza, split virus, trivalent, PF 4 completed Not Available [facility] 03/01/2025 10:56:43 Tdap 1 completed Jazmin Bartlett LPN null, [place] - [facility] 12/19/2020 15:25:02 Influenza, split virus, quadrivalent, preservative 2 completed Dinora Jones MA null, [place] - [facility] 05/14/2022 14:24:09 Past Encounters Encounter ID Performer Location Encounter Start Date Encounter Closed Date Diagnosis/Indication Diagnosis SNOMED-CT Code Diagnosis ICD10 Code Diagnosis Note [id number] Palmira Walker MD [facility] [address] [place] [address] 10/12/2020 10:23:02 10/13/2020 13:49:42 Cellulitis of periorbital region 066988421 L03.213 further investigat ion needed and since afebrile with no redness or warmth-- will await test results and repeat scanning before decision regarding further antibiotic s-- will need to go to ER if temp >100 [facility] ed risk of polypharmacy 046481676 Z91.89 will limit sleep med to 2 of the 3 meds currently- - TRAZADONE, MELATONIN, ZOLPIDEM Long-term drug therapy 086099597 Z79.899 stopping DICYCLOMIN E and XYZAL Chronic pain syndrome 37 8030560 G89.4 per patient-- she is going to pain management provider Sleep apnea 32681029 G47 .30 limit use of sleep aids due to polypharma cy and LIZ Drug-induc ed constipation 68460983 K59.03 stop xyzal-- cont LINZESS History of syncope 80419 70532 71806 Z86[address] [id number] Palmira Walker MD [facility] [address] [place] [address] 10/19/2020 10:30:31 10/20/2020 16:47:58 Migraine 51095165 G43.909 Facial swelling [id number] 6 R22.0 patient agrees to send picture today for my review-- she reports redness of the left eye and redness is not appreciate d on the video call. 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 I attempted to reach Dr Navid Bradley with [employer] to discuss this case and left message with CHERYL for Dr Bradley to return my call. I will empiricall y start clindamyci n pending outcome of labs. Reassured with last CT scan, normal sed rate, normal CRP and normal WBC-- no abscess was noted. She denies high fever. SHe was finishing AUGMENTIN at the time of the labs and that could falsely lower results related to infection- - I am rechecking for trend [id number] Palmira Walker MD [facility] [address] [place] [address] 12/14/2020 13:04:19 12/14/2020 16:13:43 Facial swelling 557567878 R22.0 pt's eye is feeling better-- there is left upper lid swelling noted with video feed but EOM are intact - nno new tretament is incdicated -- will cont with follow up with ophthmolog ist Abnormal g rief reaction 511167147 F43.20 cont care with Psychiatri st with med changes -- starting seroquel and increase in Provigil Recurrent major depressive episodes, moderate 809265569 F33.1 per psychiatry 's [employer]-- with med changes from today's visit. If mood cannot be controlled going forward-- consider stopping montelukas t Type 2 yvonne betes mellitus 71746246 E11.9 last BG 102-- 113 on lab testing- recent hospitaliz ation at [facility]-- she will need Hgb A1 cwith follow up [id number] Palmira Walker MD [facility] [address] [place] [address] 12/19/2020 14:25:47 12/19/2020 15:32:57 Administration of diphtheria, pertussis, and tetanus vaccine 080685328 Z23 [id number] Palmira Walker MD [facility] [address] [place] [address] 04/02/2021 14:20:49 04/03/2021 13:21:23 Pharyngitis 447982889 J02.9 cont gargle with warm salt waterdrink warm tea etc.Tyleno l or IBU for pain.RTC if not improving. [id number] Palmira Walker MD [facility] [address] [facility] [address] [place] [address] 05/02/2021 14:38:35 05/02/2021 17:41:14 Patient immunocompromised 468781542 D84.9 advised to get COVID update at this time since patient is immunocomp romised on MTX -- I called and WG is giving the boosters-- she [place] check [place] [facility] [place] Nausea 040174519 R11.0 liver testing and other lab testing were fine in March-- reassured that the grief and bed promise may very well be contributi ng to this complaint- she will explore further with her counselor 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 Attend grief group-- call to see if restarting sessions. Gastroesop hageal reflux disease 946185220 K21.9 well aware of triggers and foods to avoid-- no need to print out pt ed today [id number] Palmira Walker MD [facility] [address] [facility] [address] [place] [address] 05/16/2021 12:24:16 05/16/2021 16:24:41 Acute sinusitis 45066168 J01.90 given symptoms, I rec she get tested for COVID, [facility] the following recommenda tions: -Stay home and separate from others as much as possible. -Monitor your symptoms and seek medical attention for trouble breathing, persistent chest pain, confusion, or bluish lips or face. -Wear a mask if you must be around other people. -Wash your hands often for 20 seconds with soap and water and clean high-touch surfaces daily [id number] Palmira Walker MD [facility] [address] [facility] [address] [place] [address] 08/15/2021 13:10:08 08/15/2021 16:30:24 Sinusitis 55933163 J32.9 i rec she get tested for covid. States she will go tomorrow. I have advised is symptoms get worse ie worsening dizziness, shortness of breath , confusion, she should go to ER immediatel yLast vaccine in October was J and J, no booster yet. Has been out Given fever and chills, will treat empiricall y with ABT but likely viral and pt aware of this.also rec to restart flonase and IBU 800mg Q 6 prnReviewe d the following recommenda tions: -Stay home and separate from others as much as possible. -Monitor your symptoms and seek medical attention for trouble breathing, persistent chest pain, confusion, or bluish lips or face. -Wear a mask if you must be around other people. -Wash your hands often for 20 seconds with soap and water and clean high-touch surfaces daily [id number] Palmira Walker MD [facility] [address] [place] [address] 11/01/2021 14:35:51 11/02/2021 10:37:13 Chronic anxiety 011859415 F41.9 stress reductionh as had counseling -- advise to resume Type 2 yvonne betes mellitus 54004117 E11.9 Hgb A1C was 5.5 on 07/09/[address] Hamm-- will recheck every 6-12 months Chronic pain syndrome 37 2850671 G89.4 per patient-- she is going to pain management provider-- had ablation and will call if the right hand and arm complaint persists to asses further with neurosurge ry Hyperlipidemia 52746813 E78.5 lab done in Aug 2021 by cardiologi and OK History of syncope 19227 91924 03843 Z86.[address]- wishes a new cardiologi st -- one that will be able to monitor and manage the LINQreferr al placed Jadiel thyroiditis 21 042717 E06.3 she would like thyroid ultrasound arranged at [facility]- routine annual screeningI agreed to cont to follow thyroid studies every 3 months. ultrasound yearlylab every 3 months -- was due in Sep 2021-- will draw today-- no need to fast for thyroid testing [id number] Palmira Walker MD [facility] [address] [facility] [address] [place] [address] 11/13/2021 13:34:52 11/14/2021 10:11:09 Low back pain 484850703 M54.50 Pt being treated for a sinus infection with cefdinir and was worried this would affect her kidneys with her hx of kidney stones. Based off her symptoms I think her pain is muscular, however, I offered a urine sample order to rule out UTI and Kidney stones-pt denied urine test as she says she can never go. Make sure you drink plenty of fluids while on antibiotic to prevent dehydratio n. Call back if symptoms worsen, you develop any additional symptoms such as blood in the urine, increased fever, diarrhea, or change in bowel habits. We discussed trying to move around and stretch while she is sick to avoid muscular stiffness. GO to ER if you develop any significan t change in symptoms as discussed. Continue alternatin g between ice and heat over area. [id number] Palmira Walker MD [facility] [address] [facility] [address] [place] [address] 02/05/2022 13:45:09 02/05/2022 17:16:07 Jadiel thyroiditis 45949937 E06.3 I agreed to cont to follow thyroid studies every 3 months. ultrasound yearlylab every 3 months -- was due in Sep 2021g Hot sweats 225692704 R61 I do no endorse use of ROBINUROL for hot sweats or clammy feeling-- this med will dry up [id number] s and could lead to increase in body temperatur e Impacted c erumen in left ear [id number] 643255 H61.22 [id number] Alan Bejarano MD [facility] [address] [facility] [address] [place] [address] 04/04/2022 15:15:46 04/05/2022 11:18:06 Chronic insomnia 264538212 F51.04 - reviewed patient medication list, which indicates recent fill of eszopiclon e- possible concurrent use of similar hypnagogue may have led to intolerabl e side effects- patient self discontinu ed zolpidem- will restart quetiapine at last dose (25 mg hs)- Encouraged patient to review medication s with psychiatri st- consider discussion with pulmonolog y, as the eszopiclon e was prescribed by them- Patient voices understand ing and agreement with plan. [id number] Palmira Walker MD [facility] [address] [facility] [address] [facility] [place] [address] 05/14/2022 11:50:32 05/14/2022 15:55:22 Jadiel thyroiditis 95121547 E06.3 no change in the treatment at this time-- further plans [pending outcome of testing Hyperglycemia 23592448 R 73.9 lab testing -- and has QUETIAPINE refilled last month Right uppe r quadrant pain 895680458 R10.11 will check for stone formation- - fatty liver or other cause for the pain-- advised LOW FAT DIET Intolerant of heat 12434 007 R20.8 OK to trial DITROPAN or GABAPENTIN from [employer] for this complaint- - I do not see a drug /drug interactio n Chronic he adache disorder 583599642 G44.89 will check for sinusitis as possible cause for the increased LYNNE recently Gastro-eso phageal reflux disease with esophagitis 878338655 K21.00 med continues since on since EGD with Dr Betts years ago-- she reports daily use BID for her GERD Administra tion of influenza vaccine 70748161 Z23 annual flu shot today Immunization advised 310 624011 Z71.9 to get COVID booster after NGRIX endorsed and declined at this time [id number] Palmira Walker MD [facility] [address] [facility] [address] [place] [address] 07/29/2022 14:47:05 07/30/2022 11:06:32 Acute urinary tract infection 143120184 N39.0 Recommend increasing water intake, avoiding caffeine, will give pyridium for 2 days. urine dip improved since ER visit. Acute pyelonephritis 366 68143 N10 No signs of pyelo on CT per ER and no fevers. Continue cipro. Blood pressure, pulse, temperatur e are normal. Candidiasis of skin 4988 3006 B37.2 Recurrent kidney stone 8951747997 973549 N20.0 [place] Was not happy with last urologist. [id number] Palmira Walker MD [facility] [address] [place] [address] 09/25/2022 11:44:42 09/26/2022 12:37:02 Jdaiel thyroiditis 04639804 E06.3 lab testing today and to get ultrasound done in November set up at [facility] Hyperglycemia 10478487 R 73.9 lab testing of Hgb A1C today Thyroid nodule 073084260 E04.1 will need US in November 2022 Irregular heart beat 361 173181 R00.8 will check event monitor -- loop recorder was removed lat fall-- and noted some irregular heart beat today [id number] Palmira Walker MD [facility] [address] [place] [address] 10/04/2022 11:43:24 10/04/2022 16:49:26 Acute sinusitis 33265491 J01.90 Prescribin g Augmentin for acute sinusitis. Pt requests terazol since she has issues when taking antibiotic s. IV fluids, rest, rest. FU if condition worsens. [id number] Palmira Walker MD [facility] [address] [place] [address] 12/25/2022 11:45:06 12/26/2022 11:38:45 Jadiel thyroiditis 64792463 E06.3 lab testing today and to get ultrasound done -- she will call to set up at [facility] since not done in November and she reports she did not hear form the radiologis t to set up the testing Gastroesop hageal reflux disease without esophagitis 000924086 K21.9 since protonix worked better for her than taking omeprazole -- will send order for thia med -- more effective at managing her chronic GERD Vertigo 658274746 R42 follow up with Dr Gardner for this complaint since the steroid injections in the TM did not seem to be helpful with regard to this complaint- - refill of med sent per patient requestI offered and se declined PT for the vertigo-- she reports issues with transporta tion Malaise and fatigue 7217 17296 R53.83 she is to see endocrinol ogist to evaluate her ADRENAL gland function-- I had attempted to set up a cortrosyn stimulatio n test and was not able to set this up after last visit in Sep 2022 History of palpitations 272944211 Z86.79 she is to see cardiologi on 12/30/22 to go over the event monitor ordered in Sep and completed [id number] Fernando Lujan MD [facility] [address] [place] [address] 03/18/2023 11:28:22 03/25/2023 11:38:01 Migraine 72343536 G43.909 conditon chronic adn not at goal continue the aimovig and refer to dr fried. Chronic insomnia 7130372 04 F51.04 condition chroinc and at goal continues gia lunesta. Depressive disorder 3548 9007 F32.A conditoin chocin adn at goal ocntine the prozac Orthostati c hypotension 41828446 I95.1 conditon chroinc and at goal contine the midodrine Gastroesop hageal reflux disease without esophagitis 288160206 K21.9 conditon chroicn adn at goal ocnitne hte protonix Hypothyroidism 85157633 E03.9 conditon choinc and not at goal continue the synthorid order tsh, t3, t4 Obstructiv e sleep apnea syndrome 95914171 G47.33 conditon choinc and at goal continuet he c pap Fatigue 34187404 R53.83 conditoin chroinc and not at goal order cbc, cmp, b12, folate, vit d [id number] Fernando Lujan MD [facility] [address] [place] [address] 04/22/2023 11:16:39 04/23/2023 12:54:29 Asthma 451407847 J45.909 condition chroinc adn at goal continue the ventolin inhaler Chronic anxiety 82595955 9 F41.9 condition chroinc and at goal conitne the prozac Chronic insomnia 7238247 04 F51.04 condition chroinc and at goal continues gia lunesta. Gastroesop hageal reflux disease 868016661 K21.9 condition chroinc adn at goal continue the omeprazole Migraine 30288059 G43.90 9 conditon chronic adn not at goal continue the aimovig and refer to dr fried. Disorder o f vitamin B12 063759738 E53.8 condition chronic and not at goal start b12 injection taday Sleep apnea 34219861 G47 .30 condition chroinc and at goal continue the c pap Vaginitis 60870521 N76.0 conditon acute diflucan for 5 days. Hypothyroidism 87042177 E03.9 conditon choinc and not at goal continue the synthroid brand name only [id number] Fernando Lujan MD [facility] [address] [place] [address] 05/06/2023 10:25:19 05/08/2023 14:20:19 Disorder of vitamin B12 019682792 E53.8 condition chronic and not at goal start b12 injection taday [id number] Fernando Lujan MD [facility] [address] [place] [address] 05/22/2023 10:27:58 05/23/2023 10:59:14 Disorder of vitamin B12 414011602 E53.8 condition chronic and not at goal start b12 injection taday Asthma 785808676 J45.90 9 condition chroinc adn at goal continue the ventolin inhaler Chronic anxiety 40927713 9 F41.9 condition chroinc and at goal conitne the prozac Chronic insomnia 1909204 04 F51.04 condition chroinc and at goal continues gia lunesta. Gastroesop hageal reflux disease 670333120 K21.9 condition chroinc adn at goal continue the omeprazole Migraine 23417481 G43.90 9 conditon chronic adn not at goal continue the aimovig and refer to dr fried. Jadiel thyroiditis 21 396223 E06.3 conditon chroinc and at goal contiue the synthroid Ingrowing nail of toe of right foot 5992909255 1306827 L60.0 condition acute spike right great toenail the toe is prepped and draped in a sterile fashion 1% lidocaine without epi is used to achieve a 1/2 ring block with 3 cc of lidocaine after analgesia is obtained the right medial great toenail is spike with a stright iris scissors adn the nail is removed. routine wound care [id number] Fernando Lujan MD [facility] [address] [place] [address] 06/05/2023 10:49:17 06/13/2023 09:28:32 Disorder of vitamin B12 215995982 E53.8 condition chronic and not at goal start b12 injection taday [id number] Fernando Lujan MD [facility] [address] [place] [address] 06/19/2023 10:52:59 07/15/2023 10:46:57 Disorder of vitamin B12 561249286 E53.8 condition chronic and not at goal start b12 injection taday [id number] Fernando Lujan MD [facility] [address] [place] [address] 07/03/2023 10:53:45 07/15/2023 10:59:46 Disorder of vitamin B12 460405469 E53.8 condition chronic and not at goal start b12 injection taday [id number] Fernando Lujan MD [facility] [address] [place] [address] 07/18/2023 14:13:02 07/21/2023 10:02:20 Gastroesophageal reflux disease 178090975 K21.9 condition chroinc adn at goal continue the omeprazole Jadiel thyroiditis 21 704799 E06.3 conditon chroinc and at goal contiue the synthroid Migraine 96214887 G43.90 9 conditon chronic adn not at goal continue the aimovig and follow with dr fried. 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 N39.41 conditon chroinc adn at goal continue the oxybutatin Seasonal a llergic rhinitis 225204119 J30.2 condition chroinc adn at goal continue the singular Screening for malignant neoplasm of colon 997262736 Z12.[address] funes [id number] Fernando Lujan MD [facility] [address] [place] [address] 10/17/2023 10:43:39 10/20/2023 10:14:12 Onychomycosis of toenails 263139481 B35.1 condition chronic and not at goal refer to dr galindo Screening for malignant neoplasm of colon 253005527 Z12.[address] valenzuela Asthma 577370566 J45.90 9 condition chroinc adn at goal continue the ventolin inhaler Chronic insomnia 8089560 04 F51.04 condition chroinc and at goal continues gia lunesta. Gastroesop hageal reflux disease 826800752 K21.9 condition chroinc adn at goal continue the omeprazole Migraine 52649837 G43.90 9 conditon chronic adn not at goal continue the aimovig and follow with dr fried. Obstructiv e sleep apnea syndrome 23061858 G47.33 conditon choinc and at goal continuet he c pap Thyroid nodule 385128981 E04.1 condition chronic and at goal order thyroid [facility] Disorder o f vitamin B12 067427908 E53.8 condition chronic and at goal b12 injection monthly [id number] Forrest Smith MD [facility] [place] [address] [place] [address] 12/18/2023 14:28:55 12/19/2023 09:37:32 Pericardial effusion 477128667 I31.39 Orthostati c hypotension 44790878 I95.1 [id number] Feranndo Lujan MD [facility] [address] [place] [address] 01/20/2024 10:43:06 01/21/2024 11:33:27 Obesity 899689145 E66.9 conditon chronic and not at goal start low fat/low carb diet. Asthma 947177879 J45.90 9 condition chroinc adn at goal continue the ventolin inhaler Prediabetes 322492669 R7 3.03 conditon chronic and not at goal start jardiance 10 mg Chronic insomnia 4838452 04 F51.04 condition chroinc and at goal refill the belsomra. Gastroesop hageal reflux disease 308611067 K21.9 condition chroinc adn at goal continue the omeprazole Disorder o f vitamin B12 486001748 E53.8 condition chronic and at goal continue b12 injection monthly Migraine 28457241 G43.90 9 conditon chronic adn not at goal continue the aimovig and follow with dr fried. Motion sickness 93570094 T75.3XXA order scopalamin e patch Jadiel thyroiditis 21 182426 E06.3 conditon chroinc and at goal contiue the synthroid Chronic anxiety 60804092 9 F41.9 condition chroinc and at goal conitne the prozac [id number] Forrest Smith MD [facility] [place] [address] [place] [address] 02/05/2024 14:13:29 02/06/2024 16:09:19 Pericardial effusion 623801957 I31.39 Orthostati c hypotension 21492782 I95.1 [id number] Fernando Lujan MD [facility] [address] [place] [address] 04/21/2024 10:44:50 04/22/2024 10:46:00 Chronic insomnia 628052058 F51.04 condition chroinc and not at goal d/c belsomra and start lunesta 2 mg Disorder o f vitamin B12 699638204 E53.8 condition chronic and at goal continue b12 injection monthly give needles. Gastroesop hageal reflux disease 447939499 K21.9 condition chroinc adn at goal continue the omeprazole Asthma 741671378 J45.90 9 condition chroinc adn at goal continue the ventolin inhaler Migraine 13902618 G43.90 9 conditon chronic adn not at goal continue the aimovig and follow with dr fried. Obesity 806288727 E66.9 conditon chronic and not at goal start low fat/low carb diet. Orthostati c hypotension 29998233 I95.1 conditon chroinc and at goal contine the midodrine Prediabetes 618150458 R7 3.03 conditon chronic and not at goal refill jardiance 10 mg for 90 days and 3 refills. [id number] Fernando Lujan MD [facility] [place] [facility] [place] [facility] [address] [facility] [address] [place] [address] 05/20/2024 10:53:38 05/21/2024 12:26:37 Chronic insomnia 600426435 F51.04 condition chroinc and at goal refill belsomra and refill the trazadone at 75 mg Gastroesop hageal reflux disease without esophagitis 376373749 K21.9 conditon chroicn adn at goal ocnitne hte protonix Obstructiv e sleep apnea syndrome 86684249 G47.33 conditon choinc and at goal continuet he c pap Prediabetes 327763514 R7 3.03 conditon chronic and not at goal refill jardiance 10 mg for 90 days and 3 refills. Seasonal a llergic rhinitis 828252876 J30.2 condition chroinc adn at goal continue the singular Depressive disorder 3548 9007 F32.A conditoin chocin adn at goal ocntine the prozac Hypothyroidism 76923262 E03.9 conditon choinc and not at goal continue the synthroid brand name only [id number] Forrest Smith MD [facility] [place] [facility] [address] [facility] [address] [place] [facility] [place] [address] 08/05/2024 14:01:04 08/09/2024 09:43:41 Pericardial effusion 454504516 I31.39 Orthostati c hypotension 76920875 I95.1 Hyperlipidemia 76631956 E78.5 Hypothyroidism 74191240 E03.9 [id number] Fernando Lujan MD [facility] [place] [facility] [address] [facility] [address] [facility] [place] [address] 08/31/2024 12:00:50 09/01/2024 15:48:36 Acute sinusitis 88324100 J01.90 condition acute z pack and medrol dose pack with 3 refills Disorder o f vitamin B12 092205887 E53.8 condition chronic and at goal continue b12 injection monthly give needles. order b12/folate level Asthma 112150941 J45.90 9 condition chroinc adn at goal continue the ventolin inhaler Chronic anxiety 43853674 9 F41.9 condition chroinc and at goal conitne the prozac Gastroesop hageal reflux disease 276483128 K21.9 condition chroinc adn at goal continue the omeprazole Jadiel thyroiditis 21 765870 E06.3 conditon chroinc and at goal contiue the synthroid order tsh, t3, t4 Migraine 67830466 G43.90 9 conditon chronic adn not at goal continue the aimovig and follow with dr fried. [id number] Forrest Smith MD [facility] [facility] [place] [facility] [facility] [address] [facility] [address] [place] [address] 11/11/2024 13:57:43 11/12/2024 07:25:34 Orthostatic hypotension 50938256 I95.1 Hyperlipidemia 71166522 E78.5 Hypothyroidism 83459311 E03.9 Morbid obesity 995797201 E66.01 [id number] Fernando Lujan MD [facility] [employer] [place] [facility] [address] [facility] [address] [place] [address] 11/29/2024 11:15:36 11/30/2024 14:22:38 Asthma 971799554 J45.909 condition chroinc adn at goal continue the ventolin inhaler Chronic insomnia 8726850 04 F51.04 condition chroinc and at goal refill belsomra and refill the trazadone at 75 mg Gastroesop hageal reflux disease 348649957 K21.9 condition chroinc adn at goal continue the omeprazole Disorder o f vitamin B12 944143721 E53.8 condition chronic and at goal continue b12 injection monthly give needles. Jadiel thyroiditis 21 [id number] E06.3 conditon chroinc and at goal contiue the synthroid Obesity [id number] E66.9 conditon chronic and not at goal start low fat/low carb diet. [id number] Fernando Lujan MD [facility] [place] [address] [address] 01/03/2025 15:25:26 01/05/2025 15:40:02 Acute bacterial sinusitis [id number] J01.90 B96.89 condition acute rocephin, cefitn, medrol dose pack Asthma 746585291 J45.90 9 condition acute on chroinc . conitnue hte albuterol inhaler rocephin, cefitn, medrol dose pack Gastroesop hageal reflux disease 718514607 K21.9 condition chroinc adn at goal continue the omeprazole Chronic anxiety 79954289 9 F41.9 condition chroinc and at goal conitne the prozac Chronic insomnia 3051749 04 F51.04 condition chroinc and at goal refill belsomra and refill the trazadone at 75 mg Migraine 17387691 G43.90 9 conditon chronic adn not at goal continue the aimovig and follow with dr fried. [id number] Fernando Lujan MD [facility] [place] [facility] [place] [address] [address] 01/12/2025 11:18:46 01/13/2025 13:06:56 Recurrent acute maxillary sinusitis [id number] 6013026 J01.01 condition acute rocephin, a z pack and medorl dose pack terizol vaginal cream Gastroesop hageal reflux disease 529787730 K21.9 condition chroinc adn at goal continue the omeprazole Chronic anxiety 40717028 9 F41.9 condition chroinc and at goal conitne the prozac Depressive disorder 3548 9007 F32.A conditoin chocin adn at goal ocntine the prozac Hypothyroidism 90214774 E03.9 conditon choinc and not at goal continue the synthroid brand name only Health Concerns Section Related Observation LastModified by Organization Detai ls LastModified Time None Recorded Concern Status LastModified by Organization Details LastModified Time None Recorded Advance Directives Directive N: sister is on HIPPA Payers Insurance Date Sequence Insurance Name Policy Number Policy Conrad Covered Member ID Conrad Member ID Guarantor Name 06/29/2024 3 [place] WHEN [place] OR MEDICARE REPLACEMENT PRIMARY) Sumaya De La Rosa [id number] Sumaya De La Rosa 01/05/2025 2 [place]IC[place] REPLACEMENT PRIMARY) Sumaya De La Rosa [id number] Sumaya De La Rosa 02/15/2025 1 [place] Sumaya De La Rosa [id number] Sumaya Mayerkeiry 02/15/2025 [place] [facility] Sumaya De La Rosa [id number] Sumaya Tamezamira 02/15/2025 2 [place] OR MEDICARE REPLACEMENT PRIMARY) Sumaya Mayerjazmynamira [id number] Sumaya Mayerjazmynamira Notes Date Note Type Note Provider Name and Address Organization Details Recorded Time 11/11/2024 text/html 53-year-old afsaneh merino who has a history of orthostatic hypotension she is taking midodrine which was a started by her previous marketing administrator referred to me for cardiovascular evaluation. She had an echocardiogram on November 18 which showed normal left l ventricular function ejection fraction of 65 to 70%. She has moderate pericardial effusion. There was no evidence of tamponade. She had a EKG today which shows sinus bradycardia. No ST-T wave changes suggestive of ischemia. She is complaining of shortness of breath since see has not taken Lasix for the last few days. February 05, 2024:53-year-old female who has a history of pericardial effusion and orthostatic hypotension repeat echocardiogram on January 19/2024 showed resolution of pericardial effusion. She also has a history of mild pulmonary hypertension and diastolic dysfunction. She is complaining of headache if she increases her midodrine dose to 5 mg daily. August 05, 2024:54-year-old female who has a history of pericardial effusion, orthostatic hypotension and mixed hyperlipidemia presented to my office for follow-up. She denies complaints of chest pain tightness and pressure. She has occasional episodes of dizziness especially when she stands up quickly. She has no orthopnea and paroxysmal nocturnal dyspnea. She denies chest pain. 03/06/2025: 54-year-old female who has a history of orthostatic hypertension, mixed hyperlipidemia and pericardial effusion presents to my office for follow-up. She admits for lightheadedness which occurs when she stands up lasts for only few sec resolved spontaneously. She has no symptoms of chest pain and shortness of breath. She is complaining of fish burps after taking Vascepa. Insurance company is is also giving her heart time in approving Vascepa. She had an echocardiogram on October 25, 2024 which shows no evidence of pericardial effusion. Normal left ventricular systolic function LABS:10/18/24:total cholesterol 159, triglycerides 136, HDL 48, LDL 87, TSH 2.210, glucose 104, BUN 24, creatinine 1.21, eGFR 53, sodium 145, K+ 4.6, calcium 10.3, ast 17, alt :glucose 144, BUN 17, creatinine 1.00, K+ 4.5, eGFR 6602/02/24:glucose 96, BUN 19, creatinine 1.08, K+ 4.5 CARDIAC TESTING:ECHO (LIMITED) 10/25/24:Normal left ventricular size. Mild concentric left ventricular hypertrophy. LV ejection fraction, visually, is 60-65%. Normal pericardium without evidence of percardial effusion.ECHO 01/20/24:The left ventricle is not well visualized. Left ventricular function appears to be normal. Unable to comment on segmental wall motion abnormality. The mitral valve demonstrates normal leaflet morphology. Normal appearance and function of the aortic valve. Trival pericardial effusion. IVC not visualized.ECHO 11/19/23:Normal left ventricular systolic function. No focal wall motion abnormalities. Normal left ventricular size. Normal left ventricular wall thickness. Normal left ventricular diastolic function. Ejection fraction is visually estimated at 65-70 %. Ejection fraction is measured at 68 %. Normal right ventricular systolic function. Mild enlargement of right ventricle. There is moderate enlargement of left atrium. There is moderate enlargement of right atrium. Mild mitral valve regurgitation. Moderate pulmonary hypertension based on right ventricular systolic pressure. Estimated peak RVSP is 45 mmHg. Mild tricuspid regurgitation. Mild pulmonic regurgitation. Moderate pericardial effusion. 1.9 cm predominantly posterior pericardial effusion. There is some respiratory variation seen in the tricuspid and mitral valve inflow patterns and some right atrial free wall invagination consistent with elevated pericardial pressures. Enlargement of the pulmonary artery. Marked bradycardia with heart rates in the low 40s throughout the study. STRESS 11/26/23:Submaximal Treadmill stress test is negative for ischemia by EKG criteria at 52 % of maximum age predicted heart rate. Very poor exercise capacity for patient's age. No ischemic changes were seen but patient only achieved 52% of maximum predicted heart rate. Heart rate did increase from 53 beats per minute up to 86 beats per minute during the 45 seconds of exercise that she was able to perform. Forrest Smith MD Attn: Accounting[address] [place], [address], [facility] 11/11/2024 14:43:45 11/29/2024 text/html states that she is doing good the asthma and the anxiety is under control the insomnia is under cotnrol the thyroid is stable taking her meds as directred. Fernando Lujan MD Attn: Accounting[address] [place], [address], [facility] 11/29/2024 12:12:55 01/03/2025 text/html states that she has a sinus infection and cough over the past week. taking z pack and medrol dose pack the asthma is not under control the anxiety and hte b12 i chad ocntrl hte gerd is under control the migraines are under control Fernando Lujan MD Attn: Accounting[address] [place], [address], [facility] 01/03/2025 19:24:21 01/12/2025 text/html states that the sinuses are bad and bad the bs are stable the depressoin adn the anxiety is under control the gerd is under control Fernando Lujan MD Attn: Accounting[address] [place], [address], [facility] 01/12/2025 16:04:15 OBGyn Episode No OBEpisode recorded.
--- OUTSIDE RECORDS SUMMARY | 2025-03-01 13:27 | XMS_ITS | Encounter Summary ---
Author Organization [facility] Facility Care Team Providers Care Breaker Oiler Name Role Phone Maury Knott MD Unavailable [phone] Xavier Villegas MD Unavailable [phone] Tenisha Mahmood MD Unavailable [phone] Janey Hooper MD Primary Care Provider [phone] Benson London MD Unavailable [phone] Ronit Melvin MD Unavailable [phone] Fernando Lujan MD Primary Care Provider [phone] Encounter Details Date Type Department Care Team (Latest Contact Info) Description 12/26/2014 Orders Only [facility] CLINCONV ProviderRomelia MD [address] [place] [address] Social History Tobacco Use Types Packs/Day Years Used Date Smoking Tobacco: Never Comments Unknown Sex and Gender Information Value Date Recorded Sex Assigned at Not on file Legal Sex Female 12:10 PM CANDY CUTTER HAND Gender Identity Female 02/11/2020 4:38 AM CDT Sexual Orientation Straight 02/11/2020 4: 38 AM CDT documented as of this encounter Plan of Treatment Not on file documented as of this encounter Procedures Procedure Name Priority Date/Time Associated Diagnosis Comments PROCEDURE - RESULT 09/12/2016 12 :00 AM C[place] CUTTER HAND documented in this encounter Results * PROCEDURE - RESULT (09/12/2016 12:00 AM CANDY CUTTER HAND) Narrative 09/12/2016 12:00 AM CANDY CUTTER HAND Ordered by an unspecified provider. us Historical Provider Final Res ult documented in this encounter Visit Diagnoses Not on filedocumented in this encounter Additional Health Concerns Infection Onset Date Last Indicated Resolved Time MRSA Comment:2012 in hospital 12/29/2012 12/28/2012 04/04/2021 5:00 AM CDT COVID: Suspected 02/24/2020 02/24/2020 2020 3:07 AM CDT COVID: Suspected 07/24/2020 08/04/2020 08/18/2020 3:05 AM C[place]Y CUTTER HAND COVID: Suspected 05/16/2021 05/16/2021 05/17/2021 2:59 AM CDT COVID: Suspected 08/15/2021 08/20/2021 08/21/2021 12:42 AM CANDY CUTTER HAND COVID: Suspected 07/27/2022 07/27/2022 07/27/2022 7:42 PM CANDY CUTTER HAND documented as of this encounter Care Teams Breaker Oiler Relationship Specialty Start Date End Date aJney Hooper MD [address] [place] [address] PCP - General Internal Medicine 04/12/19 10/11/20 Fernando Lujan MD [address] [facility] [address] [place] [address] [id number] PCP - General Family Medicine 05/02/23 Maury Knott MD [address] [facility] [address] [address] Consulting Physician Cardiology 01/24/19 Xavier Villegas MD [address] [facility] [address] [place] [address] Consulting Physician Pulmonary Disease 04/12/19 Tenisha Mahmood MD [address] [facility] [address] [place] [address] Referring Physician Dermatology 04/12/19 Benson London MD [address] [place] [address] Consulting Physician Urology 10/18/19 Ronit Melvin MD [address] [place] [address] Referring Physician Gynecology 10/18/19 documented as of this encounter
--- OUTSIDE RECORDS SUMMARY | 2025-03-01 13:27 | XMS_ITS | Encounter Summary ---
Author Organization [facility] Facility Care Team Providers Care Neonatal Nurse Name Role Phone Maury Knott MD Unavailable [phone] Xavier Villegas MD Unavailable [phone] Tenisha Mahmood MD Unavailable Janey Hooper MD Primary Care Provider [phone] Benson London MD Unavailable [phone] Ronit Melvin MD Unavailable [phone] Fernando Lujan MD Primary Care Provider [phone] Encounter Details Date Type Department Care Team (Latest Contact Info) Description 05/16/2016 Orders Only [facility] CLINCONV ProviderRomelia MD [address] [place] [address] Social History Tobacco Use Types Packs/Day Years Used Date Smoking Tobacco: Never Comments Unknown Sex and Gender Information Value Date Recorded Sex Assigned at Not on file Legal Sex Female 12:10 PM 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 us Historical Provider Final Res ult documented in this encounter Visit Diagnoses Not on filedocumented in this encounter Additional Health Concerns Infection Onset Date Last Indicated Resolved Time MRSA Comment:2012 in hospital 12/29/2012 12/28/2012 04/04/2021 5:00 AM CDT COVID: Suspected 02/24/2020 02/24/2020 2020 3:07 AM CDT COVID: Suspected 07/24/2020 08/04/2020 08/18/2020 3:05 AM SWEEPER DRIVER COVID: Suspected 05/16/2021 05/16/2021 05/17/2021 2:59 AM CDT COVID: Suspected 08/15/2021 08/20/2021 08/21/2021 12:42 AM SWEEPER DRIVER COVID: Suspected 07/27/2022 07/27/2022 07/27/2022 7:42 PM SWEEPER DRIVER documented as of this encounter Care Teams Neonatal Nurse Relationship Specialty Start Date End Date Janey Hooper MD [address] [place] [address] PCP - General Internal Medicine 04/12/19 10/11/20 Fernando Lujan MD [address] [facility] [address] [place] [address] [id number] PCP - General Family Medicine 05/02/23 Maury Knott MD [address] [facility] [address] [address] Consulting Physician Cardiology 01/24/19 Xavier Villegas MD [address] [facility] [address] [place] [address] Consulting Physician Pulmonary Disease 04/12/19 Tenisha Mahmood MD [address] [facility] [address] [place] [address] Referring Physician Dermatology 04/12/19 Benson London MD [address] [address] Consulting Physician Urology 10/18/19 Ronit Melvin MD [address] [place] [address] Referring Physician Gynecology 10/18/19 documented as of this encounter
--- OUTSIDE RECORDS SUMMARY | 2025-03-01 13:27 | XMS_ITS | Encounter Summary ---
Author Organization [facility] Facility Care Team Providers Care Cloth Dyer Name Role Phone Maury Knott MD Unavailable [phone] Xavier Villegas MD Unavailable [phone] Tenisha Mahmood MD Unavailable [phone] Janey Hooper MD Primary Care Provider [phone] Benson London MD Unavailable [phone] Ronit Melvin MD Unavailable [phone] Fernando Lujan MD Primary Care Provider [phone] Encounter Details Date Type Department Care Team (Latest Contact Info) Description 11/06/2018 Orders Only [facility] CLINCONV ProviderRomelia MD [address] [place] [address] Social History Tobacco Use Types Packs/Day Years Used Date Smoking Tobacco: Never Comments Unknown Sex and Gender Information Value Date Recorded Sex Assigned at Not on file Legal Sex Female 12:10 PM TOOTH CUTTER PINION Gender Identity Female 02/11/2020 4:38 AM CDT Sexual Orientation Straight 02/11/2020 4: 38 AM CDT documented as of this encounter Plan of Treatment Not on file documented as of this encounter Procedures Procedure Name Priority Date/Time Associated Diagnosis Comments PROCEDURE - RESULT 11/06/2018 12 :00 AM CDT documented in this encounter Results * PROCEDURE - RESULT (11/06/2018 12:00 AM CDT) Narrative 11/06/2018 12:00 AM CDT Ordered by an unspecified provider. us Historical Provider Final Res ult documented in this encounter Visit Diagnoses Not on filedocumented in this encounter Additional Health Concerns Infection Onset Date Last Indicated Resolved Time MRSA Comment:2012 in hospital 12/29/2012 12/28/2012 04/04/2021 5:00 AM CDT COVID: Suspected 02/24/2020 02/24/2020 2020 3:07 AM CDT COVID: Suspected 07/24/2020 08/04/2020 08/18/2020 3:05 AM TOOTH CUTTER PINION COVID: Suspected 05/16/2021 05/16/2021 05/17/2021 2:59 AM CDT COVID: Suspected 08/15/2021 08/20/2021 08/21/2021 12:42 AM TOOTH CUTTER PINION COVID: Suspected 07/27/2022 07/27/2022 07/27/2022 7:42 PM TOOTH CUTTER PINION documented as of this encounter Care Teams Cloth Dyer Relationship Specialty Start Date End Date Janey Hooper MD [address] [place] [address] PCP - General Internal Medicine 04/12/19 10/11/20 Fernando Lujan MD [address] [facility] [address] [place] [address] [id number] PCP - General Family Medicine 05/02/23 Maury Knott MD [address] [facility] [address] [address] Consulting Physician Cardiology 01/24/19 Xavier Villegas MD [address] [facility] [address] [place] [address] Consulting Physician Pulmonary Disease 04/12/19 Tenisha Mahmood MD [address] [facility] [address] [place] [address] Referring Physician Dermatology 04/12/19 Benson London MD [address] [address] Consulting Physician Urology 10/18/19 Ronit Melvin MD [address] [place] [address] Referring Physician Gynecology 10/18/19 documented as of this encounter
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
--- OUTSIDE RECORDS SUMMARY | 2025-03-01 13:28 | XMS_ITS | Clinical Summary ---
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 Role Phone Fernando Lujan MD Primary Care Provider [phone] Allergies Active Allergy Reactions Criticality Noted Date Comments Amoxicillin-Pot Clavulanate Diarrhea,GI Upset 05/21/2021 Lamotrigine Rash Medium 01/14/2018 rash Methylprednisolone Other (see comment),Unknown 05/21/2021 Pt states made him go into dk Per Pt can not take Per Pt can not take Nitrofurantoin Headache,Nausea Only Low 09/10/2019 Rizatriptan Rash,Unknown Medium 09/25/2011 Other reaction(s): Rash Rash rash Tamsulosin Diarrhea,Dizzines s,Unknown Low 10/18/2019 diarrhea Tape Other (see comment),Rash Medium 11/24/2018 Scarring with ECG adhesive pads rash Tetracycline Rash,Unknown Low 09/13/2022 Tetracyclines & Related Rash Medium 09/25/2011 rash Zolpidem Anxiety,Chest pressure,Other (see comment),Palpitat ions High 05/29/2022 Severe palpataions Medications ustekinumab (STELARA) 90 MG/ML injection Inject 1 mL (90 mg total) into the skin every 3 (three) months. 2 Active Probiotic Product (ACIDOPHILUS/GO AT MILK) Cap Take 1 capsule by mouth daily. Active pravastatin (PRAVACHOL) 20 MG tablet Take 1 tablet (20 mg total) by mouth daily. 2 Active OXcarbazepine (TRILEPTAL) 150 MG tablet Take 1 tab in the morning, 2 at night 2 Active montelukast (SINGULAIR) 10 MG tablet Take 1 tablet (10 mg total) by mouth daily. 2 Active methylnaltrexon e (RELISTOR) 12 MG/0.6ML Solution as needed. For migraines 2 Active methotrexate (TREXALL) 2.5 MG tablet Take 2 tablets (5 mg total) by mouth once a week. 2 Active Melatonin 5 MG Cap Take 5 mg by mouth nightly. Active lithium CR (LITHOBID) 450 MG tablet Take 1 tablet (450 mg total) by mouth daily. 2 Active ibuprofen (MOTRIN) 800 MG tablet Take 1 tablet (800 mg total) by mouth every 6 (six) hours as needed. 2 Active fluconazole (DIFLUCAN) 200 MG tablet TAKE 1 TABLET BY MOUTH EVERY OTHER WEEK DIRECTED 3 Active Eszopiclone 3 MG Tab Take 3 mg by mouth nightly at bedtime. 2 Active Estradiol 10 MCG vaginal tablet INSERT 1 TABLET VIA VAGINAL ROUTE TWICE A WEEK 2 Active Estradiol [address] 1 g vaginally 2 (two) times a week. Active Erenumab-aooe (AIMOVIG) 140 MG/ML Solution Auto-injector Inject 140 mg into the skin every 30 (thirty) days. 2 Active diazePAM (VALIUM) 5 MG tablet Take 0.5 tablets (2.5 mg total) by mouth 2 (two) times daily as needed. 3 Active baclofen (LIORESAL) 20 MG tablet Take 1 tablet (20 mg total) by mouth 3 (three) times daily. 2 Active aspirin EC (ECOTRIN) 81 MG tablet Take 1 tablet (81 mg total) by mouth daily. Active albuterol sulfate HFA 108 (90 Base) MCG/ACT inhaler Inhale 2 puffs into the lungs as needed. 2 Active FLUoxetine (PROZAC) 40 MG capsule Take 1 capsule (40 mg total) by mouth every morning. 3 Active fluticasone propionate (FLONASE) 50 MCG/ACT nasal spray SHAKE LIQUID AND USE 1 TO 2 SPRAYS IN EACH NOSTRIL TWICE DAILY 3 Active TRELEGY ELLIPTA 100-62.5-25 MCG/ACT AEROSOL POWDER, BREATH ACTIVATED Inhale 1 puff into the lungs daily. 3 Active folic acid (FOLVITE) 1 MG tablet Take 1 tablet (1 mg total) by mouth daily. 3 Active SYNTHROID 100 MCG tablet Take 1 tablet (100 mcg total) by mouth every morning. 3 Active meclizine (ANTIVERT) 25 MG tablet 1 tablet (25 mg total) 3 (three) times daily as needed. 3 Active midodrine (PROAMATINE) 2.5 MG tablet Take 1 tablet (2.5 mg total) by mouth 3 (three) times daily. 3 Active omeprazole (PRILOSEC) 40 MG capsule Take 1 capsule (40 mg total) by mouth 2 (two) times daily. 3 Active oxybutynin XL (DITROPAN-XL) 5 MG 24 hr tablet Take 2.5 mg by mouth 2 (two) times daily. 3 Active oxyCODONE-aceta minophen (PERCOCET) 7.5-325 MG tablet Take 1 tablet by mouth every 12 (twelve) hours. 3 Active pantoprazole EC (PROTONIX) 40 MG tablet Take 1 tablet (40 mg total) by mouth daily. 3 Active vitamin C (ASCORBIC ACID) 500 MG Chew Tab chewable tablet Chew 2 tablets (1,000 mg total) by mouth daily. Active Cholecalciferol 250 MCG (04343 UT) Tab Take 10,000 Units by mouth. Active Magnesium 400 MG Tab Active naloxone (NARCAN) 4 MG/0.1ML nasal spray Narcan 4 mg/actuation nasal spray Active Active Problems Problem Noted Date Diagnosed Date Adrenal insufficiency (HHS/HCC) 12/30/2022 Encounters Date Type Department Care Team Description 02/19/2025 9:19 AM CDT - 02/19/2025 4:28 PM CDT Emergency [facility] [place] [address] Tanika Noland PA Calf Pain Discharge Disposition: Home or Self Care (Routine Discharge) 02/19/2025 Travel from Last 3 Months Immunizations Immunization Administration Dates Next Due ASTRAZENECA COVID-19 vaccine , vector-nr, rS-ChAdOx1, PF, 0.5 mL 10/23/2020 Influenza (Generic) 06/14/2021,05/10/2020,2014 Influenza Adult (Generic) 05/14/2022,06/2019,06/03/2018,2016,05/08/2016 MODERNA COVID-19 (12+) MRNA, LNP-S, PF, 100 MCG/ 0.5 ML DOSE 08/25/2021 Pneumococcal (Pneumovax 23) 04/12/2013, 3 Pneumococcal (Prevnar 13) 2015 Tdap (Generic) 12/19/2020,04/12/2013,08/18/2001 Family History Medical History Relation Comments Alcohol Abuse Brother 1 Cataract Brother 1 Heart Disease Brother 1 Hypertension Brother 1 automatic implantable cardiac defibrillator Brot her 1 Cancer Brother 2 lung cancer Cancer Father colon Depression Father Gout Father Kidney Disease Father Cancer Mother gallbladder Heart Disease Mother Thyroid Mother pacemaker Mother Alcohol Abuse Sister Heart Disease Sister Hypertension Sister Thyroid Sister hypercholesterolemia Sister Relation Status Comments Brother 1 Alive Brother 2 Alive Father Mother Sister Alive Social History Tobacco Use Types Packs/Day Years Used Date Smoking Tobacco: Never Smokeless Tobacco: Never Alcohol Use Standard Drinks/Week Comments Not Currently 0 (1 standard drink = 0.6 oz pur e alcohol) PHQ-2 Answer Date Recorded Patient Health Questionnaire-2 Score 2 12/30/2022 Comments Unknown Sex and Gender Information Value Date Recorded Sex Assigned at Female 02/03/2025 3:25 PM CDT Legal Sex Female 7:06 PM CDT Gender Identity Not on file Sexual Orientation Not on file Last Filed Vital Signs Vital Sign Reading Time Taken Comments Blood Pressure 137/94 02/19/2025 4:11 PM CDT Pulse 59 02/19/2025 4:11 PM CDT Temperature 36.8 C (98.2 F) 02/19/2025 4:11 PM CDT Respiratory Rate 18 02/19/2025 4:11 PM CDT Oxygen Saturation 100% 02/19/2025 4:11 PM CDT Inhaled Oxygen Concentration - - Weight 110.7 kg (244 lb) 02/19/2025 9:17 AM CDT Height 180.3 cm (5' 11) 02/19/2025 9:17 AM CDT Body Mass Index 34.03 02/19/2025 9:17 AM CDT Plan of Treatment Health Maintenance Due Date Last Done Comments Colorectal Cancer Screening Colonoscopy (10 Years) 1968 Annual Physical 1971 Hepatitis C 1986 Hepatitis B Vaccines (1 of 3 - 19+ 3-dose series) 1987 Mammogram Screening 2008 COVID-19 Vaccine (2023- season) 2024 06/10/2022, 08/25/2021, 10/23/2020, Additional history exists PHQ-2 (Physician [place]) 08/18/2024 DTaP, Tdap and Td Vaccines (4 - Td or Tdap) 12/19/2030 12/19/2020, 04/12/2013, 08/18/2001 Pneumococcal Vaccine: 50+ Years Completed 06/30/2023, 2015, 04/12/2013, Additional history exists Zoster Vaccines Completed 01/09/2024, 04/2024, 09/26/2023 Meningococcal B Vaccine Aged Out No l onger eligible based on patient's age to complete this topic Meningococcal Vaccine Aged Out No rochelle moe eligible based on patient's age to complete this topic RSV Immunizations Under 20 Months Aged Out No longer eligible based on patient's age to complete this topic Procedures Procedure Name Priority Date/Time Associated Diagnosis Comments CBC W/DIFF AUTOMATED STAT 02/19/2025 1:45 PM CDT THYROID STIM HORMONE TSH STAT 02/19/2025 10:24 AM CDT TROPONIN, QUANT STAT 02/19/2025 10:24 AM CDT COMPREHENSIVE METABOLIC PANEL STAT 02/19/2025 10:24 AM CDT D-DIMER, QUANTITATIVE STAT 02/19/2025 9:36 AM CDT PROTHROMBIN TIME, VENOUS STAT 02/19/2025 9:36 AM CDT from Last 3 Months Results * (ABNORMAL) CBC W/DIFF AUTOMATED (02/19/2025 1:45 PM CDT) [facility] Signature WBC 8.04 4.5 - 11.0 x10'3/uL 02/19/2025 2:03 PM CDT [facility] RBC 5.24 4.20 - 5.40 x10'6/uL 02/19/2025 2:03 PM CDT [facility] HGB 15.2 12.0 - 16.0 G/DL 02/19/2025 2:03 PM CDT [facility] HCT 47.9 38.0 - 48.0 % 02/19/2025 2:03 PM CDT [facility] MCV 91.4 81.0 - 99.0 FL 02/19/2025 2:03 PM CDT [facility] MCH 29.0 27.0 - 31.0 PG 02/19/2025 2:03 PM CDT [facility] MCHC 31.7(L) 32.0 - 36.0 G/DL 02/19/2025 2:03 PM CDT [facility] RDW 15.9(H) 11.5 - 14.5 % 02/19/2025 2:03 PM CDT [facility] PLT 326 130 - 400 x10'3/uL 02/19/2025 2:03 PM CDT [facility] MPV 9.5 9.3 - 12.2 FL 02/19/2025 2:03 PM CDT [facility] DIFFERENTIAL TYPE AUTOMATED DIFFERENTIAL 02/19/2025 2:03 PM CDT [facility] NEUTROPHILS % 53.5 % 02/19/2025 2:03 PM CDT [facility] LYMPHOCYTES % 31.1 % 02/19/2025 2:03 PM CDT [facility] MONOCYTES % 10.2 % 02/19/2025 2:03 PM CDT [facility] EOSINOPHILS 4.1 % 02/19/2025 2:03 PM CDT [facility] BASOPHILS 1.0 % 02/19/2025 2:03 PM CDT [facility] IMMATURE GRANS % 0.1 % 02/20/20 2:03 PM CDT [facility] ABS. NEUTROPHILS 4.30 1.80 - 7.70 x10'3/uL 02/19/2025 2:03 PM CDT [facility] ABS. LYMPHOCYTES 2.50 1.00 - 4.80 x10'3/uL 02/19/2025 2:03 PM CDT [facility] ABS. MONOCYTES 0.82 0.24 - 0.86 x10'3/uL 02/19/2025 2:03 PM CDT [facility] ABS. EOSINOPHILS 0.33 0.04 - 0.36 x10'3/uL 02/19/2025 2:03 PM CDT [facility] ABS. BASOPHILS 0.08 0.01 - 0.08 x10'3/uL 02/19/2025 2:03 PM CDT [facility] ABS. IMMATURE GRANULOCYTES 0.01 0.00 - 0.49 x10'3/uL 02/19/2025 2:03 PM CDT [facility] 02/19/2025 1:45 PM CDT us González Hanks NP LABORATORY Final Result [facility] [address] [place] [address], [place] [phone] * (ABNORMAL) COMPREHENSIVE METABOLIC PANEL (02/19/2025 10:24 AM CDT) [facility] Signature GLUCOSE 109(H) 70 - 99 MG/DL 02/19/2025 11:20 AM CDT [facility] BUN 24(H) 7 - 18 MG/DL 02/19/2025 11:20 AM CDT [facility] CREATININE S/P/B 1.33(H) 0.55 - 1.02 MG/DL 02/19/2025 11:20 AM CDT [facility] SODIUM S/P/B 140 136 - 145 MMOL/L 02/19/2025 11:20 AM CDT [facility] POTASSIUM S/P/B 4.3 3.5 - 5.1 MMOL/L 02/19/2025 11:20 AM CDT [facility] CHLORIDE S/P/B 112 97 - 115 MMOL/L 02/19/2025 11:20 AM CDT [facility] CO2 25.7 21 - 32 MMOL/L 02/19/2025 11:20 AM CDT [facility] CALCIUM S/P/B 9.9 8.5 - 10.1 MG/DL 02/19/2025 11:20 AM CDT [facility] BILIRUBIN TOTAL S/P/B 0.3 0.2 - 1.2 MG/DL 02/19/2025 11:20 AM CDT [facility] Comment: THIS ASSAY IS NOT RECOMMENDED FOR PATIENTS UNDERGOING TREATMENT WITH ELTROMBOPAG DUE TO THE POTENTIAL FOR FALSELY ELEVATED RESULTS. TOTAL PROTEIN S/P/B 7.3 6.4 - 8.2 G/DL 02/19/2025 11:20 AM CDT [facility] ALBUMIN S/P/B 3.9 3.4 - 5.0 G/DL 02/19/2025 11:20 AM CDT [facility] AST 14(L) 15 - 37 U/L 02/19/2025 11:20 AM CDT [facility] ALT 20 14 - 55 U/L 02/19/2025 11:20 AM CDT [facility] ALKALINE PHOSPHATASE S/P/B 84 50 - 136 U/L 02/19/2025 11:20 AM CDT [facility] ANION GAP 2.3 2 - 10 MMOL/L 02/19/2025 11:20 AM CDT [facility] BUN CREATININE RATIO 18.0 6 - 26 02/19/2025 11:20 AM CDT [facility] A/G RATIO 1.1 1.0 - 2.0 RATIO 02/19/2025 11:20 AM CDT [facility] GFR ESTIMATE 47(L) >90 ML/MIN/1.7 3 M2 02/19/2025 11:20 AM CDT [facility] Comment: NOTE: eGFR is not calculated for patients <18 years of age or gender unknown. This is an estimated GFR calculation using the new CKD EPI creatinine equation without race and so does not require a correction factor for race. This estimated GFR should not be used for calculating drug doses. 02/19/2025 10:2 4 AM CDT González Hanks NP LABORATORY Final Result [facility] [address] [place] [address], * TROPONIN, QUANT (02/19/2025 10:24 AM CDT) TROPONIN I HIGH SENSITIVITY 6 <54 ng/L 02/19/2025 11:20 AM CDT [facility] Comment: HIGH DOSES OF BIOTIN, TROPONIN-SPECIFIC AUTOANTIBODIES, AND ANTIBODY THERAPY CONTAINING HAMA MAY INTERFERE WITH THIS TEST RESULT. CORRELATION TO CLINICAL HISTORY AND PRESENTATION RECOMMENDED. 02/19/2025 10:2 4 AM CDT González Hanks NP LABORATORY Final Result Performing Organization Address [facility] Co de Phone Number [facility] [address] [place] [address], [place] [phone] * THYROID STIM HORMONE TSH (02/19/2025 10:24 AM CDT) TSH 2.130 0.358 - 3.74 uIU/ML 02/19/2025 11:20 AM CDT [facility] Comment: HIGH DOSES OF BIOTIN MAY INTERFERE WITH THIS TEST RESULT. CORRELATION TO CLINICAL HISTORY AND PRESENTATION RECOMMENDED. 02/19/2025 10:2 4 AM CDT González Hanks NP LABORATORY Final Result Performing Organization Address [facility] Co de Phone Number [facility] [address] [place] [address], [place] [phone] * (ABNORMAL) PROTIME/INR, VENOUS (02/19/2025 9:36 AM CDT) PROTIME 10.0(L) 10.2 - 12.9 SEC 02/19/2025 10:17 AM CDT [facility] INR 0.9 02/19/2025 10:17 AM CDT [facility] Comment: Recommended INR Therapeutic Goals: 2.0-3.0 Routine Therapy 2.5-3.5 Mechanical Prosthetic Valves (High Risk) 02/19/2025 9:36 AM CDT González Hanks IC [employer] LABORATORY Final Result Performing Organization Address [facility] Co de Phone Number [facility] [address] [place] [address], * D-DIMER, QUANTITATIVE (02/19/2025 9:36 AM CDT) D-DIMER 264 0 - 500 ng{FEU}/mL 02/19/2025 10:17 AM CDT [facility] Comment: D-Dimer values less than or equal to 500 ng/mL FEU have a negative predictive value of >95% for exclusion of deep vein thrombosis and pulmonary embolism. In patients over 50 (who tend to have higher normal baseline D-Dimer values), recent studies suggest age-adjusted D-Dimer cutoff values (calculated as: age [years] x 10 ng/mL) result in equivalent outcomes and no additional false negative findings. 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
--- OUTSIDE RECORDS SUMMARY | 2025-03-01 13:28 | XMS_ITS | Clinical Summary ---
Author Organization [facility] Address [address] [place] [address] Care Team Providers Care Diesel Mechanic Name Role Phone Fernando Lujan MD Primary Care Provider [phone] Source Comments [facility],non-owned Affiliates and Associated Physician Practices is amultiple site organization consisting of ambulatory clinics and hospital sitesin [place], [place], [place] and [place]. This disclosure is being madepursuant to the Care Everywhere program and may not contain all information available regarding this patient. Last updated 18.[facility] Allergies Active Allergy Reactions Criticality Noted Date Comments Adhesive Sensitivity Rash Medium 04/03/2020 Ciprofloxacin Other 05/21/2023 Trembles Lamotrigine Rash Medium 01/14/2018 Rizatriptan Benzoate Rash Medium 01/14/2018 Methylprednisolone Unknown 05/21/2021 Per Pt can not take Sodium Thiosalicylate Hepatic Injury High 09/18/2022 Rizatriptan Unknown 09/25/2011 Other reaction(s): Rash Rash Tamsulosin Diarrhea,Dizziness Low 10/18/2019 diarrhea Tetracyclines Rash Medium 01/14/2018 Bupropion Dizziness 09/18/2022 Medications * Be aware that medications may not be up to date on this document. Alwaysverify current medications with the patient. SYMBICORT 160-4.5 MCG/ACT inhaler Inhale 2 (two) puffs by mouth 2 times daily 018 Active montelukast (SINGULAIR) 10 MG tablet Take 1 (one) tablet by mouth at bedtime Active omeprazole (PRILOSEC) 40 MG capsule Take 1 (one) capsule by mouth 2 times daily, before breakfast and supper Active pravastatin (PRAVACHOL) 20 MG tablet Take 1 (one) tablet by mouth at bedtime Active venlafaxine XR 24hr (EFFEXOR XR) 150 MG capsule Take 1 capsule by mouth once daily Active zolpidem (AMBIEN) 10 MG tablet Take 5 mg by mouth at bedtime Active clonazePAM (KLONOPIN) 0.5 MG tablet Take 2 tablets by mouth at bedtime Active estradiol (ESTRACE) 0.1 MG/GM vaginal cream Insert 1 g into the vagina Two times a week Active vilazodone (VIIBRYD) 20 MG tablet Take 20 mg by mouth once daily Active fluticasone propionate (FLONASE) 50 MCG/ACT nasal spray [place] 1 spray into each nostril once daily Active melatonin 5 MG capsule Take 1 (one) capsule by mouth at bedtime Active oxyCODONE, immediate release, (ROXICODONE) 5 MG tablet Take 1 (one) tablet by mouth 2 times daily Active polyethylene glycol 3350 (MIRALAX) 17 GM/SCOOP powder Take 17 (seventeen) g by mouth once daily Active acetaminophen (TYLENOL) 500 MG tablet Take 1 (one) tablet by mouth every 8 hours Maximum allowable Acetaminophen amount = 4 Grams (4000 mg) / 24 hours. 16 tablet Active SYNTHROID 100 MCG tablet Take 1 (one) tablet by mouth every morning Active QUEtiapine (SEROQUEL) 100 MG tablet Take 100 mg by mouth at bedtime Active modafinil (PROVIGIL) 200 MG tablet Take 200 mg by mouth 2 times daily Active methocarbamol (ROBAXIN) 750 MG tablet Take 1 (one) tablet by mouth 4 times daily as needed after meals/at bedtime Active metFORMIN ER 24hr (GLUCOPHAGE XR) 500 MG tablet Take 1 (one) tablet by mouth daily with dinner Active lithium carbonate (ESKALITH) 150 MG capsule Take 1 (one) capsule by mouth 3 times daily Active diazePAM (VALIUM) 5 MG tablet Take 0.5 tablets by mouth 2 times daily as needed Active RESTASIS MULTIDOSE 0.05 % ophthalmic suspension Instill 1 drop into both eyes 2 times daily Active Fluocinolone Acetonide Scalp (DERMA-SMOOTHE /FS SCALP) 0.01 %Indications:O ther psoriasis Apply to scalp nightly and cover with a shower cap. 118.28 mL 2 Active Additional Information Patient not taking.Reported on 08/21/2022 VENTOLIN HFA 108 (90 Base) MCG/ACT inhaler Active aspirin EC (ECOTRIN) 81 MG tablet Take 1 (one) tablet by mouth once daily Active Budeson-Glycop yrrol-Formoter ol (BREZTRI AEROSPHERE) 160-9-4.8 MCG/ACT AERO INHALE 2 PUFFS TWICE DAILY AND RINSE MOUTH AFTER USE Active diazePAM (VALIUM) 5 MG tablet Take 0.5 tablets by mouth 2 times daily Active erenumab-aooe (AIMOVIG) 140 MG/ML auto injector pen Inject 1 mL subcutaneously Active eszopiclone (LUNESTA) 3 MG tablet Take 1 (one) tablet by mouth once daily Active ibuprofen (MOTRIN) 800 MG tablet Take 1 (one) tablet by mouth 3 times daily Active ipratropium (ATROVENT) 0.03 % nasal spray [place] 2 sprays into the nose 2 times daily Active RELISTOR 12 MG/0.6ML injection INJECT SUBCUTANEOUS ONCE DAILY Active [place]-3 1000 MG Take 2,000 mg by mouth 2 times daily Active Probiotic Product (PROBIOTIC ACIDOPHILUS [employer]) CAPS Take 1 capsule by mouth once daily Active propranolol (INDERAL) 20 MG tablet TAKE 1 TABLET(20 MG) BY MOUTH TWICE DAILY Active SUMAtriptan (IMITREX) 100 MG tablet Active clobetasol (Temovate) 0.05 % solutionIndica tions:Other psoriasis Apply to affected area on scalp twice daily as needed. Can put on a shower cap on after night time application & sleep in shower cap. 50 mL 5 022 Active Additional Information Patient not taking.Reported on 08/21/2022 baclofen (Lioresal) 20 MG tablet Take 1 (one) tablet by mouth 3 times daily 023 Active busPIRone (Buspar) 15 MG tablet Take 1 (one) tablet by mouth 2 times daily 023 Active estradiol (Vagifem) 10 MCG vaginal tablet 023 Active FLUoxetine (PROzac) 20 MG capsule TAKE 1 CAPSULE BY MOUTH EVERY DAY IN THE MORNING 023 Active Vascepa 1 g capsule Take 2 (two) capsules by mouth 2 times daily 023 Active OXcarbazepine (Trileptal) 150 MG tablet 023 Active oxybutynin CR 24hr (Ditropan-XL) 5 MG tablet 023 Active SUMAtriptan (Imitrex) 6 MG/0.5ML prefilled syringe Inject 6 (six) mg subcutaneously 023 Active botulinum toxin type A 100 units/1 ml (Botox) 100 UNIT injection Use 1 mL as instructed every 12 weeks Active Cholecalcifero l (Vitamin D3) 250 MCG (87942 UT) TABS Take 1 (one) tablet by mouth Two times a week Active ascorbic acid (VITAMIN C) 500 MG tablet Take 2 (two) tablets by mouth once daily Active Magnesium 400 MG Active docusate sodium (Colace) 100 MG capsule Take 1 (one) capsule by mouth once daily Active pantoprazole EC (Protonix) 40 MG tablet 2 times daily 023 Active oxyCODONE-acet aminophen (Percocet) 7.5-325 MG tablet Take 1 (one) tablet by mouth 2 times daily Active hydrocortisone (Hytone) 2.5 % ointmentIndica tions:Dermatit is Apply to affected areas on hands and face twice daily. 30 days supply. 30 g 3 023 Active ketoconazole (Nizoral) 2 % shampoo APPLY TO WET HAIR & LEAVE ON FOR 3 MIN THEN RINSE THREE TIMES A WEEK 120 mL 2 024 Active methotrexate 2.5 MG tabletIndicati ons:Other psoriasis Take 2 (two) tablets by mouth every 7 days 24 tablet 3 024 Active fluconazole (Diflucan) 200 MG tabletIndicati ons:Intertrigo TAKE 1 TABLET BY MOUTH EVERY OTHER WEEK DIRECTED 3 tablet 11 024 Active folic acid (Folvite) 1 MG tabletIndicati ons:Other psoriasis TAKE 1 TABLET BY MOUTH ONCE DAILY EXCEPT ON DAYS WHEN YOU TAKE METHOTREXATE. 80 tablet 3 025 Active Stelara 90 MG/ML prefilled syringeIndicat ions:Other psoriasis INJECT 90MG SUBCUTANEOUSLY EVERY 90 DAYS 1 mL 1 025 Active ustekinumab (Stelara) 90 MG/ML prefilled syringeIndicat ions:Other psoriasis INJECT 90MG SUBCUTANEOUSLY EVERY 90 DAYS 1 mL 1 024 2024 Discontinued Active Problems Problem Noted Date Diagnosed Date Vertigo 12/24/2021 Primary hypothyroidism 12/24/2021 Periorbital cellulitis of right eye 12/24/2021 Other bipolar disorder 12/24/2021 Mixed hyperlipidemia 09/17/2021 Hot flashes 05/21/2021 Primary insomnia 04/16/2021 Overview (04/24/2022): Last Assessment & Plan: The patient continues to use Lunesta 3 mg at bedtime. I did have a conversation regarding good sleep hygiene and cognitive behavioral therapy and sleep restriction therapy. Preseptal cellulitis 10/26/2020 Sinus pressure 09/13/2020 Overview (04/24/2022): Last Assessment & Plan: R/o covid- discussed need to isolate until results return If she develops sob she is instructed to go to the ER Likey sinusitis- Pt states zpak normally clears it up. Recommend ocean nasal spray, flonase otc and plenty of oral fluids nd rest Abdominal pain 06/06/2020 Overview (06/26/2020): Last Assessment & Plan: Could be IBS vs peptic ulcer/gastritis We will try charles also mentions eating 4 yogurts a day-because of the taste Will try OTC pepto bismol as well GI appointment in 06/20 Trochanteric bursitis of right hip 04/27/2020 Right thyroid nodule 04/25/2020 Overview (06/26/2020): 02/09/2020 Ultrasound: There is an ovoid hypoechoic nodule of the right lobe of the thyroid gland measuring 9.8 x 7.9 x 9.2 mm. Follow-up ultrasound recommended in 6 - 9 months. Due 10/2020 Last Assessment & Plan: Since patient cant drive for 6mos and thyroid is very small and simple appearing nodule, ff up in 6mos about october 2020 for ultrasound History of total hip arthroplasty 04/03/2020 Hip pain 04/03/2020 Osteoarthritis of hip 04/03/2020 Osteoarthrosis 04/03/2020 Localized, primary osteoarthritis of shoulder re gion 04/03/2020 Disorder of skin of trunk 04/03/2020 Preoperative clearance 03/31/2020 Current tear of medial cartilage or meniscus of knee 03/30/2020 Bradycardia 01/06/2020 Syncope and collapse 01/06/2020 Overview (04/03/2020): Last Assessment & Plan: Labs looking at lytes, mg tsh level, B12 (on omeprazole) Cbc, iron panel ekg today 24 hr holter Return to dr Knott soon for syncopal episode Patient has appt with psych re her psych meds and adjustments, am worried these meds are affecting her heart rhythm Call 911 or get to ER immed if has recurrence History of nephrolithiasis 10/18/2019 Overview (04/03/2020): Dr Vazquez, R distal ureter 09/2019 Last Assessment & Plan: Hydrate well Await ff up visit tomorrow with dr Vazquez Remain off flomax ( diarrhea ) Encounter for removal of sutures 09/20/2019 Enthesopathy of hip region 09/20/2019 Hyperlipidemia associated with type 2 diabetes vikash sims 08/05/2019 Overview (04/03/2020): Dr Knott, pravastatin therapy 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 Wear seatbelts while [...] at most major pharmacies without a prescription Intertrigo 03/30/2019 High risk medications (not anticoagulants) long- term use 03/30/2019 Obesity 01/22/2019 Medication management 12/28/2018 Migraine without aura and wi thout status migrainosus, not intractable 10/12/2018 Overview (04/03/2020): Dr Velazco managing on meds topamax Last Assessment & Plan: Cont under care of Dr Velazco, stable Peripheral vertigo of both ears 07/24/2018 Overview (04/03/2020): Seeing Dr. Ybarra and Dr Velazco Last Assessment & Plan: Cont on valium therapy. 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 Other psoriasis 06/11/2017 Gastroesophageal reflux disease without esophagi tis 04/10/2017 Overview (04/03/2020): Last Assessment & Plan: Check b12 level and iron level today Other allergic rhinitis 04/10/2017 Overview (04/03/2020): on xyzal Primary osteoarthritis of right knee 04/10/2017 Family history of colon cancer in father 017 Overview (04/03/2020): Father, COlonoscopy q 5 yrs, 12/07/2013 Had colon 11/2018 c Betts Lumbar degenerative disc disease 12/18/2016 Overview (04/03/2020): Dr Ernandez plans to do epidural injections late 01/2018 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 Report if develops problem swallowing or hoarseness Thyroid US TSH in 3 mos Major depressive disorder, single episode, moder ate 07/05/2016 Overview (04/03/2020): Worsened after her mother's in October of 2018 Patient sees counselors and Psychiatry. She is on Lexapro, trazodone and Viibryd. Last Assessment & Plan: Worsened after her mother's in October of this year. Patient sees counselors and Psychiatry. She is on Lexapro, trazodone and Viibryd. Continue care under specialist CHF (congestive heart failure) 07/03/2016 Overview (09/20/2019): History of in 2012. Follows with Dr. Knott. No recent signs of congestive heart failure Last Assessment & Plan: Follows with Dr. Knott. No recent signs of congestive heart failure Obstructive sleep apnea (adult) (pediatric) 10/2015 Type 2 diabetes mellitus wit hout complication, without long-term current use of insulin 05/20/2016 Overview (04/03/2020): Well controlled Diabetic on metformin 500 mg b.i.d. Last Assessment & Plan: Controlled Cont same regimen Monitor a1c Ff diabetic diet B12 deficiency anemia 03/12/2016 Overview (09/20/2019): monthly b12 injections Last Assessment & Plan: Cont monthly injections B12 deficiency anemia 03/12/2016 Overview (04/03/2020): Bi monthly b12 injections Last Assessment & Plan: Cont on bi-monthly b12 injections Status post right hip replacement 03/12/2016 Other chronic allergic conjunctivitis 01/08/2007 Pain in limb 12/29/2006 Resolved Problems Problem Noted Date Diagnosed Date Resolved Date Pneumonia 04/03/2020 05/01/2020 Encounters Date Type Department Care Team Description 02/01/2025 Travel 01/29/2025 Refill [facility] - Dermatology [address] [place] [phone] Vikash Mahmood MD Refill Request 12/28/2024 Refill [facility]ermatology [address] [place] [phone] Serina Redd MD Refill Request from Last 3 Months Immunizations Immunization Administration Dates Next Due INFLUENZA VACCINE, TRIV. (AF LURIA, FLUZONE TRIVALENT; 6MO+) (IIV3) 05/23/2015 FLU VACCINE QUAD IIV4 SPLIT 0.25 ML IM 8,05/21/2017,05/08/2016 INFLUENZA VACCINE 05/07/2022,06/14/2021,05/10/20 20 INFLUENZA VACCINE, QUADR. (F LUZONE; FLULAVAL; FLUARIX; AFLURIA QUADRIVALENT; 6MO+), 0.5 ML (IIV4) 05/28/2019 PNEUMOCOCCAL PPSV23 04/12/2013,08/18/2012 Pneumococcal Pcv13 Conj 2015 TDAP (7yrs+) 12/19/2020,04/12/2013,08/18/2001 Family History Medical History Relation Name Comments None Known Brother None Known Father None Known Maternal Aunt None Known Maternal Grandfather None Known Maternal Grandmother None Known Maternal Uncle None Known Mother None Known Other None Known Paternal Aunt None Known Paternal Grandfather None Known Paternal Grandmother None Known Paternal Uncle None Known Sister Asthma Neg Hx CVA Neg Hx Cancer - Breast Neg Hx Cancer - Other Neg Hx Cancer - Skin, Melanoma Neg Hx Cancer - Skin, Non Melanoma Neg Hx Eczema Neg Hx Hemophilia Neg Hx Psoriasis Neg Hx Relation Name Status Comments Brother Father Maternal Aunt Maternal Grandfather Maternal Grandmother Maternal Uncle Mother Other Paternal Aunt Paternal Grandfather Paternal Grandmother Paternal Uncle Sister Social History Tobacco Use Types Packs/Day Years Used Date Smoking Tobacco: Never Smokeless Tobacco: Never Tobacco Cessation:Counseling Given: Not Answered Alcohol Use Standard Drinks/Week Comments No 0 (1 standard drink = 0.6 oz pur e alcohol) Comments Unknown Sex and Gender Information Value Date Recorded Sex Assigned at Female 12/03/2022 4:18 PM CDT Legal Sex Female 5:51 AM VESSEL BUILDER Gender Identity Female 12/03/2022 4:18 PM CDT Sexual Orientation Straight 12/03/2022 4: 18 PM CDT Last Filed Vital Signs Vital Sign Reading Time Taken Comments Blood Pressure 130/83 09/18/2022 11:27 AM VESSEL BUILDER Pulse 58 09/18/2022 11:27 AM VESSEL BUILDER Temperature 36.7 C (98.1 F) 09/18/2022 11:27 AM VESSEL BUILDER Respiratory Rate 18 10/29/2020 11:47 AM CDT Oxygen Saturation 98% 09/18/2022 11:27 AM VESSEL BUILDER Inhaled Oxygen Concentration - - Weight 117.9 kg (260 lb) 09/18/2022 11:27 AM VESSEL BUILDER Height 180.3 cm (5' 11) 09/18/2022 11:27 AM VESSEL BUILDER Body Mass Index 36.26 09/18/2022 11:27 AM VESSEL BUILDER Plan of Treatment Upcoming Encounters Date Type Department Care Team (Late st Contact Info) Description 03/21/2025 9:50 AM CDT Office Visit [facility] - Dermatology [address] [place] [phone] Vikash Mahmood MD [address] [place] [address] 05/10/2025 11:10 AM CDT Office Visit [facility] [address] [place] [phone] Ebony Odonnell MD [address] [place] [address] Health Maintenance Due Date Last Done Comments COLOGUARD (AGES 45-75) - COLON CA SCREENING 1968 COLON MONITORING 1968 COLONOSCOPY - COLON CA SCREENING 1968 CT COLONOGRAPHY - COLON CA SCREENING 1968 Colorectal Cancer Screening 1968 FIT - COLON CA SCREENING 1968 FLEX SIG - COLON CA SCREENING 1968 MAMMOGRAM 1968 MEDICARE AWV 12 MONTHS 1968 HIV SCREENING 1983 HEPATITIS B VACCINE (1 of 3 - 19+ 3-dose series) 1987 PAP SMEAR 1989 ZOSTER VACCINE (1 of 2) 2018 PNEUMOCOCCAL VACCINE 50+ (3 of 3 - PCV20 or PCV21) 2020 2015, 04/12/2013, 08/18/2012 DIABETES-FOOT EXAM WITH MONOFILAMENT 04/03/2020 DIABETES-HGB A1C 10/15/2020 04/17/2020, , 10/15/2019, Additional history exists DIABETES RETINOPATHY SCREENING 10/26/2022 10/26/2020 COVID-19 VACCINE ( season) 2024 06/10/2022, 08/25/2021, 10/23/2020, Additional history exists DIABETES - URINE PROTEIN SCREENING 08/18/2024 INFLUENZA VACCINE (#1) 2025 , 06/12/2023, 05/14/2022, Additional history exists DIABETES-SERUM CREATININE 06/14/20252023, 03/22/2024, 05/23/2023, Additional history exists DTAP/TDAP/TD VACCINES (4 - Td or Tdap) 12/19/2030 12/19/2020, 04/12/2013, 08/18/2001 HEPATITIS C SCREENING Completed 07/30/2017, 011 HIB VACCINE Aged Out No longer eligi ble based on patient's age to complete this topic HPV VACCINE Aged Out No longer eligi ble based on patient's age to complete this topic MENINGOCOCCAL (Group B) VACCINE SHARED DECISION-MAKING Aged Out No longer eligible based on patient's age to complete this topic MENINGOCOCCAL GROUPS A/C/Y/W VACCINE Aged Out No longer eligible based on patient's age to complete this topic Procedures Procedure Name Priority Date/Time Associated Diagnosis Comments COMPREHENSIVE METABOLIC PANEL Routine 06/14/2024 10:38 AM CDT High risk medications (not anticoagulants) long-term use EYE EXAM 10/26/2020 7:17 AM VESSEL BUILDER HEPATITIS C AB W/RFLX TO HCV RNA QN PCR Routine 07/30/2017 11:31 AM VESSEL BUILDER from Last 3 Months or Most Recently Relevant to Health Maintenance Results * (ABNORMAL) COMPREHENSIVE METABOLIC PANEL (w/eGFR) (06/14/2024 10:38 AM CDT) Glucose 158(H) 70 - 99 mg/dL [facility] INSURANCE BILL BUN 16 6 - 24 mg/dL [facility] INSURANCE BILL Creatinine 0.93 0.57 - 1.00 mg/dL [facility] INSURANCE BILL eGFR by CKD-EPI 72 >59 mL/min/1.7 3 [facility] INSURANCE BILL BUN/Creatinine Ratio 17 9 - 23 [facility] INSURANCE BILL Sodium 145(H) 134 - 144 mmol/L [facility] INSURANCE BILL Potassium 4.4 3.5 - 5.2 mmol/L [facility] INSURANCE BILL Chloride 107(H) 96 - 106 mmol/L [facility] INSURANCE BILL CO2 23 20 - 29 mmol/L [facility] INSURANCE BILL Calcium 9.7 8.7 - 10.2 mg/dL [facility] INSURANCE BILL Protein Total 6.6 6.0 - 8.5 g/dL [facility] INSURANCE BILL Albumin 4.3 3.8 - 4.9 g/dL [facility] INSURANCE BILL Globulin Total 2.3 1.5 - 4.5 g/dL [facility] INSURANCE BILL Bilirubin Total <0.2 0.0 - 1.2 mg/dL [facility] INSURANCE BILL Alkaline Phosphatase 122(H) 44 - 121 IU/L [facility] INSURANCE BILL AST 18 0 - 40 IU/L [facility] INSURANCE BILL ALT 18 0 - 32 IU/L [facility] INSURANCE BILL Blood BLOOD SPECIMEN / Unknown 06/14/2024 10:38 AM CDT 06/14/2024 Narrative [facility] INSURANCE BILL - 06/15/2024 9:12 AM CDT Performed at: [address] [place] [id number] Field Gauger: Rishi Son PhD, Phone: [phone] [facility] Ashley Mahmood MD LAB - CHEMISTRY ORDERABLES Fi nal Result [facility] INSURANCE BILL [address] [place] [address] * EYE EXAM (10/26/2020 7:17 AM VESSEL BUILDER) Anatomical Region Laterality Modality Other Narrative 10/26/2020 7:17 AM VESSEL BUILDER Ordered by an unspecified provider. us Scanned Document SCANNING ONLY Final Result * HEPATITIS C AB W/RFLX TO HCV RNA QN PCR (07/30/2017 11:31 AM VESSEL BUILDER) Hepatitis C Antibody NON-REACTI VE NON-REACT [facility] Signal/Cutoff 0.01 <1.00 [facility]) Comment: REPORT COMMENT: IS PATIENT ON HEPARIN, ARGATROBAN OR DABIGATRAN?->N Test Performed at: [facility] [address] [place] [address] POWER GOMEZ DO,MPH 07/30/2017 11:3 1 AM VESSEL BUILDER 07/30/2017 11:32 AM VESSEL BUILDER us Lucia Pedroza PA-C LAB - CHEMISTRY ORDERABLE S Final Result [facility] [address] [place], [place] [address] from Last 3 Months or Most Recently Relevant to Health Maintenance Insurance MEDICAID - [place] MEDICARE MEDICARE Advance Directives * Full Code (Latest Code Status on File) Date Activated Date Inactivated Comments 10/26/2020 10:59 PM 10/29/2020 2:51 PM Care Teams Diesel Mechanic Relationship Specialty Start Date End Date Fernando Lujan MD [address] [place] [phone] PCP - General Family Medicine 05/21/23
== END 2025-03-01 13:21 | disposition home or self-care (01) ==
PROVIDERS: PCP Family Medicine; Visit Provider Family Medicine
DX: K76.0 Fatty (change of) liver, not elsewhere classified (principal)
CPT/HCPCS: 74177; Q9967